=== PATIENT | male | born 1960 | race Caucasian/White ===

== ENCOUNTER 2018-04-09 12:09 | Emergency (ER) | payer MEDICARE, MEDICAID ==
--- NOTE | 2018-04-09 12:42 | EDM.PDOC ---
ED HPI GENERAL MEDICAL PROBLEM - General Chief Complaint: General Stated Complaint: PB HIGH, WEAK, NO MEDICAL MEDS X 1 WK Time Seen by Provider: 04/09/18 12:30 Source of Information: Reports: Patient, RN, RN Notes Reviewed History Limitations: Reports: No Limitations - History of Present Illness INITIAL COMMENTS - FREE TEXT/NARRATIVE: Pt to the ER with direct customer service representative from the [facility]. She states his BP was elevated at the [facility] while there for an appointment. Patient states he has not taken his BP or cardiac meds in about 2 weeks. Patient states he has had some nausea on and off today. Pt. also has a history of Bipolar disorder which is being managed by a psychiatrist here in town. Patient needs medications filled, but he does not have any javier to pay the co-pay. They were hoping to get enough medications through the ER to get by until he establishes care with Edith Somers NP at next week. Pt denies visual disturbances , chest pain, SOB, headache. He states he has had some diarrhea at times, denies vomiting. Onset: Gradual Epigastric Pain Score (Numeric/FACES): 8 - Related Data Allergies Allergy/AdvReac Type Severity Reaction Status Date / Time No Known Allergies Allergy Verified 04/09/18 12:17 Home Meds: Home Meds . [Unable to Verify Home Med List] 04/09/18 [History] Past Medical History HEENT History: Reports: Impaired Vision Cardiovascular History: Reports: Heart Failure Gastrointestinal History: Reports: GERD Neurological History: Reports: Other (See Below) Other Neuro History: restless leg syndrome Psychiatric History: Reports: Suicide Attempt Dermatologic History: Reports: Other (See Below) Other Dermatologic History: dermatitis - Past Surgical History GI Surgical History: Reports: Cholecystectomy Musculoskeletal Surgical History: Reports: Arthroscopic Knee Social & Family History - Tobacco Use Smoking Status *Q: Current Every Day Smoker Years of Tobacco use: 38 Packs/Tins Daily: 0.4 Second Hand Smoke Exposure: Yes - Recreational Drug Use Recreational Drug Use: Yes Drug Use in Last 12 Months: Yes Recreational Drug Type: Reports: Marijuana/Hashish Recreational Drug Use Frequency: Rarely ED ROS GENERAL - Review of Systems Review Of Systems: ROS reveals no pertinent complaints other than HPI. ED EXAM, GENERAL - Physical Exam Exam: See Below Exam Limited By: No Limitations General Appearance: Alert, WD/WN, No Apparent Distress Eye Exam: Bilateral Eye: EOMI, Normal Inspection Ears: Normal External Exam, Hearing Grossly Normal Nose: Normal Inspection Throat/Mouth: Normal Inspection, Normal Voice, No Airway Compromise Head: Atraumatic, Normocephalic Neck: Normal Inspection, Supple, Non-Tender, Full Range of Motion Respiratory/Chest: No Respiratory Distress, No Accessory Muscle Use, Chest Non- Tender, Decreased Breath Sounds Cardiovascular: Normal Peripheral Pulses, Regular Rate, Rhythm, No Edema, No Gallop, No JVD, No Murmur, No Rub Peripheral Pulses: 2+: Radial (L), Radial (R) GI/Abdominal: Normal Bowel Sounds, Soft, Non-Tender, Other (c/o nausea) (Male) Exam: Deferred Rectal (Males) Exam: Deferred Back Exam: Normal Inspection, Full Range of Motion, NT Extremities: Normal Inspection, Normal Range of Motion, Non-Tender, Normal Capillary Refill, No Pedal Edema Neurological: Alert, Oriented, CN II-XII Intact, Normal Cognition, Normal Gait, Normal Reflexes, No Motor/Sensory Deficits Psychiatric: Flat Affect Skin Exam: Warm, Dry, Intact, Normal Color, No Rash Lymphatic: No Adenopathy Course - Vital Signs Last Recorded V/S: Last Vital Signs Temp 97.3 F 04/09/18 12:12 Pulse 65 04/09/18 12:12 Resp 18 04/09/18 12:12 BP 163/98 H 04/09/18 12:12 Pulse Ox 99 04/09/18 12:12 - Orders/Labs/Meds Orders: Active Orders 24 hr Category Date Time Status DRUG SCREEN URINE BIORAD [URCHEM] Stat Lab 04/09/18 13:06 Ordered UA W/MICROSCOPIC [URIN] Stat Lab 04/09/18 13:06 Ordered Labs: Laboratory Tests 04/09/18 04/09/18 Range/Units 13:37 13:37 WBC 9.4 (5.0-10.0) 10^3/uL RBC 4.91 (4.6-6.2) 10^6/uL Hgb 15.1 (14.0-18.0) g/dL Hct 44.5 (40.0-54.0) % MCV 90.6 (80-100) fL MCH 30.8 (27.0-34.0) pg MCHC 33.9 (33.0-35.0) g/dL Plt Count 201 (150-450) 10^3/uL Neut % (Auto) 54.7 (42.2-75.2) % Lymph % (Auto) 30.5 (20.5-50.1) % Coffey % (Auto) 12.6 H (2-8) % Eos % (Auto) 1.8 (1.0-3.0) % Baso % (Auto) 0.4 (0.0-1.0) % Sodium 134 L (135-145) mmol/L Potassium 4.1 (3.6-5.0) mmol/L Chloride 102 (101-111) mmol/L Carbon Dioxide 23.0 (21.0-31.0) mmol/L Anion Gap 13.1 BUN 8 (7-18) mg/dL Creatinine 1.0 (0.6-1.3) mg/dL Est Cr Clr Drug Dosing 97.04 mL/min Estimated GFR (MDRD) > 60 BUN/Creatinine Ratio 8.00 Glucose 97 (74-105) mg/dL Calcium 9.0 (8.4-10.2) mg/dl Total Bilirubin 1.3 H (0.2-1.0) mg/dL AST 39 (10-42) IU/L ALT 34 (10-60) IU/L Alkaline Phosphatase 70 (42-121) IU/L Total Protein 7.9 (6.7-8.2) g/dl Albumin 4.2 (3.2-5.5) g/dl Globulin 3.7 Albumin/Globulin Ratio 1.14 Ethyl Alcohol < 5 mg/dL Meds: Medications Discontinued Medications Generic Name Dose Route Start Last Admin Trade Name Freq PRN Reason Stop Dose Admin Ondansetron HCl 4 mg 04/09/18 13:07 04/09/18 13:15 Zofran Odt PO 04/09/18 13:08 4 mg ONETIME ONE Administration Departure - Departure Time of Disposition: 14:08 Disposition: Home, Self-Care 01 Condition: Fair Clinical Impression: Hypertension Qualifiers: Hypertension type: unspecified Qualified Code(s): I10 - Essential (primary) hypertension - Discharge Information *PRESCRIPTION DRUG MONITORING PROGRAM REVIEWED*: No *COPY OF PRESCRIPTION DRUG MONITORING REPORT IN PATIENT DAHLIA: No Instructions: Hypertension, [id number] Forms: ED Department Discharge Additional Instructions: Take Medications as prescribed. [facility] care facility next week. - My Orders Last 24 Hours: My Active Orders 04/09/18 13:06 DRUG SCREEN URINE BIORAD [URCHEM] Stat UA W/MICROSCOPIC [URIN] Stat - Assessment/Plan Last 24 Hours: My Active Orders 04/09/18 13:06 DRUG SCREEN URINE BIORAD [URCHEM] Stat UA W/MICROSCOPIC [URIN] Stat
[2018-04-09] MEDS ORDERED: Ondansetron 4 MG Tab.DIS PO ONE (13:07)
[2018-04-09 14:03] LABS: ANION GAP 13.1; CHLORIDE,CL 102 mmol/L (101-111); SODIUM,NA 134 mmol/L (135-145)
== END 2018-04-09 14:15 | disposition home or self-care (01) ==
LOC: DL.ED 12:09
DX: I11.0 Hypertensive heart disease with heart failure (principal); I50.9 Heart failure, unspecified; F17.210 Nicotine dependence, cigarettes, uncomplicated
CPT/HCPCS: 36415; 80053; 85025; 99284; A9270; G0480

== ENCOUNTER 2018-08-13 04:25 | Emergency (ER) | payer MEDICARE, MEDICAID ==
[2018-08-13] MEDS ORDERED: Acetaminophen/HYDROcodone 325-10 MG Tab PO ONE (04:26)
[2018-08-13] MEDS ORDERED: Lidocaine 1% 30 ML SDV INJECT ONE (04:51)
[2018-08-13] MEDS ORDERED: Acetaminophen/HYDROcodone 325-10 MG Tab ONE (05:42)
--- NOTE | 2018-08-13 05:43 | EDM.PDOC ---
ED HPI GENERAL MEDICAL PROBLEM - General Chief Complaint: Lower Extremity Injury/Pain Stated Complaint: AMBULANCE-UNKNOWN Time Seen by Provider: 08/13/18 05:38 Source of Information: Reports: Patient History Limitations: Reports: No Limitations - History of Present Illness INITIAL COMMENTS - FREE TEXT/NARRATIVE: injured right big toe and tored nail tonight - Related Data Allergies Allergy/AdvReac Type Severity Reaction Status Date / Time No Known Allergies Allergy Verified 08/13/18 04:39 Home Meds: Home Meds . [Unable to Verify Home Med List] 04/09/18 [History] Past Medical History HEENT History: Reports: Impaired Vision Cardiovascular History: Reports: Heart Failure Gastrointestinal History: Reports: GERD Neurological History: Reports: Other (See Below) Other Neuro History: restless leg syndrome Psychiatric History: Reports: Suicide Attempt Dermatologic History: Reports: Other (See Below) Other Dermatologic History: dermatitis - Past Surgical History GI Surgical History: Reports: Cholecystectomy Musculoskeletal Surgical History: Reports: Arthroscopic Knee Social & Family History - Tobacco Use Smoking Status *Q: Current Every Day Smoker Years of Tobacco use: 36 Packs/Tins Daily: 0.4 Second Hand Smoke Exposure: Yes - Recreational Drug Use Recreational Drug Use: No Review of Systems - Review of Systems Review Of Systems: ROS reveals no pertinent complaints other than HPI. ED EXAM, GENERAL - Physical Exam Exam: See Below Exam Limited By: No Limitations General Appearance: Alert, WD/WN, Mild Distress, Other (discomfort) Ears: Hearing Grossly Normal Throat/Mouth: Normal Voice, No Airway Compromise Head: Atraumatic Neck: Non-Tender, Full Range of Motion Respiratory/Chest: No Respiratory Distress Cardiovascular: Regular Rate, Rhythm GI/Abdominal: Soft, Non-Tender Extremities: Other (right big toe nail avulsion, NV wnl, gait limited to pain) Neurological: Alert, Oriented, Normal Cognition, No Motor/Sensory Deficits Psychiatric: Normal Affect, Normal Mood Skin Exam: Warm, Dry, Normal Color Lymphatic: No Adenopathy ED TRAUMA EXTREMITY PROCEDURES - Additional/Other Procedure(s) Other (Free Text) Procedure(s): 1) hibicleanse soak 2) lido local 3) nail removed without complication 4) sterile dressing applied Course - Vital Signs Last Recorded V/S: Last Vital Signs Temp 36.8 C 08/13/18 04:37 Pulse 92 08/13/18 04:37 Resp 18 08/13/18 04:37 BP 175/104 H 08/13/18 04:37 Pulse Ox 99 08/13/18 04:37 - Orders/Labs/Meds Meds: Medications Discontinued Medications Generic Name Dose Route Start Last Admin Trade Name Giovanni PRN Reason Stop Dose Admin Lidocaine HCl 30 ml 08/13/18 04:51 Xylocaine-Mpf 1% INJECT 08/13/18 04:52 ONETIME ONE Departure - Departure Time of Disposition: 05:41 Disposition: Home, Self-Care 01 Condition: Fair Clinical Impression: Nail avulsion of toe Qualifiers: Encounter type: initial encounter Qualified Code(s): S91.209A - Unspecified open wound of unspecified toe(s) with damage to nail, initial encounter - Discharge Information Instructions: Nail Bed Injury, [id number] Additional Instructions: 1) keep wound clean dry covered next 48 hours 2) change dressing Thursday 3) recheck if there is any change or concern rx given; clindamycin 300mg qid x 40 vicodin 5/325mg bid prn x 6
== END 2018-08-13 05:48 | disposition home or self-care (01) ==
LOC: DL.ED 04:25
DX: S91.201A Unspecified open wound of right great toe with damage to nail, initial encounter (principal); I50.9 Heart failure, unspecified; F17.210 Nicotine dependence, cigarettes, uncomplicated; X58.XXXA Exposure to other specified factors, initial encounter
CPT/HCPCS: 99284; A9270

== ENCOUNTER 2018-08-15 22:48 | Emergency (ER) | payer MEDICARE, MEDICAID ==
[2018-08-15] MEDS ORDERED: LORazepam 1 MG Tab PO ONE (22:49)
[2018-08-15] MEDS ORDERED: Meclizine 12.5 MG Tab PO ONE (22:59)
--- NOTE | 2018-08-15 23:03 | EDM.PDOC ---
ED HPI GENERAL MEDICAL PROBLEM - General Chief Complaint: General Stated Complaint: AMBULANCE-UNKNOW Time Seen by Provider: 08/15/18 22:59 Source of Information: Reports: Patient History Limitations: Reports: No Limitations - History of Present Illness INITIAL COMMENTS - FREE TEXT/NARRATIVE: onset dizziness about 3pm feeling like room is spinning worse when moves around then tonight felt worse feel like passing out thinks he might have taken too many sleeping pills since has been having problem sleeping. Right Hand Pain Score (Numeric/FACES): 4 - Related Data Allergies Allergy/AdvReac Type Severity Reaction Status Date / Time No Known Allergies Allergy Verified 08/15/18 23:21 Home Meds: Home Meds . [Unable to Verify Home Med List] 04/09/18 [History] Past Medical History HEENT History: Reports: Impaired Vision Cardiovascular History: Reports: Heart Failure Gastrointestinal History: Reports: GERD Neurological History: Reports: Other (See Below) Other Neuro History: restless leg syndrome Psychiatric History: Reports: Suicide Attempt Dermatologic History: Reports: Other (See Below) Other Dermatologic History: dermatitis - Past Surgical History GI Surgical History: Reports: Cholecystectomy Musculoskeletal Surgical History: Reports: Arthroscopic Knee ED ROS GENERAL - Review of Systems Review Of Systems: ROS reveals no pertinent complaints other than HPI. ED EXAM, GENERAL - Physical Exam Exam: See Below Exam Limited By: No Limitations General Appearance: Alert, WD/WN, Mild Distress, Other (dizziness) Eye Exam: Bilateral Eye: PERRL (pupils ER @ 4mm) Ears: Hearing Grossly Normal Throat/Mouth: Normal Voice, No Airway Compromise Head: Atraumatic Neck: Non-Tender, Full Range of Motion Respiratory/Chest: No Respiratory Distress, Rhonchi Cardiovascular: Regular Rate, Rhythm GI/Abdominal: Soft, Non-Tender Neurological: Alert, Oriented, Normal Cognition, No Motor/Sensory Deficits, Other (gait limited to vertigo) Psychiatric: Normal Affect, Normal Mood Skin Exam: Warm, Dry, Normal Color Lymphatic: No Adenopathy Course - Vital Signs Last Recorded V/S: Last Vital Signs Temp 37.1 C 08/15/18 23:04 Pulse 90 08/15/18 23:04 Resp 20 08/15/18 23:04 BP 192/118 H 08/15/18 23:04 Pulse Ox 100 08/15/18 23:04 - Orders/Labs/Meds Orders: Active Orders 24 hr Category Date Time Status EKG 12 Lead [EKG Documentation Completion] [RC] STAT Care 08/15/18 22:55 Active Labs: Laboratory Tests 08/15/18 08/15/18 Range/Units 23:15 23:15 WBC 8.4 (5.0-10.0) 10^3/uL RBC 5.25 (4.6-6.2) 10^6/uL Hgb 16.2 (14.0-18.0) g/dL Hct 47.7 (40.0-54.0) % MCV 90.9 (80-100) fL MCH 30.9 (27.0-34.0) pg MCHC 34.0 (33.0-35.0) g/dL Plt Count 207 (150-450) 10^3/uL Neut % (Auto) 47.8 (42.2-75.2) % Lymph % (Auto) 34.7 (20.5-50.1) % Wake % (Auto) 11.7 H (2-8) % Eos % (Auto) 5.2 H (1.0-3.0) % Baso % (Auto) 0.6 (0.0-1.0) % Sodium 134 L (135-145) mmol/L Potassium 3.6 (3.6-5.0) mmol/L Chloride 98 L (101-111) mmol/L Carbon Dioxide 24.0 (21.0-31.0) mmol/L Anion Gap 15.6 BUN 11 (7-18) mg/dL Creatinine 1.1 (0.6-1.3) mg/dL Est Cr Clr Drug Dosing 87.18 mL/min Estimated GFR (MDRD) > 60 BUN/Creatinine Ratio 10.00 Glucose 94 (74-105) mg/dL Calcium 9.4 (8.4-10.2) mg/dl Total Bilirubin 0.8 (0.2-1.0) mg/dL AST 36 (10-42) IU/L ALT 32 (10-60) IU/L Alkaline Phosphatase 93 (42-121) IU/L Troponin I < 0.02 (0.00-0.02) ng/ml B-Natriuretic Peptide 13 (0-100) pg/ml Total Protein 8.4 H (6.7-8.2) g/dl Albumin 4.3 (3.2-5.5) g/dl Globulin 4.1 Albumin/Globulin Ratio 1.05 Meds: Medications Discontinued Medications Generic Name Dose Route Start Last Admin Trade Name Giovanni CARRILLO Reason Stop Dose Admin Lorazepam Confirm 08/16/18 00:07 08/16/18 00:34 Ativan Administered 08/16/18 00:08 Not Given Dose 1 mg .ROUTE .STK-MED ONE Meclizine HCl 12.5 mg 08/15/18 22:59 08/15/18 23:31 Antivert PO 08/15/18 23:00 12.5 mg ONETIME ONE Administration - Re-Assessments/Exams Free Text/Narrative Re-Assessment/Exam: 08/15/18 23:59 results discussed with pt who states he has been taking bit more OTC sleeping pills past few days because he hadn't been sleeping for more than 3 hours past few nights. hadn't seen his PMD for it. but he is feeling slightly better from the meclizine can move better without problems. Departure - Departure Time of Disposition: 00:10 Disposition: Home, Self-Care 01 Condition: Good Clinical Impression: Vertigo Insomnia Qualifiers: Insomnia type: unspecified Qualified Code(s): G47.00 - Insomnia, unspecified - Discharge Information Instructions: Vertigo, [id number] Referrals: PCP,None [Primary Care Provider] - Forms: ED Department Discharge Additional Instructions: 1) see family doctor tomorrow for sleeping meds 2) recheck as needed rx togo; ativan 1mg x 1 - My Orders Last 24 Hours: My Active Orders 08/15/18 22:55 EKG 12 Lead [EKG Documentation Completion] [RC] STAT - Assessment/Plan Last 24 Hours: My Active Orders 08/15/18 22:55 EKG 12 Lead [EKG Documentation Completion] [RC] STAT
[2018-08-15 23:38] LABS: ANION GAP 15.6; CHLORIDE,CL 98 mmol/L (101-111); SODIUM,NA 134 mmol/L (135-145)
[2018-08-16] MEDS ORDERED: LORazepam 1 MG Tab ONE (00:07)
== END 2018-08-16 00:13 | disposition home or self-care (01) ==
LOC: DL.ED 22:48
DX: G47.00 Insomnia, unspecified (principal); R42 Dizziness and giddiness
CPT/HCPCS: 36415; 70450; 71045; 80053; 83880; 84484; 85025; 93005; 99285; A9270

== ENCOUNTER 2018-08-27 22:10 | Emergency (ER) | payer MEDICARE, MEDICAID ==
[2018-08-27 22:52] LABS: ANION GAP 13.5; CHLORIDE,CL 103 mmol/L (101-111); SODIUM,NA 136 mmol/L (135-145)
[2018-08-27] MEDS ORDERED: Iopamidol 612 MG/ML 75 ML Bottle IVPUSH ONE ×2 (22:58→23:08)
[2018-08-27] MEDS ORDERED: HYDROmorphone 1 MG/ML Syringe IVPUSH ONE (23:04)
[2018-08-27] MEDS ORDERED: Ondansetron 4 MG/2 ML SDV IV ONE (23:44)
--- NOTE | 2018-08-28 00:40 | EDM.PDOC ---
ED HPI GENERAL MEDICAL PROBLEM - General Chief Complaint: Abdominal Pain Stated Complaint: SOB,RAPID HEART RATE Time Seen by Provider: 08/27/18 22:20 Source of Information: Reports: Patient History Limitations: Reports: No Limitations - History of Present Illness INITIAL COMMENTS - FREE TEXT/NARRATIVE: Ed with c/o mid abdominal pain and one emesis this jeremias.Difficult to obtain hx from patient muttering one word responses and when asked to repeat patient angry eugene responses. Able t determine nauseated prior to eating cottage cheese PRODUCTION LEAD then mid abdominal pain. EMS report apartment littered with fast food bags, empty bags of potato chips and pop. Epigastric Pain Score (Numeric/FACES): 9 - Related Data Allergies Allergy/AdvReac Type Severity Reaction Status Date / Time No Known Allergies Allergy Verified 08/27/18 23:08 Home Meds: Home Meds . [Unable to Verify Home Med List] 04/09/18 [History] Past Medical History HEENT History: Reports: Impaired Vision Cardiovascular History: Reports: Heart Failure Gastrointestinal History: Reports: GERD Neurological History: Reports: Other (See Below) Other Neuro History: restless leg syndrome Psychiatric History: Reports: Suicide Attempt Dermatologic History: Reports: Other (See Below) Other Dermatologic History: dermatitis - Past Surgical History GI Surgical History: Reports: Cholecystectomy Musculoskeletal Surgical History: Reports: Arthroscopic Knee Social & Family History - Tobacco Use Smoking Status *Q: Current Every Day Smoker Years of Tobacco use: 28 Packs/Tins Daily: 0.3 - Caffeine Use Caffeine Use: Reports: None - Recreational Drug Use Recreational Drug Use: No ED ROS GENERAL - Review of Systems Review Of Systems: Unable To Obtain ED EXAM, GI/ABD - Physical Exam Exam: See Below General Appearance: Alert, No Apparent Distress, Obese (morbid) Eyes: Bilateral: EOMI Ears: Normal External Exam, Normal TMs Nose: Normal Inspection Throat/Mouth: Normal Inspection Head: Atraumatic, Normocephalic Neck: Normal Inspection Respiratory/Chest: No Respiratory Distress, Lungs Clear Cardiovascular: Normal Peripheral Pulses, Regular Rate, Rhythm, Tachycardia (100 's with activity) GI/Abdominal Exam: Normal Bowel Sounds, Soft, Tender (deep palpation mid), Other (proruberant umbilical hernia). No: Guarding, Rigid, Rebound Extremities: Normal Inspection, Pedal Edema (1+) Neurological: Alert, Oriented, Normal Cognition Psychiatric: Other (easily agitated) Skin Exam: Warm, Dry, Intact, Normal Color Course - Vital Signs Last Recorded V/S: Last Vital Signs Temp 98 F 08/27/18 22:18 Pulse 117 H 08/27/18 22:18 Resp 20 08/27/18 22:18 BP 105/75 08/27/18 22:18 Pulse Ox 94 L 08/27/18 22:18 - Orders/Labs/Meds Labs: Laboratory Tests 08/27/18 08/27/18 08/27/18 Range/Units 22:25 22:25 22:25 WBC 10.3 H (5.0-10.0) 10^3/uL RBC 4.74 (4.6-6.2) 10^6/uL Hgb 14.8 (14.0-18.0) g/dL Hct 43.6 (40.0-54.0) % MCV 92.0 (80-100) fL MCH 31.2 (27.0-34.0) pg MCHC 33.9 (33.0-35.0) g/dL Plt Count 189 (150-450) 10^3/uL Neut % (Auto) 57.7 (42.2-75.2) % Lymph % (Auto) 29.5 (20.5-50.1) % Newton % (Auto) 10.7 H (2-8) % Eos % (Auto) 1.6 (1.0-3.0) % Baso % (Auto) 0.5 (0.0-1.0) % Sodium 136 (135-145) mmol/L Potassium 3.5 L (3.6-5.0) mmol/L Chloride 103 (101-111) mmol/L Carbon Dioxide 23.0 (21.0-31.0) mmol/L Anion Gap 13.5 BUN 15 (7-18) mg/dL Creatinine 1.0 (0.6-1.3) mg/dL Est Cr Clr Drug Dosing 95.90 mL/min Estimated GFR (MDRD) > 60 BUN/Creatinine Ratio 15.00 Glucose 164 H (74-105) mg/dL Calcium 8.6 (8.4-10.2) mg/dl Magnesium 1.9 (1.8-2.5) mg/dL Total Bilirubin 0.8 (0.2-1.0) mg/dL AST 28 (10-42) IU/L ALT 20 (10-60) IU/L Alkaline Phosphatase 88 (42-121) IU/L CK-MB (CK-2) 0.80 (0.4-4.7) ng/mL Troponin I < 0.02 (0.00-0.02) ng/ml Total Protein 7.3 (6.7-8.2) g/dl Albumin 3.7 (3.2-5.5) g/dl Globulin 3.6 Albumin/Globulin Ratio 1.03 Meds: Medications Discontinued Medications Generic Name Dose Route Start Last Admin Trade Name Freq PRN Reason Stop Dose Admin Hydromorphone HCl 1 mg 08/27/18 23:04 08/27/18 23:30 Dilaudid IVPUSH 08/27/18 23:05 1 mg ONETIME ONE Administration Iopamidol 75 ml 08/27/18 22:58 08/27/18 23:07 Isovue-300 (61%) IVPUSH 08/27/18 22:59 75 ml ONETIME ONE Administration Iopamidol 75 ml 08/27/18 23:08 08/27/18 23:14 Isovue-300 (61%) IVPUSH 08/27/18 23:09 75 ml ONETIME ONE Administration Ondansetron HCl 4 mg 08/27/18 23:44 08/27/18 23:49 Zofran IV 08/27/18 23:45 4 mg ONETIME ONE Administration Departure - Departure Time of Disposition: 00:46 Disposition: Home, Self-Care 01 Condition: Good Clinical Impression: Nausea Abdominal pain Qualifiers: Abdominal location: epigastric Qualified Code(s): R10.13 - Epigastric pain - Discharge Information *PRESCRIPTION DRUG MONITORING PROGRAM REVIEWED*: Not Applicable Instructions: Nausea, Adult, [id number] Referrals: PCP,None [Primary Care Provider] - Forms: ED Department Discharge Additional Instructions: light diet push fluids next 24 hours zofran 4mg ODT one every 4 hours as needed for nausea light bland diet follow up as needed
== END 2018-08-28 01:00 | disposition home or self-care (01) ==
LOC: DL.ED 22:10
DX: R10.13 Epigastric pain (principal); R11.2 Nausea with vomiting, unspecified; F17.210 Nicotine dependence, cigarettes, uncomplicated
CPT/HCPCS: 36415; 71045; 74177; 80053; 82553; 83735; 84484; 85025; 93005; 96374; 96375; 99285; J1170; J2405; Q9967

== ENCOUNTER 2018-12-01 11:20 | Emergency (ER) | payer MEDICARE, MEDICAID ==
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
--- NOTE | 2018-12-01 14:09 | CR ---
Clinical history: 58-year-old 411 pound male complaining of chest pain who was injured in a fall (right shoulder). Interpretation: Enlarged cardiac silhouette, generalized mild pulmonary venous congestion and small dependent subpulmonic pleural effusions suggesting some cardiovascular decompensation. BPN? EKG? Renal disease? No lung mass, hilar lymphadenopathy or focal lobar pneumonia. No atelectasis/collapse. No pneumothorax. CONCLUSION: Abnormal congestion (see above). No lung contusion or pneumothorax.
--- NOTE | 2018-12-01 14:13 | CR ---
Clinical history: 58-year-old morbidly obese (411 pounds) male with chest congestion and pain right shoulder (injured fall). Interpretation: (4 views) calcified axillary lymph nodes on the right. Chronic mild reactive arthritic changes right A/C joint. Normal spacing between the acromion process scapula and the head of the humerus. No juxta-articular rotator cuff tendon calcification. *Suspicious appearance on the "Y view" suggesting nondisplaced avulsion fracture greater tuberosity humeral head. No other fracture or glenohumeral dislocation right shoulder. Underlying ribs upper right hemithorax unremarkable. Right lung apex clear. CONCLUSION: Suspicious appearance humeral head (occult nondisplaced fracture). No other fracture or dislocation/separation.
[2018-12-01 15:02] LABS: ANION GAP 12.7; CHLORIDE,CL 106 mmol/L (101-111); SODIUM,NA 138 mmol/L (135-145)
== END 2018-12-01 14:24 | disposition left against medical advice (07) ==
LOC: DL.ED 11:20
DX: L03.116 Cellulitis of left lower limb (principal); I11.0 Hypertensive heart disease with heart failure; I50.9 Heart failure, unspecified; J44.9 Chronic obstructive pulmonary disease, unspecified; K21.9 Gastro-esophageal reflux disease without esophagitis; F17.210 Nicotine dependence, cigarettes, uncomplicated; F32.9 Major depressive disorder, single episode, unspecified; Z91.19 Patient's noncompliance with other medical treatment and regimen; Z79.899 Other long term (current) drug therapy; Z79.82 Long term (current) use of aspirin
CPT/HCPCS: 36415; 71046; 73030-RT; 80053; 84484; 85025; 93005; 99284-25

== ENCOUNTER 2018-12-14 13:31 | Emergency (ER) | payer MEDICARE, MEDICAID ==
[2018-12-14 14:26] LABS: ANION GAP 13.9; CHLORIDE,CL 101 mmol/L (101-111); SODIUM,NA 135 mmol/L (135-145)
--- NOTE | 2018-12-14 14:53 | CR ---
Clinical history: 58-year-old obese male with chest pain and shortness of breath (comparison 01 Dec 2018). 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 Normal cardiac silhouette exaggerated by poor inspiration but unchanged and no new cephalization of flow, signs of alveolar edema or dependent pleural fluid accumulation. No new lung mass, hilar lymphadenopathy or focal lobar pneumonia. Peribronchial "cuffing" but no air trapping. No pneumothorax. No atelectasis/collapse. CONCLUSION: No acute new cardiopulmonary abnormality since 01 Dec 2018 exam when patient appeared to be "congested" (small pleural effusions) i.e. interval improvement.
--- NOTE | 2018-12-14 15:07 | EDM.PDOC ---
ED HPI GENERAL MEDICAL PROBLEM - General Chief Complaint: Respiratory Problem Stated Complaint: REFERRED FROM [facility] Time Seen by Provider: 12/14/18 14:11 Source of Information: Reports: Patient, Provider, RN, RN Notes Reviewed History Limitations: Reports: No Limitations - History of Present Illness INITIAL COMMENTS - FREE TEXT/NARRATIVE: Patient presents to ER with complaint of sharp chest pains mid sternal and shortness of breath a couple of weeks ago. He saw Nurse Practitioner at clinic today. Cannot walk long distance, needs to rest. He has had fever, chills, dry heaves and decreased appetite. No diarrhea or cough. Onset: Gradual Duration: Constant Location: Reports: Chest Quality: Reports: Ache Severity: Mild Improves with: Reports: None Worsens with: Reports: None Associated Symptoms: Reports: Diaphoresis Middle Chest Pain Score (Numeric/FACES): 4 - Related Data Allergies Allergy/AdvReac Type Severity Reaction Status Date / Time No Known Allergies Allergy Verified 12/14/18 14:10 Home Meds: Home Meds Albuterol Sulfate [Albuterol Sulfate Hfa] 2 puff IH Q6H PRN 12/14/18 [History] Aspirin [Halfprin] 81 mg PO DAILY 12/14/18 [History] Budesonide/Formoterol [Symbicort 160-4.5 MCG] 2 puff INH BID 12/14/18 [History] Carvedilol 12.5 mg PO BID 12/14/18 [History] Furosemide [Lasix] 40 mg PO DAILY 12/14/18 [History] Gabapentin [Gralise] 600 mg PO BEDTIME 12/14/18 [History] LORazepam 0.5 mg PO BEDTIME 12/14/18 [History] Lisinopril 10 mg PO DAILY 12/14/18 [History] Ondansetron [Zofran ODT] 4 mg PO Q8H PRN 12/14/18 [History] Pantoprazole Sodium [Protonix] 40 mg PO DAILY 12/14/18 [History] QUEtiapine Fumarate [Seroquel] 800 mg PO BEDTIME 12/14/18 [History] Sertraline [Zoloft] 50 mg PO DAILY 12/14/18 [History] Simvastatin [Zocor] 20 mg PO BEDTIME 12/14/18 [History] amLODIPine [Norvasc] 5 mg PO DAILY 12/14/18 [History] Past Medical History HEENT History: Reports: Impaired Vision Cardiovascular History: Reports: Heart Failure, High Cholesterol, Hypertension Respiratory History: Reports: COPD Gastrointestinal History: Reports: GERD Genitourinary History: Reports: None Neurological History: Reports: Other (See Below) Other Neuro History: restless leg syndrome Psychiatric History: Reports: Depression, Suicide Attempt Endocrine/Metabolic History: Reports: Obesity/BMI 30+ Hematologic History: Reports: None Immunologic History: Reports: None Oncologic (Cancer) History: Reports: None Dermatologic History: Reports: Cellulitis, Other (See Below) Other Dermatologic History: dermatitis - Infectious Disease History Infectious Disease History: Reports: None - Past Surgical History Head Surgeries/Procedures: Reports: None GI Surgical History: Reports: Cholecystectomy Musculoskeletal Surgical History: Reports: Arthroscopic Knee Social & Family History - Family History Family Medical History: Noncontributory - Tobacco Use Smoking Status *Q: Current Every Day Smoker Years of Tobacco use: 30 Packs/Tins Daily: 0.2 - Caffeine Use Caffeine Use: Reports: None - Recreational Drug Use Recreational Drug Use: No ED ROS GENERAL - Review of Systems Review Of Systems: ROS reveals no pertinent complaints other than HPI. ED EXAM, GENERAL - Physical Exam Exam: See Below Exam Limited By: No Limitations General Appearance: Alert, WD/WN, No Apparent Distress Eye Exam: Bilateral Eye: EOMI, Normal Inspection, PERRL Ears: Normal External Exam, Normal Canal, Hearing Grossly Normal, Normal TMs Nose: Normal Inspection, Normal Mucosa, No Blood Throat/Mouth: Normal Inspection, Normal Lips, Normal Teeth, Normal Gums, Normal Oropharynx, Normal Voice, No Airway Compromise Head: Atraumatic, Normocephalic Neck: Normal Inspection, Supple, Non-Tender, Full Range of Motion Respiratory/Chest: Wheezing (diminished), Other (tender mid sternal) Cardiovascular: Normal Peripheral Pulses, Regular Rate, Rhythm, No Edema, No Gallop, No JVD, No Murmur, No Rub GI/Abdominal: Normal Bowel Sounds, Soft, Non-Tender, No Organomegaly, No Distention, No Abnormal Bruit, No Mass (Male) Exam: Deferred Rectal (Males) Exam: Deferred Back Exam: Normal Inspection, Full Range of Motion, NT Extremities: Normal Inspection, Normal Range of Motion, Non-Tender, Normal Capillary Refill, No Pedal Edema Neurological: Alert, Oriented, CN II-XII Intact, Normal Cognition, Normal Gait, Normal Reflexes, No Motor/Sensory Deficits Psychiatric: Normal Affect, Normal Mood Skin Exam: Warm, Dry, Intact, Normal Color, No Rash Lymphatic: No Adenopathy Course - Vital Signs Last Recorded V/S: Last Vital Signs Temp 97.9 F 12/14/18 14:13 Pulse 72 12/14/18 14:13 Resp 18 12/14/18 14:13 BP 160/108 H 12/14/18 14:13 Pulse Ox 100 12/14/18 14:13 - Orders/Labs/Meds Orders: Active Orders 24 hr Category Date Time Status EKG Documentation Completion [RC] STAT Care 12/14/18 14:01 Inactive EKG Documentation Completion [RC] URGENT Care 12/14/18 13:54 Active Labs: Laboratory Tests 12/14/18 12/14/18 12/14/18 Range/Units 13:55 13:55 13:55 WBC 11.0 H (5.0-10.0) 10^3/uL RBC 5.77 (4.6-6.2) 10^6/uL Hgb 17.7 D (14.0-18.0) g/dL Hct 52.4 (40.0-54.0) % MCV 90.8 (80-100) fL MCH 30.7 (27.0-34.0) pg MCHC 33.8 (33.0-35.0) g/dL Plt Count 213 (150-450) 10^3/uL Neut % (Auto) 54.9 (42.2-75.2) % Lymph % (Auto) 32.2 (20.5-50.1) % Esmeralda % (Auto) 10.4 H (2-8) % Eos % (Auto) 2.2 (1.0-3.0) % Baso % (Auto) 0.3 (0.0-1.0) % PT 10.4 (9.0-12.0) SEC INR 1.0 (0.9-1.2) Sodium 135 (135-145) mmol/L Potassium 3.9 (3.6-5.0) mmol/L Chloride 101 (101-111) mmol/L Carbon Dioxide 24.0 (21.0-31.0) mmol/L Anion Gap 13.9 BUN 13 (7-18) mg/dL Creatinine 1.0 (0.6-1.3) mg/dL Est Cr Clr Drug Dosing 90.53 mL/min Estimated GFR (MDRD) > 60 BUN/Creatinine Ratio 13.00 Glucose 92 (74-105) mg/dL Calcium 9.0 (8.4-10.2) mg/dl Total Bilirubin 1.2 H (0.2-1.0) mg/dL AST 36 (10-42) IU/L ALT 36 (10-60) IU/L Alkaline Phosphatase 79 (42-121) IU/L Troponin I 0.00 (0.00-0.08) ng/mL B-Natriuretic Peptide 10 (0-100) pg/ml Total Protein 8.5 H (6.7-8.2) g/dl Albumin 4.6 (3.2-5.5) g/dl Globulin 3.9 Albumin/Globulin Ratio 1.18 - Radiology Interpretation Free Text/Narrative:: No acute new cardiopulmonary abnormality since 01 Dec 2018 exam when patient appeared to be "congested" (small pleural effusions Departure - Departure Time of Disposition: 15:16 Disposition: Home, Self-Care 01 Condition: Fair Clinical Impression: SOB (shortness of breath), Chest pain due to CAD Hypertension Qualifiers: Hypertension type: unspecified Qualified Code(s): I10 - Essential (primary) hypertension - Discharge Information *PRESCRIPTION DRUG MONITORING PROGRAM REVIEWED*: No *COPY OF PRESCRIPTION DRUG MONITORING REPORT IN PATIENT DAHLIA: No Instructions: Shortness of Breath, Adult, [id number], Exercise Stress Test, [id number], DASH Eating Plan, Hypertension, [id number] Referrals: Edith Somers NP [Primary Care Provider] - Forms: ED Department Discharge Additional Instructions: Get your medications filled and take them Follow up with Exercise Stress Test - My Orders Last 24 Hours: My Active Orders 12/14/18 13:54 EKG Documentation Completion [RC] URGENT 12/14/18 14:01 EKG Documentation Completion [RC] STAT - Assessment/Plan Last 24 Hours: My Active Orders 12/14/18 13:54 EKG Documentation Completion [RC] URGENT 12/14/18 14:01 EKG Documentation Completion [RC] STAT
== END 2018-12-14 15:24 | disposition home or self-care (01) ==
LOC: DL.ED 13:31
DX: I25.10 Atherosclerotic heart disease of native coronary artery without angina pectoris (principal); I10 Essential (primary) hypertension; I11.0 Hypertensive heart disease with heart failure; I50.9 Heart failure, unspecified; J44.9 Chronic obstructive pulmonary disease, unspecified; K21.9 Gastro-esophageal reflux disease without esophagitis; Z79.82 Long term (current) use of aspirin; Z79.899 Other long term (current) drug therapy
CPT/HCPCS: 36415; 71046; 80053; 83880; 84484; 85025; 85610; 93005; 99284-25

== ENCOUNTER 2019-01-04 20:33 | Emergency (ER) | payer MEDICARE, MEDICAID ==
[2019-01-04] MEDS ORDERED: fentaNYL 100 MCG/2 ML SDV IVPUSH ONE ×2 (21:13→22:25)
[2019-01-04] MEDS ORDERED: Ondansetron 4 MG/2 ML SDV IV ONE (21:13)
[2019-01-04 21:24] LABS: ANION GAP 15.6; CHLORIDE,CL 99 mmol/L (101-111); SODIUM,NA 134 mmol/L (135-145)
[2019-01-04] MEDS ORDERED: Labetalol 100 MG/20 ML MDV IVPUSH ONE (21:26)
[2019-01-04] MEDS ORDERED: Iopamidol 612 MG/ML 75 ML Bottle IVPUSH ONE (21:45)
[2019-01-04] MEDS ORDERED: Iopamidol 612 MG/ML 50 ML SDV IVPUSH ONE (21:46)
[2019-01-04] MEDS ORDERED: 50% Dextrose in Water 50 ML Syringe IVPUSH ONE (23:16)
[2019-01-05] MEDS ORDERED: HYDROmorphone 1 MG/ML Syringe IVPUSH ONE (00:23)
[2019-01-05] MEDS ORDERED: Labetalol 100 MG/20 ML MDV IVPUSH ONE (00:24)
--- NOTE | 2019-01-05 00:43 | EDM.PDOC ---
"ED HPI GENERAL MEDICAL PROBLEM - General Chief Complaint: General Stated Complaint: UNKNOWN-AMBULANCE Time Seen by Provider: 01/04/19 20:35 Source of Information: Reports: Patient History Limitations: Reports: No Limitations - History of Present Illness INITIAL COMMENTS - FREE TEXT/NARRATIVE: ED via [facility] with c/o abdominal pain, and nausea. Fields weak pat 2 days. reported to RN fell 5 times today, to provider fell to knees x 1. has not hit head. No diarrhea. No cough. No reported fever. No chest pain. Only ate breakfast of cheerios and went back to bed. Decreased urination past few weeks. States abdomen feels distended. 2 BM's today. Similar episodes of weekness and abdominal pain in past. Initial report of compliance with medications, later that is out of seroquel and ativan for past week, Pharmacy reviews appears to have been filled on 12/07/2018 Right Lower Abdomen Pain Score (Numeric/FACES): 7 - Related Data Allergies Allergy/AdvReac Type Severity Reaction Status Date / Time No Known Allergies Allergy Verified 01/04/19 20:58 Home Meds: Home Meds Albuterol Sulfate [Albuterol Sulfate Hfa] 2 puff IH Q6H PRN 12/14/18 [History] Aspirin [Halfprin] 81 mg PO DAILY 12/14/18 [History] Budesonide/Formoterol [Symbicort 160-4.5 MCG] 2 puff INH BID 12/14/18 [History] Carvedilol 12.5 mg PO BID 12/14/18 [History] Furosemide [Lasix] 40 mg PO DAILY 12/14/18 [History] Gabapentin [Gralise] 600 mg PO BEDTIME 12/14/18 [History] LORazepam 0.5 mg PO BEDTIME 12/14/18 [History] Lisinopril 10 mg PO DAILY 12/14/18 [History] Ondansetron [Zofran ODT] 4 mg PO Q8H PRN 12/14/18 [History] Pantoprazole Sodium [Protonix] 40 mg PO DAILY 12/14/18 [History] QUEtiapine Fumarate [Seroquel] 800 mg PO BEDTIME 12/14/18 [History] Sertraline [Zoloft] 50 mg PO DAILY 12/14/18 [History] Simvastatin [Zocor] 20 mg PO BEDTIME 12/14/18 [History] amLODIPine [Norvasc] 5 mg PO DAILY 12/14/18 [History] Past Medical History HEENT History: Reports: Impaired Vision Cardiovascular History: Reports: Heart Failure, High Cholesterol, Hypertension Respiratory History: Reports: COPD Gastrointestinal History: Reports: GERD Genitourinary History: Reports: None Neurological History: Reports: Other (See Below) Other Neuro History: restless leg syndrome Psychiatric History: Reports: Depression, Suicide Attempt Endocrine/Metabolic History: Reports: Obesity/BMI 30+ Hematologic History: Reports: None Immunologic History: Reports: None Oncologic (Cancer) History: Reports: None Dermatologic History: Reports: Cellulitis, Other (See Below) Other Dermatologic History: dermatitis - Infectious Disease History Infectious Disease History: Reports: None, Hepatitis A - Past Surgical History Head Surgeries/Procedures: Reports: None GI Surgical History: Reports: Cholecystectomy Musculoskeletal Surgical History: Reports: Arthroscopic Knee Social & Family History - Family History Family Medical History: Noncontributory - Tobacco Use Smoking Status *Q: Current Every Day Smoker Years of Tobacco use: 28 Packs/Tins Daily: 5 - Caffeine Use Caffeine Use: Reports: None - Recreational Drug Use Recreational Drug Use: No ED ROS GENERAL - Review of Systems Review Of Systems: ROS reveals no pertinent complaints other than HPI. ED EXAM, GENERAL - Physical Exam Exam: See Below Exam Limited By: No Limitations General Appearance: Alert, Anxious, Mild Distress, Obese (morbid), Other ( unshowered, skin and hair greasy.) Eye Exam: Bilateral Eye: EOMI, PERRL Ears: Normal External Exam, Normal TMs, Hearing Loss Nose: Normal Inspection Throat/Mouth: Normal Inspection Head: Atraumatic, Normocephalic Neck: Normal Inspection Respiratory/Chest: No Respiratory Distress, Lungs Clear, Normal Breath Sounds Cardiovascular: Normal Peripheral Pulses, Regular Rate, Rhythm GI/Abdominal: Normal Bowel Sounds, Tender (general) Back Exam: Normal Inspection Extremities: Normal Inspection, Normal Range of Motion, Pedal Edema (2+). No: Joint Swelling Neurological: Alert, Oriented, Normal Cognition Psychiatric: Anxious Skin Exam: Warm, Dry, Intact, Normal Color, Other (no bruising or abrasion to knee, superficial scratches to right upper arm, light sunburn to right upper extremity and neck.). No: Ecchymosis Course - Vital Signs Last Recorded V/S: Last Vital Signs Temp 99 F 01/05/19 01:31 Pulse 91 01/05/19 00:46 Resp 16 01/05/19 00:46 BP 179/101 H 01/04/19 22:53 Pulse Ox 96 01/05/19 00:46 - Orders/Labs/Meds Orders: Active Orders 24 hr Category Date Time Status EKG 12 Lead [EKG Documentation Completion] [RC] URGENT Care 01/04/19 20:41 Active Labs: Laboratory Tests 01/04/19 01/04/19 01/04/19 Range/Units 20:55 20:55 20:55 WBC 17.6 H (5.0-10.0) 10^3/uL RBC 5.58 (4.6-6.2) 10^6/uL Hgb 17.4 (14.0-18.0) g/dL Hct 49.8 (40.0-54.0) % MCV 89.2 (80-100) fL MCH 31.2 (27.0-34.0) pg MCHC 34.9 (33.0-35.0) g/dL Plt Count 187 (150-450) 10^3/uL Neut % (Auto) 79.9 H (42.2-75.2) % Lymph % (Auto) 10.7 L (20.5-50.1) % [place] % (Auto) 8.5 H (2-8) % Eos % (Auto) 0.7 L (1.0-3.0) % Baso % (Auto) 0.2 (0.0-1.0) % PT (9.0-12.0) SEC INR (0.9-1.2) Sodium 134 L (135-145) mmol/L Potassium 3.6 (3.6-5.0) mmol/L Chloride 99 L (101-111) mmol/L Carbon Dioxide 23.0 (21.0-31.0) mmol/L Anion Gap 15.6 BUN 12 (7-18) mg/dL Creatinine 0.9 (0.6-1.3) mg/dL Est Cr Clr Drug Dosing 106.56 mL/min Estimated GFR (MDRD) > 60 BUN/Creatinine Ratio 13.33 Glucose 110 H (74-105) mg/dL Lactic Acid 1.4 (0.5-2.2) mmol/L Calcium 9.1 (8.4-10.2) mg/dl Magnesium 1.6 L (1.8-2.5) mg/dL Total Bilirubin 1.1 H (0.2-1.0) mg/dL AST 32 (10-42) IU/L ALT 33 (10-60) IU/L Alkaline Phosphatase 85 (42-121) IU/L Troponin I < 0.02 (0.00-0.02) ng/ml B-Natriuretic Peptide 110 H (0-100) pg/ml Total Protein 8.3 H (6.7-8.2) g/dl Albumin 4.4 (3.2-5.5) g/dl Globulin 3.9 Albumin/Globulin Ratio 1.13 Lipase (22-51) U/L Urine Color (YELLOW) Urine Appearance (CLEAR) Urine pH (5.0-9.0) Ur Specific [place] (1.005-1.030) Urine Protein (NEGATIVE) Urine Glucose (UA) (NEGATIVE) Urine Ketones (NEGATIVE) Urine Occult Blood (NEGATIVE) Urine Nitrite (NEGATIVE) Urine Bilirubin (NEGATIVE) Urine Urobilinogen (0.2-1.0) mg/dL Ur Leukocyte Esterase (NEGATIVE) Urine RBC /HPF Urine WBC (0-5/HPF) /HPF Ur Epithelial Cells (NOT SEEN) /HPF Urine Bacteria (0-FEW/HPF) /HPF 01/04/19 01/04/19 01/05/19 Range/Units 20:55 20:55 00:35 WBC (5.0-10.0) 10^3/uL RBC (4.6-6.2) 10^6/uL Hgb (14.0-18.0) g/dL Hct (40.0-54.0) % MCV (80-100) fL MCH (27.0-34.0) pg MCHC (33.0-35.0) g/dL Plt Count (150-450) 10^3/uL Neut % (Auto) (42.2-75.2) % Lymph % (Auto) (20.5-50.1) % [place] % (Auto) (2-8) % Eos % (Auto) (1.0-3.0) % Baso % (Auto) (0.0-1.0) % PT 9.9 (9.0-12.0) SEC INR 1.0 (0.9-1.2) Sodium (135-145) mmol/L Potassium (3.6-5.0) mmol/L Chloride (101-111) mmol/L Carbon Dioxide (21.0-31.0) mmol/L Anion Gap BUN (7-18) mg/dL Creatinine (0.6-1.3) mg/dL Est Cr Clr Drug Dosing mL/min Estimated GFR (MDRD) BUN/Creatinine Ratio Glucose (74-105) mg/dL Lactic Acid (0.5-2.2) mmol/L Calcium (8.4-10.2) mg/dl Magnesium (1.8-2.5) mg/dL Total Bilirubin (0.2-1.0) mg/dL AST (10-42) IU/L ALT (10-60) IU/L Alkaline Phosphatase (42-121) IU/L Troponin I (0.00-0.02) ng/ml B-Natriuretic Peptide (0-100) pg/ml Total Protein (6.7-8.2) g/dl Albumin (3.2-5.5) g/dl Globulin Albumin/Globulin Ratio Lipase 24 (22-51) U/L Urine Color Yellow (YELLOW) Urine Appearance Clear (CLEAR) Urine pH 8.5 (5.0-9.0) Ur Specific [place] 1.015 (1.005-1.030) Urine Protein Negative (NEGATIVE) Urine Glucose (UA) Negative (NEGATIVE) Urine Ketones Negative (NEGATIVE) Urine Occult Blood Trace-intact H (NEGATIVE) Urine Nitrite Negative (NEGATIVE) Urine Bilirubin Negative (NEGATIVE) Urine Urobilinogen 2.0 H (0.2-1.0) mg/dL Ur Leukocyte Esterase Negative (NEGATIVE) Urine RBC 0-5 /HPF Urine WBC 0-5 (0-5/HPF) /HPF Ur Epithelial Cells Few (NOT SEEN) /HPF Urine Bacteria Few (0-FEW/HPF) /HPF Meds: Medications Discontinued Medications Generic Name Dose Route Start Last Admin Trade Name Freq PRN Reason Stop Dose Admin Acetaminophen 650 mg 01/05/19 00:45 01/05/19 00:50 Tylenol PO 01/05/19 00:46 650 mg NOW ONE Administration Fentanyl 50 mcg 01/04/19 21:13 01/04/19 21:28 Sublimaze IVPUSH 01/04/19 21:14 50 mcg ONETIME ONE Administration Fentanyl 50 mcg 01/04/19 22:25 01/04/19 22:31 Sublimaze IVPUSH 01/04/19 22:26 50 mcg ONETIME ONE Administration Hydromorphone HCl 1 mg 01/05/19 00:23 01/05/19 00:55 Dilaudid IVPUSH 01/05/19 00:24 1 mg ONETIME ONE Administration Iopamidol 75 ml 01/04/19 21:45 01/04/19 22:32 Isovue-300 (61%) IVPUSH 01/04/19 21:46 75 ml ONETIME ONE Administration Iopamidol 50 ml 01/04/19 21:46 01/04/19 22:32 Isovue-300 (61%) IVPUSH 01/04/19 21:47 50 ml ONETIME ONE Administration Labetalol HCl 20 mg 01/04/19 21:26 01/04/19 21:42 Normodyne IVPUSH 01/04/19 21:27 20 mg ONETIME ONE Administration Protocol Labetalol HCl 20 mg 01/05/19 00:24 01/05/19 00:48 Normodyne IVPUSH 01/05/19 00:25 20 mg ONETIME ONE Administration Protocol Ondansetron HCl 4 mg 01/04/19 21:13 01/04/19 21:28 Zofran IV 01/04/19 21:14 4 mg ONETIME ONE Administration - Radiology Interpretation Free Text/Narrative:: [facility] Final Radiology Report Call: [phone] assistance Online chat: [email or web address] Name: RIANNA WILLIS Age: 58Years M Date: 01/04/2019 SSN: -- : [id number] Study: CT ABDOMEN/PELVIS W Requesting Physician: DAVID BHAT Images: 1 Addl Studies: Provided Clinical History: Contrast: With Contrast Medium: Iso 300 Contrast Amount: 125 mL Contrast Method: R Wrist 20g Page 1 of 2 EXAM: CT Abdomen and Pelvis With Contrast EXAM DATE/TIME: 01/04/2019 10:16 PM CLINICAL HISTORY: 58 years old, male; Other: Abdomen pain, nausea, vomitting TECHNIQUE: Imaging protocol: Axial computed tomography images of the abdomen and pelvis with intravenous contrast. Coronal and sagittal reformatted images were created and reviewed. Radiation optimization: All CT scans at this facility use at least one of these dose optimization techniques: automated exposure control; mA and/or kV adjustment per patient size (includes targeted exams where dose is matched to clinical indication); or iterative reconstruction. Contrast material: ISO 300; Contrast volume: 125 ml; Contrast route: R WRIST 20G ; COMPARISON: CT Abdomen Pelvis w Cont 08/27/2018 11:30 PM FINDINGS: ABDOMEN: Liver: No suspicious lesions. Gallbladder and bile ducts: Cholecystectomy. Pancreas: Unremarkable. No ductal dilation. Spleen: No suspicious lesions. Adrenals: Unremarkalbe. No suspicious mass. Kidneys and ureters: Unremarkable. No hydro. No suspicious lesions. Stomach and bowel: Unremarkable. No obstruction or inflammatory changes. RIANNA WILLIS | Final Radiology Report CONFIDENTIALITY STATEMENT This report is intended only for use by the referring physician, and only in accordance with law. If you received this in error, call [phone]. Page 2 of 2 Appendix: Normal appendix. PELVIS: Bladder: Unremarkable as visualized. Reproductive: Unremarkable as visualized. ABDOMEN and PELVIS: Intraperitoneal space: No free air. No significant fluid collection. Bones/joints: No acute fracture. No dislocation. Soft tissues: Fat containing umbilical hernia. Small fat containing left inguinal hernia. Vasculature: Unremarkable. No acute findings Lymph nodes: Unremarkable. IMPRESSION: Fat containing umbilical hernia. Small fat containing left inguinal hernia. Thank you for allowing us to participate in the care of your patient. - Re-Assessments/Exams Free Text/Narrative Re-Assessment/Exam: 01/05/19 06:10 Hypertensive on presentation, no c/o blurred vision or headache, no chest complaints. Responded to IV Labetalol. Repeat dose prior to transfer as BP elevating. Admits to some feeling of claustrophobia being confined in exam room. Becoming more demanding of nursing time and irritable. Isolated elvated temp 103. Responded to tylenol. TC Dr Leanne NARANJO hospitalist, recommend transfer to [facility]. Dr Monte accepting of patient in transfer. Tx via [facility]. Departure - Departure Time of Disposition: 01:30 Disposition: DC/Tfer to Acute Hospital 02 Condition: Good Clinical Impression: Generalized weakness Abdominal pain Qualifiers: Abdominal location: generalized Qualified Code(s): R10.84 - Generalized abdominal pain Ventral hernia Qualifiers: Obstruction and gangrene presence: without obstruction or gangrene Qualified Code(s): K43.9 - Ventral hernia without obstruction or gangrene Leukocytosis (leucocytosis) Qualifiers: Leukocytosis type: unspecified Qualified Code(s): D72.829 - Elevated white blood cell count, unspecified Hypertension Qualifiers: Hypertension type: unspecified Qualified Code(s): I10 - Essential (primary) hypertension - Discharge Information *PRESCRIPTION DRUG MONITORING PROGRAM REVIEWED*: No *COPY OF PRESCRIPTION DRUG MONITORING REPORT IN PATIENT DAHLIA: No Referrals: PCP,Unobtain [Primary Care Provider] - Forms: ED Department Discharge - My Orders Last 24 Hours: My Active Orders 01/04/19 20:41 EKG 12 Lead [EKG Documentation Completion] [RC] URGENT - Assessment/Plan Last 24 Hours: My Active Orders 01/04/19 20:41 EKG 12 Lead [EKG Documentation Completion] [RC] URGENT"
[2019-01-05] MEDS ORDERED: Acetaminophen 325 MG Tab PO ONE (00:45)
== END 2019-01-05 01:31 ==
LOC: DL.ED 20:33
DX: K43.9 Ventral hernia without obstruction or gangrene (principal); D72.829 Elevated white blood cell count, unspecified; R53.1 Weakness; I11.0 Hypertensive heart disease with heart failure; I50.9 Heart failure, unspecified; E78.00 Pure hypercholesterolemia, unspecified; J44.9 Chronic obstructive pulmonary disease, unspecified; K21.9 Gastro-esophageal reflux disease without esophagitis; F32.9 Major depressive disorder, single episode, unspecified; F17.210 Nicotine dependence, cigarettes, uncomplicated; Z79.82 Long term (current) use of aspirin; Z79.899 Other long term (current) drug therapy
CPT/HCPCS: 36415; 74177; 80053; 81001; 83605; 83690; 83735; 83880; 84484; 85025; 85610; 93005; 96374; 96375; 96376; 99285-25; A9270-GY; J1170; J2405; J3010; J3490; Q9967

== ENCOUNTER 2019-06-14 17:54 | Emergency (ER) | payer MEDICARE, MEDICAID ==
[2019-06-14 15:34] LABS: ANION GAP 13.1; CHLORIDE,CL 102 mmol/L (101-111); SODIUM,NA 137 mmol/L (135-145)
--- NOTE | 2019-06-14 15:54 | CR ---
EXAMINATION: Abdomen 2V AP Flat Upright SEX: Male AGE: 59 years CLINICAL HISTORY: 59-year-old morbidly obese male with abdominal pain. INTERPRETATION: 1. Cholecystectomy clips RUQ. Midline collection of bowel may represent ventral hernia but no associated evidence of mechanical bowel obstruction (large or small bowel). 2. No other foreign bodies. 3. No abdominal soft tissue mass or pathologic calcifications. 4. No free subdiaphragmatic air but linear gas pattern in the right upper quadrant may represent air in the biliary ducts (versus stool in the hepatic flexure).
--- NOTE | 2019-06-14 16:14 | EDM.PDOC ---
Scribed by Brenda Pedraza 06/14/19 [id number] for Grupo Dickerson PA ED HPI GENERAL MEDICAL PROBLEM - General Chief Complaint: Gastrointestinal Problem Stated Complaint: AMBULANCE Time Seen by Provider: 06/14/19 15:40 Source of Information: Reports: Patient, EMS, EMS Notes Reviewed, RN, RN Notes Reviewed History Limitations: Reports: No Limitations - History of Present Illness INITIAL COMMENTS - FREE TEXT/NARRATIVE: Patient is a 59-year-old male patient who was brought to the ED by [facility] for complaint of abdominal pain and constipation. The patient started to have symptoms about 1 week ago. He states he has not had a bowel movement in 1 week. The patient reports increasing pain when walking. The patient reports no previous similar symptoms. Onset: Gradual Duration: Getting Worse Location: Reports: Abdomen Quality: Reports: Ache Severity: Moderate Improves with: Reports: None Worsens with: Reports: None Associated Symptoms: Reports: No Other Symptoms Left Lower Abdomen Pain Score (Numeric/FACES): 8 - Related Data Allergies Allergy/AdvReac Type Severity Reaction Status Date / Time No Known Allergies Allergy Verified 02/14/19 18:52 Home Meds: Home Meds Albuterol Sulfate [Albuterol Sulfate Hfa] 2 puff IH Q6H PRN 12/14/18 [History] Aspirin [Halfprin] 81 mg PO DAILY 12/14/18 [History] Budesonide/Formoterol [Symbicort 160-4.5 MCG] 2 puff INH BID 12/14/18 [History] Furosemide [Lasix] 40 mg PO DAILY 12/14/18 [History] Gabapentin [Gralise] 600 mg PO BEDTIME 12/14/18 [History] LORazepam 0.5 mg PO BEDTIME 12/14/18 [History] Lisinopril 10 mg PO DAILY 12/14/18 [History] Pantoprazole Sodium [Protonix] 40 mg PO DAILY 12/14/18 [History] QUEtiapine Fumarate [Seroquel] 800 mg PO BEDTIME 12/14/18 [History] Sertraline [Zoloft] 50 mg PO DAILY 12/14/18 [History] Simvastatin [Zocor] 20 mg PO BEDTIME 12/14/18 [History] amLODIPine [Norvasc] 5 mg PO DAILY 12/14/18 [History] carvediloL [Carvedilol] 12.5 mg PO DAILY 12/14/18 [History] Past Medical History HEENT History: Reports: Impaired Vision Cardiovascular History: Reports: Heart Failure, High Cholesterol, Hypertension Respiratory History: Reports: COPD Gastrointestinal History: Reports: GERD Other Gastrointestinal History: abdominal hernia Genitourinary History: Reports: None Neurological History: Reports: Other (See Below) Other Neuro History: restless leg syndrome Psychiatric History: Reports: Anxiety, Depression, Suicide Attempt Endocrine/Metabolic History: Reports: Obesity/BMI 30+ Hematologic History: Reports: None Immunologic History: Reports: None Oncologic (Cancer) History: Reports: None Dermatologic History: Reports: Cellulitis, Other (See Below) Other Dermatologic History: dermatitis - Infectious Disease History Infectious Disease History: Reports: Hepatitis A - Past Surgical History Head Surgeries/Procedures: Reports: None GI Surgical History: Reports: Cholecystectomy Musculoskeletal Surgical History: Reports: Arthroscopic Knee Social & Family History - Family History Family Medical History: Noncontributory - Tobacco Use Smoking Status *Q: Current Every Day Smoker Years of Tobacco use: 30 Packs/Tins Daily: 5 - Caffeine Use Caffeine Use: Reports: Soda - Recreational Drug Use Recreational Drug Use: No ED ROS GENERAL - Review of Systems Review Of Systems: Comprehensive ROS is negative, except as noted in HPI. ED EXAM, GI/ABD - Physical Exam Exam: See Below Exam Limited By: No Limitations General Appearance: Obese (morbid) Eyes: Bilateral: Normal Appearance Ears: Normal External Exam, Normal Canal, Hearing Grossly Normal, Normal TMs Nose: Normal Inspection, Normal Mucosa, No Blood Throat/Mouth: Normal Inspection, Normal Lips, Normal Teeth, Normal Gums, Normal Oropharynx, Normal Voice, No Airway Compromise Head: Atraumatic, Normocephalic Neck: Normal Inspection, Supple, Non-Tender, Full Range of Motion Respiratory/Chest: No Respiratory Distress, Lungs Clear, Normal Breath Sounds, No Accessory Muscle Use, Chest Non-Tender Cardiovascular: Normal Peripheral Pulses, Regular Rate, Rhythm, No Edema, No Gallop, No JVD, No Murmur, No Rub GI/Abdominal Exam: Other (morbidly obese, diffuse lower abdominal pain. ) (Male) Exam: Deferred Rectal (Males) Exam: Normal Exam, Normal Rectal Tone Back Exam: Normal Inspection Extremities: Normal Inspection, Normal Range of Motion, Non-Tender, Normal Capillary Refill, No Pedal Edema Neurological: Alert, Oriented, CN II-XII Intact, Normal Cognition, Normal Gait, Normal Reflexes, No Motor/Sensory Deficits Psychiatric: Normal Affect, Normal Mood Skin Exam: Warm, Dry, Intact, Normal Color, No Rash Lymphatic: No Adenopathy Course - Vital Signs Last Recorded V/S: Last Vital Signs Temp 36.2 C 06/14/19 14:45 Pulse 76 06/14/19 14:45 Resp 18 06/14/19 14:45 BP 155/97 H 06/14/19 14:45 Pulse Ox 97 06/14/19 14:45 - Orders/Labs/Meds Orders: Active Orders 24 hr Category Date Time Status Enema [RC] ASDIRECTED Care 06/14/19 16:10 Ordered Labs: Laboratory Tests 06/14/19 06/14/19 06/14/19 Range/Units 14:53 14:53 14:53 WBC 9.3 (5.0-10.0) 10^3/uL RBC 5.04 (4.6-6.2) 10^6/uL Hgb 15.8 (14.0-18.0) g/dL Hct 47.0 (40.0-54.0) % MCV 93.3 (80-100) fL MCH 31.3 (27.0-34.0) pg MCHC 33.6 (33.0-35.0) g/dL Plt Count 190 (150-450) 10^3/uL Neut % (Auto) 57.5 (42.2-75.2) % Lymph % (Auto) 29.6 (20.5-50.1) % [place] % (Auto) 10.5 H (2-8) % Eos % (Auto) 2.1 (1.0-3.0) % Baso % (Auto) 0.3 (0.0-1.0) % Sodium 137 (135-145) mmol/L Potassium 4.1 (3.6-5.0) mmol/L Chloride 102 (101-111) mmol/L Carbon Dioxide 26.0 (21.0-31.0) mmol/L Anion Gap 13.1 BUN 19 H (7-18) mg/dL Creatinine 1.0 (0.6-1.3) mg/dL Est Cr Clr Drug Dosing TNP Estimated GFR (MDRD) > 60 BUN/Creatinine Ratio 19.00 Glucose 88 (74-105) mg/dL Calcium 9.0 (8.4-10.2) mg/dl Total Bilirubin 1.1 H (0.2-1.0) mg/dL AST 42 (10-42) IU/L ALT 43 (10-60) IU/L Alkaline Phosphatase 74 (42-121) IU/L Total Protein 8.0 (6.7-8.2) g/dl Albumin 4.2 (3.2-5.5) g/dl Globulin 3.8 Albumin/Globulin Ratio 1.11 Amylase 27 L (28-100) U/L Lipase 25 (22-51) U/L Meds: Medications Discontinued Medications Generic Name Dose Route Start Last Admin Trade Name Freq PRN Reason Stop Dose Admin Magnesium Citrate 296 ml 06/14/19 16:10 06/14/19 17:15 Citrate Of Magnesia PO 06/14/19 16:11 296 ml ONETIME ONE Administration Departure - Departure Time of Disposition: 17:52 Disposition: Home, Self-Care 01 Condition: Fair Clinical Impression: Constipation Qualifiers: Constipation type: unspecified constipation type Qualified Code(s): K59.00 - Constipation, unspecified - Discharge Information *PRESCRIPTION DRUG MONITORING PROGRAM REVIEWED*: Not Applicable *COPY OF PRESCRIPTION DRUG MONITORING REPORT IN PATIENT DAHLIA: Not Applicable Instructions: Constipation, Adult, [id number], Magnesium Citrate oral solution Forms: ED Department Discharge Care Plan Goals: The patient was advised of the examination, lab and x-ray results during the visit. The patient had an enema and was given a dose of Magnesium Citrate while in the facility. The patient should take a full dose of MiraLax for the next 3- 4 days. If the patient has any additional symptoms or concerns, the patient should either return to the emergency department or visit his primary care facility. - My Orders Last 24 Hours: My Active Orders 06/14/19 16:10 Enema [RC] ASDIRECTED - Assessment/Plan Last 24 Hours: My Active Orders 06/14/19 16:10 Enema [RC] ASDIRECTED I have read and agree with the documentation that has been completed regarding this visit. By signing this record, I attest that the documentation was completed in my physical presence and is an accurate record of the encounter.
[~2019-06-14 17:54] MED LIST: Magnesium Citrate Solution 296 ML Bottle PO ONE
== END 2019-06-14 18:28 | disposition home or self-care (01) ==
LOC: DL.ED 17:54
DX: K59.00 Constipation, unspecified (principal); I11.0 Hypertensive heart disease with heart failure; I50.9 Heart failure, unspecified; E78.00 Pure hypercholesterolemia, unspecified; E66.9 Obesity, unspecified; F41.9 Anxiety disorder, unspecified; F32.9 Major depressive disorder, single episode, unspecified; J44.9 Chronic obstructive pulmonary disease, unspecified; F17.210 Nicotine dependence, cigarettes, uncomplicated; Z68.43 Body mass index [BMI] 50.0-59.9, adult; Z79.82 Long term (current) use of aspirin; Z79.899 Other long term (current) drug therapy; Z79.51 Long term (current) use of inhaled steroids
CPT/HCPCS: 36415; 74019; 80053; 82150; 83690; 85025; 99284; A9270; 99282

== ENCOUNTER 2019-06-18 18:18 | Observation (INO) | payer MEDICARE, MEDICAID ==
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
[2019-06-18] MEDS ORDERED: HYDROmorphone 1 MG/ML Syringe IVPUSH ONE (18:38)
[2019-06-18] MEDS ORDERED: Sodium Chloride 0.9% 1,000 ML IV ONE (18:38)
[2019-06-18 19:40] LABS: CHLORIDE,CL 103 mmol/L (101-111); SODIUM,NA 135 mmol/L (135-145)
[2019-06-18] MEDS ORDERED: Silver Sulfadiazine 1% Crm 50 GM Tube TOP ONE ×2 (19:55→20:22)
[2019-06-18] MEDS ORDERED: ceFAZolin 1 GM in Premix Bag 1 BAG IV ONE (20:20)
[2019-06-18] MEDS ORDERED: Diphtheria,Pertussis(Acell),Tetanus Vaccine 0.5 ML SDV IM ONE (20:22)
[2019-06-18] MEDS ORDERED: Ondansetron 4 MG Tab.DIS PO PRN (20:55)
[2019-06-18] MEDS ORDERED: Albuterol 6.7 GM Inhaler INH PRN (20:58)
[2019-06-18] MEDS ORDERED: Gabapentin 300 MG Cap PO SCH (21:00)
[2019-06-18] MEDS ORDERED: QUEtiapine 100 MG Tab PO SCH (21:00)
[2019-06-18] MEDS ORDERED: Simvastatin 10 MG Tab PO SCH (21:00)
[2019-06-18] MEDS ORDERED: LORazepam 0.5 MG Tab PO SCH (21:00)
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
[2019-06-18] MEDS: oxyCODONE 5 MG Tab PO PRN (21:53)
[2019-06-18] MEDS: Morphine 2 MG/ML Syringe IVPUSH PRN (21:55)
[2019-06-18] MEDS: Formoterol/Mometasone 200-5 MCG 8.8 GM Inhaler IH SCH (21:56)
[2019-06-18] MEDS: Sodium Chloride 0.9% 1,000 ML IV SCH (22:00)
[2019-06-19] MEDS: Morphine 2 MG/ML Syringe IVPUSH PRN ×6 (00:14→17:19)
[2019-06-19] MEDS: oxyCODONE 5 MG Tab PO PRN (04:13)
[2019-06-19] MEDS: ceFAZolin 1 GM in Premix Bag 1 BAG IV SCH ×2 (04:15→13:04)
[2019-06-19] MEDS ORDERED: Pantoprazole 40 MG Tab.CR PO SCH (06:00)
[2019-06-19 06:40] LABS: ANION GAP 10.8; CHLORIDE,CL 105 mmol/L (101-111); SODIUM,NA 135 mmol/L (135-145)
[2019-06-19] MEDS ORDERED: Aspirin 81 MG Tab.EC PO SCH (09:00)
[2019-06-19] MEDS ORDERED: Carvedilol 6.25 MG Tab PO SCH (09:00)
[2019-06-19] MEDS ORDERED: Simvastatin 10 MG Tab PO SCH (09:00)
[2019-06-19] MEDS ORDERED: Enoxaparin 40 MG/0.4 ML Syringe SUBCUT SCH (09:00)
[2019-06-19] MEDS ORDERED: amLODIPine 5 MG Tab PO SCH (09:00)
[2019-06-19] MEDS ORDERED: Lisinopril 10 MG Tab PO SCH (09:00)
[2019-06-19] MEDS ORDERED: Sertraline 50 MG Tab PO SCH (09:00)
[2019-06-19] MEDS: Formoterol/Mometasone 200-5 MCG 8.8 GM Inhaler IH SCH (11:11)
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
[2019-06-19] MEDS ORDERED: LORazepam 1 MG Tab PO ONE (17:06)
[2019-06-19] MEDS: Sodium Chloride 0.9% 1,000 ML IV SCH (17:21)
== END 2019-06-19 17:50 ==
LOC: DL.ED 18:18 → DL.MS 20:43 → UNDOADMOB 20:50 → DL.MS 20:50
PROVIDERS: ADMIT Internal Medicine; ATTEND Internal Medicine
DX: T22.211A Burn of second degree of right forearm, initial encounter (principal); T23.261A Burn of second degree of back of right hand, initial encounter; T23.251A Burn of second degree of right palm, initial encounter; F25.9 Schizoaffective disorder, unspecified; I11.0 Hypertensive heart disease with heart failure; I50.9 Heart failure, unspecified; E78.00 Pure hypercholesterolemia, unspecified; J44.9 Chronic obstructive pulmonary disease, unspecified; K21.9 Gastro-esophageal reflux disease without esophagitis; F41.9 Anxiety disorder, unspecified; F32.9 Major depressive disorder, single episode, unspecified; F17.210 Nicotine dependence, cigarettes, uncomplicated; E66.01 Morbid (severe) obesity due to excess calories; X10.2XXA Contact with fats and cooking oils, initial encounter; Z79.82 Long term (current) use of aspirin; Z79.899 Other long term (current) drug therapy; Z86.711 Personal history of pulmonary embolism; Z68.43 Body mass index [BMI] 50.0-59.9, adult
CPT/HCPCS: 36415; 80048; 80053; 82550; 83605; 83880; 85025; 85027; 90471; 90715; 96361; 96365; 96375; 99284; A9270; J0690; J1170; J1650; J2270; J7030; 16020; 96372; 96376; G0378

== ENCOUNTER 2019-06-26 13:48 | Emergency (ER) | payer MEDICARE, MEDICAID ==
[2019-06-26] MEDS ORDERED: Acetaminophen/HYDROcodone 325-10 MG Tab PO ONE (13:49)
[2019-06-26] MEDS ORDERED: Ondansetron 4 MG Tab.DIS PO ONE (14:54)
[2019-06-26 14:58] LABS: ANION GAP 10.5; CHLORIDE,CL 105 mmol/L (101-111); SODIUM,NA 137 mmol/L (135-145)
[2019-06-26] MEDS ORDERED: Acetaminophen/HYDROcodone 325-10 MG Tab ONE (16:18)
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
== END 2019-06-26 16:58 | disposition home or self-care (01) ==
LOC: DL.ED 13:48
DX: T22.291D Burn of second degree of multiple sites of right shoulder and upper limb, except wrist and hand, subsequent encounter (principal); I10 Essential (primary) hypertension; E78.00 Pure hypercholesterolemia, unspecified; J44.9 Chronic obstructive pulmonary disease, unspecified; K21.9 Gastro-esophageal reflux disease without esophagitis; F41.9 Anxiety disorder, unspecified; F32.9 Major depressive disorder, single episode, unspecified; E66.9 Obesity, unspecified; Z79.82 Long term (current) use of aspirin; Z79.899 Other long term (current) drug therapy; X10.2XXD Contact with fats and cooking oils, subsequent encounter
CPT/HCPCS: 36415; 80053; 85025; 99283; A9270

== ENCOUNTER 2019-07-19 20:56 | Emergency (ER) | payer MEDICARE, MEDICAID ==
[2019-07-19] MEDS ORDERED: Amoxicillin 500 MG Cap PO ONE ×2 (20:57→21:42)
[2019-07-19 21:32] LABS: ANION GAP 14.9; CHLORIDE,CL 97 mmol/L (101-111); SODIUM,NA 135 mmol/L (135-145)
[2019-07-19] MEDS ORDERED: Acetaminophen 325 MG Tab PO ONE (21:42)
[2019-07-19] MEDS ORDERED: Amoxicillin 500 MG Cap ONE (21:48)
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
== END 2019-07-19 22:16 | disposition home or self-care (01) ==
LOC: DL.ED 20:56
DX: K04.7 Periapical abscess without sinus (principal); R11.14 Bilious vomiting; K00.7 Teething syndrome; I11.0 Hypertensive heart disease with heart failure; I50.9 Heart failure, unspecified; K21.9 Gastro-esophageal reflux disease without esophagitis; F41.9 Anxiety disorder, unspecified; F32.9 Major depressive disorder, single episode, unspecified; Z79.899 Other long term (current) drug therapy; F17.210 Nicotine dependence, cigarettes, uncomplicated; Z90.49 Acquired absence of other specified parts of digestive tract; E66.9 Obesity, unspecified; Z79.82 Long term (current) use of aspirin
CPT/HCPCS: 36415; 80053; 82150; 83690; 84484; 85025; 93005; 99285; A9270

== ENCOUNTER 2019-07-30 11:57 | Emergency (ER) | payer MEDICARE, MEDICAID ==
[2019-07-30] MEDS ORDERED: Tetracaine HCl/PF 0.5% 4 ML Bottle EYERT ONE (12:55)
[2019-07-30] MEDS ORDERED: Gentamicin 0.3% Ophth Soln 5 ML Bottle EYERT ONE (12:56)
--- NOTE | 2019-07-30 13:26 | EDM.PDOC ---
Scribed by Brenda Pedraza 07/30/19 1302 for Derek Keller MD ED HPI GENERAL MEDICAL PROBLEM - General Chief Complaint: ENT Problem Stated Complaint: AMBULANCE Time Seen by Provider: 07/30/19 12:39 Source of Information: Reports: Patient, RN, RN Notes Reviewed History Limitations: Reports: No Limitations - History of Present Illness INITIAL COMMENTS - FREE TEXT/NARRATIVE: Patient is a 59-year-old who reports this morning he woke up at 1100 and noticed that his eyes were swollen and painful and his throat "hurts" especially when he swallows. Patient reports that he started to have a runny nose and water eyes this morning. Denies any difficulty breathing just swallowing. Reports the pain as a sharp pain when he swallows 02/26. Pt also thinks he either scratched his right eye or maybe got something in it while he slept last night. Denies visual change. Onset: Today Duration: Constant Quality: Reports: Ache Severity: Mild Improves with: Reports: None Worsens with: Reports: None Associated Symptoms: Reports: No Other Symptoms Throat Pain Score (Numeric/FACES): 8 - Related Data Allergies Allergy/AdvReac Type Severity Reaction Status Date / Time No Known Allergies Allergy Verified 07/30/19 12:09 Home Meds: Home Meds Albuterol Sulfate [Albuterol Sulfate Hfa] 2 puff IH Q6H PRN 12/14/18 [History] Aspirin [Halfprin] 81 mg PO DAILY 12/14/18 [History] Budesonide/Formoterol [Symbicort 160-4.5 MCG] 2 puff INH BID 12/14/18 [History] Furosemide [Lasix] 40 mg PO DAILY 12/14/18 [History] Gabapentin [Gralise] 600 mg PO BEDTIME 12/14/18 [History] LORazepam 0.5 mg PO BEDTIME 12/14/18 [History] Lisinopril 10 mg PO DAILY 12/14/18 [History] Pantoprazole Sodium [Protonix] 40 mg PO DAILY 12/14/18 [History] QUEtiapine Fumarate [Seroquel] 800 mg PO BEDTIME 12/14/18 [History] Sertraline [Zoloft] 50 mg PO DAILY 12/14/18 [History] Simvastatin [Zocor] 20 mg PO DAILY 12/14/18 [History] amLODIPine [Norvasc] 5 mg PO DAILY 12/14/18 [History] carvediloL [Carvedilol] 12.5 mg PO BID 12/14/18 [History] Past Medical History HEENT History: Reports: Impaired Vision Cardiovascular History: Reports: Heart Failure, High Cholesterol, Hypertension Respiratory History: Reports: COPD Gastrointestinal History: Reports: GERD Other Gastrointestinal History: abdominal hernia Genitourinary History: Reports: None Musculoskeletal History: Reports: None Neurological History: Reports: Other (See Below) Other Neuro History: restless leg syndrome Psychiatric History: Reports: Anxiety, Depression, Schizophrenia, Suicide Attempt Endocrine/Metabolic History: Reports: Obesity/BMI 30+ Hematologic History: Reports: None Immunologic History: Reports: None Oncologic (Cancer) History: Reports: None Dermatologic History: Reports: Cellulitis, Other (See Below) Other Dermatologic History: 07/12 surgery in the [facility] for po[facility] to right arm - Infectious Disease History Infectious Disease History: Reports: None - Past Surgical History Head Surgeries/Procedures: Reports: None GI Surgical History: Reports: Cholecystectomy Musculoskeletal Surgical History: Reports: Arthroscopic Knee Dermatological Surgical History: Reports: Skin Graft Social & Family History - Family History Family Medical History: Noncontributory - Tobacco Use Smoking Status *Q: Current Every Day Smoker Years of Tobacco use: 39 Packs/Tins Daily: 1 - Caffeine Use Caffeine Use: Reports: None - Recreational Drug Use Recreational Drug Use: No - Living Situation & Occupation Living situation: Reports: Alone Occupation: Disabled ED ROS ENT - Review of Systems Review Of Systems: Comprehensive ROS is negative, except as noted in HPI. ED EXAM, ENT - Physical Exam Exam: See Below Exam Limited By: No Limitations General Appearance: Alert, No Apparent Distress, Obese, Other (Poor hygeine) Eye Exam: Right Eye: Conjunctival Injection (with yellow matting), Left Eye: Normal Inspection, Bilateral Eye: EOMI, PERRL Ears: Normal External Exam, Normal Canal, Hearing Grossly Normal, Normal TMs Nose: Normal Inspection, Normal Mucousa, No Blood Mouth/Throat: Normal Gums, Normal Lips, Normal Teeth, Pharyngeal Erythema, Throat Pain, Uvular Edema (mild, patent airway). No: Throat Swelling, Tongue Swelling Head: Atraumatic, Normocephalic Neck: Non-Tender, Full Range of Motion, Other ([place]oddy cervical lymphadenopathy) Respiratory/Chest: No Respiratory Distress, Lungs Clear, Normal Breath Sounds, No Accessory Muscle Use, Chest Non-Tender. No: Crackles, Rales, Rhonchi, Wheezing, Stridor Cardiovascular: Regular Rate, Rhythm Neurological: Alert, Oriented, No Motor/Sensory Deficits Psychiatric: Normal Mood Course - Vital Signs Last Recorded V/S: Last Vital Signs Temp 99.2 F 07/30/19 12:10 Pulse 81 07/30/19 12:10 Resp 16 07/30/19 12:10 BP 145/96 H 07/30/19 12:10 Pulse Ox 98 07/30/19 12:10 - Orders/Labs/Meds Orders: Active Orders 24 hr Category Date Time Status CULTURE STREP A CONFIRMATION [] Stat Lab 07/30/19 12:55 Results STREP SCRN A RAPID W CULT CONF [] Stat Lab 07/30/19 12:55 Results Labs: Rapid strep: Negative. Influenza A and B: Negative. Meds: Medications Discontinued Medications Generic Name Dose Route Start Last Admin Trade Name Brianq PRN Reason Stop Dose Admin Gentamicin Sulfate 1 ml 07/30/19 12:56 07/30/19 13:02 Garamycin 0.3% Ophth Soln EYERT 07/30/19 12:57 1 drop ONETIME ONE Administration Tetracaine HCl 1 ml 07/30/19 12:55 07/30/19 13:02 Tetracaine 0.5% Steri-Unit Nicole EYERT 07/30/19 12:56 1 drop ONETIME ONE Administration Departure - Departure Time of Disposition: 13:24 Disposition: Home, Self-Care 01 Condition: Good Clinical Impression: Acute bacterial conjunctivitis of right eye Pharyngitis Qualifiers: Pharyngitis/tonsillitis etiology: other specified organisms Qualified Code(s): J02.8 - Acute pharyngitis due to other specified organisms - Discharge Information *PRESCRIPTION DRUG MONITORING PROGRAM REVIEWED*: No Instructions: Pharyngitis, [id number], Bacterial Conjunctivitis, [id number] Forms: ED Department Discharge Additional Instructions: Rx: Zithromax 500mg Rx: Prednisone 20mg Gentamicin Eye Drop One drop into right eye four times a day for 5 days. Follow up in clinic if not improving in 3 days. Return to ER if worse at any time. Sepsis Event Note - Evaluation Sepsis Screening Result: No Definite Risk - Focused Exam Vital Signs: Vital Signs Temp Pulse Resp BP Pulse Ox 07/30/19 12:10 99.2 F 81 16 145/96 H 98 Date Exam was Performed: 07/30/19 Time Exam was Performed: 13:24 - My Orders Last 24 Hours: My Active Orders 07/30/19 12:55 CULTURE STREP A CONFIRMATION [RM] Stat STREP SCRN A RAPID W CULT CONF [RM] Stat - Assessment/Plan Last 24 Hours: My Active Orders 07/30/19 12:55 CULTURE STREP A CONFIRMATION [RM] Stat STREP SCRN A RAPID W CULT CONF [RM] Stat I have read and agree with the documentation that has been completed regarding this visit. By signing this record, I attest that the documentation was completed in my physical presence and is an accurate record of the encounter.
== END 2019-07-30 13:34 | disposition home or self-care (01) ==
LOC: DL.ED 11:57
DX: J02.8 Acute pharyngitis due to other specified organisms (principal); H10.31 Unspecified acute conjunctivitis, right eye; I11.0 Hypertensive heart disease with heart failure; I50.9 Heart failure, unspecified; F17.210 Nicotine dependence, cigarettes, uncomplicated; Z79.899 Other long term (current) drug therapy; Z79.82 Long term (current) use of aspirin
CPT/HCPCS: 87081; 87430; 87804; 99283; A9270-GY

== ENCOUNTER 2019-08-08 08:14 | Emergency (ER) | payer MEDICARE, MEDICAID ==
--- NOTE | 2019-08-08 08:14 | EDM.PDOC ---
ED HPI GENERAL MEDICAL PROBLEM - General Stated Complaint: UNKNOWN Time Seen by Provider: 08/08/19 08:00 Source of Information: Reports: Patient History Limitations: Reports: No Limitations - History of Present Illness INITIAL COMMENTS - FREE TEXT/NARRATIVE: This 59 yo male patient was brought to the ED by [facility] due to dizziness. The patient reports he was up this morning and started to notice increased dizziness. The patient also reports he had some abdominal pain just before his dizziness began. The patient reports his dizziness increases when he lies down. The patient reports his primary care provider changed his medications last Thursday and he has been noticing intermittent dizzy episodes since that time. The patient reports this morning was worse than any other episode. The patient would not allow nursing staff to do orthostatic vital signs. Onset: Today Duration: Minutes: Location: Reports: Head (dizziness), Abdomen (resolved abdominal pain) Quality: Reports: Other Severity: Moderate Improves with: Reports: None Worsens with: Reports: None Context: Reports: Other Associated Symptoms: Reports: No Other Symptoms Abdomen Pain Score (Numeric/FACES): 7 - Related Data Allergies Allergy/AdvReac Type Severity Reaction Status Date / Time No Known Allergies Allergy Verified 07/30/19 12:09 Home Meds: Home Meds Albuterol Sulfate [Albuterol Sulfate Hfa] 2 puff IH Q6H PRN 12/14/18 [History] Aspirin [Halfprin] 81 mg PO DAILY 12/14/18 [History] Budesonide/Formoterol [Symbicort 160-4.5 MCG] 2 puff INH BID 12/14/18 [History] Furosemide [Lasix] 40 mg PO DAILY 12/14/18 [History] Gabapentin [Gralise] 600 mg PO BEDTIME 12/14/18 [History] LORazepam 0.5 mg PO BEDTIME 12/14/18 [History] Lisinopril 10 mg PO DAILY 12/14/18 [History] Pantoprazole Sodium [Protonix] 40 mg PO DAILY 12/14/18 [History] QUEtiapine Fumarate [Seroquel] 800 mg PO BEDTIME 12/14/18 [History] Sertraline [Zoloft] 50 mg PO DAILY 12/14/18 [History] Simvastatin [Zocor] 20 mg PO DAILY 12/14/18 [History] amLODIPine [Norvasc] 5 mg PO DAILY 12/14/18 [History] carvediloL [Carvedilol] 12.5 mg PO BID 12/14/18 [History] Past Medical History HEENT History: Reports: Impaired Vision Cardiovascular History: Reports: Heart Failure, High Cholesterol, Hypertension Respiratory History: Reports: COPD Gastrointestinal History: Reports: GERD Other Gastrointestinal History: abdominal hernia Genitourinary History: Reports: None Musculoskeletal History: Reports: None Neurological History: Reports: Other (See Below) Other Neuro History: restless leg syndrome Psychiatric History: Reports: Anxiety, Depression, Schizophrenia, Suicide Attempt Endocrine/Metabolic History: Reports: Obesity/BMI 30+ Hematologic History: Reports: None Immunologic History: Reports: None Oncologic (Cancer) History: Reports: None Dermatologic History: Reports: Cellulitis, Other (See Below) Other Dermatologic History: 07/12 surgery in the [facility] for [facility] to right arm - Infectious Disease History Infectious Disease History: Reports: None - Past Surgical History Head Surgeries/Procedures: Reports: None GI Surgical History: Reports: Cholecystectomy Musculoskeletal Surgical History: Reports: Arthroscopic Knee Dermatological Surgical History: Reports: Skin Graft Social & Family History - Family History Family Medical History: Noncontributory - Tobacco Use Smoking Status *Q: Current Every Day Smoker Years of Tobacco use: 29 Packs/Tins Daily: 0.4 Second Hand Smoke Exposure: Yes - Caffeine Use Caffeine Use: Reports: Coffee - Recreational Drug Use Recreational Drug Use: No - Living Situation & Occupation Living situation: Reports: Alone Occupation: Disabled ED ROS GENERAL - Review of Systems Review Of Systems: Comprehensive ROS is negative, except as noted in HPI. ED EXAM, GENERAL - Physical Exam Exam: See Below Exam Limited By: No Limitations General Appearance: Alert, WD/WN, Moderate Distress, Obese Eye Exam: Bilateral Eye: EOMI, Normal Inspection, PERRL Ears: Normal External Exam, Normal Canal, Hearing Grossly Normal, Normal TMs Nose: Normal Inspection, Normal Mucosa, No Blood Throat/Mouth: Normal Inspection, Normal Lips, Normal Teeth, Normal Gums, Normal Oropharynx, Normal Voice, No Airway Compromise Head: Atraumatic, Normocephalic Neck: Normal Inspection, Supple, Non-Tender, Full Range of Motion Respiratory/Chest: No Respiratory Distress, Lungs Clear, Normal Breath Sounds, No Accessory Muscle Use, Chest Non-Tender Cardiovascular: Normal Peripheral Pulses, Regular Rate, Rhythm, No Edema, No Gallop, No JVD, No Murmur, No Rub GI/Abdominal: Normal Bowel Sounds, Soft, Non-Tender, No Organomegaly, No Distention, No Abnormal Bruit, No Mass, Other (obese) (Male) Exam: Deferred Rectal (Males) Exam: Deferred Back Exam: Normal Inspection, Full Range of Motion, NT Extremities: Normal Inspection, Normal Range of Motion, Non-Tender, Normal Capillary Refill, No Pedal Edema Neurological: Alert, Oriented, CN II-XII Intact, Normal Cognition, Normal Gait, Normal Reflexes, No Motor/Sensory Deficits Psychiatric: Normal Affect, Normal Mood Skin Exam: Warm, Dry, Intact, Normal Color, No Rash Lymphatic: No Adenopathy Course - Vital Signs Last Recorded V/S: Last Vital Signs Temp 36.6 C 08/08/19 07:37 Pulse 115 H 08/08/19 07:37 Resp 20 08/08/19 07:37 BP 103/66 08/08/19 07:37 Pulse Ox 93 L 08/08/19 07:37 - Orders/Labs/Meds Orders: Active Orders 24 hr Category Date Time Status EKG Documentation Completion [RC] URGENT Care 08/08/19 07:36 Ordered Labs: Laboratory Tests 08/08/19 08/08/19 Range/Units 07:59 07:59 WBC 10.3 H (5.0-10.0) 10^3/uL RBC 4.52 L (4.6-6.2) 10^6/uL Hgb 14.2 D (14.0-18.0) g/dL Hct 42.4 (40.0-54.0) % MCV 93.8 (80-100) fL MCH 31.4 (27.0-34.0) pg MCHC 33.5 (33.0-35.0) g/dL Plt Count 160 D (150-450) 10^3/uL Neut % (Auto) 48.2 (42.2-75.2) % Lymph % (Auto) 38.6 (20.5-50.1) % [place] % (Auto) 11.7 H (2-8) % Eos % (Auto) 1.2 (1.0-3.0) % Baso % (Auto) 0.3 (0.0-1.0) % Sodium 136 (135-145) mmol/L Potassium 3.6 (3.6-5.0) mmol/L Chloride 106 (101-111) mmol/L Carbon Dioxide 25.0 (21.0-31.0) mmol/L Anion Gap 8.6 BUN 15 (7-18) mg/dL Creatinine 1.0 (0.6-1.3) mg/dL Est Cr Clr Drug Dosing 94.76 mL/min Estimated GFR (MDRD) > 60 BUN/Creatinine Ratio 15.00 Glucose 106 H (74-105) mg/dL Calcium 8.4 (8.4-10.2) mg/dl Total Bilirubin 0.5 (0.2-1.0) mg/dL AST 14 (10-42) IU/L ALT 16 (10-60) IU/L Alkaline Phosphatase 79 (42-121) IU/L Troponin I < 0.02 (0.00-0.02) ng/ml B-Natriuretic Peptide 30 (0-100) pg/ml Total Protein 6.5 L (6.7-8.2) g/dl Albumin 3.5 (3.2-5.5) g/dl Globulin 3.0 Albumin/Globulin Ratio 1.17 Departure - Departure Time of Disposition: 08:50 Disposition: Home, Self-Care 01 Condition: Fair Clinical Impression: Gastroenteritis, Intermittent vertigo - Discharge Information *PRESCRIPTION DRUG MONITORING PROGRAM REVIEWED*: Not Applicable *COPY OF PRESCRIPTION DRUG MONITORING REPORT IN PATIENT DAHLIA: Not Applicable Instructions: Viral Gastroenteritis, Adult, [id number] Care Plan Goals: The patient was advised of the examination, lab, EKG and x-ray results during the visit. The patient was encouraged to stick to a BRAT diet (Bananas, Rice, Applesauce and [place]) with small frequent sips of fluid over the next 24 hours. If the patient has any additional symptoms or concerns, the patient should either return to the emergency department or visit his primary care facility. Sepsis Event Note - Evaluation Sepsis Screening Result: No Definite Risk - Focused Exam Vital Signs: Vital Signs Temp Pulse Resp BP Pulse Ox 08/08/19 07:37 36.6 C 115 H 20 103/66 93 L Date Exam was Performed: 08/08/19 Time Exam was Performed: 08:50 - My Orders Last 24 Hours: My Active Orders 08/08/19 07:36 EKG Documentation Completion [RC] URGENT - Assessment/Plan Last 24 Hours: My Active Orders 08/08/19 07:36 EKG Documentation Completion [RC] URGENT
[2019-08-08 08:42] LABS: ANION GAP 8.6; CHLORIDE,CL 106 mmol/L (101-111); SODIUM,NA 136 mmol/L (135-145)
== END 2019-08-08 09:01 | disposition home or self-care (01) ==
LOC: DL.ED 08:14
DX: K52.9 Noninfective gastroenteritis and colitis, unspecified (principal); I11.0 Hypertensive heart disease with heart failure; I50.9 Heart failure, unspecified; F41.9 Anxiety disorder, unspecified; F32.9 Major depressive disorder, single episode, unspecified; E66.9 Obesity, unspecified; K21.9 Gastro-esophageal reflux disease without esophagitis; Z79.82 Long term (current) use of aspirin; Z79.899 Other long term (current) drug therapy; F17.210 Nicotine dependence, cigarettes, uncomplicated
CPT/HCPCS: 36415; 71045; 80053; 83880; 84484; 85025; 93005; 99284-25

== ENCOUNTER 2019-08-10 13:57 | Emergency (ER) | payer MEDICARE, MEDICAID | END 2019-08-10 14:43 | disposition left against medical advice (07) | LOC: DL.ED 13:57 | DX: Z53.21 Procedure and treatment not carried out due to patient leaving prior to being seen by health care provider (principal) ==

== ENCOUNTER 2019-08-19 13:51 | Emergency (ER) | payer MEDICARE, MEDICAID ==
[2019-08-19] MEDS ORDERED: Furosemide 80 MG Tab PO ONE (14:10)
[2019-08-19] MEDS ORDERED: hydrALAZINE 25 MG Tab PO ONE (14:10)
--- NOTE | 2019-08-19 14:14 | EDM.PDOC ---
ED HPI GENERAL MEDICAL PROBLEM - General Chief Complaint: Cardiovascular Problem Stated Complaint: HIGH BP Time Seen by Provider: 08/19/19 14:12 Source of Information: Reports: Patient, Old Records, RN, RN Notes Reviewed History Limitations: Reports: No Limitations - History of Present Illness INITIAL COMMENTS - FREE TEXT/NARRATIVE: Pt brought from Out Patient IV Therapy to ER for evaluation of high blood pressure. Pt reports a history of poorly controlled hypertension for a long time , but he does not know for how many years. Today he was found to have a BP of 190/125. Pt denies any symptoms, and states he feels completely fine. He reports his BP has been running 170s/90-110 in the recent weeks. Pt denies chest pain, shortness of breath, palpitations, orthopnea, fever, cough, or wheezing. Pt states he take 3 BP medications (records indicate he take Coreg, Norvasc, and Lasix) but the doses where all changed 2 weeks ago, and he does not know what the doses are. Onset: Unknown/Unsure Duration: Chronic Severity: Moderate Improves with: Reports: None Worsens with: Reports: None Treatments CLINICAL SERVICES PROFESSIONAL: Reports: Other Medication(s) - Related Data Allergies Allergy/AdvReac Type Severity Reaction Status Date / Time No Known Allergies Allergy Verified 08/19/19 14:37 Home Meds: Home Meds Albuterol Sulfate [Albuterol Sulfate Hfa] 2 puff IH Q6H PRN 12/14/18 [History] Aspirin [Halfprin] 81 mg PO DAILY 12/14/18 [History] Budesonide/Formoterol [Symbicort 160-4.5 MCG] 2 puff INH BID 12/14/18 [History] Furosemide [Lasix] 40 mg PO DAILY 12/14/18 [History] Gabapentin [Gralise] 600 mg PO BEDTIME 12/14/18 [History] LORazepam 0.5 mg PO BEDTIME 12/14/18 [History] Lisinopril 10 mg PO DAILY 12/14/18 [History] Pantoprazole Sodium [Protonix] 40 mg PO DAILY 12/14/18 [History] QUEtiapine Fumarate [Seroquel] 800 mg PO BEDTIME 12/14/18 [History] Sertraline [Zoloft] 50 mg PO DAILY 12/14/18 [History] Simvastatin [Zocor] 20 mg PO DAILY 12/14/18 [History] amLODIPine [Norvasc] 5 mg PO DAILY 12/14/18 [History] carvediloL [Carvedilol] 12.5 mg PO BID 12/14/18 [History] Past Medical History HEENT History: Reports: Impaired Vision Cardiovascular History: Reports: Heart Failure, High Cholesterol, Hypertension Respiratory History: Reports: COPD Gastrointestinal History: Reports: GERD Other Gastrointestinal History: abdominal hernia Genitourinary History: Reports: None Musculoskeletal History: Reports: None Neurological History: Reports: Other (See Below) Other Neuro History: restless leg syndrome Psychiatric History: Reports: Anxiety, Depression, Schizophrenia, Suicide Attempt Endocrine/Metabolic History: Reports: Obesity/BMI 30+ Hematologic History: Reports: None Immunologic History: Reports: None Oncologic (Cancer) History: Reports: None Dermatologic History: Reports: Cellulitis, Other (See Below) Other Dermatologic History: 07/12 surgery in the [facility] for [facility] to right arm - Infectious Disease History Infectious Disease History: Reports: None - Past Surgical History Head Surgeries/Procedures: Reports: None GI Surgical History: Reports: Cholecystectomy Musculoskeletal Surgical History: Reports: Arthroscopic Knee Dermatological Surgical History: Reports: Skin Graft Social & Family History - Family History Family Medical History: Noncontributory - Caffeine Use Caffeine Use: Reports: None - Living Situation & Occupation Living situation: Reports: Alone Occupation: Disabled ED ROS GENERAL - Review of Systems Review Of Systems: Comprehensive ROS is negative, except as noted in HPI. ED EXAM, GENERAL - Physical Exam Exam: See Below Exam Limited By: No Limitations General Appearance: Alert, No Apparent Distress, Obese Eye Exam: Bilateral Eye: Normal Inspection Nose: Normal Inspection Throat/Mouth: Normal Inspection Head: Atraumatic, Normocephalic Neck: Normal Inspection Respiratory/Chest: No Respiratory Distress, Lungs Clear, Normal Breath Sounds, No Accessory Muscle Use, Chest Non-Tender Cardiovascular: Normal Peripheral Pulses, Regular Rate, Rhythm, No Gallop, No JVD, No Murmur, No Rub GI/Abdominal: Normal Bowel Sounds, Soft, Non-Tender, Other (Benign obese abdomen ) Back Exam: Normal Inspection Extremities: Pedal Edema (B/L non-pitting edema to ankles). No: Joint Swelling , Increased Warmth, Redness Neurological: Alert, Oriented, No Motor/Sensory Deficits Psychiatric: Normal Mood Course - Vital Signs Last Recorded V/S: Last Vital Signs Temp 98.8 F 08/19/19 14:00 Pulse 78 08/19/19 14:00 Resp 16 08/19/19 14:00 BP 174/103 H 08/19/19 15:07 Pulse Ox 98 08/19/19 14:00 - Orders/Labs/Meds Meds: Medications Discontinued Medications Generic Name Dose Route Start Last Admin Trade Name Giovanni PRN Reason Stop Dose Admin Furosemide 80 mg 08/19/19 14:10 08/19/19 14:28 Lasix PO 08/19/19 14:11 80 mg ONETIME ONE Administration Hydralazine HCl 25 mg 08/19/19 14:10 08/19/19 14:27 Apresoline PO 08/19/19 14:11 25 mg ONETIME ONE Administration - Re-Assessments/Exams Free Text/Narrative Re-Assessment/Exam: 08/19/19 15:15 BP improved to 160s/90s following tx in ER. Pt advised to take his medications exactly as prescribed and f/u in clinic Thursday or Thursday (08/22 or 08/23/19) for a BP recheck. Departure - Departure Time of Disposition: 15:16 Disposition: Home, Self-Care 01 Condition: Good Clinical Impression: Hypertension, uncontrolled Instructions: Hypertension, [id number] Forms: ED Department Discharge Additional Instructions: Take your medications exactly as prescribed. Follow up with your clinic on Thursday or Thursday (Aug.22 or ) for blood pressure recheck. Sepsis Event Note - Focused Exam Vital Signs: Vital Signs Temp Pulse Resp BP BP Pulse Ox 08/19/19 15:07 174/103 H 08/19/19 14:27 189/124 H 08/19/19 14:00 98.8 F 78 16 192/110 H 98 Date Exam was Performed: 08/19/19 Time Exam was Performed: 15:15
== END 2019-08-19 15:26 | disposition home or self-care (01) ==
LOC: DL.ED 13:51
DX: I10 Essential (primary) hypertension (principal); E78.00 Pure hypercholesterolemia, unspecified; I11.0 Hypertensive heart disease with heart failure; I50.9 Heart failure, unspecified; E66.9 Obesity, unspecified; J44.9 Chronic obstructive pulmonary disease, unspecified; K21.9 Gastro-esophageal reflux disease without esophagitis; F32.9 Major depressive disorder, single episode, unspecified; F41.9 Anxiety disorder, unspecified; Z79.82 Long term (current) use of aspirin; Z79.899 Other long term (current) drug therapy; Z68.42 Body mass index [BMI] 45.0-49.9, adult; Z79.51 Long term (current) use of inhaled steroids
CPT/HCPCS: 99283; A9270-GY

== ENCOUNTER 2019-10-25 | Emergency (ER) | payer MEDICARE, MEDICAID ==
[2019-10-25] MEDS ORDERED: Ondansetron 4 MG Tab.DIS PO ONE (00:47)
[2019-10-25] MEDS ORDERED: Albuterol 6.7 GM Inhaler INH ONE (00:56)
--- NOTE | 2019-10-25 01:25 | EDM.PDOC ---
"ED HPI GENERAL MEDICAL PROBLEM - General Chief Complaint: Respiratory Problem Stated Complaint: AMBULANCE Time Seen by Provider: 10/25/19 00:05 Source of Information: Reports: Patient, EMS, RN History Limitations: Reports: No Limitations - History of Present Illness INITIAL COMMENTS - FREE TEXT/NARRATIVE: ED with c/o SOB and nausea. No fever or chills. Hx COPD. 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 No vomiting. Decreased appetite today. Clinic appointment scheduled in am. Abdomen Pain Score (Numeric/FACES): 8 - Related Data Allergies Allergy/AdvReac Type Severity Reaction Status Date / Time No Known Allergies Allergy Verified 10/25/19 00:06 Home Meds: Home Meds Albuterol Sulfate [Albuterol Sulfate Hfa] 2 puff IH Q6H PRN 12/14/18 [History] Aspirin [Halfprin] 81 mg PO DAILY 12/14/18 [History] Budesonide/Formoterol [Symbicort 160-4.5 MCG] 2 puff INH BID 12/14/18 [History] Furosemide [Lasix] 40 mg PO DAILY 12/14/18 [History] Gabapentin [Gralise] 600 mg PO BEDTIME 12/14/18 [History] LORazepam 1 mg PO BEDTIME PRN 12/14/18 [History] Lisinopril 20 mg PO DAILY 12/14/18 [History] Pantoprazole Sodium [Protonix] 40 mg PO DAILY 12/14/18 [History] QUEtiapine Fumarate [Seroquel] 800 mg PO BEDTIME 12/14/18 [History] Sertraline [Zoloft] 50 mg PO DAILY 12/14/18 [History] Simvastatin [Zocor] 20 mg PO DAILY 12/14/18 [History] amLODIPine [Norvasc] 5 mg PO DAILY 12/14/18 [History] carvediloL [Carvedilol] 12.5 mg PO BID 12/14/18 [History] hydrOXYzine HCL [hydrOXYzine] 25 mg PO BEDTIME PRN 10/25/19 [History] Past Medical History HEENT History: Reports: Impaired Vision Cardiovascular History: Reports: Blood Clots/VTE/DVT, Heart Failure, High Cholesterol, Hypertension Respiratory History: Reports: COPD, PE Gastrointestinal History: Reports: GERD Other Gastrointestinal History: abdominal hernia Genitourinary History: Reports: None Musculoskeletal History: Reports: None Neurological History: Reports: Other (See Below) Other Neuro History: restless leg syndrome Psychiatric History: Reports: Anxiety, Depression, Schizophrenia, Suicide Attempt Endocrine/Metabolic History: Reports: Obesity/BMI 30+ Hematologic History: Reports: None Immunologic History: Reports: None Oncologic (Cancer) History: Reports: None Dermatologic History: Reports: Cellulitis, Other (See Below) Other Dermatologic History: 07/12 surgery in the [facility] for poole to right arm - Infectious Disease History Infectious Disease History: Reports: None - Past Surgical History Head Surgeries/Procedures: Reports: None GI Surgical History: Reports: Cholecystectomy Musculoskeletal Surgical History: Reports: Arthroscopic Knee Dermatological Surgical History: Reports: Skin Graft Social & Family History - Family History Family Medical History: Noncontributory - Tobacco Use Smoking Status *Q: Current Every Day Smoker Years of Tobacco use: 37 Packs/Tins Daily: 0.5 - Caffeine Use Caffeine Use: Reports: None - Recreational Drug Use Recreational Drug Use: No - Living Situation & Occupation Living situation: Reports: Alone Occupation: Disabled ED ROS GENERAL - Review of Systems Review Of Systems: Comprehensive ROS is negative, except as noted in HPI. ED EXAM, GENERAL - Physical Exam Exam: See Below Exam Limited By: No Limitations General Appearance: Alert, No Apparent Distress, Obese, Other (smelly) Eye Exam: Bilateral Eye: EOMI Ears: Normal External Exam Nose: Normal Inspection Throat/Mouth: Normal Inspection Head: Atraumatic, Normocephalic Neck: Normal Inspection Respiratory/Chest: No Respiratory Distress, Wheezing (intermittent RML clears with deep breathing) Cardiovascular: Normal Peripheral Pulses, Regular Rate, Rhythm. No: No Edema (1 +) GI/Abdominal: Normal Bowel Sounds, Soft Neurological: Alert, Oriented, Normal Cognition, Other (ambulates with walker) Psychiatric: Normal Affect Skin Exam: Warm, Dry, Intact Course - Vital Signs Last Recorded V/S: Last Vital Signs Temp 96.6 F L 10/25/19 00:00 Pulse 82 10/25/19 00:00 Resp 22 H 10/25/19 00:00 BP 194/126 H 10/25/19 00:00 Pulse Ox 96 10/25/19 00:00 - Orders/Labs/Meds Orders: Active Orders 24 hr Category Date Time Status RT Post Treatment Assessment [RC] Click to Edit Care 10/25/19 00:56 Ordered RT Pre-Treatment Assessment [RC] Click to Edit Care 10/25/19 00:56 Ordered Abdomen 1V Upright [CR] Urgent Exams 10/25/19 00:21 Ordered CXR [Chest 1V Frontal] [CR] Urgent Exams 10/25/19 00:21 Stop Req CXR [Chest 2V] [CR] Urgent Exams 10/25/19 00:32 Ordered Labs: Laboratory Tests 10/25/19 10/25/19 Range/Units 00:57 00:57 WBC 11.2 H (5.0-10.0) 10^3/uL RBC 5.34 (4.6-6.2) 10^6/uL Hgb 16.8 D (14.0-18.0) g/dL Hct 48.8 (40.0-54.0) % MCV 91.4 (80-100) fL MCH 31.5 (27.0-34.0) pg MCHC 34.4 (33.0-35.0) g/dL Plt Count 243 D (150-450) 10^3/uL Neut % (Auto) 58.0 (42.2-75.2) % Lymph % (Auto) 29.3 (20.5-50.1) % Teller % (Auto) 10.5 H (2-8) % Eos % (Auto) 1.8 (1.0-3.0) % Baso % (Auto) 0.4 (0.0-1.0) % Sodium 138 (136-145) mmol/L Potassium 3.6 (3.5-5.1) mmol/L Chloride 99 (98-107) mmol/L Carbon Dioxide 28 (21-32) mmol/L Anion Gap 14.6 H (7-13) mEq/L BUN 8 (7-18) mg/dL Creatinine 1.11 (0.70-1.30) mg/dL Est Cr Clr Drug Dosing 85.37 mL/min Estimated GFR (MDRD) > 60 BUN/Creatinine Ratio 7.2 (No establ ref range) Glucose 111 H (74-99) mg/dL Calcium 8.9 (8.5-10.1) mg/dL Total Bilirubin 0.7 (0.2-1.0) mg/dL AST 34 (15-37) U/L ALT 40 (16-63) U/L Alkaline Phosphatase 99 (46-116) U/L B-Natriuretic Peptide 110 H (0-100) pg/ml Total Protein 8.4 H (6.4-8.2) g/dL Albumin 4.1 (3.4-5.0) g/dL Globulin 4.3 Albumin/Globulin Ratio 1.0 Meds: Medications Discontinued Medications Generic Name Dose Route Start Last Admin Trade Name Giovanni PRN Reason Stop Dose Admin Albuterol 6.7 gm 10/25/19 00:56 10/25/19 01:03 Proventil Hfa INH 10/25/19 00:57 2 puff ONETIME ONE Administration Ondansetron HCl 4 mg 10/25/19 00:47 10/25/19 01:02 Zofran Odt PO 10/25/19 00:48 4 mg ONETIME ONE Administration - Radiology Interpretation Free Text/Narrative:: [facility] - [facility] Final Radiology Report Call: [phone] assistance Online chat: [email or web address] Name: RIANNA WILLIS Age: 59Years M Date: 10/25/2019 SSN: -- : 1960 Study: XR ABDOMEN 1 VIEW Requesting Physician: DAVID BHAT Images: 1 Addl Studies: Provided Clinical History: Contrast: Contrast Medium: Contrast Amount: Contrast Method: CONFIDENTIALITY STATEMENT This report is intended only for use by the referring physician, and only in accordance with law. If you received this in error, call [phone]. Page 1 of 1 PROCEDURE INFORMATION: Exam: XR Abdomen, 1 View Exam date and time: 10/25/2019 12:32 AM Age: 59 years old Clinical indication: Nausea TECHNIQUE: Imaging protocol: XR of the abdomen. Views: Frontal supine view of the abdomen. 1 View. COMPARISON: CR Abdomen 2V AP Flat Upright 06/14/2019 3:25 PM FINDINGS: Gastrointestinal tract: Non-specific bowel gas pattern without small bowel dilation evident. Bones/joints: Mild leftward lumbar scoliotic curve. Degenerative changes of the lumbar spine Soft tissues: Unremarkable Limitation: Exam is limited by body habitus. Portions of the upper abdomen and lower pelvis are excluded from the radiograph IMPRESSION: Limited radiograph with nonspecific bowel gas pattern Thank you for allowing us to participate in the care of your patient. Dictated and Authenticated by: Carmella Leal MD 10/25/2019 1:10 AM Central Time ([place] & [place]) [facility] [place] [facility] Final Radiology Report Call: [phone] assistance Online chat: [email or web address] Name: RIANNA WILLIS Age: 59Years M Date: 10/25/2019 SSN: -- : 1960 Study: XR CHEST 2 VIEWS FRONTAL & LAT Requesting Physician: DAVID BHAT Images: 3 Addl Studies: Provided Clinical History: Contrast: Contrast Medium: Contrast Amount: Contrast Method: Page 1 of 2 PROCEDURE INFORMATION: Exam: XR Chest, 2 Views Exam date and time: 10/25/2019 12:42 AM Age: 59 years old Clinical indication: Shortness of breath TECHNIQUE: Imaging protocol: XR of the chest Views: 2 views. COMPARISON: CR Chest 1V Frontal 08/08/2019 8:14 AM FINDINGS: Limitations: The exam is underpenetrated. Lungs: The lungs are hyperinflated. Hyperlucent changes of the upper lungs are similar to the prior study likely reflecting emphysematous change. Hazy increased opacity of the lung bases may in part be due to underpenetration. Cannot exclude vascular crowding, edema or infiltrate. Pleural space: . No pleural effusion. No pneumothorax. Heart/Mediastinum: Unremarkable. No cardiomegaly. Bones/joints: . Subcoracoid calcification. Mild thoracic spondylosis IMPRESSION: Hyperinflation. Emphysema is suspected. Hazy increased opacity of the lung bases may in part be due to underpenetration. Cannot exclude vascular crowding, edema or infiltrate. Three Subcoracoid calcification is incompletely assessed on this study. Consider calcific bursitis as possible etiology RIANNA WILLIS | Final Radiology Report CONFIDENTIALITY STATEMENT This report is intended only for use by the referring physician, and only in accordance with law. If you received this in error, call [phone]. Page 2 of 2 Thank you for allowing us to participate in the care of your patient. Dictated and Authenticated by: Carmella Leal MD 10/25/2019 1:07 AM Central Time ([place] & [place] - Re-Assessments/Exams Free Text/Narrative Re-Assessment/Exam: 10/25/19 01:28 Large formed stool while in xray. Departure - Departure Time of Disposition: 01:42 Disposition: Home, Self-Care 01 Condition: Good Clinical Impression: Nausea COPD (chronic obstructive pulmonary disease) Qualifiers: COPD type: emphysema Emphysema type: unspecified Qualified Code(s): J43.9 - Emphysema, unspecified - Discharge Information *PRESCRIPTION DRUG MONITORING PROGRAM REVIEWED*: No *COPY OF PRESCRIPTION DRUG MONITORING REPORT IN PATIENT DAHLIA: No Instructions: Nausea, Adult Forms: ED Department Discharge Additional Instructions: Folow up in clinic as scheduled albuterol inhaler 2 puffs every 4 hours as needed light diet advance as tolerated. Take medications as prescribed Sepsis Event Note - Evaluation Sepsis Screening Result: No Definite Risk - Focused Exam Vital Signs: Vital Signs Temp Pulse Resp BP Pulse Ox 10/25/19 00:00 96.6 F L 82 22 H 194/126 H 96 Date Exam was Performed: 10/25/19 Time Exam was Performed: 01:41 - My Orders Last 24 Hours: My Active Orders 10/25/19 00:21 Abdomen 1V Upright [CR] Urgent CXR [Chest 1V Frontal] [CR] Urgent 10/25/19 00:32 CXR [Chest 2V] [CR] Urgent 10/25/19 00:56 RT Post Treatment Assessment [RC] Click to Edit RT Pre-Treatment Assessment [RC] Click to Edit - Assessment/Plan Last 24 Hours: My Active Orders 10/25/19 00:21 Abdomen 1V Upright [CR] Urgent CXR [Chest 1V Frontal] [CR] Urgent 10/25/19 00:32 CXR [Chest 2V] [CR] Urgent 10/25/19 00:56 RT Post Treatment Assessment [RC] Click to Edit RT Pre-Treatment Assessment [RC] Click to Edit"
[2019-10-25 01:26] LABS: ANION GAP 14.6 mEq/L (7-13); CHLORIDE,CL 99 mmol/L (98-107); SODIUM,NA 138 mmol/L (136-145)
== END 2019-10-25 01:45 | disposition home or self-care (01) ==
LOC: DL.ED
DX: J43.9 Emphysema, unspecified (principal); R11.0 Nausea; E66.9 Obesity, unspecified; F20.9 Schizophrenia, unspecified; F41.9 Anxiety disorder, unspecified; F32.9 Major depressive disorder, single episode, unspecified; Z79.82 Long term (current) use of aspirin; Z86.711 Personal history of pulmonary embolism; Z68.43 Body mass index [BMI] 50.0-59.9, adult; Z79.899 Other long term (current) drug therapy
CPT/HCPCS: 36415; 71046; 74018; 80053; 83880; 85025; 99283; 99285; A9270

== ENCOUNTER 2020-07-25 10:59 | Emergency (ER) | payer MEDICARE, MEDICAID ==
[2020-07-25 12:50] LABS: ANION GAP 11.4 mEq/L (7-13)
--- NOTE | 2020-07-25 13:30 | EDM.PDOC ---
ED HPI GENERAL MEDICAL PROBLEM - General Chief Complaint: General Stated Complaint: LUMP ON HIP AND LEG FEELS WEAK Time Seen by Provider: 07/25/20 11:50 Source of Information: Reports: Patient, RN, RN Notes Reviewed History Limitations: Reports: No Limitations - History of Present Illness INITIAL COMMENTS - FREE TEXT/NARRATIVE: Patient presents to the ED via personal vehicle with multiple generalized complaints. The patient states he has been experiencing weakness in his bilateral knees and shoulders for the past three weeks. He attests to multiple falls about two weeks ago for which he did not receive treatment or examination; he states his knees buckled underneath him during these events, he did not lose consciousness nor hit his head. Additionally, the patient states he has been experiencing pain in his right hip for the past two weeks. Also, he woke up this morning with a sore throat. The patient denies recent illness, fever, shaking chills, headache, cough, nasal pain/pressure/drainage, ear pain/pressure/drainage, chest pain, palpitations shortness of breath, dyspepsia, nausea, vomiting, or diarrhea. He states he has taken no PRN medications for these muscle weakness, aches, or sore throat. He denies history of evaluation by PT. He denies a COVID infection this past year and has not been tested for COVID recently. Right Hip Pain Score (Numeric/FACES): 8 - Related Data Allergies Allergy/AdvReac Type Severity Reaction Status Date / Time No Known Allergies Allergy Verified 07/25/20 11:36 Home Meds: Home Meds Albuterol Sulfate [Albuterol Sulfate Hfa] 2 puff IH Q6H PRN 12/14/18 [History] Aspirin [Halfprin] 81 mg PO DAILY 12/14/18 [History] Budesonide/Formoterol [Symbicort 160-4.5 MCG] 2 puff INH BID 12/14/18 [History] Furosemide [Lasix] 40 mg PO DAILY 12/14/18 [History] Gabapentin [Gralise] 600 mg PO BEDTIME 12/14/18 [History] LORazepam 1 mg PO BEDTIME PRN 12/14/18 [History] Lisinopril 20 mg PO DAILY 12/14/18 [History] Pantoprazole Sodium [Protonix] 40 mg PO DAILY 12/14/18 [History] QUEtiapine Fumarate [Seroquel] 800 mg PO BEDTIME 12/14/18 [History] Sertraline [Zoloft] 50 mg PO DAILY 12/14/18 [History] Simvastatin [Zocor] 20 mg PO DAILY 12/14/18 [History] amLODIPine [Norvasc] 5 mg PO DAILY 12/14/18 [History] carvediloL [Carvedilol] 12.5 mg PO BID 12/14/18 [History] hydrOXYzine HCL [hydrOXYzine] 25 mg PO BEDTIME PRN 10/25/19 [History] Past Medical History HEENT History: Reports: Impaired Vision Cardiovascular History: Reports: Blood Clots/VTE/DVT, Heart Failure, High Cholesterol, Hypertension Respiratory History: Reports: COPD, PE Gastrointestinal History: Reports: GERD Other Gastrointestinal History: abdominal hernia Genitourinary History: Reports: None Musculoskeletal History: Reports: None Neurological History: Reports: Other (See Below) Other Neuro History: restless leg syndrome Psychiatric History: Reports: Anxiety, Depression, Schizophrenia, Suicide Attempt Endocrine/Metabolic History: Reports: Obesity/BMI 30+ Hematologic History: Reports: None Immunologic History: Reports: None Oncologic (Cancer) History: Reports: None Dermatologic History: Reports: Cellulitis, Other (See Below) Other Dermatologic History: 07/12 surgery in the [facility] for poole to right arm - Infectious Disease History Infectious Disease History: Reports: None - Past Surgical History Head Surgeries/Procedures: Reports: None GI Surgical History: Reports: Cholecystectomy Musculoskeletal Surgical History: Reports: Arthroscopic Knee Dermatological Surgical History: Reports: Skin Graft Social & Family History - Family History Family Medical History: No Pertinent Family History - Tobacco Use Tobacco Use Status *Q: Current Every Day Tobacco User Years of Tobacco use: 30 Packs/Tins Daily: 0.3 - Caffeine Use Caffeine Use: Reports: None - Recreational Drug Use Recreational Drug Use: No - Living Situation & Occupation Living situation: Reports: Alone Occupation: Disabled ED ROS GENERAL - Review of Systems Review Of Systems: Comprehensive ROS is negative, except as noted in HPI. ED EXAM, GENERAL - Physical Exam Exam: See Below Exam Limited By: No Limitations General Appearance: Alert, WD/WN, No Apparent Distress, Obese Eye Exam: Bilateral Eye: EOMI, Normal Inspection, PERRL (4mm) Ears: Normal External Exam, Normal Canal, Hearing Grossly Normal, Normal TMs Ear Exam: Bilateral Ear: Auricle Normal, Canal Normal, TM normal Respiratory/Chest: No Respiratory Distress, Lungs Clear, Normal Breath Sounds, No Accessory Muscle Use, Chest Non-Tender Cardiovascular: Normal Peripheral Pulses, Regular Rate, Rhythm, No Edema, No Gallop, No JVD, No Murmur, No Rub Peripheral Pulses: 2+: Radial (L), Radial (R), Dorsalis Pedis (L), Dorsalis Pedis (R) GI/Abdominal: Normal Bowel Sounds, Soft, Non-Tender, No Organomegaly, No Abnormal Bruit, No Mass (Male) Exam: Deferred Rectal (Males) Exam: Deferred Back Exam: Normal Inspection, Full Range of Motion Extremities: Normal Inspection, Normal Range of Motion, Pedal Edema (+1 pitting, bilaterally) Neurological: Alert, Oriented, CN II-XII Intact, Normal Cognition, Normal Gait, No Motor/Sensory Deficits Psychiatric: Normal Affect, Normal Mood Skin Exam: Warm, Dry, Intact, Normal Color, No Rash. No: Ecchymosis, Erythema, Jaundice, Mottled, Pallor, Petechiae Course - Vital Signs Last Recorded V/S: Last Vital Signs Temp 98.6 F 07/25/20 11:31 Pulse 95 07/25/20 11:31 Resp 13 07/25/20 11:31 BP 167/92 H 07/25/20 11:31 Pulse Ox 99 07/25/20 11:31 - Orders/Labs/Meds Labs: Laboratory Tests 07/25/20 07/25/20 Range/Units 12:25 12:25 WBC 9.7 (5.0-10.0) 10^3/uL RBC 4.48 L (4.6-6.2) 10^6/uL Hgb 14.0 D (14.0-18.0) g/dL Hct 41.9 (40.0-54.0) % MCV 93.5 (80-100) fL MCH 31.3 (27.0-34.0) pg MCHC 33.4 (33.0-35.0) g/dL Plt Count 154 D (150-450) 10^3/uL Neut % (Auto) 60.1 (42.2-75.2) % Lymph % (Auto) 23.9 (20.5-50.1) % [place] % (Auto) 13.7 H (2-8) % Eos % (Auto) 2.0 (1.0-3.0) % Baso % (Auto) 0.3 (0.0-1.0) % Sodium 138 (136-145) mmol/L Potassium 3.4 L (3.5-5.1) mmol/L Chloride 100 (98-107) mmol/L Carbon Dioxide 30 (21-32) mmol/L Anion Gap 11.4 (7-13) mEq/L BUN 12 (7-18) mg/dL Creatinine 1.36 H (0.70-1.30) mg/dL Est Cr Clr Drug Dosing 68.84 mL/min Estimated GFR (MDRD) 54 BUN/Creatinine Ratio 8.8 (No establ ref range) Glucose 118 H (74-99) mg/dL Calcium 8.4 L (8.5-10.1) mg/dL Magnesium 1.7 L (1.8-2.4) mg/dL Total Bilirubin 0.3 (0.2-1.0) mg/dL AST 35 (15-37) U/L ALT 48 (16-63) U/L Alkaline Phosphatase 102 (46-116) U/L Total Protein 7.0 (6.4-8.2) g/dL Albumin 3.3 L (3.4-5.0) g/dL Globulin 3.7 Albumin/Globulin Ratio 0.89 - Re-Assessments/Exams Free Text/Narrative Re-Assessment/Exam: 07/25/20 Patient refuses COVID screen; ordered given new onset sore throat and generalized weakness. Patient refusing blood work and states his workup is taking too long. Patient left this facility following medical examination. Departure - Departure Time of Disposition: 12:35 Disposition: Against Medical Advice 07 Clinical Impression: Left against medical advice - Discharge Information Referrals: Edith Somers NP [Primary Care Provider] - Forms: ED Department Discharge Sepsis Event Note (ED) - Evaluation Sepsis Screening Result: No Definite Risk - Focused Exam Vital Signs: Vital Signs Temp Pulse Resp BP Pulse Ox 07/25/20 11:31 98.6 F 95 13 167/92 H 99
== END 2020-07-25 12:33 | disposition left against medical advice (07) ==
LOC: DL.ED 10:59
DX: M62.81 Muscle weakness (generalized) (principal); E78.00 Pure hypercholesterolemia, unspecified; I11.0 Hypertensive heart disease with heart failure; I50.9 Heart failure, unspecified; J44.9 Chronic obstructive pulmonary disease, unspecified; K21.9 Gastro-esophageal reflux disease without esophagitis; F41.9 Anxiety disorder, unspecified; F32.9 Major depressive disorder, single episode, unspecified; F17.210 Nicotine dependence, cigarettes, uncomplicated; E66.9 Obesity, unspecified; Z68.43 Body mass index [BMI] 50.0-59.9, adult; Z79.899 Other long term (current) drug therapy; Z79.82 Long term (current) use of aspirin
CPT/HCPCS: 36415; 80053; 83735; 85025; 99282; 99284

== ENCOUNTER 2020-10-29 17:05 | Emergency (ER) | payer MEDICARE, MEDICAID ==
[2020-10-29] MEDS ORDERED: HYDROmorphone 1 MG/ML Syringe IVPUSH ONE (17:32)
[2020-10-29] MEDS ORDERED: Sodium Chloride 0.9% 1,000 ML IV ONE (17:32)
[2020-10-29] MEDS ORDERED: Ondansetron 4 MG/2 ML SDV IV ONE (17:32)
--- NOTE | 2020-10-29 17:45 | CR ---
PROCEDURE INFORMATION: Exam: XR Chest Exam date and time: 10/29/2020 5:39 PM Age: 60 years old Clinical indication: Cough; Chest pain; Type not specified; Additional info: Chest pain, cough TECHNIQUE: Imaging protocol: XR of the chest. Views: 1 view. COMPARISON: CR Chest 2V 10/25/2019 12:42 AM FINDINGS: Lungs: Unremarkable. No consolidation. Pleural spaces: Unremarkable. No pleural effusion. No pneumothorax. Heart/Mediastinum: Unremarkable. No cardiomegaly. Bones/joints: Unremarkable. IMPRESSION: No acute findings.
[2020-10-29 17:51] LABS: ANION GAP 12.4 mEq/L (7-13); CHLORIDE,CL 101 mmol/L (98-107); SODIUM,NA 139 mmol/L (136-145)
--- NOTE | 2020-10-29 19:13 | EDM.PDOC ---
"Scribed by Brenda Pedraza 10/29/20 0183 for Derek Keller MD <Derek Keller - Last Filed: 10/29/20 19:13> ED HPI GENERAL MEDICAL PROBLEM - General Chief Complaint: Abdominal Pain Stated Complaint: AMBULANCE Time Seen by Provider: 10/29/20 17:23 Source of Information: Reports: Patient, EMS, EMS Notes Reviewed, RN, RN Notes Reviewed History Limitations: Reports: No Limitations - History of Present Illness INITIAL COMMENTS - FREE TEXT/NARRATIVE: Patient arrives to ED by [facility] with complaints of abdominal pain for about 4 days and being nauseated. States pain is epigastric area to middle abdomen. Has been able to eat and drink, denies any diarrhea or constipation. No abdominal tenderness. Also reporting pain in his left upper chest and arm. The left shoulder area is hypersensitive to touch. Denies fevers or chills. Onset: Gradual Duration: Constant Location: Reports: Chest, Abdomen, Upper Extremity, Left Quality: Reports: Ache Severity: Severe Improves with: Reports: None Worsens with: Reports: None Associated Symptoms: Reports: No Other Symptoms Abdomen Pain Score (Numeric/FACES): 8 Left Arm Pain Score (Numeric/FACES): 8 - Related Data Allergies Allergy/AdvReac Type Severity Reaction Status Date / Time No Known Allergies Allergy Verified 10/29/20 17:10 Home Meds: Home Meds Albuterol Sulfate [Albuterol Sulfate Hfa] 2 puff IH Q6H PRN 12/14/18 [History] Aspirin [Halfprin] 81 mg PO DAILY 12/14/18 [History] Budesonide/Formoterol [Symbicort 160-4.5 MCG] 2 puff INH BID 12/14/18 [History] Furosemide [Lasix] 40 mg PO DAILY 12/14/18 [History] Gabapentin [Gralise] 600 mg PO BEDTIME 12/14/18 [History] LORazepam 1 mg PO BEDTIME PRN 12/14/18 [History] Lisinopril 20 mg PO DAILY 12/14/18 [History] Pantoprazole Sodium [Protonix] 40 mg PO DAILY 12/14/18 [History] QUEtiapine Fumarate [Seroquel] 400 mg PO BEDTIME 12/14/18 [History] amLODIPine [Norvasc] 5 mg PO DAILY 12/14/18 [History] carvediloL [Carvedilol] 12.5 mg PO BID 12/14/18 [History] FLUoxetine [PROzac] 20 mg PO DAILY 10/29/20 [History] Famotidine 40 mg PO DAILY 10/29/20 [History] Past Medical History HEENT History: Reports: Impaired Vision Cardiovascular History: Reports: Blood Clots/VTE/DVT, Heart Failure, High Cholesterol, Hypertension Respiratory History: Reports: COPD, PE Gastrointestinal History: Reports: GERD Other Gastrointestinal History: abdominal hernia Genitourinary History: Reports: None Musculoskeletal History: Reports: None Neurological History: Reports: Other (See Below) Other Neuro History: restless leg syndrome Psychiatric History: Reports: Anxiety, Depression, Schizophrenia, Suicide Attempt Endocrine/Metabolic History: Reports: Obesity/BMI 30+ Hematologic History: Reports: None Immunologic History: Reports: None Oncologic (Cancer) History: Reports: None Dermatologic History: Reports: Cellulitis, Other (See Below) Other Dermatologic History: 07/12 surgery in the [facility] for poole to right arm - Infectious Disease History Infectious Disease History: Reports: None - Past Surgical History Head Surgeries/Procedures: Reports: None GI Surgical History: Reports: Cholecystectomy Musculoskeletal Surgical History: Reports: Arthroscopic Knee Dermatological Surgical History: Reports: Skin Graft Social & Family History - Family History Family Medical History: No Pertinent Family History - Caffeine Use Caffeine Use: Reports: None - Living Situation & Occupation Living situation: Reports: Alone Occupation: Disabled ED ROS GENERAL - Review of Systems Review Of Systems: Comprehensive ROS is negative, except as noted in HPI. ED EXAM, GENERAL - Physical Exam Exam: See Below Exam Limited By: No Limitations General Appearance: Alert, No Apparent Distress, Obese Eye Exam: Bilateral Eye: Normal Inspection (No scleral icterus) Ears: Normal External Exam, Hearing Grossly Normal Nose: Normal Inspection Throat/Mouth: Normal Lips, Normal Voice, No Airway Compromise Head: Atraumatic, Normocephalic Neck: Normal Inspection Respiratory/Chest: No Respiratory Distress, Lungs Clear, No Accessory Muscle Use, Chest Non-Tender, Decreased Breath Sounds Cardiovascular: Normal Peripheral Pulses, Regular Rate, Rhythm, No Edema GI/Abdominal: Normal Bowel Sounds, Soft, Non-Tender, No Distention, Hernia (umbilical), Other (Abdomen is nontender to palpation in the area of reported pain (epigastric, periumbilical, and LUQ/LLQ)). No: Guarding, Rigid, Rebound Back Exam: Normal Inspection, Full Range of Motion Extremities: Normal Range of Motion, Non-Tender, No Pedal Edema, Other (Hypersensitivity to light touch of left shoulder and upper arm with no vesicles, but a few red patches 2-3cm layla. each.) Neurological: Alert, Oriented, No Motor/Sensory Deficits Psychiatric: Normal Mood Skin Exam: Warm, Dry, Intact #1 Interpretation EKG Date: 10/29/20 Time: 17:48 Rhythm: Other (sinus rhythm) Rate (Beats/Min): 82 [place]: LAD-Left [place] Deviation (borderline) P-Wave: Present QRS: Other (baseline wander in leads AVF and Vi.) ST-T: Other (borderline T abnormalities) QT: Prolonged (borderline) Course - Radiology Interpretation Free Text/Narrative:: Chest x-ray: No acute findings. See rad report. - Re-Assessments/Exams Free Text/Narrative Re-Assessment/Exam: 10/29/20 19:13 Care of pt transferred to [facility] at shift change. Departure - Departure Disposition: Home, Self-Care 01 Clinical Impression: Constipation Qualifiers: Constipation type: unspecified constipation type Qualified Code(s): K59.00 - Constipation, unspecified Shingles Qualifiers: Herpes zoster complications: unspecified herpes zoster complication Qualified Code(s): B02.8 - Zoster with other complications - Discharge Information Instructions: Shingles, Xdod-ul-Plek, Constipation, Adult Forms: ED Department Discharge Care Plan Goals: The patient was advised of the examination, lab and CT results during the visit. The patient was given an oral dose of Famciclovir (500 mg) while in the ED. The patient was discharged with a script for Famciclovir (500 mg) #21 to take 1 by mouth 3 times per day for 7 days for his shingles. The patient was encouraged to take an adult dose of MiraLax daily for the next 4 days to relieve his constipation. The patient was also encouraged to stay physically active. If the patient has any additional symptoms or concerns, the patient should either visit his primary care facility or return to the emergency department. Sepsis Event Note (ED) - Evaluation Sepsis Screening Result: No Definite Risk <[facility] [facility] - Last Filed: 10/29/20 20:24> Course - Vital Signs Last Recorded V/S: Last Vital Signs Temp 36.6 C 10/29/20 17:09 Pulse 82 10/29/20 17:09 Resp 18 10/29/20 17:09 BP 179/107 H 10/29/20 17:09 Pulse Ox 97 10/29/20 17:09 - Orders/Labs/Meds Orders: Active Orders 24 hr Category Date Time Status EKG 12 Lead [EKG Documentation Completion] [RC] STAT Care 10/29/20 17:37 Active UA RFX VADIM AND CULT IF INDIC [URIN] Stat Lab 10/29/20 17:34 Ordered Famciclovir [Famvir] Med 10/29/20 20:16 Once 500 mg PO ONETIME ONE Labs: Laboratory Tests 10/29/20 10/29/20 Range/Units 17:21 17:21 WBC 10.3 H (5.0-10.0) 10^3/uL RBC 5.08 (4.6-6.2) 10^6/uL Hgb 15.6 (14.0-18.0) g/dL Hct 46.4 (40.0-54.0) % MCV 91.3 (80-100) fL MCH 30.7 (27.0-34.0) pg MCHC 33.6 (33.0-35.0) g/dL Plt Count 205 (150-450) 10^3/uL Neut % (Auto) 60.2 (42.2-75.2) % Lymph % (Auto) 26.8 (20.5-50.1) % [place] % (Auto) 9.6 H (2-8) % Eos % (Auto) 3.1 H (1.0-3.0) % Baso % (Auto) 0.3 (0.0-1.0) % Sodium 139 (136-145) mmol/L Potassium 3.4 L (3.5-5.1) mmol/L Chloride 101 (98-107) mmol/L Carbon Dioxide 29 (21-32) mmol/L Anion Gap 12.4 (7-13) mEq/L BUN 13 (7-18) mg/dL Creatinine 1.38 H (0.70-1.30) mg/dL Est Cr Clr Drug Dosing TNP Estimated GFR (MDRD) 53 BUN/Creatinine Ratio 9.4 (No establ ref range) Glucose 93 (70-99) mg/dL Calcium 8.2 L (8.5-10.1) mg/dL Total Bilirubin 0.5 (0.2-1.0) mg/dL AST 26 (15-37) U/L ALT 29 (16-63) U/L Alkaline Phosphatase 104 (46-116) U/L Troponin I < 0.017 (0.000-0.056) ng/mL Total Protein 7.3 (6.4-8.2) g/dL Albumin 3.2 L (3.4-5.0) g/dL Globulin 4.1 Albumin/Globulin Ratio 0.78 Amylase 16 L (25-115) U/L Lipase 46 L (73-393) U/L Meds: Medications Discontinued Medications Generic Name Dose Route Start Last Admin Trade Name Freq PRN Reason Stop Dose Admin Hydromorphone HCl 1 mg 10/29/20 17:32 10/29/20 17:46 Hydromorphone 1 Mg/Ml Syringe IVPUSH 10/29/20 17:33 1 mg ONETIME ONE Administration Sodium Chloride 1,000 mls @ 999 mls/hr 10/29/20 17:32 10/29/20 17:46 Normal Saline IV 10/29/20 18:32 999 mls/hr .BOLUS ONE Administration Ondansetron HCl 4 mg 10/29/20 17:32 10/29/20 17:53 Ondansetron 4 Mg/2 Ml Sdv IV 10/29/20 17:33 4 mg ONETIME ONE Administration - Radiology Interpretation Free Text/Narrative:: PROCEDURE INFORMATION: Exam: CT Abdomen And Pelvis Without Contrast Exam date and time: 10/29/2020 7:22 PM Age: 60 years old Clinical indication: Abdominal pain; Additional info: Abdominal pain, left > RT TECHNIQUE: Imaging protocol: Computed tomography of the abdomen and pelvis without contrast. Radiation optimization: All CT scans at this facility use at least one of these dose optimization techniques: automated exposure control; mA and/or kV adjustment per patient size (includes targeted exams where dose is matched to clinical indication); or iterative reconstruction. COMPARISON: CT Abdomen Pelvis wo Cont 01/28/2019 11:51 PM FINDINGS: Mediastinal space: A small hiatal hernia is present. Liver: There is a diffuse decrease in hepatic parenchymal density, consistent with mild fatty infiltration. Gallbladder and bile ducts: There has been a cholecystectomy. Pancreas: Normal. No ductal dilation. Spleen: Normal. No splenomegaly. Adrenal glands: Normal. No mass. Kidneys and ureters: Normal. No hydronephrosis. Stomach and bowel: Mild diverticulosis is present in the distal colon. A large amount of stool is noted throughout the colon. Appendix: No evidence of appendicitis. Intraperitoneal space: Normal. No significant fluid collection. Vasculature: Unremarkable. No abdominal aortic aneurysm. RIANNA WILLIS | Final Radiology Report CONFIDENTIALITY STATEMENT This report is intended only for use by the referring physician, and only in accordance with law. If you received this in error, call [phone]. Page 2 of 2 Lymph nodes: Unremarkable. No enlarged lymph nodes. Urinary bladder: Unremarkable as visualized. Reproductive: Unremarkable as visualized. Bones/joints: The lumbar spine demonstrates mild degenerative changes at multiple levels. Soft tissues: There is a fat-containing umbilical hernia. Fat filled left inguinal hernia. IMPRESSION: 1. Mild diverticulosis is present in the distal colon. 2. A large amount of stool is noted throughout the colon. Thank you for allowing us to participate in the care of your patient. Dictated and Authenticated by: Haile Winslow, - Re-Assessments/Exams Free Text/Narrative Re-Assessment/Exam: 10/29/20 20:17 The patient reported increased pain and burning on his left shoulder down his left arm. Further examination revealed a small raised erythematous area to the left deltoid area. Departure - Departure Time of Disposition: 20:19 Condition: Fair - Discharge Information *PRESCRIPTION DRUG MONITORING PROGRAM REVIEWED*: Not Applicable *COPY OF PRESCRIPTION DRUG MONITORING REPORT IN PATIENT DAHLIA: Not Applicable Sepsis Event Note (ED) - Focused Exam Vital Signs: Vital Signs Temp Pulse Resp BP Pulse Ox 10/29/20 17:09 36.6 C 82 18 179/107 H 97 - My Orders Last 24 Hours: My Active Orders 10/29/20 20:16 Famciclovir [Famvir] 500 mg PO ONETIME ONE - Assessment/Plan Last 24 Hours: My Active Orders 10/29/20 20:16 Famciclovir [Famvir] 500 mg PO ONETIME ONE I have read and agree with the documentation that has been completed regarding this visit. By signing this record, I attest that the documentation was completed in my physical presence and is an accurate record of the encounter."
--- NOTE | 2020-10-29 20:02 | CT ---
PROCEDURE INFORMATION: Exam: CT Abdomen And Pelvis Without Contrast Exam date and time: 10/29/2020 7:22 PM Age: 60 years old Clinical indication: Abdominal pain; Additional info: Abdominal pain, left > RT TECHNIQUE: Imaging protocol: Computed tomography of the abdomen and pelvis without contrast. Radiation optimization: All CT scans at this facility use at least one of these dose optimization techniques: automated exposure control; mA and/or kV adjustment per patient size (includes targeted exams where dose is matched to clinical indication); or iterative reconstruction. COMPARISON: CT Abdomen Pelvis wo Cont 01/28/2019 11:51 PM FINDINGS: Mediastinal space: A small hiatal hernia is present. Liver: There is a diffuse decrease in hepatic parenchymal density, consistent with mild fatty infiltration. Gallbladder and bile ducts: There has been a cholecystectomy. Pancreas: Normal. No ductal dilation. Spleen: Normal. No splenomegaly. Adrenal glands: Normal. No mass. Kidneys and ureters: Normal. No hydronephrosis. Stomach and bowel: Mild diverticulosis is present in the distal colon. A large amount of stool is noted throughout the colon. Appendix: No evidence of appendicitis. Intraperitoneal space: Normal. No significant fluid collection. Vasculature: Unremarkable. No abdominal aortic aneurysm. Lymph nodes: Unremarkable. No enlarged lymph nodes. Urinary bladder: Unremarkable as visualized. Reproductive: Unremarkable as visualized. Bones/joints: The lumbar spine demonstrates mild degenerative changes at multiple levels. Soft tissues: There is a fat-containing umbilical hernia. Fat filled left inguinal hernia. IMPRESSION: 1. Mild diverticulosis is present in the distal colon. 2. A large amount of stool is noted throughout the colon.
== END 2020-10-29 20:45 | disposition home or self-care (01) ==
LOC: DL.ED 17:05
DX: K59.00 Constipation, unspecified (principal); B02.8 Zoster with other complications; J44.9 Chronic obstructive pulmonary disease, unspecified; E66.9 Obesity, unspecified; I11.0 Hypertensive heart disease with heart failure; I50.9 Heart failure, unspecified; K21.9 Gastro-esophageal reflux disease without esophagitis; Z79.82 Long term (current) use of aspirin; Z79.899 Other long term (current) drug therapy
CPT/HCPCS: 36415; 71045; 74176; 80053; 82150; 83690; 84484; 85025; 93005; 93010; 96374; 96375; 99284; 99285-25; A9270-GY; J1170; J2405; J7030

== ENCOUNTER 2021-01-12 04:51 | Emergency (ER) | payer MEDICARE, MEDICAID ==
[2021-01-12 05:27] LABS: ANION GAP 11.6 mEq/L (7-13); CHLORIDE,CL 99 mmol/L (98-107); SODIUM,NA 136 mmol/L (136-145)
--- NOTE | 2021-01-12 05:27 | EDM.PDOC ---
<JoseDavid Doron - Last Filed: 01/12/21 06:41> ED HPI GENERAL MEDICAL PROBLEM - General Chief Complaint: General Time Seen by Provider: 01/12/21 05:10 Source of Information: Reports: Patient, EMS, RN History Limitations: Reports: No Limitations - History of Present Illness INITIAL COMMENTS - FREE TEXT/NARRATIVE: ED via [facility] with c/o bilateral shoulder pain, sometimes arm pain , or leg pain, epigastric pain, chest pain , RUQ pain. Ongoing for past week has taken advil nanda one time per day. has helped but doesn't last. fall2-3 days ago to left knee, when knee gave out. Has not been seen in clinic. SOB at times, Continues to smoke 7-8 cigarettes per day. Upper Mid-Sternal Chest Pain Score (Numeric/FACES): 8 - Related Data Allergies Allergy/AdvReac Type Severity Reaction Status Date / Time No Known Allergies Allergy Verified 01/12/21 04:58 Home Meds: Home Meds Albuterol Sulfate [Albuterol Sulfate Hfa] 2 puff IH Q6H PRN 12/14/18 [History] Aspirin [Halfprin] 81 mg PO DAILY 12/14/18 [History] Budesonide/Formoterol [Symbicort 160-4.5 MCG] 2 puff INH BID 12/14/18 [History] Furosemide [Lasix] 40 mg PO DAILY 12/14/18 [History] Gabapentin [Gralise] 600 mg PO BEDTIME 12/14/18 [History] LORazepam 1 mg PO BEDTIME PRN 12/14/18 [History] Lisinopril 20 mg PO DAILY 12/14/18 [History] Pantoprazole Sodium [Protonix] 40 mg PO DAILY 12/14/18 [History] QUEtiapine Fumarate [Seroquel] 400 mg PO BEDTIME 12/14/18 [History] amLODIPine [Norvasc] 5 mg PO DAILY 12/14/18 [History] carvediloL [Carvedilol] 12.5 mg PO BID 12/14/18 [History] FLUoxetine [PROzac] 20 mg PO DAILY 10/29/20 [History] Famotidine 40 mg PO DAILY 10/29/20 [History] Past Medical History HEENT History: Reports: Impaired Vision Cardiovascular History: Reports: Blood Clots/VTE/DVT, Heart Failure, High Cholesterol, Hypertension, SOB on Exertion Respiratory History: Reports: COPD, PE Gastrointestinal History: Reports: GERD Other Gastrointestinal History: abdominal hernia Genitourinary History: Reports: None Musculoskeletal History: Reports: None Neurological History: Reports: Other (See Below) Other Neuro History: restless leg syndrome Psychiatric History: Reports: Anxiety, Depression, Schizophrenia, Suicide Attempt Endocrine/Metabolic History: Reports: Obesity/BMI 30+ Hematologic History: Reports: None Immunologic History: Reports: None Oncologic (Cancer) History: Reports: None Dermatologic History: Reports: Cellulitis, Other (See Below) Other Dermatologic History: 07/12 surgery in the [facility] for poole to right arm - Infectious Disease History Infectious Disease History: Reports: None - Past Surgical History Head Surgeries/Procedures: Reports: None GI Surgical History: Reports: Cholecystectomy Musculoskeletal Surgical History: Reports: Arthroscopic Knee Dermatological Surgical History: Reports: Skin Graft Social & Family History - Family History Family Medical History: No Pertinent Family History - Tobacco Use Tobacco Use Status *Q: Current Some Day Tobacco User Years of Tobacco use: 6 Packs/Tins Daily: 0.5 - Caffeine Use Caffeine Use: Reports: None - Recreational Drug Use Recreational Drug Use: No - Living Situation & Occupation Living situation: Reports: Alone Occupation: Disabled ED ROS GENERAL - Review of Systems Review Of Systems: Comprehensive ROS is negative, except as noted in HPI. ED EXAM, GENERAL - Physical Exam Exam: See Below Exam Limited By: No Limitations General Appearance: Alert Eye Exam: Bilateral Eye: EOMI Ears: Normal External Exam, Hearing Loss Nose: Normal Inspection Throat/Mouth: Normal Inspection Head: Atraumatic, Normocephalic Neck: Normal Inspection Respiratory/Chest: No Respiratory Distress, Decreased Breath Sounds. No: Rales, Rhonchi, Wheezing Cardiovascular: Normal Peripheral Pulses, Regular Rate, Rhythm. No: No Edema (1+) GI/Abdominal: Normal Bowel Sounds, Soft, Distended. No: Rebound Extremities: Normal Inspection Neurological: Alert, Oriented, Normal Cognition Psychiatric: Flat Affect Skin Exam: Warm, Dry, Rash (abdominal/ groin fold red malodorous), Wound/Incision (Nickel size abrasion left lateral knee. dry, ) #1 Interpretation EKG Date: 01/12/21 Time: 04:45 Rhythm: NSR [place]: Normal P-Wave: Present QRS: Normal ST-T: Normal Comparison: No Change Departure - Departure Disposition: Home, Self-Care 01 Condition: Good Clinical Impression: Yeast dermatitis COPD (chronic obstructive pulmonary disease) Qualifiers: COPD type: emphysema Emphysema type: unspecified Qualified Code(s): J43.9 - Emphysema, unspecified Acid reflux Qualifiers: Esophagitis presence: without esophagitis Qualified Code(s): K21.9 - Gastro- esophageal reflux disease without esophagitis - Discharge Information *PRESCRIPTION DRUG MONITORING PROGRAM REVIEWED*: No *COPY OF PRESCRIPTION DRUG MONITORING REPORT IN PATIENT DAHLIA: No Instructions: Chronic Obstructive Pulmonary Disease, Genital Yeast Infection, Male Forms: ED Department Discharge Additional Instructions: nystatin twice daily to abdominal skin fold tylenol 500mg every 6 hours as needed for discomfort clinic appointment as scheduled on Thursday bland low acid low fat diet increase water intake Sepsis Event Note (ED) - Evaluation Sepsis Screening Result: No Definite Risk <Kendal Reyes - Last Filed: 01/12/21 08:40> Course - Vital Signs Last Recorded V/S: Last Vital Signs Temp 98.4 F 01/12/21 04:57 Pulse 74 01/12/21 04:57 Resp 16 01/12/21 04:57 BP 148/76 H 01/12/21 04:57 Pulse Ox 97 01/12/21 04:57 - Orders/Labs/Meds Labs: Laboratory Tests 01/12/21 01/12/21 01/12/21 Range/Units 05:00 05:00 05:00 WBC 13.2 H (5.0-10.0) 10^3/uL RBC 5.39 (4.6-6.2) 10^6/uL Hgb 16.9 (14.0-18.0) g/dL Hct 49.2 (40.0-54.0) % MCV 91.3 (80-100) fL MCH 31.4 (27.0-34.0) pg MCHC 34.3 (33.0-35.0) g/dL Plt Count 193 (150-450) 10^3/uL Neut % (Auto) 61.3 (42.2-75.2) % Lymph % (Auto) 25.4 (20.5-50.1) % Stokes % (Auto) 12.2 H (2-8) % Eos % (Auto) 0.9 L (1.0-3.0) % Baso % (Auto) 0.2 (0.0-1.0) % PT 11.1 (9.0-12.0) SEC INR 1.1 (0.9-1.2) D-Dimer, Quantitative 612 H (0-400) ng/mL Sodium 136 (136-145) mmol/L Potassium 3.6 (3.5-5.1) mmol/L Chloride 99 (98-107) mmol/L Carbon Dioxide 29 (21-32) mmol/L Anion Gap 11.6 (7-13) mEq/L BUN 8 (7-18) mg/dL Creatinine 1.20 (0.70-1.30) mg/dL Est Cr Clr Drug Dosing 78.01 mL/min Estimated GFR (MDRD) > 60 BUN/Creatinine Ratio 6.7 (No establ ref range) Glucose 91 (70-99) mg/dL Calcium 8.8 (8.5-10.1) mg/dL Total Bilirubin 1.7 H (0.2-1.0) mg/dL AST 31 (15-37) U/L ALT 34 (16-63) U/L Alkaline Phosphatase 103 (46-116) U/L Troponin I High Sens 12 (<=76) pg/mL Total Protein 7.9 (6.4-8.2) g/dL Albumin 3.6 (3.4-5.0) g/dL Globulin 4.3 Albumin/Globulin Ratio 0.8 Amylase 16 L (25-115) U/L Lipase 38 L (73-393) U/L Meds: Medications Discontinued Medications Generic Name Dose Route Start Last Admin Trade Name Giovanni PRN Reason Stop Dose Admin Acetaminophen 650 mg 01/12/21 05:31 01/12/21 05:45 Acetaminophen 325 Mg Tab PO 01/12/21 05:32 650 mg NOW ONE Administration Famotidine 20 mg 01/12/21 05:32 01/12/21 05:45 Famotidine 20 Mg/2 Ml Sdv IVPUSH 01/12/21 05:33 20 mg ONETIME ONE Administration Nystatin 22 gm 01/12/21 05:41 01/12/21 05:51 Nystatin Ointment 15 Gm Tube TOP 01/12/21 05:42 22 gm ONETIME ONE Administration - Radiology Interpretation Free Text/Narrative:: [facility] Final Radiology Report Call: [phone] assistance Online chat: [email or web address] Name: RIANNA WILLIS Age: 60Years M Date: 01/12/2021 SSN: -- : 1960 Study: CR CHEST 1V FRONTAL Requesting Physician: DAVID BHAT Images: 1 Addl Studies: Provided Clinical History: intermittent pain SOB Contrast: Contrast Medium: Contrast Amount: Contrast Method: CONFIDENTIALITY STATEMENT This report is intended only for use by the referring physician, and only in accordance with law. If you received this in error, call [phone]. Page 1 of 1 PROCEDURE INFORMATION: Exam: XR Chest Exam date and time: 01/12/2021 6:08 AM Age: 60 years old Clinical indication: Shortness of breath; Additional info: Intermittent pain SOB TECHNIQUE: Imaging protocol: XR of the chest. Views: 1 view. COMPARISON: CR Chest 1V Frontal 10/29/2020 5:39 PM FINDINGS: Lungs: Unremarkable. No consolidation. Pleural spaces: Unremarkable. No pleural effusion. No pneumothorax. Heart/Mediastinum: The cardiomediastinal silhouette is fairly stable in appearance, with similar cardiomegaly. Bones/joints: Unremarkable. IMPRESSION: Mild cardiomegaly, as on 10/29/2020, without new pulmonary disease. Thank you for allowing us to participate in the care of your patient. Dictated and Authenticated by: Joaquín Raymond MD 01/12/2021 7:45 AM Central Time ([place] & [place]) [facility] Final Radiology Report Call: [phone] assistance Online chat: [email or web address] Name: RIANNA WILLIS Age: 60Years M Date: 01/12/2021 SSN: -- : 1960 Study: CR ABDOMEN 1V FLAT Requesting Physician: DAVID BHAT Images: 3 Addl Studies: Provided Clinical History: intermittent pain SOB Contrast: Contrast Medium: Contrast Amount: Contrast Method: CONFIDENTIALITY STATEMENT This report is intended only for use by the referring physician, and only in accordance with law. If you received this in error, call [phone]. Page 1 of 1 PROCEDURE INFORMATION: Exam: XR Abdomen Exam date and time: 01/12/2021 6:04 AM Age: 60 years old Clinical indication: Other: Pain; Additional info: Intermittent pain SOB TECHNIQUE: Imaging protocol: XR of the abdomen. Views: Frontal supine view of the abdomen. 1 View. (3 images total) COMPARISON: CR Abdomen 1V Flat 10/03/2020 1:55:19 AM FINDINGS: Tubes, catheters and devices: Surgical clips again overlie the right upper quadrant. Gastrointestinal tract: The small bowel is not significantly air-distended. Air and stool are present within large bowel. Bones/joints: Degenerative changes again involve the spine. Soft tissues: Phleboliths again overlie the pelvis. Other findings: There is a similar linear metallic radiodensity overlying the right pelvis. IMPRESSION: Nonspecific bowel gas pattern. Thank you for allowing us to participate in the care of your patient. Dictated and Authenticated by: Joaquín Raymond MD 01/12/2021 7:51 AM Central Time ([place] & [place]) - Re-Assessments/Exams Free Text/Narrative Re-Assessment/Exam: 01/12/21 Findings of examination, lab work, and imaging reviewed with patient. Discussed supportive cares for constipation and acid reflux. Patient encouraged to keep appointment with PCP on January 16. Red flag signs and symptoms which would warrant reevaluation reviewed. Patient verbalized understanding and agreement with the plan of care. Departure - Departure Time of Disposition: 07:55 Sepsis Event Note (ED) - Focused Exam Vital Signs: Vital Signs Temp Pulse Resp BP Pulse Ox 01/12/21 04:57 98.4 F 74 16 148/76 H 97
[2021-01-12] MEDS ORDERED: Acetaminophen 325 MG Tab PO ONE (05:31)
[2021-01-12] MEDS ORDERED: Famotidine 20 MG/2 ML SDV IVPUSH ONE (05:32)
[2021-01-12] MEDS ORDERED: Nystatin Ointment 15 GM Tube TOP ONE (05:41)
--- NOTE | 2021-01-12 07:45 | CR ---
PROCEDURE INFORMATION: Exam: XR Chest Exam date and time: 01/12/2021 6:08 AM Age: 60 years old Clinical indication: Shortness of breath; Additional info: Intermittent pain SOB TECHNIQUE: Imaging protocol: XR of the chest. Views: 1 view. COMPARISON: CR Chest 1V Frontal 10/29/2020 5:39 PM FINDINGS: Lungs: Unremarkable. No consolidation. Pleural spaces: Unremarkable. No pleural effusion. No pneumothorax. Heart/Mediastinum: The cardiomediastinal silhouette is fairly stable in appearance, with similar cardiomegaly. Bones/joints: Unremarkable. IMPRESSION: Mild cardiomegaly, as on 10/29/2020, without new pulmonary disease.
--- NOTE | 2021-01-12 07:52 | CR ---
PROCEDURE INFORMATION: Exam: XR Abdomen Exam date and time: 01/12/2021 6:04 AM Age: 60 years old Clinical indication: Other: Pain; Additional info: Intermittent pain SOB TECHNIQUE: Imaging protocol: XR of the abdomen. Views: Frontal supine view of the abdomen. 1 View. (3 images total) COMPARISON: CR Abdomen 1V Flat 10/03/2020 1:55:19 AM FINDINGS: Tubes, catheters and devices: Surgical clips again overlie the right upper quadrant. Gastrointestinal tract: The small bowel is not significantly air-distended. Air and stool are present within large bowel. Bones/joints: Degenerative changes again involve the spine. Soft tissues: Phleboliths again overlie the pelvis. Other findings: There is a similar linear metallic radiodensity overlying the right pelvis. IMPRESSION: Nonspecific bowel gas pattern.
== END 2021-01-12 08:09 | disposition home or self-care (01) ==
LOC: DL.ED 04:51
DX: J43.9 Emphysema, unspecified (principal); I11.0 Hypertensive heart disease with heart failure; I50.9 Heart failure, unspecified; B37.2 Candidiasis of skin and nail; K21.9 Gastro-esophageal reflux disease without esophagitis; F17.210 Nicotine dependence, cigarettes, uncomplicated; E66.9 Obesity, unspecified; Z68.43 Body mass index [BMI] 50.0-59.9, adult; Z79.82 Long term (current) use of aspirin; Z79.899 Other long term (current) drug therapy
CPT/HCPCS: 36415; 71045; 74018; 80053; 82150; 83690; 84484; 85025; 85379; 85610; 93005; 93010; 96374; 99284; 99285-25; A9270-GY; J3490

== ENCOUNTER 2021-01-17 04:35 | Emergency (ER) | payer MEDICARE, MEDICAID ==
[2021-01-17] MEDS ORDERED: Famotidine 20 MG/2 ML SDV IVPUSH ONE (05:23)
[2021-01-17] MEDS ORDERED: Sodium Chloride 0.9% 1,000 ML IV ONE (05:23)
[2021-01-17] MEDS ORDERED: Ondansetron 4 MG/2 ML SDV IVPUSH ONE (05:23)
[2021-01-17 06:12] LABS: ANION GAP 13.9 mEq/L (7-13); CHLORIDE,CL 98 mmol/L (98-107); SODIUM,NA 136 mmol/L (136-145)
[2021-01-17] MEDS ORDERED: Potassium Chloride 10 MEQ Tab.ER PO ONE (07:08)
[2021-01-17] MEDS ORDERED: cefTRIAXone 1 GM in Sodium Chloride 0.9% 50 ML IV ONE (07:13)
--- NOTE | 2021-01-17 07:15 | EDM.PDOC ---
<MaximusDavid maynard Doron - Last Filed: 01/17/21 07:15> ED HPI GENERAL MEDICAL PROBLEM - General Chief Complaint: Gastrointestinal Problem Stated Complaint: AMBULANCE Time Seen by Provider: 01/17/21 05:00 Source of Information: Reports: Patient History Limitations: Reports: No Limitations - History of Present Illness INITIAL COMMENTS - FREE TEXT/NARRATIVE: ED via [facility] with c/o nausea and voimiting x 2-3 days with one -2 emesis per day. was seen in clinic yesterday and told had " realy bad infection" in mouth " wast put on antibiotic but did not get filled reported went home after clinic appointment, dizzy, fell, did not hit head, Abdominal Pain Score (Numeric/FACES): 8 - Related Data Allergies Allergy/AdvReac Type Severity Reaction Status Date / Time No Known Allergies Allergy Verified 01/12/21 04:58 Home Meds: Home Meds Albuterol Sulfate [Albuterol Sulfate Hfa] 2 puff IH Q6H PRN 12/14/18 [History] Aspirin [Halfprin] 81 mg PO DAILY 12/14/18 [History] Budesonide/Formoterol [Symbicort 160-4.5 MCG] 2 puff INH BID 12/14/18 [History] Furosemide [Lasix] 40 mg PO DAILY 12/14/18 [History] Gabapentin [Gralise] 600 mg PO BEDTIME 12/14/18 [History] LORazepam 1 mg PO BEDTIME PRN 12/14/18 [History] Lisinopril 20 mg PO DAILY 12/14/18 [History] Pantoprazole Sodium [Protonix] 40 mg PO DAILY 12/14/18 [History] QUEtiapine Fumarate [Seroquel] 400 mg PO BEDTIME 12/14/18 [History] amLODIPine [Norvasc] 5 mg PO DAILY 12/14/18 [History] carvediloL [Carvedilol] 12.5 mg PO BID 12/14/18 [History] FLUoxetine [PROzac] 20 mg PO DAILY 10/29/20 [History] Famotidine 40 mg PO DAILY 10/29/20 [History] Past Medical History HEENT History: Reports: Impaired Vision Cardiovascular History: Reports: Blood Clots/VTE/DVT, Heart Failure, High Cholesterol, Hypertension, SOB on Exertion Respiratory History: Reports: COPD, PE Gastrointestinal History: Reports: GERD Other Gastrointestinal History: abdominal hernia Genitourinary History: Reports: None Musculoskeletal History: Reports: None Neurological History: Reports: Other (See Below) Other Neuro History: restless leg syndrome Psychiatric History: Reports: Anxiety, Depression, Schizophrenia, Suicide Attempt Endocrine/Metabolic History: Reports: Obesity/BMI 30+ Hematologic History: Reports: None Immunologic History: Reports: None Oncologic (Cancer) History: Reports: None Dermatologic History: Reports: Cellulitis, Other (See Below) Other Dermatologic History: 07/12 surgery in the [facility] [place] to right arm - Infectious Disease History Infectious Disease History: Reports: None - Past Surgical History Head Surgeries/Procedures: Reports: None GI Surgical History: Reports: Cholecystectomy Musculoskeletal Surgical History: Reports: Arthroscopic Knee Dermatological Surgical History: Reports: Skin Graft Social & Family History - Family History Family Medical History: No Pertinent Family History - Tobacco Use Tobacco Use Status *Q: Current Every Day Tobacco User Years of Tobacco use: 10 Packs/Tins Daily: 0.5 - Caffeine Use Caffeine Use: Reports: None - Recreational Drug Use Recreational Drug Use: No - Living Situation & Occupation Living situation: Reports: Alone Occupation: Disabled ED ROS GENERAL - Review of Systems Constitutional: Reports: Chills, Malaise, Weakness, Decreased Appetite HEENT: Reports: Other (losing teeth). Denies: Throat Pain Respiratory: Reports: No Symptoms Cardiovascular: Reports: Lightheadedness Endocrine: Reports: No Symptoms GI/Abdominal: Reports: Decreased Appetite, Nausea, Vomiting : Reports: Incontinence (not acute) Musculoskeletal: Reports: No Symptoms Skin: Reports: Other (groin fold) Neurological: Reports: Dizziness ED EXAM, GI/ABD - Physical Exam Exam: See Below Exam Limited By: No Limitations General Appearance: Alert, No Apparent Distress Eyes: Bilateral: EOMI Ears: Normal External Exam, Hearing Grossly Normal Nose: Normal Inspection Throat/Mouth: Other (poor dentation, dry mucus membranes, poor oral hygeine) Neck: Full Range of Motion Respiratory/Chest: No Respiratory Distress, Lungs Clear, Normal Breath Sounds Cardiovascular: Regular Rate, Rhythm GI/Abdominal Exam: Normal Bowel Sounds Back Exam: Normal Inspection, Full Range of Motion Extremities: Normal Inspection, Normal Range of Motion Neurological: Alert, Oriented, Normal Cognition Psychiatric: Flat Affect, Other (agitated) Skin Exam: Warm, Dry, Intact. No: Rash #1 Interpretation EKG Date: 01/16/21 Rhythm: Other (sinus tach) Rate (Beats/Min): 118 [place]: LAD-Left [place] Deviation P-Wave: Present Comparison: NA - No Prior EKG Departure - Departure Disposition: Home, Self-Care 01 Clinical Impression: Dental abscess, Nausea Abdominal pain Qualifiers: Abdominal location: generalized Qualified Code(s): R10.84 - Generalized abdominal pain - Discharge Information Instructions: Nausea, Adult, Dental Abscess, [id number], Pain Medicine Instructions, [id number] Forms: ED Department Discharge Care Plan Goals: The patient was advised of the examination, lab and CT results during the visit. The patient was given IV medications during the visit with some symptom i mprovement. The patient was encouraged to take the antibiotics as directed for treatment of his dental abscess. The patient should follow-up with his [facility] care facility for continued evaluation and further management. If the patient has any additional symptoms or concerns, the patient should either return to the emergency department or visit his primary care facility. Sepsis Event Note (ED) - Evaluation Sepsis Screening Result: No Definite Risk <Grupo Dickerson - Last Filed: 01/17/21 11:04> ED ROS GENERAL - Review of Systems Review Of Systems: See Below Psychiatric: Reports: Agitation Hematologic/Lymphatic: Reports: No Symptoms Immunologic: Reports: No Symptoms Course - Vital Signs Last Recorded V/S: Last Vital Signs Temp 98.5 F 01/17/21 04:46 Pulse 118 H 01/17/21 04:46 Resp 20 01/17/21 04:46 BP 140/61 01/17/21 04:46 Pulse Ox 98 01/17/21 04:46 - Orders/Labs/Meds Orders: Active Orders 24 hr Category Date Time Status EKG 12 Lead [EKG Documentation Completion] [RC] URGENT Care 01/17/21 05:26 Active CULTURE BLOOD [BC] Stat Lab 01/17/21 05:38 Received CULTURE BLOOD [BC] Stat Lab 01/17/21 05:43 Received Blood Culture x2 Reflex Set [OM.PC] Stat Oth 01/17/21 05:25 Ordered Labs: Laboratory Tests 01/17/21 01/17/21 01/17/21 Range/Units 05:43 05:43 05:43 WBC 16.0 H (5.0-10.0) 10^3/uL RBC 5.16 (4.6-6.2) 10^6/uL Hgb 16.3 (14.0-18.0) g/dL Hct 46.5 (40.0-54.0) % MCV 90.1 (80-100) fL MCH 31.6 (27.0-34.0) pg MCHC 35.1 H (33.0-35.0) g/dL Plt Count 172 (150-450) 10^3/uL Neut % (Auto) 84.5 H (42.2-75.2) % Lymph % (Auto) 7.8 L (20.5-50.1) % [place] % (Auto) 7.3 (2-8) % Eos % (Auto) 0.2 L (1.0-3.0) % Baso % (Auto) 0.2 (0.0-1.0) % Sodium 136 (136-145) mmol/L Potassium 2.9 L (3.5-5.1) mmol/L Chloride 98 (98-107) mmol/L Carbon Dioxide 27 (21-32) mmol/L Anion Gap 13.9 H (7-13) mEq/L BUN 7 (7-18) mg/dL Creatinine 1.19 (0.70-1.30) mg/dL Est Cr Clr Drug Dosing 78.67 mL/min Estimated GFR (MDRD) > 60 BUN/Creatinine Ratio 5.9 (No establ ref range) Glucose 115 H (70-99) mg/dL Lactic Acid 1.5 (0.4-2.0) mmol/L Calcium 8.7 (8.5-10.1) mg/dL Total Bilirubin 1.6 H (0.2-1.0) mg/dL AST 22 (15-37) U/L ALT 32 (16-63) U/L Alkaline Phosphatase 97 (46-116) U/L Total Protein 7.7 (6.4-8.2) g/dL Albumin 3.6 (3.4-5.0) g/dL Globulin 4.1 Albumin/Globulin Ratio 0.9 Amylase (25-115) U/L Lipase (73-393) U/L Urine Color (YELLOW) Urine Appearance (CLEAR) Urine pH (5.0-9.0) Ur Specific [place] (1.005-1.030) Urine Protein (NEGATIVE) Urine Glucose (UA) (NEGATIVE) Urine Ketones (NEGATIVE) Urine Occult Blood (NEGATIVE) Urine Nitrite (NEGATIVE) Urine Bilirubin (NEGATIVE) Urine Urobilinogen (0.2-1.0) mg/dL Ur Leukocyte Esterase (NEGATIVE) Urine RBC /HPF Urine WBC (0-5/HPF) /HPF Ur Epithelial Cells (NOT SEEN) /HPF Urine Bacteria (0-FEW/HPF) /HPF Influenza Type A RNA (NEGATIVE) Influenza Type B RNA (NEGATIVE) SARS-CoV-2 RNA (COLE) (NEGATIVE) 01/17/21 01/17/21 01/17/21 Range/Units 05:43 08:38 09:44 WBC (5.0-10.0) 10^3/uL RBC (4.6-6.2) 10^6/uL Hgb (14.0-18.0) g/dL Hct (40.0-54.0) % MCV (80-100) fL MCH (27.0-34.0) pg MCHC (33.0-35.0) g/dL Plt Count (150-450) 10^3/uL Neut % (Auto) (42.2-75.2) % Lymph % (Auto) (20.5-50.1) % [place] % (Auto) (2-8) % Eos % (Auto) (1.0-3.0) % Baso % (Auto) (0.0-1.0) % Sodium (136-145) mmol/L Potassium (3.5-5.1) mmol/L Chloride (98-107) mmol/L Carbon Dioxide (21-32) mmol/L Anion Gap (7-13) mEq/L BUN (7-18) mg/dL Creatinine (0.70-1.30) mg/dL Est Cr Clr Drug Dosing mL/min Estimated GFR (MDRD) BUN/Creatinine Ratio (No establ ref range) Glucose (70-99) mg/dL Lactic Acid (0.4-2.0) mmol/L Calcium (8.5-10.1) mg/dL Total Bilirubin (0.2-1.0) mg/dL AST (15-37) U/L ALT (16-63) U/L Alkaline Phosphatase (46-116) U/L Total Protein (6.4-8.2) g/dL Albumin (3.4-5.0) g/dL Globulin Albumin/Globulin Ratio Amylase 16 L (25-115) U/L Lipase 27 L (73-393) U/L Urine Color Dark yellow (YELLOW) Urine Appearance Clear (CLEAR) Urine pH 7.0 (5.0-9.0) Ur Specific [place] 1.015 (1.005-1.030) Urine Protein Negative (NEGATIVE) Urine Glucose (UA) Negative (NEGATIVE) Urine Ketones Negative (NEGATIVE) Urine Occult Blood Trace-intact H (NEGATIVE) Urine Nitrite Negative (NEGATIVE) Urine Bilirubin Negative (NEGATIVE) Urine Urobilinogen 2.0 H (0.2-1.0) mg/dL Ur Leukocyte Esterase Negative (NEGATIVE) Urine RBC 0-5 /HPF Urine WBC 0-5 (0-5/HPF) /HPF Ur Epithelial Cells Few (NOT SEEN) /HPF Urine Bacteria Not seen (0-FEW/HPF) /HPF Influenza Type A RNA Negative (NEGATIVE) Influenza Type B RNA Negative (NEGATIVE) SARS-CoV-2 RNA (COLE) Negative (NEGATIVE) Meds: Medications Discontinued Medications Generic Name Dose Route Start Last Admin Trade Name Freq PRN Reason Stop Dose Admin Famotidine 20 mg 01/17/21 05:23 01/17/21 05:39 Famotidine 20 Mg/2 Ml Sdv IVPUSH 01/17/21 05:24 20 mg ONETIME ONE Administration Furosemide 10 mg 01/17/21 08:56 01/17/21 09:26 Furosemide 20 Mg/2 Ml Vial IVPUSH 01/17/21 08:57 10 mg ONETIME ONE Administration Sodium Chloride 1,000 mls @ 500 mls/hr 01/17/21 05:23 01/17/21 05:38 Normal Saline IV 01/17/21 07:22 500 mls/hr .BOLUS ONE Administration Ceftriaxone Sodium 1 gm/ 50 mls @ 100 mls/hr 01/17/21 07:13 01/17/21 07:25 Sodium Chloride IV 01/17/21 07:42 100 mls/hr ONETIME ONE Administration Potassium Chloride 10 meq/ 100 mls @ 100 mls/hr 01/17/21 07:28 01/17/21 08:17 Premix IV 01/17/21 08:27 100 mls/hr ONETIME ONE Administration Iopamidol 100 ml 01/17/21 07:43 01/17/21 08:06 Iopamidol 612 Mg/Ml 100 Ml Bottle IVPUSH 01/17/21 07:44 100 ml ONETIME ONE Administration Iopamidol 50 ml 01/17/21 08:15 01/17/21 08:06 Iopamidol 612 Mg/Ml 50 Ml Sdv IVPUSH 01/17/21 08:16 25 ml ONETIME ONE Administration Ondansetron HCl 4 mg 01/17/21 05:23 01/17/21 05:39 Ondansetron 4 Mg/2 Ml Sdv IVPUSH 01/17/21 05:24 4 mg ONETIME ONE Administration Potassium Chloride 10 meq 01/17/21 07:08 Potassium Chloride 10 Meq Tab.Er PO 01/17/21 07:09 ONETIME ONE - Radiology Interpretation Free Text/Narrative:: [facility] Final Radiology Report Call: [phone] assistance Online chat: [email or web address] Name: RIANNA WILLIS Age: 60Years M Date: 01/17/2021 SSN: -- : [id number] Study: CT ABDOMEN PELVIS W CONT Requesting Physician: DAVID BHAT Images: [phone] Addl Studies: Provided Clinical History: nausea vomiting WBC 16,000 Contrast: With Contrast Medium: isovue 300 Contrast Amount: 125 mL Contrast Method: Intravenous (IV) Page 1 of 2 PROCEDURE INFORMATION: Exam: CT Abdomen And Pelvis With Contrast Exam date and time: 01/17/2021 7:54 AM Age: 60 years old Clinical indication: Nausea and vomiting; Prior surgery; Surgery date: 6+ m [facility]; Surgery type: Gallbladder removed; Patient HX: Weight: 401 pounds, height: 74 inches; Additional info: Nausea vomiting wbc 16,000 TECHNIQUE: Imaging protocol: Computed tomography of the abdomen and pelvis with contrast. Radiation optimization: All CT scans at this facility use at least one of these dose optimization techniques: automated exposure control; mA and/or kV adjustment per patient size (includes targeted exams where dose is matched to clinical indication); or iterative reconstruction. Contrast material: ISOVUE 300; Contrast volume: 125 ml; Contrast route: INTRAVENOUS (IV); COMPARISON: CT Abdomen Pelvis wo Cont 10/29/2020 7:22 PM FINDINGS: Limitations: Image degradation from beam scatter due to body habitus. Lungs: Included lung bases are clear. Liver: Normal. No mass. Gallbladder and bile ducts: Right upper quadrant cholecystectomy sutures. Pancreas: Normal. No ductal dilation. Spleen: Normal. No splenomegaly. Adrenal glands: Normal. No mass. Kidneys and ureters: Normal. No hydronephrosis. Stomach and bowel: Few scattered diverticuli without diverticulitis. RIANNA WILLIS | Final Radiology Report CONFIDENTIALITY STATEMENT This report is intended only for use by the referring physician, and only in accordance with law. If you received this in error, call [phone]. Page 2 of 2 Appendix: Appendix is normal in caliber without inflammatory change. Intraperitoneal space: Unremarkable. No free air. No significant fluid collection. Vasculature: The aorta demonstrates mild atherosclerotic calcification. Lymph nodes: Unremarkable. No enlarged lymph nodes. Urinary bladder: Mild bladder wall thickening more prominent anteriorly. Reproductive: Unremarkable as visualized. Bones/joints: Mild multilevel degenerative spondylosis. Soft tissues: Small fat containing inguinal herniations without associated edematous change. Lobulated midline periumbilical fat containing hernia without edematous change. IMPRESSION: 1. Diverticulosis without diverticulitis. 2. Mild bladder wall thickening more prominent anteriorly. This may be related to incomplete luminal distention versus cystitis. Please correlate with the clinical setting. 3. Fat containing uncomplicated periumbilical hernia. Thank you for allowing us to participate in the care of your patient. Dictated and Authenticated by: Stacey Bell MD 01/17/2021 8:40 AM Central Time ([place] & [place]) - Re-Assessments/Exams Free Text/Narrative Re-Assessment/Exam: 01/17/21 08:30 The patient reports he continues to have diffuse abdominal. The patient reports at this time he has pain to the RUQ as well as across the entire lower abdomen. The patient reports he has fallen 4 times since he got to his home after the clinic visit. The patient also reports he has not been able to eat in the past 3-4 days due to nausea. The patient reports his provider informed him that the dental infection could spread from his mouth to his heart which has increased th e patient's anxiety. Departure - Departure Time of Disposition: 10:59 Condition: Fair - Discharge Information *PRESCRIPTION DRUG MONITORING PROGRAM REVIEWED*: Not Applicable *COPY OF PRESCRIPTION DRUG MONITORING REPORT IN PATIENT DAHLIA: Not Applicable Sepsis Event Note (ED) - Focused Exam Vital Signs: Vital Signs Temp Pulse Resp BP Pulse Ox 01/17/21 04:46 98.5 F 118 H 20 140/61 98
[2021-01-17] MEDS ORDERED: Potassium Chloride 10 MEQ in Premix Bag 1 BAG IV ONE (07:28)
[2021-01-17] MEDS ORDERED: Iopamidol 612 MG/ML 100 ML Bottle IVPUSH ONE (07:43)
[2021-01-17] MEDS ORDERED: Iopamidol 612 MG/ML 50 ML SDV IVPUSH ONE (08:15)
--- NOTE | 2021-01-17 08:41 | CT ---
PROCEDURE INFORMATION: Exam: CT Abdomen And Pelvis With Contrast Exam date and time: 01/17/2021 7:54 AM Age: 60 years old Clinical indication: Nausea and vomiting; Prior surgery; Surgery date: 6+ months; Surgery type: Gallbladder removed; Patient HX: Weight: 401 pounds, height: 74 inches; Additional info: Nausea vomiting wbc 16,000 TECHNIQUE: Imaging protocol: Computed tomography of the abdomen and pelvis with contrast. Radiation optimization: All CT scans at this facility use at least one of these dose optimization techniques: automated exposure control; mA and/or kV adjustment per patient size (includes targeted exams where dose is matched to clinical indication); or iterative reconstruction. Contrast material: ISOVUE 300; Contrast volume: 125 ml; Contrast route: INTRAVENOUS (IV); COMPARISON: CT Abdomen Pelvis wo Cont 10/29/2020 7:22 PM FINDINGS: Limitations: Image degradation from beam scatter due to body habitus. Lungs: Included lung bases are clear. Liver: Normal. No mass. Gallbladder and bile ducts: Right upper quadrant cholecystectomy sutures. Pancreas: Normal. No ductal dilation. Spleen: Normal. No splenomegaly. Adrenal glands: Normal. No mass. Kidneys and ureters: Normal. No hydronephrosis. Stomach and bowel: Few scattered diverticuli without diverticulitis. Appendix: Appendix is normal in caliber without inflammatory change. Intraperitoneal space: Unremarkable. No free air. No significant fluid collection. Vasculature: The aorta demonstrates mild atherosclerotic calcification. Lymph nodes: Unremarkable. No enlarged lymph nodes. Urinary bladder: Mild bladder wall thickening more prominent anteriorly. Reproductive: Unremarkable as visualized. Bones/joints: Mild multilevel degenerative spondylosis. Soft tissues: Small fat containing inguinal herniations without associated edematous change. Lobulated midline periumbilical fat containing hernia without edematous change. IMPRESSION: 1. Diverticulosis without diverticulitis. 2. Mild bladder wall thickening more prominent anteriorly. This may be related to incomplete luminal distention versus cystitis. Please correlate with the clinical setting. 3. Fat containing uncomplicated periumbilical hernia.
[2021-01-17] MEDS ORDERED: Furosemide 20 MG/2 ML VIAL IVPUSH ONE (08:56)
[2021-01-17 09:17] LABS: CORONAVIRUS COVID-19 NAA NEGATIVE (NEGATIVE)
== END 2021-01-17 11:50 | disposition home or self-care (01) ==
LOC: DL.ED 04:35
DX: K04.7 Periapical abscess without sinus (principal); R11.2 Nausea with vomiting, unspecified; R10.84 Generalized abdominal pain; I11.0 Hypertensive heart disease with heart failure; I50.9 Heart failure, unspecified; J44.9 Chronic obstructive pulmonary disease, unspecified; E66.9 Obesity, unspecified; Z72.0 Tobacco use; Z20.822 Contact with and (suspected) exposure to COVID-19; Z68.43 Body mass index [BMI] 50.0-59.9, adult
CPT/HCPCS: 0240U; 36415; 74177; 80053; 81001; 82150; 83605; 83690; 85025; 87040; 93005; 96365; 96367; 96375; 99285; J0696; J1940; J2405; J3480; J3490; J7030; Q9967

== ENCOUNTER 2021-04-03 16:42 | Emergency (ER) | payer MEDICARE, MEDICAID ==
[2021-04-03] MEDS ORDERED: Aspirin 81 MG Tab.Chew PO ONE (16:58)
--- NOTE | 2021-04-03 17:01 | EDM.PDOC ---
ED HPI GENERAL MEDICAL PROBLEM - General Chief Complaint: Chest Pain Stated Complaint: AMBULANCE Time Seen by Provider: 04/03/21 16:50 Source of Information: Reports: Patient History Limitations: Reports: No Limitations - History of Present Illness INITIAL COMMENTS - FREE TEXT/NARRATIVE: This 60 yo male patient was brought to the ED by [facility] due to left upper chest pain. The patient reports his chest pain started 3-4 days ago. The patient reports his pain gets worse when he takes deep breaths. The patient reports point tenderness with palpation of his left upper chest. The patient also reports that he fell last week onto the left side of his chest and has bruising to the left chest (just below the left pectoral muscle). Duration: Day(s):, Constant, Getting Worse Location: Reports: Chest (left upper chest pain) Quality: Reports: Ache, Sharp Severity: Moderate Improves with: Reports: Rest Worsens with: Reports: Movement Context: Reports: Other Associated Symptoms: Reports: Chest Pain Bilateral Chest Pain Score (Numeric/FACES): 10 - Related Data Allergies Allergy/AdvReac Type Severity Reaction Status Date / Time No Known Allergies Allergy Verified 01/12/21 04:58 Home Meds: Home Meds Albuterol Sulfate [Albuterol Sulfate Hfa] 2 puff IH Q6H PRN 12/14/18 [History] Aspirin [Halfprin] 81 mg PO DAILY 12/14/18 [History] Budesonide/Formoterol [Symbicort 160-4.5 MCG] 2 puff INH BID 12/14/18 [History] Furosemide [Lasix] 40 mg PO DAILY 12/14/18 [History] Gabapentin [Gralise] 600 mg PO BEDTIME 12/14/18 [History] LORazepam 1 mg PO BEDTIME PRN 12/14/18 [History] Lisinopril 20 mg PO DAILY 12/14/18 [History] Pantoprazole Sodium [Protonix] 40 mg PO DAILY 12/14/18 [History] QUEtiapine Fumarate [Seroquel] 400 mg PO BEDTIME 12/14/18 [History] amLODIPine [Norvasc] 5 mg PO DAILY 12/14/18 [History] carvediloL [Carvedilol] 12.5 mg PO BID 12/14/18 [History] FLUoxetine [PROzac] 20 mg PO DAILY 10/29/20 [History] Famotidine 40 mg PO DAILY 10/29/20 [History] Past Medical History HEENT History: Reports: Impaired Vision Cardiovascular History: Reports: Blood Clots/VTE/DVT, Heart Failure, High Cholesterol, Hypertension, SOB on Exertion Respiratory History: Reports: COPD, PE Gastrointestinal History: Reports: GERD Other Gastrointestinal History: abdominal hernia Genitourinary History: Reports: None Musculoskeletal History: Reports: None Neurological History: Reports: Other (See Below) Other Neuro History: restless leg syndrome Psychiatric History: Reports: Anxiety, Depression, Schizophrenia, Suicide Attempt Endocrine/Metabolic History: Reports: Obesity/BMI 30+ Hematologic History: Reports: None Immunologic History: Reports: None Oncologic (Cancer) History: Reports: None Dermatologic History: Reports: Cellulitis, Other (See Below) Other Dermatologic History: 07/12 surgery in the [facility] for poole to right arm - Infectious Disease History Infectious Disease History: Reports: None - Past Surgical History Head Surgeries/Procedures: Reports: None GI Surgical History: Reports: Cholecystectomy Musculoskeletal Surgical History: Reports: Arthroscopic Knee Dermatological Surgical History: Reports: Skin Graft Social & Family History - Family History Family Medical History: No Pertinent Family History - Caffeine Use Caffeine Use: Reports: None - Living Situation & Occupation Living situation: Reports: Alone Occupation: Disabled ED ROS GENERAL - Review of Systems Review Of Systems: Comprehensive ROS is negative, except as noted in HPI. ED EXAM, GENERAL - Physical Exam Exam: See Below Exam Limited By: No Limitations General Appearance: Alert, WD/WN, Anxious, Moderate Distress, Obese Eye Exam: Bilateral Eye: EOMI, Normal Inspection, PERRL Ears: Normal External Exam, Normal Canal, Hearing Grossly Normal, Normal TMs Nose: Normal Inspection, Normal Mucosa, No Blood Throat/Mouth: Normal Inspection, Normal Lips, Normal Teeth, Normal Gums, Normal Oropharynx, Normal Voice, No Airway Compromise Head: Atraumatic, Normocephalic Neck: Normal Inspection, Supple, Non-Tender, Full Range of Motion Respiratory/Chest: No Respiratory Distress, Lungs Clear, Decreased Breath Sounds, Other (left chest wall tenderness to palpation) Cardiovascular: Normal Peripheral Pulses, Regular Rate, Rhythm, No Gallop, No JVD, No Murmur, No Rub GI/Abdominal: Normal Bowel Sounds, Soft, Non-Tender, No Organomegaly, No Distention, No Abnormal Bruit, No Mass (Male) Exam: Deferred Rectal (Males) Exam: Deferred Back Exam: Normal Inspection, Full Range of Motion, NT Extremities: Normal Range of Motion, Normal Capillary Refill, Pedal Edema (bilaterally) Neurological: Alert, Oriented, CN II-XII Intact, Normal Cognition, Normal Gait, Normal Reflexes, No Motor/Sensory Deficits Psychiatric: Normal Affect, Normal Mood Skin Exam: Warm, Dry, Intact, Normal Color, No Rash Lymphatic: No Adenopathy Course - Vital Signs Last Recorded V/S: Last Vital Signs Temp 96.7 F L 04/03/21 16:51 Pulse 68 04/03/21 16:51 Resp 16 04/03/21 16:51 BP 190/111 H 04/03/21 16:51 Pulse Ox 97 04/03/21 16:51 - Orders/Labs/Meds Orders: Active Orders 24 hr Category Date Time Status CULTURE BLOOD [BC] Stat Lab 04/03/21 16:42 Received Labs: Laboratory Tests 04/03/21 04/03/21 04/03/21 Range/Units 16:42 16:42 16:42 WBC 10.5 H (5.0-10.0) 10^3/uL RBC 4.65 (4.6-6.2) 10^6/uL Hgb 15.0 (14.0-18.0) g/dL Hct 44.6 (40.0-54.0) % MCV 95.9 D (80-100) fL MCH 32.3 (27.0-34.0) pg MCHC 33.6 (33.0-35.0) g/dL Plt Count 215 (150-450) 10^3/uL Neut % (Auto) 65.8 (42.2-75.2) % Lymph % (Auto) 23.3 (20.5-50.1) % Dewey % (Auto) 8.6 H (2-8) % Eos % (Auto) 2.0 (1.0-3.0) % Baso % (Auto) 0.3 (0.0-1.0) % Sodium 137 (136-145) mmol/L Potassium 3.9 (3.5-5.1) mmol/L Chloride 100 (98-107) mmol/L Carbon Dioxide 30 (21-32) mmol/L Anion Gap 10.9 (7-13) mEq/L BUN 8 (7-18) mg/dL Creatinine 0.99 (0.70-1.30) mg/dL Est Cr Clr Drug Dosing 94.56 mL/min Estimated GFR (MDRD) > 60 BUN/Creatinine Ratio 8.1 (No establ ref range) Glucose 102 H (70-99) mg/dL Lactic Acid 1.0 (0.4-2.0) mmol/L Calcium 8.6 (8.5-10.1) mg/dL Total Bilirubin 0.6 (0.2-1.0) mg/dL AST 25 (15-37) U/L ALT 28 (16-63) U/L Alkaline Phosphatase 111 (46-116) U/L Troponin I High Sens 8 (<=76) pg/mL B-Natriuretic Peptide 64 (0-100) pg/ml Total Protein 7.9 (6.4-8.2) g/dL Albumin 3.6 (3.4-5.0) g/dL Globulin 4.3 Albumin/Globulin Ratio 0.8 Meds: Medications Discontinued Medications Generic Name Dose Route Start Last Admin Trade Name Freq PRN Reason Stop Dose Admin Aspirin 243 mg 04/03/21 16:58 04/03/21 17:06 Aspirin 81 Mg Tab.Chew PO 04/03/21 16:59 243 mg ONETIME ONE Administration Ketorolac Tromethamine 30 mg 04/03/21 18:03 Ketorolac 30 Mg/Ml Sdv IVPUSH 04/03/21 18:04 ONETIME ONE Departure - Departure Time of Disposition: 18:04 Disposition: Home, Self-Care 01 Condition: Fair Clinical Impression: Contusion of left chest wall Qualifiers: Encounter type: initial encounter Qualified Code(s): S20.212A - Contusion of left front wall of thorax, initial encounter Chest wall muscle strain Qualifiers: Encounter type: initial encounter Qualified Code(s): S29.011A - Strain of muscle and tendon of front wall of thorax, initial encounter Instructions: Nonspecific Chest Pain, Adult, [id number], Muscle Strain, [id number], Contusion, [id number] Forms: ED Department Discharge Care Plan Goals: The patient was advised of the examination, lab, x-ray and EKG results during the visit. The patient was given an IV dose of Toradol while in the ED. The patient was encouraged to use his walker when ambulating at his home. If the patient has any additional symptoms or concerns, the patient should either return to the emergency department or visit his primary care facility. Sepsis Event Note (ED) - Focused Exam Vital Signs: Vital Signs Temp Pulse Resp BP Pulse Ox 04/03/21 16:51 96.7 F L 68 16 190/111 H 97 - My Orders Last 24 Hours: My Active Orders 04/03/21 16:42 CULTURE BLOOD [BC] Stat - Assessment/Plan Last 24 Hours: My Active Orders 04/03/21 16:42 CULTURE BLOOD [BC] Stat
[2021-04-03 17:17] LABS: ANION GAP 10.9 mEq/L (7-13); CHLORIDE,CL 100 mmol/L (98-107); SODIUM,NA 137 mmol/L (136-145)
--- NOTE | 2021-04-03 17:35 | CR ---
PROCEDURE INFORMATION: Exam: XR Chest Exam date and time: 04/03/2021 5:07 PM Age: 60 years old Clinical indication: Chest wall pain; Additional info: Left sided chest pain TECHNIQUE: Imaging protocol: XR of the chest. Views: 1 view. COMPARISON: CR Chest 1V Frontal 01/12/2021 6:08 AM FINDINGS: Lungs: The pulmonary vasculature is not engorged. Pleural spaces: There are no pleural effusions visualized. Heart/Mediastinum: The heart is not enlarged. Bones/joints: Unremarkable Soft tissues: There appear to be new rounded partially calcified densities in the lateral aspect of the left mid chest. These are somewhat ill-defined. IMPRESSION: New partially calcified densities overlying the lateral aspect of the left mid chest. Correlation with PA and lateral views of the chest might be useful.
[2021-04-03] MEDS ORDERED: Ketorolac 30 MG/ML SDV IVPUSH ONE (18:03)
== END 2021-04-03 18:36 | disposition home or self-care (01) ==
LOC: DL.ED 16:42
DX: S29.011A Strain of muscle and tendon of front wall of thorax, initial encounter (principal); I11.0 Hypertensive heart disease with heart failure; I50.9 Heart failure, unspecified; J44.9 Chronic obstructive pulmonary disease, unspecified; E66.9 Obesity, unspecified; K21.9 Gastro-esophageal reflux disease without esophagitis; Z68.43 Body mass index [BMI] 50.0-59.9, adult; Z86.718 Personal history of other venous thrombosis and embolism; Z79.82 Long term (current) use of aspirin; Z79.899 Other long term (current) drug therapy; W18.39XA Other fall on same level, initial encounter
CPT/HCPCS: 36415; 71045; 80053; 83605; 83880; 84484; 85025; 87040; 93005; 96374; 99284; A9270; J1885

== ENCOUNTER 2021-04-27 20:51 | Emergency (ER) | payer MEDICARE, MEDICAID ==
[2021-04-27 21:37] LABS: CHLORIDE,CL 101 mmol/L (98-107); SODIUM,NA 139 mmol/L (136-145)
--- NOTE | 2021-04-27 22:35 | EDM.PDOC ---
ED HPI GENERAL MEDICAL PROBLEM - General Chief Complaint: Respiratory Problem Stated Complaint: AMBULANCE Time Seen by Provider: 04/27/21 22:30 Source of Information: Reports: Patient History Limitations: Reports: No Limitations - History of Present Illness INITIAL COMMENTS - FREE TEXT/NARRATIVE: Pt is here for worsening shortness of breath. He told EMS he had this COVID vaccine, but states now that he did not have the vaccine. He noted it has been going on for the last week or so and has been getting worse. He is having a hard time getting around his house, but decided it was time to come in when he was so short of breath he was unable to smoke his cigarette. Pt denies any fevers or chills. No known exposure to COVID or known sick contacts. He continues to smoke and knows he should quit, but has no interest at this time. He has noted some pain in his abdomen, but no nausea or vomiting. No chest pain or tightness. No lightheaded ness. He is having to stop while talking to catch his breath. Pt noted the breathing treatment on arrival did help him breath a little better, but he is still very short of breath. 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 - Related Data Allergies Allergy/AdvReac Type Severity Reaction Status Date / Time No Known Allergies Allergy Verified 01/12/21 04:58 Home Meds: Home Meds Albuterol Sulfate [Albuterol Sulfate Hfa] 2 puff IH Q6H PRN 12/14/18 [History] Aspirin [Halfprin] 81 mg PO DAILY 12/14/18 [History] Budesonide/Formoterol [Symbicort 160-4.5 MCG] 2 puff INH BID 12/14/18 [History] Furosemide [Lasix] 40 mg PO DAILY 12/14/18 [History] Gabapentin [Gralise] 600 mg PO BEDTIME 12/14/18 [History] LORazepam 1 mg PO BEDTIME PRN 12/14/18 [History] Lisinopril 20 mg PO DAILY 12/14/18 [History] Pantoprazole Sodium [Protonix] 40 mg PO DAILY 12/14/18 [History] QUEtiapine Fumarate [Seroquel] 400 mg PO BEDTIME 12/14/18 [History] amLODIPine [Norvasc] 5 mg PO DAILY 12/14/18 [History] carvediloL [Carvedilol] 12.5 mg PO BID 12/14/18 [History] FLUoxetine [PROzac] 20 mg PO DAILY 10/29/20 [History] Famotidine 40 mg PO DAILY 10/29/20 [History] Past Medical History HEENT History: Reports: Impaired Vision Cardiovascular History: Reports: Blood Clots/VTE/DVT, Heart Failure, High Cholesterol, Hypertension, SOB on Exertion Respiratory History: Reports: COPD, PE Gastrointestinal History: Reports: GERD Other Gastrointestinal History: abdominal hernia Genitourinary History: Reports: None Musculoskeletal History: Reports: None Neurological History: Reports: Other (See Below) Other Neuro History: restless leg syndrome Psychiatric History: Reports: Anxiety, Depression, Schizophrenia, Suicide Attempt Endocrine/Metabolic History: Reports: Obesity/BMI 30+ Hematologic History: Reports: None Immunologic History: Reports: None Oncologic (Cancer) History: Reports: None Dermatologic History: Reports: Cellulitis, Other (See Below) Other Dermatologic History: 07/12 surgery in the [facility] for poole to right arm - Infectious Disease History Infectious Disease History: Reports: None - Past Surgical History Head Surgeries/Procedures: Reports: None GI Surgical History: Reports: Cholecystectomy Musculoskeletal Surgical History: Reports: Arthroscopic Knee Dermatological Surgical History: Reports: Skin Graft Social & Family History - Family History Family Medical History: No Pertinent Family History - Tobacco Use Tobacco Use Status *Q: Current Every Day Tobacco User Years of Tobacco use: 20 Packs/Tins Daily: 0.5 - Caffeine Use Caffeine Use: Reports: Coffee - Recreational Drug Use Recreational Drug Use: No - Living Situation & Occupation Living situation: Reports: Alone Occupation: Disabled ED ROS GENERAL - Review of Systems Review Of Systems: Comprehensive ROS is negative, except as noted in HPI. ED EXAM, GENERAL - Physical Exam Exam: See Below Exam Limited By: No Limitations General Appearance: Alert, Mild Distress (due to shortness of breath), Obese Eye Exam: Bilateral Eye: Normal Inspection Ears: Normal External Exam Throat/Mouth: Normal Inspection, Normal Voice, No Airway Compromise Head: Atraumatic, Normocephalic Neck: Normal Inspection, Supple, Non-Tender Respiratory/Chest: No Respiratory Distress, No Accessory Muscle Use, Wheezing, O ther (shortened sentances due to shortness of breath) Cardiovascular: Normal Peripheral Pulses, Regular Rate, Rhythm, No Murmur GI/Abdominal: Soft, No Distention (Male) Exam: Deferred Rectal (Males) Exam: Deferred Back Exam: Normal Inspection, Full Range of Motion Extremities: Normal Inspection, Normal Range of Motion, Normal Capillary Refill Neurological: Alert, Oriented, Normal Cognition, No Motor/Sensory Deficits Psychiatric: Normal Affect, Normal Mood Skin Exam: Warm, Dry, Intact, Normal Color Lymphatic: No Adenopathy Course - Vital Signs Last Recorded V/S: Last Vital Signs Temp 98 F 04/27/21 21:07 Pulse 89 04/27/21 21:07 Resp 20 04/27/21 21:07 BP 143/87 H 04/27/21 21:07 Pulse Ox 100 04/27/21 21:07 - Orders/Labs/Meds Labs: Laboratory Tests 04/27/21 04/27/21 04/27/21 Range/Units 21:03 21:03 21:14 WBC 14.4 H (5.0-10.0) 10^3/uL RBC 4.23 L (4.6-6.2) 10^6/uL Hgb 13.3 L D (14.0-18.0) g/dL Hct 40.5 (40.0-54.0) % MCV 95.7 (80-100) fL MCH 31.4 (27.0-34.0) pg MCHC 32.8 L (33.0-35.0) g/dL Plt Count 282 (150-450) 10^3/uL Neut % (Auto) 53.6 (42.2-75.2) % Lymph % (Auto) 17.7 L (20.5-50.1) % Bowman % (Auto) 9.1 H (2-8) % Eos % (Auto) 19.3 H (1.0-3.0) % Baso % (Auto) 0.3 (0.0-1.0) % Add Manual Diff Yes Neutrophils % (Manual) 56 (42-75) % Band Neutrophils % 2 % Lymphocytes % (Manual) 22 (20-50) % Monocytes % (Manual) 8 (2-8) % Eosinophils % (Manual) 12 H (1-3) % Sodium 139 (136-145) mmol/L Potassium 3.0 L (3.5-5.1) mmol/L Chloride 101 (98-107) mmol/L Carbon Dioxide 30 (21-32) mmol/L Anion Gap 11.0 (7-13) mEq/L BUN 9 (7-18) mg/dL Creatinine 1.07 (0.70-1.30) mg/dL Est Cr Clr Drug Dosing 77.70 mL/min Estimated GFR (MDRD) > 60 BUN/Creatinine Ratio 8.4 (No establ ref range) Glucose 98 (70-99) mg/dL Calcium 8.0 L (8.5-10.1) mg/dL Total Bilirubin 0.4 (0.2-1.0) mg/dL AST 14 L (15-37) U/L ALT 18 (16-63) U/L Alkaline Phosphatase 109 (46-116) U/L Total Protein 7.1 (6.4-8.2) g/dL Albumin 2.8 L (3.4-5.0) g/dL Globulin 4.3 Albumin/Globulin Ratio 0.65 SARS-CoV-2 RNA (COLE) Negative (NEGATIVE) Meds: Medications Discontinued Medications Generic Name Dose Route Start Last Admin Trade Name Giovanni PRN Reason Stop Dose Admin Ceftriaxone Sodium 2 gm 04/28/21 01:27 Ceftriaxone 2 Gm Vial IM 04/28/21 01:28 ONETIME ONE Azithromycin 500 mg/ Sodium 250 mls @ 250 mls/hr 04/27/21 22:38 04/27/21 22:56 Chloride IV 04/27/21 23:37 250 mls/hr ONETIME ONE Administration Methylprednisolone Sodium Succinate 125 mg 04/27/21 22:38 04/27/21 22:56 Methylprednisolone Sodium Succinate 125 Mg/2 Ml Sdv IVPUSH 04/27/21 22:39 125 mg ONETIME ONE Administration - Re-Assessments/Exams Free Text/Narrative Re-Assessment/Exam: Pt was feeling better and tried to leave before getting his xray results and had his IV taken out. Pt then returned to his room to get his xray results after calling for a ride. Advised pt that the second antibiotic will now have to be given IM as he has already had his IV taken out. Encouraged pt to quit smoking and fill his prescription and take as directed. 04/28/21 01:31 Departure - Departure Time of Disposition: 01:29 Disposition: Home, Self-Care 01 Condition: Fair Clinical Impression: Pneumonia Qualifiers: Pneumonia type: due to unspecified organism Laterality: left Lung location: lower lobe of lung Qualified Code(s): J18.9 - Pneumonia, unspecified organism - Discharge Information *PRESCRIPTION DRUG MONITORING PROGRAM REVIEWED*: Not Applicable *COPY OF PRESCRIPTION DRUG MONITORING REPORT IN PATIENT DAHLIA: Not Applicable Instructions: Community-Acquired Pneumonia, Adult, [id number] Forms: ED Department Discharge Additional Instructions: Azithromycin daily for 4 more days, first dose given in the hospital Augmentin twice daily for 7 days. This medication may cause nausea or loose stools, make sure to take with food to lessen these effects Quit smoking Follow up with your primary care provider in 3-5 days. Sepsis Event Note (ED) - Evaluation Sepsis Screening Result: No Definite Risk - Focused Exam Vital Signs: Vital Signs Temp Pulse Resp BP Pulse Ox 04/27/21 21:07 98 F 89 20 143/87 H 100
[2021-04-27] MEDS ORDERED: Azithromycin 500 MG in Sodium Chloride 0.9% 250 ML IV ONE (22:38)
[2021-04-27] MEDS ORDERED: methylPREDNISolone Sodium Succinate 125 MG/2 ML SDV IVPUSH ONE (22:38)
--- NOTE | 2021-04-28 00:48 | CR ---
PROCEDURE INFORMATION: Exam: XR Chest Exam date and time: 04/27/2021 10:53 PM Age: 60 years old Clinical indication: Shortness of breath TECHNIQUE: Imaging protocol: XR of the chest. Views: 1 view. COMPARISON: CR Chest 1V Frontal 04/03/2021 5:07 PM FINDINGS: Lungs: Left lung base airspace consolidation suggesting infiltrate. Right lung is clear. Pleural spaces: Small left pleural effusion. Heart/Mediastinum: Normal heart size. Bones/joints: Unremarkable. IMPRESSION: 1. Left lung base airspace consolidation suggesting infiltrate. This is a new finding since 04/03/2021. 2. Small left pleural effusion.
[2021-04-28] MEDS ORDERED: cefTRIAXone 2 GM Vial IM ONE (01:27)
[2021-04-28] MEDS ORDERED: Water For Injection, Sterile 20 ML ONE (01:31)
== END 2021-04-28 01:38 | disposition home or self-care (01) ==
LOC: DL.ED 20:51
DX: J18.9 Pneumonia, unspecified organism (principal); I11.0 Hypertensive heart disease with heart failure; I50.9 Heart failure, unspecified; J44.9 Chronic obstructive pulmonary disease, unspecified; K21.9 Gastro-esophageal reflux disease without esophagitis; E66.9 Obesity, unspecified; Z68.44 Body mass index [BMI] 60.0-69.9, adult; Z20.822 Contact with and (suspected) exposure to COVID-19; Z79.82 Long term (current) use of aspirin; Z79.899 Other long term (current) drug therapy; Z86.711 Personal history of pulmonary embolism; Z72.0 Tobacco use
CPT/HCPCS: 36415; 71045; 80053; 85025; 96365; 96372; 96375; 99285; J0456; J0696; J2930; J7050; U0002

== ENCOUNTER 2021-04-29 22:07 | Emergency (ER) | payer MEDICARE, MEDICAID ==
[2021-04-29 22:47] LABS: ANION GAP 10.1 mEq/L (7-13); CHLORIDE,CL 101 mmol/L (98-107); SODIUM,NA 140 mmol/L (136-145)
[2021-04-29] MEDS ORDERED: cefTRIAXone 1 GM in Sodium Chloride 0.9% 50 ML IV ONE (22:59)
[2021-04-29] MEDS ORDERED: Albuterol/Ipratropium 3.0-0.5 MG/3 ML Neb Soln NEB ONE (22:59)
--- NOTE | 2021-04-29 23:01 | CR ---
PROCEDURE INFORMATION: Exam: XR Chest Exam date and time: 04/29/2021 10:13 PM Age: 60 years old Clinical indication: Pain; Left-sided; Additional info: Chest pain TECHNIQUE: Imaging protocol: XR of the chest. Views: 1 view. COMPARISON: CR Chest 1V Frontal 04/27/2021 10:53 PM FINDINGS: Airway: Patent Lungs: Essentially stable consolidation in the left lung base. Remainder of the lungs are clear. Pleural spaces: Unremarkable. No pleural effusion. No pneumothorax. Heart/Mediastinum: Stable cardiomediastinal silhouette. Bones/joints: No acute skeletal abnormality or aggressive osseous lesion. IMPRESSION: Stable consolidation in the left lung base may be related to pneumonia, atelectasis, or superimposition of structures from elevation of the left hemidiaphragm.
--- NOTE | 2021-04-29 23:07 | EDM.PDOC ---
ED HPI GENERAL MEDICAL PROBLEM - General Chief Complaint: Respiratory Problem Stated Complaint: AMBULANCE Time Seen by Provider: 04/29/21 22:50 Source of Information: Reports: Patient History Limitations: Reports: No Limitations - History of Present Illness INITIAL COMMENTS - FREE TEXT/NARRATIVE: This 60 yo male patient was brought to the ED by [facility] due to increased shortness of breath. The patient was seen in the ED 2 days ago with similar symptoms. 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 The patient also reports he was supposed to get a nebulizer from his primary care provider, but has not been able to get it due to difficulties with an automated machine. The patient reports he is feeling well at this time. The patient reports he did have some diffuse chest pain this morning. Onset: Unknown/Unsure Duration: Day(s):, Intermittent Location: Reports: Chest Quality: Reports: Other Severity: Moderate Improves with: Reports: Rest Worsens with: Reports: Movement Associated Symptoms: Reports: Shortness of Breath Anterior Chest Pain Score (Numeric/FACES): 8 - Related Data Allergies Allergy/AdvReac Type Severity Reaction Status Date / Time No Known Allergies Allergy Verified 04/29/21 21:49 Home Meds: Home Meds Albuterol Sulfate [Albuterol Sulfate Hfa] 2 puff IH Q6H PRN 12/14/18 [History] Aspirin [Halfprin] 81 mg PO DAILY 12/14/18 [History] Budesonide/Formoterol [Symbicort 160-4.5 MCG] 2 puff INH BID 12/14/18 [History] Furosemide [Lasix] 40 mg PO DAILY 12/14/18 [History] Gabapentin [Gralise] 600 mg PO BEDTIME 12/14/18 [History] LORazepam 1 mg PO BEDTIME PRN 12/14/18 [History] Lisinopril 20 mg PO DAILY 12/14/18 [History] Pantoprazole Sodium [Protonix] 40 mg PO DAILY 12/14/18 [History] QUEtiapine Fumarate [Seroquel] 400 mg PO BEDTIME 12/14/18 [History] amLODIPine [Norvasc] 5 mg PO DAILY 12/14/18 [History] carvediloL [Carvedilol] 12.5 mg PO BID 12/14/18 [History] FLUoxetine [PROzac] 20 mg PO DAILY 10/29/20 [History] Famotidine 40 mg PO DAILY 10/29/20 [History] Past Medical History HEENT History: Reports: Impaired Vision Cardiovascular History: Reports: Blood Clots/VTE/DVT, Heart Failure, High Cholesterol, Hypertension, SOB on Exertion Respiratory History: Reports: COPD, PE Gastrointestinal History: Reports: GERD Other Gastrointestinal History: abdominal hernia Genitourinary History: Reports: None Musculoskeletal History: Reports: None Neurological History: Reports: Other (See Below) Other Neuro History: restless leg syndrome Psychiatric History: Reports: Anxiety, Depression, Schizophrenia, Suicide Attempt Endocrine/Metabolic History: Reports: Obesity/BMI 30+ Hematologic History: Reports: None Immunologic History: Reports: None Oncologic (Cancer) History: Reports: None Dermatologic History: Reports: Cellulitis, Other (See Below) Other Dermatologic History: 07/12 surgery in the [facility] for poole to right arm - Infectious Disease History Infectious Disease History: Reports: None - Past Surgical History Head Surgeries/Procedures: Reports: None GI Surgical History: Reports: Cholecystectomy Musculoskeletal Surgical History: Reports: Arthroscopic Knee Dermatological Surgical History: Reports: Skin Graft Social & Family History - Family History Family Medical History: No Pertinent Family History - Tobacco Use Tobacco Use Status *Q: Current Every Day Tobacco User Years of Tobacco use: 20 Packs/Tins Daily: 0.2 - Caffeine Use Caffeine Use: Reports: None - Recreational Drug Use Recreational Drug Use: No - Living Situation & Occupation Living situation: Reports: Alone Occupation: Disabled ED ROS GENERAL - Review of Systems Review Of Systems: Comprehensive ROS is negative, except as noted in HPI. ED EXAM, GENERAL - Physical Exam Exam: See Below Exam Limited By: No Limitations General Appearance: Alert, WD/WN, Mild Distress, Obese Eye Exam: Bilateral Eye: EOMI, Normal Inspection, PERRL Ears: Normal External Exam, Normal Canal, Hearing Grossly Normal, Normal TMs Nose: Normal Inspection, Normal Mucosa, No Blood Throat/Mouth: Normal Inspection, Normal Lips, Normal Teeth, Normal Gums, Normal Oropharynx, Normal Voice, No Airway Compromise Head: Atraumatic, Normocephalic Neck: Normal Inspection, Supple, Non-Tender, Full Range of Motion Respiratory/Chest: Decreased Breath Sounds (diffuse) Cardiovascular: Normal Peripheral Pulses, Regular Rate, Rhythm, No Edema, No Gallop, No JVD, No Murmur, No Rub GI/Abdominal: Normal Bowel Sounds, Soft, Non-Tender, No Organomegaly, No Distention, No Abnormal Bruit, No Mass, Other (Morbid obesity) (Male) Exam: Deferred Rectal (Males) Exam: Deferred Back Exam: Normal Inspection, Full Range of Motion, NT Extremities: Normal Inspection, Normal Range of Motion, Non-Tender, Normal Capillary Refill, No Pedal Edema Neurological: Alert, Oriented, CN II-XII Intact, Normal Cognition, Normal Gait, Normal Reflexes, No Motor/Sensory Deficits Psychiatric: Normal Affect, Normal Mood Skin Exam: Warm, Dry, Intact, Normal Color, No Rash Lymphatic: No Adenopathy #1 Interpretation EKG Date: 04/29/21 Time: 22:04 Rhythm: NSR Rate (Beats/Min): 81 Somis: Normal P-Wave: Present QRS: Normal ST-T: Normal QT: Normal Comparison: No Change Course - Vital Signs Last Recorded V/S: Last Vital Signs Temp 98.3 F 04/29/21 21:50 Pulse 80 04/29/21 23:34 Resp 20 04/29/21 23:34 BP 171/104 H 04/29/21 23:22 Pulse Ox 95 04/29/21 23:34 - Orders/Labs/Meds Orders: Active Orders 24 hr Category Date Time Status RT Aerosol Therapy [RC] ASDIRECTED Care 04/29/21 22:59 Active Labs: Laboratory Tests 04/29/21 04/29/21 04/29/21 Range/Units 22:11 22:11 22:11 WBC 18.5 H (5.0-10.0) 10^3/uL RBC 4.73 (4.6-6.2) 10^6/uL Hgb 15.1 D (14.0-18.0) g/dL Hct 45.3 (40.0-54.0) % MCV 95.8 (80-100) fL MCH 31.9 (27.0-34.0) pg MCHC 33.3 (33.0-35.0) g/dL Plt Count 346 (150-450) 10^3/uL Neut % (Auto) 69.4 (42.2-75.2) % Lymph % (Auto) 13.6 L (20.5-50.1) % Bowie % (Auto) 7.6 (2-8) % Eos % (Auto) 9.1 H (1.0-3.0) % Baso % (Auto) 0.3 (0.0-1.0) % Add Manual Diff Yes Neutrophils % (Manual) 74 (42-75) % Band Neutrophils % 1 % Lymphocytes % (Manual) 12 L (20-50) % Monocytes % (Manual) 8 (2-8) % Eosinophils % (Manual) 5 H (1-3) % Sodium 140 (136-145) mmol/L Potassium 4.1 (3.5-5.1) mmol/L Chloride 101 (98-107) mmol/L Carbon Dioxide 33 H (21-32) mmol/L Anion Gap 10.1 (7-13) mEq/L BUN 9 (7-18) mg/dL Creatinine 1.06 (0.70-1.30) mg/dL Est Cr Clr Drug Dosing 88.32 mL/min Estimated GFR (MDRD) > 60 BUN/Creatinine Ratio 8.5 (No establ ref range) Glucose 102 H (70-99) mg/dL Lactic Acid 1.0 (0.4-2.0) mmol/L Calcium 8.7 (8.5-10.1) mg/dL Total Bilirubin 0.5 (0.2-1.0) mg/dL AST 19 (15-37) U/L ALT 23 (16-63) U/L Alkaline Phosphatase 119 H (46-116) U/L Troponin I High Sens 14 (<=76) pg/mL Total Protein 8.1 (6.4-8.2) g/dL Albumin 3.4 (3.4-5.0) g/dL Globulin 4.7 Albumin/Globulin Ratio 0.7 Meds: Medications Discontinued Medications Generic Name Dose Route Start Last Admin Trade Name Freq PRN Reason Stop Dose Admin Albuterol/Ipratropium 3 ml 04/29/21 22:59 04/29/21 23:11 Albuterol/Ipratropium 3.0-0.5 Mg/3 Ml Neb Soln NEB 04/29/21 23:00 3 ml ONETIME ONE Administration Ceftriaxone Sodium 1 gm/ 50 mls @ 100 mls/hr 04/29/21 22:59 04/29/21 23:13 Sodium Chloride IV 04/29/21 23:28 100 mls/hr ONETIME ONE Administration - Radiology Interpretation Free Text/Narrative:: [facility] [place] [facility] Final Radiology Report Call: [phone] assistance Online chat: [email or web address] Name: RIANNA WILLIS Age: 60Years M Date: 04/29/2021 SSN: -- : 1960 Study: CR CHEST 1V FRONTAL Requesting Physician: Grupo Dickerson Images: 1 Addl Studies: Provided Clinical History: chest pain Contrast: Contrast Medium: Contrast Amount: Contrast Method: CONFIDENTIALITY STATEMENT This report is intended only for use by the referring physician, and only in accordance with law. If you received this in error, call [phone]. Page 1 of 1 PROCEDURE INFORMATION: Exam: XR Chest Exam date and time: 04/29/2021 10:13 PM Age: 60 years old Clinical indication: Pain; Left-sided; Additional info: Chest pain TECHNIQUE: Imaging protocol: XR of the chest. Views: 1 view. COMPARISON: CR Chest 1V Frontal 04/27/2021 10:53 PM FINDINGS: Airway: Patent Lungs: Essentially stable consolidation in the left lung base. Remainder of the lungs are clear. Pleural spaces: Unremarkable. No pleural effusion. No pneumothorax. Heart/Mediastinum: Stable cardiomediastinal silhouette. Bones/joints: No acute skeletal abnormality or aggressive osseous lesion. IMPRESSION: Stable consolidation in the left lung base may be related to pneumonia, atelectasis, or superimposition of structures from elevation of the left hemidiaphragm. Thank you for allowing us to participate in the care of your patient. Dictated and Authenticated by: Eduardo Underwood MD 04/29/2021 11:00 PM Central Time ([place] & [place]) Departure - Departure Time of Disposition: 23:43 Disposition: Home, Self-Care 01 Condition: Fair Clinical Impression: SOB (shortness of breath) COPD (chronic obstructive pulmonary disease) Qualifiers: COPD type: emphysema Emphysema type: unspecified Qualified Code(s): J43.9 - E mphysema, unspecified - Discharge Information *PRESCRIPTION DRUG MONITORING PROGRAM REVIEWED*: Not Applicable *COPY OF PRESCRIPTION DRUG MONITORING REPORT IN PATIENT DAHLIA: Not Applicable Instructions: Shortness of Breath, Adult, [id number] Forms: ED Department Discharge Care Plan Goals: The patient was advised of the examination, lab and x-ray results during the visit. The patient was given a DuoNeb treatment and IV Rocephin while in the ED. The patient was encouraged to continue to take his prescribed medications as advised. The patient should follow-up with his primary care facility for continued evaluation and further management. If the patient has any additional symptoms or concerns, the patient should either return to the emergency department or visit his primary care facility. Sepsis Event Note (ED) - Focused Exam Vital Signs: Vital Signs Temp Pulse Resp BP Pulse Ox 04/29/21 23:34 80 20 95 04/29/21 23:22 80 24 H 171/104 H 96 04/29/21 22:30 80 26 H 172/104 H 98 04/29/21 21:50 98.3 F 84 26 H 179/118 H 98 - My Orders Last 24 Hours: My Active Orders 04/29/21 22:59 RT Aerosol Therapy [RC] ASDIRECTED - Assessment/Plan Last 24 Hours: My Active Orders 04/29/21 22:59 RT Aerosol Therapy [RC] ASDIRECTED
== END 2021-04-29 23:52 | disposition home or self-care (01) ==
LOC: DL.ED 22:07
DX: J43.9 Emphysema, unspecified (principal); I11.0 Hypertensive heart disease with heart failure; I50.9 Heart failure, unspecified; K21.9 Gastro-esophageal reflux disease without esophagitis; E66.01 Morbid (severe) obesity due to excess calories; Z68.43 Body mass index [BMI] 50.0-59.9, adult; Z72.0 Tobacco use; Z79.82 Long term (current) use of aspirin; Z79.899 Other long term (current) drug therapy
CPT/HCPCS: 36415; 71045; 80053; 83605; 84484; 85025; 93005; 96365; 99285; J0696; J7620-GY

== ENCOUNTER 2021-05-26 17:06 | Emergency (ER) | payer MEDICARE, MEDICAID ==
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
[2021-05-26] MEDS ORDERED: Silver Sulfadiazine 1% Crm 50 GM Tube TOP ONE (17:44)
== END 2021-05-26 17:50 | disposition home or self-care (01) ==
LOC: DL.ED 17:06
DX: T22.112A Burn of first degree of left forearm, initial encounter (principal); I11.0 Hypertensive heart disease with heart failure; I50.9 Heart failure, unspecified; J44.9 Chronic obstructive pulmonary disease, unspecified; K21.9 Gastro-esophageal reflux disease without esophagitis; E66.9 Obesity, unspecified; Z68.43 Body mass index [BMI] 50.0-59.9, adult; Z79.82 Long term (current) use of aspirin; Z79.899 Other long term (current) drug therapy; X19.XXXA Contact with other heat and hot substances, initial encounter; Y93.G3 Activity, cooking and baking; Y92.000 Kitchen of unspecified non-institutional (private) residence as the place of occurrence of the external cause
CPT/HCPCS: 16000; 99284; A9270

== ENCOUNTER 2021-07-09 12:15 | Inpatient (IN) | payer MEDICARE, MEDICAID ==
--- NOTE | 2021-07-09 13:05 | EDM.PDOC ---
ED HPI GENERAL MEDICAL PROBLEM - General Chief Complaint: Respiratory Problem Stated Complaint: AMBULANCE Time Seen by Provider: 07/09/21 12:50 Source of Information: Reports: Patient History Limitations: Reports: No Limitations - History of Present Illness INITIAL COMMENTS - FREE TEXT/NARRATIVE: This 61 yo male patient was brought to the ED by [facility] due to lower extremity swelling, frequent falls and pain his left knee. The patient reports he has not been out of his apartment in the past week due to swelling and pain in his lower extremities. The patient reports he fell onto his left knee about 1 week ago which has increased his immobility. The patient reports he has been taking all medications as prescribed. Onset: Gradual Duration: Week(s):, Constant, Getting Worse Location: Reports: Lower Extremity, Left, Lower Extremity, Right, Generalized Quality: Reports: Ache Severity: Moderate Improves with: Reports: Rest Worsens with: Reports: Movement Context: Reports: Other Associated Symptoms: Reports: Other Generalized Pain Score (Numeric/FACES): 10 - Related Data Allergies Allergy/AdvReac Type Severity Reaction Status Date / Time No Known Allergies Allergy Verified 05/26/21 17:14 Home Meds: Home Meds Albuterol Sulfate [Albuterol Sulfate Hfa] 2 puff IH Q6H PRN 12/14/18 [History] Aspirin [Halfprin] 81 mg PO DAILY 12/14/18 [History] Budesonide/Formoterol [Symbicort 160-4.5 MCG] 2 puff INH BID 12/14/18 [History] Furosemide [Lasix] 40 mg PO DAILY 12/14/18 [History] Gabapentin [Gralise] 600 mg PO BEDTIME 12/14/18 [History] LORazepam 1 mg PO BEDTIME PRN 12/14/18 [History] Lisinopril 20 mg PO DAILY 12/14/18 [History] Pantoprazole Sodium [Protonix] 40 mg PO DAILY 12/14/18 [History] QUEtiapine Fumarate [Seroquel] 400 mg PO BEDTIME 12/14/18 [History] amLODIPine [Norvasc] 5 mg PO DAILY 12/14/18 [History] carvediloL [Carvedilol] 12.5 mg PO BID 12/14/18 [History] FLUoxetine [PROzac] 20 mg PO DAILY 10/29/20 [History] Famotidine 40 mg PO DAILY 10/29/20 [History] Past Medical History HEENT History: Reports: Impaired Vision Cardiovascular History: Reports: Blood Clots/VTE/DVT, Heart Failure, High Cholesterol, Hypertension, SOB on Exertion Respiratory History: Reports: COPD, PE Gastrointestinal History: Reports: GERD Other Gastrointestinal History: abdominal hernia Genitourinary History: Reports: None Musculoskeletal History: Reports: None Neurological History: Reports: Other (See Below) Other Neuro History: restless leg syndrome Psychiatric History: Reports: Anxiety, Depression, Schizophrenia, Suicide Attempt Endocrine/Metabolic History: Reports: Obesity/BMI 30+ Hematologic History: Reports: None Immunologic History: Reports: None Oncologic (Cancer) History: Reports: None Dermatologic History: Reports: Cellulitis, Other (See Below) Other Dermatologic History: 07/12 surgery in the [facility] to right arm - Infectious Disease History Infectious Disease History: Reports: None - Past Surgical History Head Surgeries/Procedures: Reports: None GI Surgical History: Reports: Cholecystectomy Musculoskeletal Surgical History: Reports: Arthroscopic Knee Dermatological Surgical History: Reports: Skin Graft Social & Family History - Family History Family Medical History: No Pertinent Family History - Caffeine Use Caffeine Use: Reports: Soda - Living Situation & Occupation Living situation: Reports: Alone Occupation: Disabled ED ROS GENERAL - Review of Systems Review Of Systems: Comprehensive ROS is negative, except as noted in HPI. ED EXAM, GENERAL - Physical Exam Exam: See Below Exam Limited By: No Limitations General Appearance: Alert, WD/WN, Moderate Distress, Obese Eye Exam: Bilateral Eye: EOMI, Normal Inspection, PERRL Ears: Normal External Exam, Normal Canal, Hearing Grossly Normal, Normal TMs Nose: Normal Inspection, Normal Mucosa, No Blood Throat/Mouth: Normal Inspection, Normal Lips, Normal Teeth, Normal Gums, Normal Oropharynx, Normal Voice, No Airway Compromise Head: Atraumatic, Normocephalic Neck: Normal Inspection, Supple, Non-Tender, Full Range of Motion Respiratory/Chest: No Respiratory Distress, Lungs Clear, Normal Breath Sounds, No Accessory Muscle Use, Chest Non-Tender Cardiovascular: Normal Peripheral Pulses, Regular Rate, Rhythm, No Gallop, No JVD, No Murmur, No Rub GI/Abdominal: Normal Bowel Sounds, Soft, Non-Tender, No Organomegaly, No Distention, No Abnormal Bruit, No Mass (Male) Exam: Deferred Rectal (Males) Exam: Deferred Back Exam: Normal Inspection, Full Range of Motion, NT Extremities: Normal Inspection, Normal Range of Motion, Normal Capillary Refill, Pedal Edema, Leg Pain (bilateral), Limited Range of Motion Neurological: Alert, Oriented, CN II-XII Intact, Normal Cognition, Normal Gait, Normal Reflexes, No Motor/Sensory Deficits Psychiatric: Normal Affect, Normal Mood Skin Exam: Warm, Dry, Intact, Normal Color, No Rash Lymphatic: No Adenopathy Course - Vital Signs Last Recorded V/S: Last Vital Signs Temp 98 F 07/09/21 12:48 Pulse 66 07/09/21 12:48 Resp 14 07/09/21 12:48 BP 151/101 H 07/09/21 12:48 Pulse Ox 99 07/09/21 12:48 - Orders/Labs/Meds Orders: Active Orders 24 hr Category Date Time Status Admission Diagnosis [ADT] Urgent ADT 07/09/21 15:54 Ordered Admission Status [Patient Status] [ADT] Routine ADT 07/09/21 15:54 Ordered B-TYPE NATRIURETIC PEPTIDE,BNP [CHEM] Stat Lab 07/09/21 12:50 Results COMPREHENSIVE METABOLIC PN,CMP [CHEM] Stat Lab 07/09/21 12:50 Results CULTURE BLOOD [BC] Stat Lab 07/09/21 13:21 Received CULTURE BLOOD [BC] Stat Lab 07/09/21 15:53 Ordered TROPONIN I HIGH SENSITIVITY [CHEM] Stat Lab 07/09/21 12:50 Results ceFAZolin [Ancef] 1 gm Med 07/09/21 15:52 Ordered Sodium Chloride 0.9% [Normal Saline AdvBag] 50 ml IV ONETIME Medication Orders Cefazolin Sodium 1 gm/ Sodium (Chloride) 50 mls @ 100 mls/hr IV ONETIME ONE Stop: 07/09/21 16:21 Labs: Laboratory Tests 07/09/21 07/09/21 07/09/21 Range/Units 12:35 12:50 12:50 WBC (5.0-10.0) 10^3/uL RBC (4.6-6.2) 10^6/uL Hgb (14.0-18.0) g/dL Hct (40.0-54.0) % MCV (80-100) fL MCH (27.0-34.0) pg MCHC (33.0-35.0) g/dL Plt Count (150-450) 10^3/uL Neut % (Auto) (42.2-75.2) % Lymph % (Auto) (20.5-50.1) % [place] % (Auto) (2-8) % Eos % (Auto) (1.0-3.0) % Baso % (Auto) (0.0-1.0) % Sodium 134 L (136-145) mmol/L Potassium 3.4 L (3.5-5.1) mmol/L Chloride 97 L (98-107) mmol/L Carbon Dioxide 26 (21-32) mmol/L Anion Gap 14.4 H (7-13) mEq/L BUN 6 L (7-18) mg/dL Creatinine 1.07 (0.70-1.30) mg/dL Est Cr Clr Drug Dosing 71.92 mL/min Estimated GFR (MDRD) > 60 BUN/Creatinine Ratio 5.6 (No establ ref range) Glucose 87 (70-99) mg/dL Lactic Acid 1.0 (0.4-2.0) mmol/L Calcium 8.4 L (8.5-10.1) mg/dL Total Bilirubin 0.9 (0.2-1.0) mg/dL AST 18 (15-37) U/L Alkaline Phosphatase 98 (46-116) U/L Troponin I High Sens 7 (<=76) pg/mL B-Natriuretic Peptide 16 (0-100) pg/ml Total Protein 7.4 (6.4-8.2) g/dL Albumin 3.2 L (3.4-5.0) g/dL Globulin 4.2 Albumin/Globulin Ratio 0.76 SARS CoV-2 RNA Rapid COLE Negative (NEGATIVE) 07/09/21 Range/Units 13:21 WBC 15.0 H (5.0-10.0) 10^3/uL RBC 4.57 L (4.6-6.2) 10^6/uL Hgb 14.6 (14.0-18.0) g/dL Hct 43.6 (40.0-54.0) % MCV 95.4 (80-100) fL MCH 31.9 (27.0-34.0) pg MCHC 33.5 (33.0-35.0) g/dL Plt Count 278 (150-450) 10^3/uL Neut % (Auto) 64.0 (42.2-75.2) % Lymph % (Auto) 21.4 (20.5-50.1) % [place] % (Auto) 13.0 H (2-8) % Eos % (Auto) 1.4 (1.0-3.0) % Baso % (Auto) 0.2 (0.0-1.0) % Sodium (136-145) mmol/L Potassium (3.5-5.1) mmol/L Chloride (98-107) mmol/L Carbon Dioxide (21-32) mmol/L Anion Gap (7-13) mEq/L BUN (7-18) mg/dL Creatinine (0.70-1.30) mg/dL Est Cr Clr Drug Dosing mL/min Estimated GFR (MDRD) BUN/Creatinine Ratio (No establ ref range) Glucose (70-99) mg/dL Lactic Acid (0.4-2.0) mmol/L Calcium (8.5-10.1) mg/dL Total Bilirubin (0.2-1.0) mg/dL AST (15-37) U/L Alkaline Phosphatase (46-116) U/L Troponin I High Sens (<=76) pg/mL B-Natriuretic Peptide (0-100) pg/ml Total Protein (6.4-8.2) g/dL Albumin (3.4-5.0) g/dL Globulin Albumin/Globulin Ratio SARS CoV-2 RNA Rapid COLE (NEGATIVE) Meds: Medications Generic Name Dose Route Start Last Admin Trade Name Freq PRN Reason Stop Dose Admin Cefazolin Sodium 1 gm/ Sodium 50 mls @ 100 mls/hr 07/09/21 15:52 Chloride IV 07/09/21 16:21 ONETIME ONE Departure - Departure Time of Disposition: 15:55 Disposition: Admitted As Inpatient 68 Condition: Fair Clinical Impression: Lower extremity edema, Morbid obesity Cellulitis Qualifiers: Site of cellulitis: extremity Site of cellulitis of extremity: lower extremity Laterality: unspecified laterality Qualified Code(s): L03.119 - Cellulitis of unspecified part of limb - Discharge Information *PRESCRIPTION DRUG MONITORING PROGRAM REVIEWED*: Not Applicable *COPY OF PRESCRIPTION DRUG MONITORING REPORT IN PATIENT DAHLIA: Not Applicable Care Plan Goals: Discussed the patient's history, examination, x-ray and lab results with Dr. Oneill. Dr. Oneill accepted the patient for continued evaluation and further management as an inpatient at [facility]. Sepsis Event Note (ED) - Evaluation Sepsis Screening Result: No Definite Risk - Focused Exam Vital Signs: Vital Signs Temp Pulse Resp BP Pulse Ox 07/09/21 12:48 98 F 66 14 151/101 H 99 - My Orders Last 24 Hours: My Active Orders 07/09/21 12:50 B-TYPE NATRIURETIC PEPTIDE,BNP [CHEM] Stat COMPREHENSIVE METABOLIC PN,CMP [CHEM] Stat TROPONIN I HIGH SENSITIVITY [CHEM] Stat 07/09/21 13:21 CULTURE BLOOD [BC] Stat 07/09/21 15:52 ceFAZolin [Ancef] 1 gm Sodium Chloride 0.9% [Normal Saline AdvBag] 50 ml IV ONETIME 07/09/21 15:53 CULTURE BLOOD [BC] Stat 07/09/21 15:54 Admission Diagnosis [ADT] Urgent Admission Status [Patient Status] [ADT] Routine - Assessment/Plan Last 24 Hours: My Active Orders 07/09/21 12:50 B-TYPE NATRIURETIC PEPTIDE,BNP [CHEM] Stat COMPREHENSIVE METABOLIC PN,CMP [CHEM] Stat TROPONIN I HIGH SENSITIVITY [CHEM] Stat 07/09/21 13:21 CULTURE BLOOD [BC] Stat 07/09/21 15:52 ceFAZolin [Ancef] 1 gm Sodium Chloride 0.9% [Normal Saline AdvBag] 50 ml IV ONETIME 07/09/21 15:53 CULTURE BLOOD [BC] Stat 07/09/21 15:54 Admission Diagnosis [ADT] Urgent Admission Status [Patient Status] [ADT] Routine
[2021-07-09 13:28] LABS: ANION GAP 14.4 mEq/L (7-13); CHLORIDE,CL 97 mmol/L (98-107); SODIUM,NA 134 mmol/L (136-145)
--- NOTE | 2021-07-09 15:44 | CR ---
EXAMINATION: Knee 2V Lt SEX: Male AGE: 61 years CLINICAL HISTORY: 61-year-old male left knee pain (ground level fall). Interpretation: Suprapatellar bursal effusion left knee consistent with internal derangement chronic arthritis. Evidence of extensive orthopedic (5 screws) cruciate ligament surgery. Calcification menisci bilaterally with marginal spur formation. *No sign of acute left knee fracture or dislocation. No pathologic skeletal lesions. No inflammatory periostitis or signs of osteomyelitis.
[2021-07-09] MEDS ORDERED: ceFAZolin 1 GM in Sodium Chloride 0.9% 50 ML IV ONE (15:52)
[2021-07-09] MEDS ORDERED: Potassium Chloride 10 MEQ Tab.ER PO ONE (17:00)
[2021-07-09] MEDS ORDERED: LORazepam 0.5 MG Tab PO PRN (17:01)
[2021-07-09] MEDS ORDERED: Ondansetron 4 MG Tab.DIS PO PRN (17:09)
[2021-07-09] MEDS ORDERED: oxyCODONE 5 MG Tab PO PRN (17:09)
[2021-07-09] MEDS ORDERED: Acetaminophen 325 MG Tab PO PRN (17:09)
--- NOTE | 2021-07-09 17:38 | PCM.HP ---
H&P History of Present Illness - General Date of Service: 07/09/21 Admit Problem/Dx: Admission Diagnosis/Problem Admission Diagnosis/Problem Cellulitis Source of Information: Patient, Provider - History of Present Illness Initial Comments - Free Text/Narative: Presented with weakness, fall Frequent falling Has been living independently in apartment no associated cp, palpitation, loc has chronic sob that has not changed no recent med changes Generalized Pain Score (Numeric/FACES): 10 - Related Data Allergies/Adverse Reactions: Allergies Allergy/AdvReac Type Severity Reaction Status Date / Time No Known Allergies Allergy Verified 07/09/21 16:42 Home Medications: Home Meds Albuterol Sulfate [Albuterol Sulfate Hfa] 2 puff IH Q6H PRN 12/14/18 [History] Aspirin [Halfprin] 81 mg PO DAILY 12/14/18 [History] Budesonide/Formoterol [Symbicort 160-4.5 MCG] 2 puff INH BID 12/14/18 [History] Furosemide [Lasix] 40 mg PO BID 12/14/18 [History] Gabapentin [Gralise] 600 mg PO BEDTIME 12/14/18 [History] LORazepam 1 mg PO BEDTIME PRN 12/14/18 [History] Lisinopril 20 mg PO DAILY 12/14/18 [History] Pantoprazole Sodium [Protonix] 40 mg PO DAILY 12/14/18 [History] QUEtiapine Fumarate [Seroquel] 400 mg PO BEDTIME 12/14/18 [History] carvediloL [Carvedilol] 12.5 mg PO BID 12/14/18 [History] Famotidine 40 mg PO DAILY 10/29/20 [History] Albuterol [Proventil Neb Soln] 0.63 mg NEB Q4HRRT 07/09/21 [History] Past Medical History HEENT History: Reports: Impaired Vision Cardiovascular History: Reports: Blood Clots/VTE/DVT, Heart Failure, High Cholesterol, Hypertension, SOB on Exertion Respiratory History: Reports: COPD, PE Gastrointestinal History: Reports: GERD Other Gastrointestinal History: abdominal hernia Genitourinary History: Reports: None Musculoskeletal History: Reports: None Neurological History: Reports: Other (See Below) Other Neuro History: restless leg syndrome Psychiatric History: Reports: Anxiety, Depression, Schizophrenia, Suicide Attempt Endocrine/Metabolic History: Reports: Obesity/BMI 30+ Hematologic History: Reports: None Immunologic History: Reports: None Oncologic (Cancer) History: Reports: None Dermatologic History: Reports: Cellulitis, Other (See Below) Other Dermatologic History: 07/12 surgery in the [facility] to right arm - Infectious Disease History Infectious Disease History: Reports: None - Past Surgical History Head Surgeries/Procedures: Reports: None GI Surgical History: Reports: Cholecystectomy Musculoskeletal Surgical History: Reports: Arthroscopic Knee Dermatological Surgical History: Reports: Skin Graft Social & Family History - Family History Family Medical History: No Pertinent Family History - Tobacco Use Tobacco Use Status *Q: Current Every Day Tobacco User Years of Tobacco use: 31 Packs/Tins Daily: 0.5 - Caffeine Use Caffeine Use: Reports: None - Recreational Drug Use Recreational Drug Use: No - Living Situation & Occupation Living situation: Reports: Alone Occupation: Disabled H&P Review of Systems - Review of Systems: Review Of Systems: See Below General: Denies: Fever, Chills Pulmonary: Reports: Shortness of Breath (chronic) Cardiovascular: Reports: Edema. Denies: Chest Pain Gastrointestinal: Denies: Abdominal Pain Genitourinary: Denies: Dysuria Musculoskeletal: Reports: Other (LE edema) Psychiatric: Reports: Anxiety. Denies: Depression Neurological: Denies: Confusion Exam - Exam Exam: See Below - Vital Signs Vital Signs: Last Vital Signs Temp 98.4 F 07/09/21 16:23 Pulse 82 07/09/21 16:23 Resp 23 H 07/09/21 16:23 BP 166/103 H 07/09/21 16:23 Pulse Ox 99 07/09/21 16:23 Weight: 407 lb - Exam Quality Assessment: No: Supplemental Oxygen General: Alert, Oriented Neck: Supple Lungs: Decreased Breath Sounds, Wheezing (mild ). No: Rales, Rhonchi Cardiovascular: Regular Rate, Regular Rhythm GI/Abdominal Exam: Normal Bowel Sounds, Soft, Non-Tender, Other (morbidly obese) Extremities: Pedal Edema (2+ b/l ) Skin: Warm, Dry, Other (mild b/l LE erythema) Neuro Extensive - Mental Status: Alert, Oriented x3 Neuro Extensive - Motor, Sensory, Reflexes: Tremor (mild b/l UE) Psychiatric: Alert, Normal Affect, Normal Mood - Patient Data Lab Results Last 24 hrs: Laboratory Results - last 24 hr 12/07/09/21 07/09/21 Range/Units 12:35 12:50 12:50 WBC (5.0-10.0) 10^3/uL RBC (4.6-6.2) 10^6/uL Hgb (14.0-18.0) g/dL Hct (40.0-54.0) % MCV (80-100) fL MCH (27.0-34.0) pg MCHC (33.0-35.0) g/dL Plt Count (150-450) 10^3/uL Neut % (Auto) (42.2-75.2) % Lymph % (Auto) (20.5-50.1) % [place] % (Auto) (2-8) % Eos % (Auto) (1.0-3.0) % Baso % (Auto) (0.0-1.0) % Sodium 134 L (136-145) mmol/L Potassium 3.4 L (3.5-5.1) mmol/L Chloride 97 L (98-107) mmol/L Carbon Dioxide 26 (21-32) mmol/L Anion Gap 14.4 H (7-13) mEq/L BUN 6 L (7-18) mg/dL Creatinine 1.07 (0.70-1.30) mg/dL Est Cr Clr Drug Dosing 71.92 mL/min Estimated GFR (MDRD) > 60 BUN/Creatinine Ratio 5.6 (No establ ref range) Glucose 87 (70-99) mg/dL Lactic Acid 1.0 (0.4-2.0) mmol/L Calcium 8.4 L (8.5-10.1) mg/dL Total Bilirubin 0.9 (0.2-1.0) mg/dL AST 18 (15-37) U/L Alkaline Phosphatase 98 (46-116) U/L Troponin I High Sens 7 (<=76) pg/mL B-Natriuretic Peptide 16 (0-100) pg/ml Total Protein 7.4 (6.4-8.2) g/dL Albumin 3.2 L (3.4-5.0) g/dL Globulin 4.2 Albumin/Globulin Ratio 0.76 SARS CoV-2 RNA Rapid COLE Negative (NEGATIVE) 07/09/21 Range/Units 13:21 WBC 15.0 H (5.0-10.0) 10^3/uL RBC 4.57 L (4.6-6.2) 10^6/uL Hgb 14.6 (14.0-18.0) g/dL Hct 43.6 (40.0-54.0) % MCV 95.4 (80-100) fL MCH 31.9 (27.0-34.0) pg MCHC 33.5 (33.0-35.0) g/dL Plt Count 278 (150-450) 10^3/uL Neut % (Auto) 64.0 (42.2-75.2) % Lymph % (Auto) 21.4 (20.5-50.1) % [place] % (Auto) 13.0 H (2-8) % Eos % (Auto) 1.4 (1.0-3.0) % Baso % (Auto) 0.2 (0.0-1.0) % Sodium (136-145) mmol/L Potassium (3.5-5.1) mmol/L Chloride (98-107) mmol/L Carbon Dioxide (21-32) mmol/L Anion Gap (7-13) mEq/L BUN (7-18) mg/dL Creatinine (0.70-1.30) mg/dL Est Cr Clr Drug Dosing mL/min Estimated GFR (MDRD) BUN/Creatinine Ratio (No establ ref range) Glucose (70-99) mg/dL Lactic Acid (0.4-2.0) mmol/L Calcium (8.5-10.1) mg/dL Total Bilirubin (0.2-1.0) mg/dL AST (15-37) U/L Alkaline Phosphatase (46-116) U/L Troponin I High Sens (<=76) pg/mL B-Natriuretic Peptide (0-100) pg/ml Total Protein (6.4-8.2) g/dL Albumin (3.4-5.0) g/dL Globulin Albumin/Globulin Ratio SARS CoV-2 RNA Rapid COLE (NEGATIVE) Result Diagrams: 07/09/21 13:21 07/09/21 12:50 - Problem List (1) COPD (chronic obstructive pulmonary disease) SNOMED Code(s): 38114371 ICD Code: J44.9 - CHRONIC OBSTRUCTIVE PULMONARY DISEASE, UNSPECIFIED S tatus: Acute Current Visit: No Qualifiers: COPD type: emphysema Emphysema type: unspecified Qualified Code(s): J43.9 - Emphysema, unspecified (2) Cellulitis SNOMED Code(s): 765121927 ICD Code: L03.90 - CELLULITIS, UNSPECIFIED Status: Acute Current Visit: No Qualifiers: Site of cellulitis: extremity Site of cellulitis of extremity: lower extremity Laterality: unspecified laterality Qualified Code(s): L03.119 - Cellulitis of unspecified part of limb (3) Fall at home SNOMED Code(s): 75503747 ICD Code: W19.XXXA - UNSPECIFIED FALL, INITIAL ENCOUNTER; Y92.009 - UNSP P LACE IN UNSP NON-INSTITUT (PRIVATE) RESIDENCE PLACE Status: Acute Current Visit: No Qualifiers: Encounter type: initial encounter Qualified Code(s): W19.XXXA - Unspecified fall, initial encounter; Y92.009 - Unspecified place in unspecified non- institutional (private) residence as the place of occurrence of the external cause (4) Hypertension SNOMED Code(s): 45368069 ICD Code: I10 - ESSENTIAL (PRIMARY) HYPERTENSION Status: Acute Current Visit: No Qualifiers: Hypertension type: unspecified Qualified Code(s): I10 - Essential (primary) hypertension (5) Leukocytosis (leucocytosis) SNOMED Code(s): 081617895, 743044982 ICD Code: D72.829 - ELEVATED WHITE BLOOD CELL COUNT, UNSPECIFIED Status: Acute Current Visit: No Qualifiers: Leukocytosis type: unspecified Qualified Code(s): D72.829 - Elevated white blood cell count, unspecified (6) Lower extremity edema SNOMED Code(s): 127352436 ICD Code: R60.0 - LOCALIZED EDEMA Status: Acute Current Visit: No (7) Morbid obesity SNOMED Code(s): 082454188 ICD Code: E66.01 - MORBID (SEVERE) OBESITY DUE TO EXCESS CALORIES Status: Acute Current Visit: No Problem List Initiated/Reviewed/Updated: Yes Orders Last 24hrs: Active Orders 24 hr Category Date Time Status Admission Diagnosis [ADT] Urgent ADT 07/09/21 15:54 Ordered Admission Status [Patient Status] [ADT] Routine ADT 07/09/21 15:54 Active Oxygen Therapy [RC] PRN Care 07/09/21 17:09 Active Up With Assistance [RC] ASDIRECTED Care 07/09/21 17:09 Active VTE/DVT Education [RC] PER UNIT ROUTINE Care 07/09/21 17:09 Active Vaccine to be Administered/Admin Charge [RC] ASDIRECTED Care 07/09/21 17:06 Active Vital Signs [RC] Q4H Care 07/09/21 17:09 Active OT Evaluation and Treatment [CONS] Routine Cons 07/09/21 17:35 Active OT Evaluation and Treatment [CONS] Routine Cons 07/09/21 17:36 Ordered PT Evaluation and Treatment [CONS] Routine Cons 07/09/21 17:36 Ordered Regular Diet [DIET] Diet 07/09/21 Dinner Active B-TYPE NATRIURETIC PEPTIDE,BNP [CHEM] Stat Lab 07/09/21 12:50 Results BASIC METABOLIC PANEL,BMP [CHEM] AM Lab 07/10/21 05:15 Ordered CBC WITH AUTO DIFF [HEME] AM Lab 07/10/21 05:15 Ordered COMPREHENSIVE METABOLIC PN,CMP [CHEM] Stat Lab 07/09/21 12:50 Results CULTURE BLOOD [BC] Stat Lab 07/09/21 13:21 Received CULTURE BLOOD [BC] Stat Lab 07/09/21 16:10 Received CULTURE URINE [RM] Routine Lab 07/09/21 17:00 Ordered TROPONIN I HIGH SENSITIVITY [CHEM] Stat Lab 07/09/21 12:50 Results UA W/MICROSCOPIC [URIN] Routine Lab 07/09/21 17:00 Ordered Acetaminophen [TylenoL] Med 07/09/21 17:09 Active 650 mg PO Q4H PRN Aspirin [Halfprin] Med 07/10/21 09:00 Active 81 mg PO DAILY FLUoxetine [PROzac] Med 07/10/21 09:00 Active 20 mg PO DAILY Famotidine [Pepcid] Med 07/10/21 09:00 Active 40 mg PO DAILY Furosemide [Lasix] Med 07/09/21 21:00 Active 40 mg PO BID Gabapentin [Gralise] Med 07/09/21 21:00 Ordered 600 mg PO BEDTIME Heparin Sodium Med 07/09/21 22:00 Active 5,000 units SUBCUT Q8HR LORazepam [Ativan] Med 07/09/21 17:01 Active 1 mg PO BEDTIME PRN Ondansetron [Zofran ODT] Med 07/09/21 17:09 Ordered 4 mg PO Q6H PRN Pantoprazole [ProTONIX] Med 07/10/21 09:00 Ordered 40 mg PO DAILY Pharmacy to Dose - InFluenza V [Pharmacy to Dose - Med 07/10/21 09:00 Ordered InFluenza Vaccine] 1 each IM DAILY QUEtiapine Fumarate [Seroquel] Med 07/09/21 21:00 Ordered 400 mg PO BEDTIME amLODIPine [Norvasc] Med 07/10/21 09:00 Active 5 mg PO DAILY carvediloL [Coreg] Med 07/09/21 21:00 Active 12.5 mg PO BID ceFAZolin [Ancef] 1 gm Med 07/09/21 22:00 Ordered Sodium Chloride 0.9% [Normal Saline AdvBag] 50 ml IV Q8HR lisinopriL [Prinivil] Med 07/10/21 09:00 Active 20 mg PO DAILY oxyCODONE Med 07/09/21 17:09 Ordered 5 mg PO Q4H PRN Resuscitation Status Routine Resus Stat 07/09/21 17:09 Ordered Medication Orders Acetaminophen (Acetaminophen 325 Mg Tab) 650 mg PO Q4H PRN PRN Reason: Pain (Mild 1-3)/fever Amlodipine Besylate (Amlodipine 5 Mg Tab) 5 mg PO DAILY [facility] Aspirin (Aspirin 81 Mg Tab.Ec) 81 mg PO DAILY [facility] Carvedilol (Carvedilol 25 Mg Tab) 12.5 mg PO BID [facility] Famotidine (Famotidine 20 Mg Tab) 40 mg PO DAILY [facility] Fluoxetine HCl (Fluoxetine 10 Mg Cap) 20 mg PO DAILY [facility] Furosemide (Furosemide 40 Mg Tab) 40 mg PO BID [facility] Heparin Sodium (Porcine) (Heparin Sodium 5,000 Units/Ml Vial) 5,000 units SUBCUT Q8HR [facility] Cefazolin Sodium 1 gm/ Sodium (Chloride) 50 mls @ 100 mls/hr IV Q8HR [facility] Influenza Virus Vaccine (Pharmacy To Dose - Influenza Vaccine) 1 each IM DAILY [facility] Lisinopril (Lisinopril 10 Mg Tab) 20 mg PO DAILY [facility] Lorazepam (Lorazepam 0.5 Mg Tab) 1 mg PO BEDTIME PRN PRN Reason: Anxiety Non-Formulary Medication (Gabapentin [Gralise]) 600 mg PO BEDTIME [facility] Ondansetron HCl (Ondansetron 4 Mg Tab.Dis) 4 mg PO Q6H PRN PRN Reason: nausea, able to take PO Oxycodone HCl (Oxycodone 5 Mg Tab) 5 mg PO Q4H PRN PRN Reason: Pain (moderate 4-6) Pantoprazole Sodium (Pantoprazole 40 Mg Tab.Cr) 40 mg PO DAILY [facility] Quetiapine Fumarate (Quetiapine 100 Mg Tab) 400 mg PO BEDTIME [facility] Assessment/Plan Comment:: Presented with weakness, fall Frequent falling Has been living independently Will ask pt/ot eval and treatment Cellulitis of LE With leukocytosis, mild LE redness Will obtain blood cx Treat with cefazolin LE edema Cont Lasix Ask ot for lymphedema wraps Leukocytosis Will check UA as well Hyponatremia Mild will follow Hypokalemia Will replace and recheck in Am Copd No acute exacerbation Treat with pulmicort Duoneb as scheduled and as needed Htn Treat with coreg, Norvasc, lisinopril Mood disorder Treat with fluoxetine, seroquel Morbid obesity Will be followed by dietitian Might need (temporary) placement
[2021-07-09] MEDS ORDERED: GABAPENTIN 600 MG PO SCH (21:00)
[2021-07-09] MEDS: ceFAZolin 1 GM in Sodium Chloride 0.9% 50 ML IV SCH (21:02)
[2021-07-09] MEDS: Gabapentin 300 MG Cap PO SCH (21:04)
[2021-07-09] MEDS: QUEtiapine 100 MG Tab PO SCH (21:04)
[2021-07-09] MEDS: Furosemide 40 MG Tab PO SCH (21:04)
[2021-07-09] MEDS: Carvedilol 25 MG Tab PO SCH (21:06)
[2021-07-09] MEDS: Heparin Sodium 5,000 Units/ML Vial SUBCUT SCH (21:06)
[2021-07-10] MEDS: ceFAZolin 1 GM in Sodium Chloride 0.9% 50 ML IV SCH ×3 (05:17→21:49)
[2021-07-10] MEDS: Heparin Sodium 5,000 Units/ML Vial SUBCUT SCH ×3 (05:19→21:49)
[2021-07-10 06:45] LABS: ANION GAP 14.3 mEq/L (7-13)
[2021-07-10] MEDS ORDERED: Pantoprazole 40 MG Tab.CR PO SCH (09:00)
[2021-07-10] MEDS ORDERED: amLODIPine 5 MG Tab PO SCH (09:00)
[2021-07-10] MEDS ORDERED: Lisinopril 10 MG Tab PO SCH (09:00)
[2021-07-10] MEDS: Furosemide 40 MG Tab PO SCH ×2 (10:22→20:40)
[2021-07-10] MEDS: Aspirin 81 MG Tab.EC PO SCH (10:22)
[2021-07-10] MEDS: FLUoxetine 10 MG Cap PO SCH (10:23)
[2021-07-10] MEDS: Lisinopril 10 MG Tab PO SCH (10:23)
[2021-07-10] MEDS: Carvedilol 25 MG Tab PO SCH ×2 (10:23→20:33)
[2021-07-10] MEDS: Famotidine 20 MG Tab PO SCH (10:24)
[2021-07-10] MEDS ORDERED: Albuterol 6.7 GM Inhaler INH PRN (17:05)
[2021-07-10] MEDS: Nicotine 21 MG/24 Hr Patch TRDERM SCH (17:36)
--- NOTE | 2021-07-10 19:03 | PN ---
DATE: 07/10/2021 The patient was seen today. He is sitting in the chair. The patient says that he is unable to get up off the chair, with walker at home. He needs to crawl to go to restroom. He does not want to follow any outpatient appointments out of the town and was very upset when this was brought into discussion. PHYSICAL EXAMINATION: Vital Signs: Today, temperature 98.1, pulse rate 98, blood pressure 124/69, respiratory rate 20, and oxygen saturation 96%. HEENT: Head is atraumatic, normocephalic. Pupils equally reactive to light. Neck: Supple. No thyromegaly. No lymphadenopathy. Heart: S1, S2. Regular rhythm and rate. No murmur. Lungs: Clear to auscultation bilaterally. Abdomen: Obese, globulus. Has umbilical hernia and ventral hernia. Abdomen is nontender. Positive bowel sounds. Extremities: The patient has venous stasis discoloration of bilateral lower extremities. On the plantars, he has hyperkeratosis and he has bilateral toenail fungus. Neurologic: He is alert, oriented x3. There are no gross focal neurologic deficits. LABORATORY DATA: At admission, white count is 10.9, hemoglobin 13.2, hematocrit 39.8, platelets 165. Sodium 136, potassium 4.3, chloride 100, CO2 of 26, anion gap 14.3, BUN 10, creatinine 1.25, creatinine clearance 72.98, glucose 130, calcium 8.2. Urine color is yellow, appears cloudy, pH 6.5, protein 30. Urine occult blood small, urine nitrite positive, and then urine urobilinogen 2, urine leukocyte esterase large, urine rbc's 5 to10, urine wbc's more than 100, urine bacteria . SARS COVID done on 07/09 was negative. Microbiology, blood culture done on 07/09/2021, after 1 day is negative. ASSESSMENT AND PLAN: Urinary tract infection. We will continue patient with cefazolin 1 gram q.8 hours. For cellulitis of lower extremities, improve leukocytosis, it is improved. No redness. We will continue with cefazolin 1 gram q.8 hours. Left lower extremity edema. Continue Lasix 40 mg p.o. daily. Chronic obstructive pulmonary disease. No exacerbation. We will continue the patient with albuterol inhalatory 2 puffs q.4 hours p.r.n. as needed for wheezing or shortness of breath. For hyperkeratosis bilateral plantar, we will give patient ammonium lactate cream b.i.d. For tobacco abuse, nicotine patch 21 mg transdermal daily. For GI prophylaxis, pantoprazole 40 mg p.o. daily. For psych disorder, the patient will continue with Seroquel 400 mg p.o. at bedtime and with Loxetine 30 mg p.o. daily. Also the patient is on famotidine 40 mg p.o. daily for GI prophylaxis, we will discontinue pantoprazole. We will continue patient with Pepcid 40 mg p.o. daily. For neuropathy, the patient is on gabapentin 600 mg p.o. at bedtime. For DVT prophylaxis, the patient is on heparin 5000 units subcutaneous q.8 hours. [facility] /[id number]
[2021-07-10] MEDS: QUEtiapine 100 MG Tab PO SCH (20:34)
[2021-07-10] MEDS: Gabapentin 300 MG Cap PO SCH (20:40)
[2021-07-10] MEDS ORDERED: Check Patch TRDERM SCH (21:00)
[2021-07-11] MEDS: ceFAZolin 1 GM in Sodium Chloride 0.9% 50 ML IV SCH (05:38)
[2021-07-11] MEDS: Heparin Sodium 5,000 Units/ML Vial SUBCUT SCH (05:43)
[2021-07-11] MEDS: FLUoxetine 10 MG Cap PO SCH (08:49)
[2021-07-11] MEDS: Famotidine 20 MG Tab PO SCH (08:49)
[2021-07-11] MEDS: Furosemide 40 MG Tab PO SCH (08:49)
[2021-07-11] MEDS: Carvedilol 25 MG Tab PO SCH (08:52)
[2021-07-11] MEDS: Nicotine 21 MG/24 Hr Patch TRDERM SCH (08:55)
[2021-07-11] MEDS: Lisinopril 10 MG Tab PO SCH (08:57)
[2021-07-11] MEDS: Aspirin 81 MG Tab.EC PO SCH (08:57)
--- NOTE | 2021-07-11 14:22 | DISCH ---
HISTORY OF PRESENT ILLNESS: The patient a 61-year-old man with morbid obesity, superobese with a body mass index of 52, presented to hospital with complaints of weakness, frequent falling. Has been living independently in an apartment. No associated chest pain, palpitations, or loss of consciousness. Has chronic shortness of breath that has not changed. He did not have any recent medication change. He was admitted to hospital and was found to have urinary tract infection and cellulitis of his right lower extremity and also bilateral plantar keratosis. The patient was started on Ancef 1 g q.8 hours and his white count improved from 15,000 at admission to 10,000 yesterday. The patient's erythema of his right lower extremity improved to almost resolution today and the patient is stable to be discharged. During his hospital stay, he did not have fever and the patient had Physical Therapy evaluation and it was recommended to the patient to go home with home care to help the patient managing his medication, apply cream on his feet and monitor his feet condition, also for physical therapy. LABORATORY DATA: At admission, WBC was 15,000, hemoglobin 14.6, hematocrit 42.6, platelet count 278. Sodium 134, potassium 3.4, chloride 97, dioxide of carbon 26, anion gap 14.4, BUN 6, creatinine 1.07, calcium 8.4, ALT 14. Yesterday, his white count was 10.9 and hemoglobin 13.2, hematocrit 39.8. In the hospital, the patient was treated on his feet with ammonium lactate cream twice a day and his legs were wrapped and his hyperkeratosis softened and he needs home care to help him, wash his feet with sponge loofah or sponge stone. His feet are at increased risk for cracking and infection. The patient's medications for depression and anxiety, super obesity were increased to twice a day. He was on 20 mg Prozac daily which was increased to 20 mg p.o. b.i.d. In the hospital, he received influenza vaccine one dose and he also received nicotine 21 mg transdermal patch. The patient is stable to be discharged home today. MEDICATION AT DISCHARGE: Ammonium lactate 225 g bottle, apply b.i.d., wash the feet with warm water and loofah or sponge stone, fluoxetine 20 mg p.o. b.i.d., and cephalexin 500 mg p.o. t.i.d. for another 5 days for UTI. For weight loss, the patient would benefit from phentermine/topiramate 1 capsule p.o. daily. DIAGNOSIS AT DISCHARGE: The patient had cellulitis of right lower extremity, bilateral feet hyperkeratosis, and urinary tract infection, super obesity, patient with a BMI of 52.3 kg/sq m, he weighs 407 pounds. Recommended the patient to stop smoking and the patient was counseled to stop smoking. Also patient has chronic bilateral lower extremity swelling and he is on Lasix 40 mg p.o. b.i.d. For his neuropathy, he is being treated with gabapentin 600 mg p.o. at bedtime. For hypertension, patient is being treated with lisinopril 30 mg p.o. daily and also he has mood disorder and he is being treated with quetiapine 400 mg p.o. at bedtime. PHYSICAL EXAMINATION: Vital signs at discharge: Temperature 97.7, pulse 82, blood pressure 142/91, oxygen 93% with a respiratory rate of 20. HEENT: His head is atraumatic, normocephalic. Pupils equally reactive to light. Neck: Supple. No thyromegaly. No lymphadenopathy. Lungs: Bilateral mild wheezing. Heart: S1, S2. Regular rhythm and rate. No murmur. Abdomen: Globulus, obese. He has ventral hernia and umbilical hernia. Extremities: He has trace edema and he has bilateral feet keratosis. Also, patient has chronic venous stasis changes in the skin with darkening of the skin, especially on the right lower extremity. ADDITIONAL SECONDARY DIAGNOSES: Chronic obstructive pulmonary disease, hypertension, morbid obesity, depression, anxiety, mood disorder, chronic neuropathy and chronic venous insufficiency. [facility] /[id number]
== END 2021-07-11 13:45 | disposition home or self-care (01) | DRG 603 ==
LOC: DL.ED 12:15 → DL.MS 15:54
PROVIDERS: ADMIT Internal Medicine; ATTEND Internal Medicine
DX: L03.119 Cellulitis of unspecified part of limb (principal); L03.115 Cellulitis of right lower limb; R60.9 Edema, unspecified; H54.7 Unspecified visual loss; N39.0 Urinary tract infection, site not specified; Z68.43 Body mass index [BMI] 50.0-59.9, adult; E78.00 Pure hypercholesterolemia, unspecified; E87.1 Hypo-osmolality and hyponatremia; L85.1 Acquired keratosis [keratoderma] palmaris et plantaris; F32.A Depression, unspecified; E66.01 Morbid (severe) obesity due to excess calories; F20.9 Schizophrenia, unspecified; E66.9 Obesity, unspecified; Z79.82 Long term (current) use of aspirin; Z79.51 Long term (current) use of inhaled steroids; Z79.899 Other long term (current) drug therapy; J44.9 Chronic obstructive pulmonary disease, unspecified; E87.6 Hypokalemia; F39 Unspecified mood [affective] disorder; Z20.822 Contact with and (suspected) exposure to COVID-19; F17.210 Nicotine dependence, cigarettes, uncomplicated; F41.9 Anxiety disorder, unspecified; G62.9 Polyneuropathy, unspecified; W18.30XA Fall on same level, unspecified, initial encounter; K21.9 Gastro-esophageal reflux disease without esophagitis; I11.0 Hypertensive heart disease with heart failure; I50.9 Heart failure, unspecified; E78.5 Hyperlipidemia, unspecified; Z86.711 Personal history of pulmonary embolism; Z87.19 Personal history of other diseases of the digestive system; Z98.890 Other specified postprocedural states; Z90.49 Acquired absence of other specified parts of digestive tract; Z86.718 Personal history of other venous thrombosis and embolism; Z79.01 Long term (current) use of anticoagulants; Y92.89 Other specified places as the place of occurrence of the external cause
CPT/HCPCS: 36415; 73560-LT; 80048; 80053; 81001; 83605; 83880; 84484; 85025; 87040; 87077; 87086; 87186; 90686; 93005; 96374; 97140-GO; 97165-GO; 99285-25; A9270-GY; J0690; J1644; U0002

== ENCOUNTER 2021-07-16 11:11 | Emergency (ER) | payer MEDICARE, MEDICAID ==
[2021-07-16 12:20] LABS: ANION GAP 13.2 mEq/L (7-13)
== END 2021-07-16 14:42 | disposition home or self-care (01) ==
LOC: DL.ED 11:11
DX: S80.02XA Contusion of left knee, initial encounter (principal); R53.1 Weakness; I11.0 Hypertensive heart disease with heart failure; I50.9 Heart failure, unspecified; J44.9 Chronic obstructive pulmonary disease, unspecified; K21.9 Gastro-esophageal reflux disease without esophagitis; E66.9 Obesity, unspecified; Z68.43 Body mass index [BMI] 50.0-59.9, adult; Z72.0 Tobacco use; Z79.82 Long term (current) use of aspirin; Z79.899 Other long term (current) drug therapy; W19.XXXA Unspecified fall, initial encounter; Y92.009 Unspecified place in unspecified non-institutional (private) residence as the place of occurrence of the external cause
CPT/HCPCS: 36415; 73560-LT; 80053; 81001; 85025; 87086; 99284; 99285-25

== ENCOUNTER 2021-07-23 12:16 | Emergency (ER) | payer MEDICARE, MEDICAID ==
[2021-07-23] MEDS ORDERED: Silver Sulfadiazine 1% Crm 50 GM Tube TOP ONE (15:39)
[2021-07-23] MEDS ORDERED: Lidocaine 5% Oint 35.44 GM Tube TOP ONE (15:40)
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
== END 2021-07-23 16:24 | disposition home or self-care (01) ==
LOC: DL.ED 12:16
DX: T22.212A Burn of second degree of left forearm, initial encounter (principal); J44.9 Chronic obstructive pulmonary disease, unspecified; K21.9 Gastro-esophageal reflux disease without esophagitis; E66.9 Obesity, unspecified; Z68.30 Body mass index [BMI] 30.0-30.9, adult; Z79.899 Other long term (current) drug therapy; Z79.82 Long term (current) use of aspirin; X10.1XXA Contact with hot food, initial encounter
CPT/HCPCS: 16020; 99283; A9270

== ENCOUNTER 2021-09-13 09:27 | Emergency (ER) | payer MEDICARE, MEDICAID ==
[2021-09-13 10:27] LABS: AMPHETAMINES,URINE NEGATIVE (NEGATIVE); BARBITURATES,URINE NEGATIVE (NEGATIVE); BENZODIAZEPINE,URINE NEGATIVE (NEGATIVE); MDMA (ECSTASY), URINE NEGATIVE (NEGATIVE); METHADONE,URINE NEGATIVE (NEGATIVE); METHAMPHETAMINES,URINE NEGATIVE (NEGATIVE); OPIATES,URINE NEGATIVE (NEGATIVE); OXYCODONE,URINE NEGATIVE (NEGATIVE); PHENCYCLIDINE,URINE NEGATIVE (NEGATIVE); TCA,URINE NEGATIVE (NEGATIVE)
[2021-09-13 10:50] LABS: ANION GAP 14.6 mEq/L (7-13); CHLORIDE,CL 98 mmol/L (98-107); SODIUM,NA 137 mmol/L (136-145)
[2021-09-13] MEDS: Sodium Chloride 0.9% 1,000 ML IV ONE (11:08)
[2021-09-13] MEDS: cefTRIAXone 1 GM in Sodium Chloride 0.9% 50 ML IV ONE (11:09)
== END 2021-09-13 12:12 | disposition home or self-care (01) ==
LOC: DL.ED 09:27
DX: N39.0 Urinary tract infection, site not specified (principal); E86.0 Dehydration; I11.0 Hypertensive heart disease with heart failure; I50.9 Heart failure, unspecified; E78.00 Pure hypercholesterolemia, unspecified; J44.9 Chronic obstructive pulmonary disease, unspecified; K21.9 Gastro-esophageal reflux disease without esophagitis; E66.9 Obesity, unspecified; Z68.43 Body mass index [BMI] 50.0-59.9, adult; Z79.82 Long term (current) use of aspirin; Z72.0 Tobacco use; Z79.899 Other long term (current) drug therapy
CPT/HCPCS: 36415; 80053; 80305; 81001; 83605; 85025; 86140; 87086; 87088; 96365; 99283; 99284; J0696; J7030

== ENCOUNTER 2021-10-05 20:20 | Emergency (ER) | payer MEDICARE, MEDICAID ==
[2021-10-05 21:28] LABS: CHLORIDE,CL 103 mmol/L (98-107); SODIUM,NA 139 mmol/L (136-145)
[2021-10-05] MEDS ORDERED: Albuterol 0.083% 2.5 MG/3 ML Neb Soln NEB ONE (21:39)
== END 2021-10-05 22:24 | disposition home or self-care (01) ==
LOC: DL.ED 20:20
DX: R06.02 Shortness of breath (principal); J44.9 Chronic obstructive pulmonary disease, unspecified; I10 Essential (primary) hypertension; I25.10 Atherosclerotic heart disease of native coronary artery without angina pectoris; E78.00 Pure hypercholesterolemia, unspecified; K21.9 Gastro-esophageal reflux disease without esophagitis; E66.01 Morbid (severe) obesity due to excess calories; Z68.43 Body mass index [BMI] 50.0-59.9, adult; Z79.82 Long term (current) use of aspirin; Z72.0 Tobacco use; Z79.899 Other long term (current) drug therapy
CPT/HCPCS: 36415; 80053; 83605; 83880; 84484; 85025; 85379; 93005; 94640; 99285-25; J7613-GY

== ENCOUNTER 2021-10-27 03:11 | Emergency (ER) | payer MEDICARE, MEDICAID ==
[2021-10-27] MEDS ORDERED: Ondansetron 4 MG Tab.DIS PO ONE (03:12)
[2021-10-27] MEDS ORDERED: Ondansetron 4 MG/2 ML SDV IVPUSH ONE ×2 (03:22→05:31)
[2021-10-27] MEDS ORDERED: Lactated Ringers 1,000 ML IV ONE (03:22)
[2021-10-27] MEDS ORDERED: Metoprolol Tartrate 5 MG/5 ML SDV IVPUSH ONE (03:33)
[2021-10-27] MEDS: Sodium Chloride 0.9% 10 ML Syringe FLUSH PRN ×4 (03:49→06:03)
[2021-10-27 04:06] LABS: ANION GAP 12.4 mEq/L (7-13); CHLORIDE,CL 98 mmol/L (98-107); SODIUM,NA 135 mmol/L (136-145)
[2021-10-27] MEDS ORDERED: Metoclopramide 10 MG/2 ML SDV IVPUSH ONE (04:12)
[2021-10-27] MEDS ORDERED: hydrALAZINE 20 MG/ML SDV IVPUSH ONE (04:26)
[2021-10-27] MEDS ORDERED: Iopamidol 612 MG/ML 50 ML SDV IVPUSH ONE (04:34)
[2021-10-27] MEDS ORDERED: Iopamidol 612 MG/ML 100 ML Bottle IVPUSH ONE (04:35)
[2021-10-27 04:37] LABS: CORONAVIRUS COVID-19 NAA NEGATIVE (NEGATIVE)
[2021-10-27] MEDS ORDERED: Albuterol 0.083% 2.5 MG/3 ML Neb Soln NEB ONE (05:18)
[2021-10-27] MEDS ORDERED: cefTRIAXone 1 GM in Sodium Chloride 0.9% 50 ML IV ONE (05:35)
[2021-10-27] MEDS: HYDROmorphone 0.5 MG/0.5 ML Syringe IVPUSH ONE (05:50)
[2021-10-27] MEDS ORDERED: Ketorolac 30 MG/ML SDV IVPUSH ONE (06:09)
[2021-10-27] MEDS ORDERED: Labetalol 20 MG/4 ML Syringe IVPUSH ONE (06:37)
[2021-10-27] MEDS ORDERED: Ondansetron 4 MG Tab.DIS ONE (07:04)
[2021-10-28] MEDS: HYDROmorphone 0.5 MG/0.5 ML Syringe IVPUSH ONE (15:29)
== END 2021-10-27 07:12 | disposition home or self-care (01) ==
LOC: DL.ED 03:11
DX: N39.0 Urinary tract infection, site not specified (principal); R11.10 Vomiting, unspecified; I11.0 Hypertensive heart disease with heart failure; I50.9 Heart failure, unspecified; E78.00 Pure hypercholesterolemia, unspecified; J44.9 Chronic obstructive pulmonary disease, unspecified; K21.9 Gastro-esophageal reflux disease without esophagitis; E66.9 Obesity, unspecified; Z68.43 Body mass index [BMI] 50.0-59.9, adult; Z79.82 Long term (current) use of aspirin; Z79.899 Other long term (current) drug therapy; Z20.822 Contact with and (suspected) exposure to COVID-19
CPT/HCPCS: 0240U; 36415; 74177; 80053; 81001; 83605; 83690; 83735; 83880; 85025; 86140; 87086; 96365; 96375; 96376; 99284; A9270; J0360; J0696; J1170; J1885; J2405; J2765; J3490; J7120; Q9967; J7613-GY

== ENCOUNTER 2021-11-22 14:12 | Emergency (ER) | payer MEDICARE, MEDICAID ==
[2021-11-22] MEDS ORDERED: Albuterol/Ipratropium 3.0-0.5 MG/3 ML Neb Soln ONE (14:46)
[2021-11-22] MEDS ORDERED: Albuterol/Ipratropium 3.0-0.5 MG/3 ML Neb Soln NEB ONE (14:48)
[2021-11-22] MEDS ORDERED: Acetaminophen 500 MG Tab PO ONE (15:02)
== END 2021-11-22 16:13 | disposition home or self-care (01) ==
LOC: DL.ED 14:12
DX: I63.9 Cerebral infarction, unspecified (principal); H01.004 Unspecified blepharitis left upper eyelid; I11.0 Hypertensive heart disease with heart failure; I50.9 Heart failure, unspecified; E78.00 Pure hypercholesterolemia, unspecified; J44.9 Chronic obstructive pulmonary disease, unspecified; K21.9 Gastro-esophageal reflux disease without esophagitis; E66.9 Obesity, unspecified; Z68.30 Body mass index [BMI] 30.0-30.9, adult; Z79.82 Long term (current) use of aspirin; Z79.899 Other long term (current) drug therapy; Z72.0 Tobacco use
CPT/HCPCS: 70450; 94640; 99284; A9270; J7620-GY

== ENCOUNTER 2021-12-27 11:05 | Inpatient (IN) | payer MEDICARE, MEDICAID ==
[2021-12-27] MEDS ORDERED: Albuterol 0.083% 2.5 MG/3 ML Neb Soln NEB ONE (11:20)
[2021-12-27] MEDS ORDERED: Furosemide 40 MG/4 ML VIAL IVPUSH ONE (11:21)
[2021-12-27] MEDS ORDERED: Acetaminophen 325 MG Tab PO ONE (11:21)
[2021-12-27 12:09] LABS: ANION GAP 11.3 mEq/L (7-13); CHLORIDE,CL 99 mmol/L (98-107); SODIUM,NA 135 mmol/L (136-145)
[2021-12-27 12:15] LABS: ESTIMATED GFR > 60
[2021-12-27] MEDS ORDERED: Sodium Chloride 0.9% 10 ML Syringe FLUSH PRN (12:33)
[2021-12-27] MEDS ORDERED: Ondansetron 4 MG/2 ML SDV IVPUSH PRN (12:33)
[2021-12-27] MEDS ORDERED: Magnesium Hydroxide 400 MG/5 ML Susp 30 ML Cup PO PRN (12:33)
[2021-12-27] MEDS ORDERED: HYDROmorphone 0.5 MG/0.5 ML Syringe IVPUSH PRN (12:33)
[2021-12-27] MEDS ORDERED: Acetaminophen/HYDROcodone 325-5 MG Tab PO PRN (12:33)
[2021-12-27 13:11] LABS: PTT,PARTIAL THROMBOPLSTIN TIME 25.5 SEC (22.0-34.0)
[2021-12-27] MEDS: Albuterol 0.083% 2.5 MG/3 ML Neb Soln NEB PRN (15:27)
[2021-12-27] MEDS ORDERED: Sodium Chloride 0.9% 1,000 ML IV SCH (15:30)
[2021-12-27] MEDS: Nicotine 14 MG/24 Hr Patch TRDERM SCH (16:20)
[2021-12-27] MEDS: Enoxaparin 40 MG/0.4 ML Syringe SUBCUT SCH (16:21)
[2021-12-27] MEDS ORDERED: Ondansetron 4 MG Tab.DIS PO PRN (16:57)
[2021-12-27] MEDS ORDERED: ESZOPICLONE 2 MG PO PRN (16:57)
[2021-12-27] MEDS ORDERED: Albuterol 0.083% 2.5 MG/3 ML Neb Soln INH PRN (16:57)
[2021-12-27] MEDS: Lisinopril 20 MG Tab PO SCH (18:09)
[2021-12-27] MEDS: amLODIPine 5 MG Tab PO SCH (18:10)
[2021-12-27] MEDS: Formoterol/Mometasone 200-5 MCG 8.8 GM Inhaler IH SCH ×2 (18:11→21:53)
[2021-12-27 19:41] LABS: BASE EXCESS VENOUS -0.2 mmol/l ((-2)-(+3)); BICARBONATE,VENOUS 24 mmol/l (19-25); O2 DELIVERY DEVICE ROOM AIR; O2 SATURATION VENOUS 83 % (60-80); PCO2 VENOUS 40 mmHg (41-51); PO2 VENOUS 47 mmHg (35-42)
[2021-12-27] MEDS ORDERED: Famotidine 20 MG Tab PO PRN (20:13)
[2021-12-27] MEDS ORDERED: QUEtiapine 100 MG Tab PO SCH ×2 (21:00)
[2021-12-27] MEDS ORDERED: Famotidine 20 MG Tab PO SCH (21:00)
[2021-12-27] MEDS: Sodium Chloride 0.9% 10 ML Syringe FLUSH SCH (21:52)
[2021-12-27] MEDS: Dexamethasone 4 MG/ML SDV IVPUSH SCH (21:53)
[2021-12-27] MEDS: Gabapentin 300 MG Cap PO SCH (21:54)
[2021-12-27] MEDS: Furosemide 40 MG/4 ML VIAL IVPUSH SCH (21:54)
[2021-12-27] MEDS: QUEtiapine 100 MG Tab PO SCH ×2 (22:03)
[2021-12-27] MEDS: cefTRIAXone 1 GM in Sodium Chloride 0.9% 50 ML IV SCH (22:07)
[2021-12-27] MEDS: Check NICOTINE Patch TRDERM SCH (22:08)
[2021-12-27] MEDS: Zolpidem 5 MG Tab PO PRN (22:13)
[2021-12-28] MEDS ORDERED: Furosemide 40 MG Tab PO SCH (06:00)
[2021-12-28] MEDS: Pantoprazole 40 MG Tab.CR PO SCH (06:22)
[2021-12-28 06:56] LABS: ANION GAP 9.8 mEq/L (7-13)
[2021-12-28] MEDS: Albuterol 0.083% 2.5 MG/3 ML Neb Soln NEB PRN ×3 (07:11→16:20)
[2021-12-28] MEDS: Furosemide 40 MG/4 ML VIAL IVPUSH SCH (09:05)
[2021-12-28] MEDS: Dexamethasone 4 MG/ML SDV IVPUSH SCH (09:06)
[2021-12-28] MEDS: FLUoxetine 10 MG Cap PO SCH (09:06)
[2021-12-28] MEDS: Lisinopril 20 MG Tab PO SCH (09:06)
[2021-12-28] MEDS: Enoxaparin 40 MG/0.4 ML Syringe SUBCUT SCH (09:07)
[2021-12-28] MEDS: amLODIPine 5 MG Tab PO SCH (09:07)
[2021-12-28] MEDS: Aspirin 81 MG Tab.EC PO SCH (09:07)
[2021-12-28] MEDS: Nicotine 14 MG/24 Hr Patch TRDERM SCH (09:08)
[2021-12-28] MEDS: cefTRIAXone 1 GM in Sodium Chloride 0.9% 50 ML IV SCH ×2 (09:08→21:48)
[2021-12-28] MEDS: Formoterol/Mometasone 200-5 MCG 8.8 GM Inhaler IH SCH ×2 (09:09→21:45)
[2021-12-28] MEDS: Sodium Chloride 0.9% 10 ML Syringe FLUSH SCH ×2 (09:10→21:48)
[2021-12-28] MEDS ORDERED: Nystatin Topical Powder 30 GM Bottle TOP PRN (14:38)
[2021-12-28] MEDS: Gabapentin 300 MG Cap PO SCH (21:41)
[2021-12-28] MEDS: QUEtiapine 100 MG Tab PO SCH ×2 (21:41)
[2021-12-28] MEDS: Zolpidem 5 MG Tab PO PRN (21:42)
[2021-12-28] MEDS: Check NICOTINE Patch TRDERM SCH (21:47)
[2021-12-29] MEDS: Pantoprazole 40 MG Tab.CR PO SCH (06:20)
[2021-12-29 06:46] LABS: ANION GAP 14.2 mEq/L (7-13); CHLORIDE,CL 103 mmol/L (98-107); SODIUM,NA 137 mmol/L (136-145)
[2021-12-29 07:04] LABS: ESTIMATED GFR > 60
[2021-12-29] MEDS: Furosemide 40 MG/4 ML VIAL IVPUSH SCH (09:52)
[2021-12-29] MEDS: Dexamethasone 4 MG/ML SDV IVPUSH SCH (09:52)
[2021-12-29] MEDS: cefTRIAXone 1 GM in Sodium Chloride 0.9% 50 ML IV SCH (09:52)
[2021-12-29] MEDS: Lisinopril 20 MG Tab PO SCH (09:53)
[2021-12-29] MEDS: Nicotine 14 MG/24 Hr Patch TRDERM SCH (09:53)
[2021-12-29] MEDS: Enoxaparin 40 MG/0.4 ML Syringe SUBCUT SCH (09:53)
[2021-12-29] MEDS: Formoterol/Mometasone 200-5 MCG 8.8 GM Inhaler IH SCH (09:54)
[2021-12-29] MEDS: Aspirin 81 MG Tab.EC PO SCH (09:54)
[2021-12-29] MEDS: amLODIPine 5 MG Tab PO SCH (09:54)
[2021-12-29] MEDS: FLUoxetine 10 MG Cap PO SCH (09:54)
[2021-12-29] MEDS: Sodium Chloride 0.9% 10 ML Syringe FLUSH SCH (10:05)
== END 2021-12-29 13:20 | disposition home or self-care (01) | DRG 603 ==
LOC: DL.ED 11:05 → DL.MS 12:28
PROVIDERS: ADMIT Internal Medicine; ATTEND Internal Medicine
DX: L03.119 Cellulitis of unspecified part of limb (principal); L03.116 Cellulitis of left lower limb; Z68.43 Body mass index [BMI] 50.0-59.9, adult; W19.XXXA Unspecified fall, initial encounter; F17.210 Nicotine dependence, cigarettes, uncomplicated; J43.9 Emphysema, unspecified; R53.1 Weakness; M19.90 Unspecified osteoarthritis, unspecified site; G25.81 Restless legs syndrome; K21.9 Gastro-esophageal reflux disease without esophagitis; E66.01 Morbid (severe) obesity due to excess calories; F41.9 Anxiety disorder, unspecified; F32.A Depression, unspecified; F17.200 Nicotine dependence, unspecified, uncomplicated; F20.9 Schizophrenia, unspecified; Z79.51 Long term (current) use of inhaled steroids; I11.0 Hypertensive heart disease with heart failure; I50.9 Heart failure, unspecified; E78.00 Pure hypercholesterolemia, unspecified; L98.499 Non-pressure chronic ulcer of skin of other sites with unspecified severity; Z79.82 Long term (current) use of aspirin; Z86.711 Personal history of pulmonary embolism; Z79.899 Other long term (current) drug therapy; Z90.49 Acquired absence of other specified parts of digestive tract; Z86.718 Personal history of other venous thrombosis and embolism; Z79.01 Long term (current) use of anticoagulants
CPT/HCPCS: 36415; 71045; 80048; 80053; 80307; 81001; 82550; 82803; 83605; 83735; 83880; 84484; 85025; 85379; 85610; 85730; 87040; 87070; 87086; 87088; 87186; 93970; 94640; 99285-25; A9270-GY; J0696; J1100; J1650; J1940; J2405; J3490; J7030; J7606; J7613-GY

== ENCOUNTER 2022-02-18 14:13 | Emergency (ER) | payer MEDICARE, MEDICAID ==
[2022-02-18 15:52] LABS: ANION GAP 15.3 mEq/L (7-13); CHLORIDE,CL 102 mmol/L (98-107); ESTIMATED GFR 44 mL/min (>=60); SODIUM,NA 138 mmol/L (136-145)
[2022-02-18] MEDS ORDERED: Sodium Chloride 0.9% 10 ML Syringe FLUSH PRN (16:29)
[2022-02-18] MEDS ORDERED: Sodium Chloride 0.9% 1,000 ML IV ONE (16:29)
[2022-02-18 16:42] LABS: AMPHETAMINES,URINE NEGATIVE (NEGATIVE); BARBITURATES,URINE NEGATIVE (NEGATIVE); BENZODIAZEPINE,URINE NEGATIVE (NEGATIVE); MDMA (ECSTASY), URINE NEGATIVE (NEGATIVE); METHADONE,URINE NEGATIVE (NEGATIVE); METHAMPHETAMINES,URINE NEGATIVE (NEGATIVE); OPIATES,URINE NEGATIVE (NEGATIVE); OXYCODONE,URINE NEGATIVE (NEGATIVE); PHENCYCLIDINE,URINE NEGATIVE (NEGATIVE); TCA,URINE POSITIVE (NEGATIVE)
== END 2022-02-18 17:51 | disposition home or self-care (01) ==
LOC: DL.ED 14:13
DX: R94.4 Abnormal results of kidney function studies (principal); T50.905A Adverse effect of unspecified drugs, medicaments and biological substances, initial encounter; J44.9 Chronic obstructive pulmonary disease, unspecified; E78.00 Pure hypercholesterolemia, unspecified; I10 Essential (primary) hypertension; F17.210 Nicotine dependence, cigarettes, uncomplicated; R47.81 Slurred speech; E66.9 Obesity, unspecified; Z68.43 Body mass index [BMI] 50.0-59.9, adult; Z79.82 Long term (current) use of aspirin; Z79.899 Other long term (current) drug therapy
CPT/HCPCS: 36415; 70450; 71045; 80053; 80305-QW; 80307; 81001; 82140; 83605; 83735; 83880; 84145; 84443; 84484; 85025; 93005; 93010; 96360; 99284; 99284-25; J3490; J7030

== ENCOUNTER 2022-04-25 14:18 | Emergency (ER) | payer MEDICARE, MEDICAID ==
[2022-04-25] MEDS ORDERED: Iopamidol 755 Mg/ML 100 ML Bottle IV ONE (16:54)
[2022-04-25] MEDS ORDERED: Furosemide 100 MG/10 ML SDV IV ONE (18:26)
[2022-04-25] MEDS ORDERED: Albuterol 0.083% 2.5 MG/3 ML Neb Soln INH ONE (18:26)
[2022-05-20 11:38] LABS: ANION GAP 11.2 mEq/L (7-13); CHLORIDE,CL 97 mmol/L (98-107); ESTIMATED GFR 89 mL/min (>=60); SODIUM,NA 134 mmol/L (136-145)
== END 2022-04-25 18:55 | disposition home or self-care (01) ==
LOC: DL.ED 14:18
DX: I50.9 Heart failure, unspecified (principal); J44.9 Chronic obstructive pulmonary disease, unspecified; Z20.822 Contact with and (suspected) exposure to COVID-19
CPT/HCPCS: 36415; 71045; 80053; 83880; 85025; 85379; 93970; 96374; 99285; J1940; Q9967; U0002; J7613-GY

== ENCOUNTER 2022-06-30 14:25 | Emergency (ER) | payer MEDICARE, MEDICAID | END 2022-06-30 19:45 | disposition home or self-care (01) | LOC: DL.ED 14:25 | DX: L03.116 Cellulitis of left lower limb (principal); S81.802A Unspecified open wound, left lower leg, initial encounter; S81.002A Unspecified open wound, left knee, initial encounter; I11.0 Hypertensive heart disease with heart failure; I50.9 Heart failure, unspecified; E78.00 Pure hypercholesterolemia, unspecified; J44.9 Chronic obstructive pulmonary disease, unspecified; E66.9 Obesity, unspecified; Z79.82 Long term (current) use of aspirin; Z79.899 Other long term (current) drug therapy; Z68.43 Body mass index [BMI] 50.0-59.9, adult | CPT/HCPCS: 99283 ==

== ENCOUNTER 2022-07-01 09:55 | Observation (INO) | payer MEDICARE, MEDICAID ==
[2022-07-01 11:27] LABS: ANION GAP 12.1 mEq/L (7-13)
[2022-07-01] MEDS ORDERED: Bisacodyl 5 MG Tab PO PRN (14:00)
[2022-07-01] MEDS ORDERED: HYDROmorphone 0.5 MG/0.5 ML Syringe IVPUSH PRN (14:00)
[2022-07-01] MEDS ORDERED: Ondansetron 4 MG/2 ML SDV IVPUSH PRN (14:00)
[2022-07-01] MEDS ORDERED: Acetaminophen 325 MG Tab PO PRN (14:00)
[2022-07-01] MEDS ORDERED: Polyethylene Glycol 3350 Powder 17 GM Packet PO PRN (14:00)
[2022-07-01] MEDS ORDERED: Albuterol/Ipratropium 3.0-0.5 MG/3 ML Neb Soln NEB PRN (14:00)
[2022-07-01] MEDS ORDERED: Magnesium Hydroxide 400 MG/5 ML Susp 30 ML Cup PO PRN (14:00)
[2022-07-01] MEDS ORDERED: Sodium Chloride 0.9% 10 ML Syringe FLUSH PRN (14:00)
[2022-07-01] MEDS ORDERED: Albuterol 0.083% 2.5 MG/3 ML Neb Soln NEB PRN (14:48)
[2022-07-01] MEDS ORDERED: Metoprolol Tartrate 5 MG/5 ML SDV IVPUSH PRN (15:05)
[2022-07-01] MEDS ORDERED: hydrALAZINE 20 MG/ML SDV IVPUSH PRN (15:05)
[2022-07-01] MEDS ORDERED: Potassium Chloride 10 MEQ Tab.ER PO ONE (17:00)
[2022-07-01] MEDS: Furosemide 40 MG Tab PO SCH (17:01)
[2022-07-01] MEDS: Sodium Chloride 0.9% 10 ML Syringe FLUSH SCH (19:59)
[2022-07-01] MEDS: Gabapentin 300 MG Cap PO SCH (19:59)
[2022-07-01] MEDS: QUEtiapine 100 MG Tab PO SCH (19:59)
[2022-07-01] MEDS: Formoterol/Mometasone 200-5 MCG 8.8 GM Inhaler IH SCH (19:59)
[2022-07-01] MEDS: Check Patch TRDERM SCH (19:59)
[2022-07-01] MEDS ORDERED: Non-Formulary Medication 1 Each (Quetiapine Fumarate [Quetiapine Fumarate] 400 MG Tablet) PO SCH (21:00)
[2022-07-01] MEDS: Zolpidem 5 MG Tab PO PRN (21:42)
[2022-07-01] MEDS: Heparin Sodium 5,000 Units/ML Vial SUBCUT SCH (21:42)
[2022-07-02] MEDS: Pantoprazole 40 MG Tab.CR PO SCH (06:10)
[2022-07-02] MEDS: Heparin Sodium 5,000 Units/ML Vial SUBCUT SCH ×3 (06:10→23:01)
[2022-07-02 06:45] LABS: ANION GAP 10.7 mEq/L (7-13)
[2022-07-02] MEDS: Lisinopril 20 MG Tab PO SCH (08:33)
[2022-07-02] MEDS: Furosemide 40 MG Tab PO SCH ×2 (08:33→15:00)
[2022-07-02] MEDS: Famotidine 20 MG Tab PO SCH (08:33)
[2022-07-02] MEDS: amLODIPine 5 MG Tab PO SCH (08:33)
[2022-07-02] MEDS: Carvedilol 25 MG Tab PO SCH (08:33)
[2022-07-02] MEDS: FLUoxetine 10 MG Cap PO SCH (08:34)
[2022-07-02] MEDS: Aspirin 81 MG Tab.EC PO SCH (08:34)
[2022-07-02] MEDS: Formoterol/Mometasone 200-5 MCG 8.8 GM Inhaler IH SCH ×3 (08:35→20:03)
[2022-07-02] MEDS: Sodium Chloride 0.9% 10 ML Syringe FLUSH SCH ×3 (08:38→20:03)
[2022-07-02] MEDS ORDERED: Nystatin Topical Powder 30 GM Bottle TOP PRN (11:50)
[2022-07-02] MEDS: Nicotine 21 MG/24 Hr Patch TRDERM SCH (15:00)
[2022-07-02] MEDS: QUEtiapine 100 MG Tab PO SCH ×2 (19:53→20:04)
[2022-07-02] MEDS: Zolpidem 5 MG Tab PO PRN (19:54)
[2022-07-02] MEDS: Gabapentin 300 MG Cap PO SCH ×2 (19:54→20:03)
[2022-07-02] MEDS: Check Patch TRDERM SCH (20:03)
[2022-07-03] MEDS: Acetaminophen/HYDROcodone 325-10 MG Tab PO PRN ×2 (03:48→14:19)
[2022-07-03] MEDS: Pantoprazole 40 MG Tab.CR PO SCH (05:31)
[2022-07-03] MEDS: Heparin Sodium 5,000 Units/ML Vial SUBCUT SCH ×3 (05:32→21:46)
[2022-07-03 07:05] LABS: ANION GAP 11.4 mEq/L (7-13)
[2022-07-03] MEDS: Formoterol/Mometasone 200-5 MCG 8.8 GM Inhaler IH SCH ×2 (08:45→21:42)
[2022-07-03] MEDS: Carvedilol 25 MG Tab PO SCH (08:45)
[2022-07-03] MEDS: Furosemide 40 MG Tab PO SCH ×2 (08:45→14:19)
[2022-07-03] MEDS: Nicotine 21 MG/24 Hr Patch TRDERM SCH (08:45)
[2022-07-03] MEDS: amLODIPine 5 MG Tab PO SCH (08:45)
[2022-07-03] MEDS: Aspirin 81 MG Tab.EC PO SCH (08:45)
[2022-07-03] MEDS: FLUoxetine 10 MG Cap PO SCH (08:46)
[2022-07-03] MEDS: Famotidine 20 MG Tab PO SCH (08:46)
[2022-07-03] MEDS: Lisinopril 20 MG Tab PO SCH (08:46)
[2022-07-03] MEDS: Sodium Chloride 0.9% 10 ML Syringe FLUSH SCH ×2 (08:46→21:43)
[2022-07-03] MEDS ORDERED: Potassium Chloride 10 MEQ Tab.ER PO ONE (11:00)
[2022-07-03] MEDS: Potassium Chloride 10 MEQ Tab.ER PO SCH (17:27)
[2022-07-03] MEDS: QUEtiapine 100 MG Tab PO SCH (21:42)
[2022-07-03] MEDS: Gabapentin 300 MG Cap PO SCH (21:42)
[2022-07-03] MEDS: Check Patch TRDERM SCH (21:43)
[2022-07-03] MEDS: Zolpidem 5 MG Tab PO PRN (21:43)
[2022-07-04] MEDS: Pantoprazole 40 MG Tab.CR PO SCH (06:34)
[2022-07-04] MEDS: Heparin Sodium 5,000 Units/ML Vial SUBCUT SCH ×3 (06:34→21:27)
[2022-07-04 06:51] LABS: HEMOGLOBIN A1C 5.6 % (<5.7)
[2022-07-04 07:14] LABS: ANION GAP 10.9 mEq/L (7-13)
[2022-07-04] MEDS: FLUoxetine 10 MG Cap PO SCH (08:40)
[2022-07-04] MEDS: Famotidine 20 MG Tab PO SCH (08:41)
[2022-07-04] MEDS: amLODIPine 5 MG Tab PO SCH (08:41)
[2022-07-04] MEDS: Aspirin 81 MG Tab.EC PO SCH (08:41)
[2022-07-04] MEDS: Carvedilol 25 MG Tab PO SCH (08:42)
[2022-07-04] MEDS: Potassium Chloride 10 MEQ Tab.ER PO SCH ×2 (08:42→17:19)
[2022-07-04] MEDS: Furosemide 40 MG Tab PO SCH ×2 (08:42→14:19)
[2022-07-04] MEDS: Lisinopril 20 MG Tab PO SCH (08:42)
[2022-07-04] MEDS: Nicotine 21 MG/24 Hr Patch TRDERM SCH (08:43)
[2022-07-04] MEDS: Formoterol/Mometasone 200-5 MCG 8.8 GM Inhaler IH SCH ×2 (08:46→20:31)
[2022-07-04] MEDS: Sodium Chloride 0.9% 10 ML Syringe FLUSH SCH ×2 (08:46→20:27)
[2022-07-04] MEDS: QUEtiapine 100 MG Tab PO SCH (20:25)
[2022-07-04] MEDS: Check Patch TRDERM SCH (20:26)
[2022-07-04] MEDS: Gabapentin 300 MG Cap PO SCH (20:26)
[2022-07-04] MEDS: Zolpidem 5 MG Tab PO PRN (20:34)
[2022-07-05] MEDS: Heparin Sodium 5,000 Units/ML Vial SUBCUT SCH ×3 (06:07→21:06)
[2022-07-05] MEDS: Pantoprazole 40 MG Tab.CR PO SCH (06:07)
[2022-07-05] MEDS: Formoterol/Mometasone 200-5 MCG 8.8 GM Inhaler IH SCH ×2 (12:16→20:59)
[2022-07-05] MEDS: Nicotine 21 MG/24 Hr Patch TRDERM SCH (12:17)
[2022-07-05] MEDS: Famotidine 20 MG Tab PO SCH (12:18)
[2022-07-05] MEDS: FLUoxetine 10 MG Cap PO SCH (12:18)
[2022-07-05] MEDS: Aspirin 81 MG Tab.EC PO SCH (12:19)
[2022-07-05] MEDS: Potassium Chloride 10 MEQ Tab.ER PO SCH ×2 (12:19→17:05)
[2022-07-05] MEDS: Carvedilol 25 MG Tab PO SCH (12:19)
[2022-07-05] MEDS: Lisinopril 20 MG Tab PO SCH (12:20)
[2022-07-05] MEDS: Furosemide 40 MG Tab PO SCH ×2 (12:21→13:50)
[2022-07-05] MEDS: amLODIPine 5 MG Tab PO SCH (12:21)
[2022-07-05] MEDS: Sodium Chloride 0.9% 10 ML Syringe FLUSH SCH ×2 (12:22→20:58)
[2022-07-05] MEDS: QUEtiapine 100 MG Tab PO SCH (20:57)
[2022-07-05] MEDS: Gabapentin 300 MG Cap PO SCH (20:58)
[2022-07-05] MEDS: Zolpidem 5 MG Tab PO PRN (21:05)
[2022-07-05] MEDS: Check Patch TRDERM SCH (21:12)
[2022-07-06] MEDS: Pantoprazole 40 MG Tab.CR PO SCH (06:32)
[2022-07-06] MEDS: Heparin Sodium 5,000 Units/ML Vial SUBCUT SCH ×4 (06:32→22:04)
[2022-07-06] MEDS: FLUoxetine 10 MG Cap PO SCH (12:17)
[2022-07-06] MEDS: Lisinopril 20 MG Tab PO SCH (12:18)
[2022-07-06] MEDS: Nicotine 21 MG/24 Hr Patch TRDERM SCH (12:18)
[2022-07-06] MEDS: Carvedilol 25 MG Tab PO SCH (12:19)
[2022-07-06] MEDS: Aspirin 81 MG Tab.EC PO SCH (12:19)
[2022-07-06] MEDS: Potassium Chloride 10 MEQ Tab.ER PO SCH ×2 (12:19→18:45)
[2022-07-06] MEDS: Famotidine 20 MG Tab PO SCH (12:19)
[2022-07-06] MEDS: Furosemide 40 MG Tab PO SCH ×2 (12:19→13:27)
[2022-07-06] MEDS: Formoterol/Mometasone 200-5 MCG 8.8 GM Inhaler IH SCH ×2 (12:20→21:31)
[2022-07-06] MEDS: amLODIPine 5 MG Tab PO SCH (12:20)
[2022-07-06] MEDS: Sodium Chloride 0.9% 10 ML Syringe FLUSH SCH ×2 (12:21→21:32)
[2022-07-06] MEDS: Acetaminophen/HYDROcodone 325-10 MG Tab PO PRN (20:56)
[2022-07-06] MEDS: QUEtiapine 100 MG Tab PO SCH (20:56)
[2022-07-06] MEDS: Gabapentin 300 MG Cap PO SCH (20:56)
[2022-07-06] MEDS: Zolpidem 5 MG Tab PO PRN (20:56)
[2022-07-06] MEDS: Check Patch TRDERM SCH (21:28)
[2022-07-07] MEDS: Pantoprazole 40 MG Tab.CR PO SCH (05:05)
[2022-07-07] MEDS: Heparin Sodium 5,000 Units/ML Vial SUBCUT SCH (05:05)
[2022-07-07] MEDS: Potassium Chloride 10 MEQ Tab.ER PO SCH (09:40)
[2022-07-07] MEDS: Aspirin 81 MG Tab.EC PO SCH (09:41)
[2022-07-07] MEDS: FLUoxetine 10 MG Cap PO SCH (09:41)
[2022-07-07] MEDS: Famotidine 20 MG Tab PO SCH (09:41)
[2022-07-07] MEDS: Furosemide 40 MG Tab PO SCH (09:42)
[2022-07-07] MEDS: Lisinopril 20 MG Tab PO SCH (09:42)
[2022-07-07] MEDS: Carvedilol 25 MG Tab PO SCH (09:43)
[2022-07-07] MEDS: amLODIPine 5 MG Tab PO SCH (09:43)
[2022-07-07] MEDS: Formoterol/Mometasone 200-5 MCG 8.8 GM Inhaler IH SCH (09:50)
[2022-07-07] MEDS: Nicotine 21 MG/24 Hr Patch TRDERM SCH (09:50)
[2022-07-07] MEDS: Sodium Chloride 0.9% 10 ML Syringe FLUSH SCH (12:50)
== END 2022-07-07 13:06 | disposition home or self-care (01) ==
LOC: DL.ED 09:55 → DL.MS 13:19 → DL.ED 13:19 → DL.MS 07-06 09:55
PROVIDERS: ADMIT Internal Medicine; ATTEND Internal Medicine
DX: L03.116 Cellulitis of left lower limb (principal); I11.0 Hypertensive heart disease with heart failure; I50.9 Heart failure, unspecified; F32.A Depression, unspecified; K21.9 Gastro-esophageal reflux disease without esophagitis; G62.9 Polyneuropathy, unspecified; E66.01 Morbid (severe) obesity due to excess calories; E87.6 Hypokalemia; R62.51 Failure to thrive (child); F17.210 Nicotine dependence, cigarettes, uncomplicated; M19.90 Unspecified osteoarthritis, unspecified site; J44.9 Chronic obstructive pulmonary disease, unspecified; Z68.43 Body mass index [BMI] 50.0-59.9, adult; Z79.899 Other long term (current) drug therapy; Z79.82 Long term (current) use of aspirin; Z98.890 Other specified postprocedural states; Z90.49 Acquired absence of other specified parts of digestive tract; Z20.822 Contact with and (suspected) exposure to COVID-19; W19.XXXA Unspecified fall, initial encounter
CPT/HCPCS: 36415; 73030; 80048; 80053; 81001; 82306; 83036; 83605; 83735; 83880; 84439; 84443; 85025; 86140; 87040; 90686; 99284; A9270; J1644; J3490; U0002; 96372; G0008; G0378

== ENCOUNTER 2022-08-20 21:34 | Emergency (ER) | payer MEDICARE, MEDICAID ==
[2022-08-20 22:39] LABS: CHLORIDE,CL 98 mmol/L (98-107); SODIUM,NA 136 mmol/L (136-145)
[2022-08-20 22:40] LABS: ESTIMATED GFR 61 mL/min (>=60)
[2022-08-20] MEDS ORDERED: Sodium Chloride 0.9% 1,000 ML IV ONE (23:20)
[2022-08-21 00:27] LABS: CORONAVIRUS COVID-19 NAA NEGATIVE (NEGATIVE); RESPIRATORY SYNCYTIAL VIR NAA NEGATIVE (NEGATIVE)
== END 2022-08-21 02:41 | disposition home or self-care (01) ==
LOC: DL.ED 21:34
DX: E86.0 Dehydration (principal); R73.9 Hyperglycemia, unspecified; I11.0 Hypertensive heart disease with heart failure; I50.9 Heart failure, unspecified; J44.9 Chronic obstructive pulmonary disease, unspecified; K21.9 Gastro-esophageal reflux disease without esophagitis; M19.90 Unspecified osteoarthritis, unspecified site; R29.6 Repeated falls; E66.9 Obesity, unspecified; Z68.43 Body mass index [BMI] 50.0-59.9, adult; Z79.82 Long term (current) use of aspirin; Z79.899 Other long term (current) drug therapy; Z20.822 Contact with and (suspected) exposure to COVID-19; W18.30XA Fall on same level, unspecified, initial encounter
CPT/HCPCS: 0241U; 36415; 51702; 70450; 80053; 80307; 82140; 82947; 83605; 83735; 83880; 85025; 85610; 85730; 86140; 99284; 99285; J7030

== ENCOUNTER 2022-11-02 20:49 | Emergency (ER) | payer MEDICARE, MEDICAID ==
[2022-11-02] MEDS ORDERED: Cephalexin 500 MG Cap PO ONE ×2 (20:50→21:33)
[2022-11-02 21:13] LABS: ANION GAP 11.2 mEq/L (7-13)
[2022-11-02] MEDS ORDERED: Cephalexin 500 MG Cap ONE (21:36)
== END 2022-11-02 21:52 | disposition home or self-care (01) ==
LOC: DL.ED 20:49
DX: L03.311 Cellulitis of abdominal wall (principal); I11.0 Hypertensive heart disease with heart failure; I50.9 Heart failure, unspecified; J44.9 Chronic obstructive pulmonary disease, unspecified; E66.9 Obesity, unspecified; Z90.49 Acquired absence of other specified parts of digestive tract; Z79.82 Long term (current) use of aspirin; Z79.899 Other long term (current) drug therapy; Z68.44 Body mass index [BMI] 60.0-69.9, adult
CPT/HCPCS: 36415; 80053; 81003; 83605; 83880; 85025; 99283; 99284; A9270

== ENCOUNTER 2023-05-23 02:50 | Emergency (ER) | payer MEDICARE, MEDICAID ==
[2023-05-23] MEDS ORDERED: Sodium Chloride 0.9% 10 ML Syringe FLUSH PRN (03:10)
[2023-05-23] MEDS ORDERED: Albuterol/Ipratropium 3.0-0.5 MG/3 ML Neb Soln NEB ONE (03:10)
[2023-05-23] MEDS ORDERED: Dexamethasone 4 MG/ML SDV IVPUSH ONE (03:11)
[2023-05-23] MEDS ORDERED: Magnesium Sulfate/Water 2 GM in Premix Bag 1 BAG IV ONE ×4 (03:12)
[2023-05-23 03:42] LABS: BASOPHILS PERCENT AUTO 0.2 % (0.0-1.0); EOSINOPHILS PERCENT AUTO 1.7 % (1.0-3.0); HEMOGLOBIN 13.9 g/dL (14.0-18.0); LYMPHOCYTES PERCENT AUTO 18.4 % (20.5-50.1); MEAN CORPUSCULAR HEMOGLOBIN 31.2 pg (27.0-34.0); MEAN CORPUSCULAR HGB CONC 33.1 g/dL (33.0-35.0); MEAN CORPUSCULAR VOLUME 94.4 fL (80-100); MONOCYTES PERCENT AUTO 12.1 % (2-8); NEUTROPHILS PERCENT AUTO 67.6 % (42.2-75.2); PLATELET COUNT,PLT 196 10^3/uL (150-450); RED BLOOD CELL COUNT 4.45 10^6/uL (4.6-6.2); WHITE BLOOD CELL COUNT,WBC 13.2 10^3/uL (5.0-10.0)
[2023-05-23 03:49] LABS: A/G RATIO 0.79; ALBUMIN 3.3 g/dL (3.4-5.0); ANION GAP 10.6 mEq/L (7-13); BILIRUBIN TOTAL 0.6 mg/dL (0.2-1.0); BUN/CREATININE RATIO 10.4 (No establ ref range); C-REACTIVE PROTEIN 4.37 ng/dL (<=0.30); CALCIUM 8.4 mg/dL (8.5-10.1); CREATININE 1.06 mg/dL (0.70-1.30); EST CRCL DRUG DOSING (CG) 86.16 mL/min; MAGNESIUM 1.8 mg/dL (1.8-2.4); POTASSIUM,K 3.6 mmol/L (3.5-5.1); PROTEIN TOTAL,TP 7.5 g/dL (6.4-8.2)
[2023-05-23 03:52] LABS: LACTIC ACID 0.7 mmol/L (0.4-2.0)
== END 2023-05-23 04:52 | disposition home or self-care (01) ==
LOC: DL.ED 02:50
DX: J44.1 Chronic obstructive pulmonary disease with (acute) exacerbation (principal); I11.0 Hypertensive heart disease with heart failure; I50.9 Heart failure, unspecified; K21.9 Gastro-esophageal reflux disease without esophagitis; M19.90 Unspecified osteoarthritis, unspecified site; E66.9 Obesity, unspecified; Z68.43 Body mass index [BMI] 50.0-59.9, adult; Z79.82 Long term (current) use of aspirin; Z79.899 Other long term (current) drug therapy
CPT/HCPCS: 36415; 71046; 80053; 83605; 83735; 83880; 85025; 86140; 96365; 96375; 99284; 99285-25; J1100; J3475; J3490; J7620-GY

== ENCOUNTER 2023-06-03 05:54 | Emergency (ER) | payer MEDICARE, MEDICAID ==
[2023-06-03] MEDS ORDERED: Sodium Chloride 0.9% 10 ML Syringe FLUSH PRN (05:57)
[2023-06-03] MEDS ORDERED: Ondansetron 4 MG/2 ML SDV IVPUSH ONE (05:58)
[2023-06-03 06:20] LABS: BASOPHILS PERCENT AUTO 0.2 % (0.0-1.0); EOSINOPHILS PERCENT AUTO 0.4 % (1.0-3.0); HEMATOCRIT 48.1 % (40.0-54.0); HEMOGLOBIN 16.1 g/dL (14.0-18.0); LYMPHOCYTES PERCENT AUTO 14.9 % (20.5-50.1); MEAN CORPUSCULAR HEMOGLOBIN 31.4 pg (27.0-34.0); MEAN CORPUSCULAR HGB CONC 33.5 g/dL (33.0-35.0); MEAN CORPUSCULAR VOLUME 93.8 fL (80-100); MONOCYTES PERCENT AUTO 7.7 % (2-8); NEUTROPHILS PERCENT AUTO 76.8 % (42.2-75.2); PLATELET COUNT,PLT 288 10^3/uL (150-450); RED BLOOD CELL COUNT 5.13 10^6/uL (4.6-6.2); WHITE BLOOD CELL COUNT,WBC 15.6 10^3/uL (5.0-10.0)
[2023-06-03] MEDS ORDERED: HYDROmorphone 1 MG/ML Syringe IVPUSH ONE (06:22)
[2023-06-03] MEDS ORDERED: Metoclopramide 10 MG/2 ML SDV IVPUSH ONE (06:22)
[2023-06-03 06:37] LABS: A/G RATIO 0.7; ALANINE AMINOTRANSFERASE,ALT 20 U/L (16-63); ALBUMIN 3.5 g/dL (3.4-5.0); ALKALINE PHOSPHATASE 108 U/L (46-116); ANION GAP 11.4 mEq/L (7-13); ASPARTATE AMNIOTRANSFERASE,AST 17 U/L (15-37); BILIRUBIN TOTAL 0.7 mg/dL (0.2-1.0); BLOOD UREA NITROGEN,BUN 7 mg/dL (7-18); BUN/CREATININE RATIO 6.8 (No establ ref range); C-REACTIVE PROTEIN 1.61 ng/dL (<=0.50); CARBON DIOXIDE,CO2 27 mmol/L (21-32); CHLORIDE,CL 98 mmol/L (98-107); CREATININE 1.03 mg/dL (0.70-1.30); EST CRCL DRUG DOSING (CG) 88.67 mL/min; GLUCOSE RANDOM 139 mg/dL (70-99); LIPASE 11 U/L (16-77); MAGNESIUM 1.9 mg/dL (1.8-2.4); POTASSIUM,K 4.4 mmol/L (3.5-5.1); PROTEIN TOTAL,TP 8.3 g/dL (6.4-8.2); SODIUM,NA 132 mmol/L (136-145)
[2023-06-03 06:43] LABS: ESTIMATED GFR 83 mL/min (>=60); ETHANOL BLOOD MEDICAL < 3 mg/dL (0)
[2023-06-03 06:45] LABS: LACTIC ACID 1.2 mmol/L (0.4-2.0)
[2023-06-03 07:01] LABS: APPEARANCE,URINE CLEAR (CLEAR); BILIRUBIN,URINE SMALL (NEGATIVE); COLOR,URINE YELLOW (YELLOW); GLUCOSE,URINE NEGATIVE (NEGATIVE); KETONES,URINE TRACE (NEGATIVE); LEUKOCYTE ESTERASE,URINE NEGATIVE (NEGATIVE); NITRITE,URINE NEGATIVE (NEGATIVE); OCCULT BLOOD,URINE NEGATIVE (NEGATIVE); PROTEIN,URINE 100 (NEGATIVE)
[2023-06-03] MEDS ORDERED: Iopamidol 612 MG/ML 100 ML Bottle IVPUSH ONE (07:02)
[2023-06-03 07:09] LABS: AMPHETAMINES,URINE NEGATIVE (NEGATIVE); BARBITURATES,URINE NEGATIVE (NEGATIVE); BENZODIAZEPINE,URINE NEGATIVE (NEGATIVE); MDMA (ECSTASY), URINE NEGATIVE (NEGATIVE); METHADONE,URINE NEGATIVE (NEGATIVE); METHAMPHETAMINES,URINE NEGATIVE (NEGATIVE); OPIATES,URINE NEGATIVE (NEGATIVE); OXYCODONE,URINE NEGATIVE (NEGATIVE); PHENCYCLIDINE,URINE NEGATIVE (NEGATIVE); TCA,URINE NEGATIVE (NEGATIVE)
[2023-06-03 07:40] LABS: BACTERIA,URINE FEW /HPF (0-FEW/HPF); EPITHELIAL CELLS,URINE FEW /HPF (NOT SEEN); MUCUS,URINE MODERATE /LPF (NOT SEEN); RBC,URINE 0-5 /HPF (0-5)
[2023-06-03 07:41] LABS: HYALINE CASTS,URINE RARE
[2023-06-03] MEDS ORDERED: Acetaminophen 500 MG Tab PO ONE (08:05)
[2023-06-03] MEDS ORDERED: Ibuprofen 400 MG Tab PO ONE (08:05)
[2023-06-03] MEDS ORDERED: Morphine 4 MG/ML Syringe IVPUSH ONE (08:26)
[2023-06-03] MEDS ORDERED: cefOXitin 1 GM Vial IVPUSH ONE (08:59)
[2023-06-03] MEDS ORDERED: LORazepam 2 MG/ML SDV IVPUSH ONE (09:09)
[2023-06-03] MEDS ORDERED: Lidocaine 2% Viscous Solution 15 ML UD PO ONE (09:11)
[2023-06-03] MEDS ORDERED: Lactated Ringers 1,000 ML IV ONE (09:11)
[2023-06-03] MEDS ORDERED: Lidocaine 2% Viscous Solution 15 ML UD ONE (09:11)
[2023-06-03] MEDS ORDERED: Benzocaine 20% Topical Spray UD MUCMEM ONE (10:01)
== END 2023-06-03 10:23 | disposition other institution (70) ==
LOC: DL.ED 05:54
DX: K46.0 Unspecified abdominal hernia with obstruction, without gangrene (principal); J44.9 Chronic obstructive pulmonary disease, unspecified; I50.9 Heart failure, unspecified; E66.9 Obesity, unspecified; K21.9 Gastro-esophageal reflux disease without esophagitis; Z79.82 Long term (current) use of aspirin; Z79.899 Other long term (current) drug therapy
CPT/HCPCS: 36415; 74018; 74022; 74177; 80053; 80305-QW; 80307; 81001; 83605; 83690; 83735; 85025; 86140; 87040; 96374; 96375; 99284; 99285-25; A9270-GY; J0694; J1170; J2060; J2270; J2405; J2765; J3490; J7120; Q9967

== ENCOUNTER 2023-06-17 06:20 | Emergency (ER) | payer MEDICARE, MEDICAID ==
[2023-06-17 06:13] LABS: BASOPHILS PERCENT AUTO 0.4 % (0.0-1.0); EOSINOPHILS PERCENT AUTO 2.9 % (1.0-3.0); HEMATOCRIT 45.1 % (40.0-54.0); HEMOGLOBIN 14.6 g/dL (14.0-18.0); MEAN CORPUSCULAR HEMOGLOBIN 30.9 pg (27.0-34.0); MEAN CORPUSCULAR HGB CONC 32.4 g/dL (33.0-35.0); MEAN CORPUSCULAR VOLUME 95.6 fL (80-100); MONOCYTES PERCENT AUTO 9.5 % (2-8); NEUTROPHILS PERCENT AUTO 68.2 % (42.2-75.2); PLATELET COUNT,PLT 361 10^3/uL (150-450); RED BLOOD CELL COUNT 4.72 10^6/uL (4.6-6.2); WHITE BLOOD CELL COUNT,WBC 13.6 10^3/uL (5.0-10.0)
[2023-06-17 06:33] LABS: LACTIC ACID 1.3 mmol/L (0.4-2.0)
[2023-06-17 06:36] LABS: ANION GAP 9.9 mEq/L (7-13); BILIRUBIN TOTAL 0.7 mg/dL (0.2-1.0); BUN/CREATININE RATIO 6.9 (No establ ref range); C-REACTIVE PROTEIN 1.03 ng/dL (<=0.50); CALCIUM 8.6 mg/dL (8.5-10.1); CREATININE 1.02 mg/dL (0.70-1.30); EST CRCL DRUG DOSING (CG) 88.42 mL/min; POTASSIUM,K 4.9 mmol/L (3.5-5.1); PROTEIN TOTAL,TP 7.4 g/dL (6.4-8.2)
[2023-06-17 06:40] LABS: A/G RATIO 0.68
[2023-06-17] MEDS: HYDROmorphone 1 MG/ML Syringe IVPUSH ONE (06:55)
[2023-06-17] MEDS: Ondansetron 4 MG/2 ML SDV IVPUSH ONE ×2 (06:56→08:51)
[2023-06-17] MEDS: Sodium Chloride 0.9% 10 ML Syringe FLUSH PRN (06:56)
[2023-06-17] MEDS: Iopamidol 612 MG/ML 100 ML Bottle IVPUSH ONE (07:24)
[2023-06-17] MEDS: Methylnaltrexone 12 MG/0.6 ML SDV SUBCUT ONE (08:51)
== END 2023-06-17 09:15 | disposition home or self-care (01) ==
LOC: DL.ED 06:20
DX: R10.32 Left lower quadrant pain (principal); I11.0 Hypertensive heart disease with heart failure; I50.9 Heart failure, unspecified; E78.00 Pure hypercholesterolemia, unspecified; J44.9 Chronic obstructive pulmonary disease, unspecified; E66.9 Obesity, unspecified; M19.90 Unspecified osteoarthritis, unspecified site; K21.9 Gastro-esophageal reflux disease without esophagitis; Z79.82 Long term (current) use of aspirin; Z79.899 Other long term (current) drug therapy; Z68.43 Body mass index [BMI] 50.0-59.9, adult
CPT/HCPCS: 36415; 74177; 80053; 83605; 85025; 86140; 87040; 87070; 87077; 87186; 87205; 93971; 96372; 96374; 96375; 96376; 99284; 99284-25; J1170; J2212-GY; J2405; J3490; Q9967

== ENCOUNTER 2023-06-29 20:59 | Emergency (ER) | payer MEDICARE, MEDICAID ==
[2023-06-29 20:59] LABS: BASOPHILS PERCENT AUTO 0.6 % (0.0-1.0); EOSINOPHILS PERCENT AUTO 3.4 % (1.0-3.0); HEMATOCRIT 42.4 % (40.0-54.0); HEMOGLOBIN 13.8 g/dL (14.0-18.0); LYMPHOCYTES PERCENT AUTO 30.2 % (20.5-50.1); MEAN CORPUSCULAR HEMOGLOBIN 30.9 pg (27.0-34.0); MEAN CORPUSCULAR HGB CONC 32.5 g/dL (33.0-35.0); MEAN CORPUSCULAR VOLUME 94.9 fL (80-100); MONOCYTES PERCENT AUTO 12.4 % (2-8); NEUTROPHILS PERCENT AUTO 53.4 % (42.2-75.2); PLATELET COUNT,PLT 202 10^3/uL (150-450); RED BLOOD CELL COUNT 4.47 10^6/uL (4.6-6.2)
[2023-06-29 21:32] LABS: BILIRUBIN,URINE NEGATIVE (NEGATIVE); COLOR,URINE YELLOW (YELLOW); GLUCOSE,URINE NEGATIVE (NEGATIVE); KETONES,URINE NEGATIVE (NEGATIVE); LEUKOCYTE ESTERASE,URINE TRACE (NEGATIVE); NITRITE,URINE NEGATIVE (NEGATIVE); OCCULT BLOOD,URINE LARGE (NEGATIVE); PROTEIN,URINE 30 (NEGATIVE)
[2023-06-29 21:32] LABS: A/G RATIO 0.8; ALBUMIN 3.5 g/dL (3.4-5.0); ANION GAP 10.6 mEq/L (7-13); BILIRUBIN TOTAL 0.6 mg/dL (0.2-1.0); BUN/CREATININE RATIO 5.5 (No establ ref range); CALCIUM 8.5 mg/dL (8.5-10.1); CREATININE 1.09 mg/dL (0.70-1.30); EST CRCL DRUG DOSING (CG) 82.74 mL/min; POTASSIUM,K 3.6 mmol/L (3.5-5.1); PROTEIN TOTAL,TP 7.9 g/dL (6.4-8.2)
[2023-06-29 21:33] LABS: APPEARANCE,URINE SLIGHTLY CLOUDY (CLEAR)
[2023-06-29 21:40] LABS: BACTERIA,URINE FEW /HPF (0-FEW/HPF); EPITHELIAL CELLS,URINE FEW /HPF (NOT SEEN); MUCUS,URINE OCCASIONAL /LPF (NOT SEEN); RBC,URINE 75-100 /HPF (0-5); WBC,URINE 0-5 /HPF (0-5/HPF)
[2023-06-29] MEDS ORDERED: Nitrofurantoin Monohydrate/Macrocrystalline 100 MG Cap PO ONE (22:18)
== END 2023-06-29 23:28 | disposition home or self-care (01) ==
LOC: DL.ED 20:59
DX: N39.0 Urinary tract infection, site not specified (principal); I11.0 Hypertensive heart disease with heart failure; I50.9 Heart failure, unspecified; J44.9 Chronic obstructive pulmonary disease, unspecified; K21.9 Gastro-esophageal reflux disease without esophagitis; M19.90 Unspecified osteoarthritis, unspecified site; F17.210 Nicotine dependence, cigarettes, uncomplicated; E66.9 Obesity, unspecified; Z68.43 Body mass index [BMI] 50.0-59.9, adult; Z79.899 Other long term (current) drug therapy; Z79.82 Long term (current) use of aspirin
CPT/HCPCS: 36415; 80053; 81001; 82272; 85025; 87086; 87088; 87186; 99284; A9270-GY

== ENCOUNTER 2023-07-07 11:04 | Emergency (ER) | payer MEDICARE, MEDICAID ==
[2023-07-07] MEDS ORDERED: Albuterol/Ipratropium 3.0-0.5 MG/3 ML Neb Soln NEB ONE (11:16)
[2023-07-07] MEDS ORDERED: diphenhydrAMINE 50 MG/ML SDV ONE (11:23)
[2023-07-07] MEDS ORDERED: Sodium Chloride 0.9% 1,000 ML IV ONE (11:31)
[2023-07-07] MEDS ORDERED: diphenhydrAMINE 50 MG/ML SDV IVPUSH ONE (11:31)
[2023-07-07] MEDS ORDERED: EPINEPHrine 1 MG/ML SDV IM ONE (11:32)
[2023-07-07 11:45] LABS: BASOPHILS PERCENT AUTO 0.3 % (0.0-1.0); EOSINOPHILS PERCENT AUTO 1.4 % (1.0-3.0); HEMATOCRIT 39.6 % (40.0-54.0); HEMOGLOBIN 12.9 g/dL (14.0-18.0); LYMPHOCYTES PERCENT AUTO 27.1 % (20.5-50.1); MEAN CORPUSCULAR HEMOGLOBIN 31.4 pg (27.0-34.0); MEAN CORPUSCULAR HGB CONC 32.6 g/dL (33.0-35.0); MEAN CORPUSCULAR VOLUME 96.4 fL (80-100); MONOCYTES PERCENT AUTO 11.8 % (2-8); NEUTROPHILS PERCENT AUTO 59.4 % (42.2-75.2); PLATELET COUNT,PLT 200 10^3/uL (150-450); RED BLOOD CELL COUNT 4.11 10^6/uL (4.6-6.2); WHITE BLOOD CELL COUNT,WBC 15.4 10^3/uL (5.0-10.0)
[2023-07-07 11:46] LABS: A/G RATIO 0.8; ALANINE AMINOTRANSFERASE,ALT 18 U/L (16-63); ALBUMIN 3.5 g/dL (3.4-5.0); ALKALINE PHOSPHATASE 103 U/L (46-116); ANION GAP 10.6 mEq/L (7-13); ASPARTATE AMNIOTRANSFERASE,AST 25 U/L (15-37); BILIRUBIN TOTAL 1.3 mg/dL (0.2-1.0); BLOOD UREA NITROGEN,BUN 8 mg/dL (7-18); BUN/CREATININE RATIO 8.1 (No establ ref range); CALCIUM 8.6 mg/dL (8.5-10.1); CARBON DIOXIDE,CO2 30 mmol/L (21-32); CHLORIDE,CL 98 mmol/L (98-107); CREATININE 0.99 mg/dL (0.70-1.30); ESTIMATED GFR 87 mL/min (>=60); GLUCOSE RANDOM 99 mg/dL (70-99); POTASSIUM,K 3.6 mmol/L (3.5-5.1); PROTEIN TOTAL,TP 7.7 g/dL (6.4-8.2); SODIUM,NA 135 mmol/L (136-145)
[2023-07-07] MEDS ORDERED: Famotidine 20 MG/2 ML SDV IVPUSH ONE (11:56)
[2023-07-07] MEDS ORDERED: Rocuronium 100 MG/10 ML MDV IVPUSH ONE (14:03)
[2023-07-07] MEDS ORDERED: Ketamine 500 mg/10 ML MDV IV ONE (15:08)
[2023-07-07] MEDS ORDERED: EPINEPHrine 1:10,000 1 MG/10 ML Syringe ONE (15:56)
== END 2023-07-07 14:39 | disposition other institution (70) ==
LOC: DL.ED 11:04
DX: T78.2XXA Anaphylactic shock, unspecified, initial encounter (principal); I11.0 Hypertensive heart disease with heart failure; I50.9 Heart failure, unspecified; J44.9 Chronic obstructive pulmonary disease, unspecified; K21.9 Gastro-esophageal reflux disease without esophagitis; M19.90 Unspecified osteoarthritis, unspecified site; E66.9 Obesity, unspecified; Z68.43 Body mass index [BMI] 50.0-59.9, adult
CPT/HCPCS: 31500; 36415; 71045; 80053; 85025; 93005; 93010; 96365; 96375; 99285; J0171; J1200; J3490; J7030; J7050; J7620-GY

== ENCOUNTER 2024-02-20 14:53 | Observation (INO) | payer MEDICARE, MEDICAID ==
[2024-02-20 15:59] LABS: BASOPHILS PERCENT AUTO 0.3 % (0.0-1.0); EOSINOPHILS PERCENT AUTO 1.5 % (1.0-3.0); HEMATOCRIT 43.7 % (40.0-54.0); HEMOGLOBIN 14.4 g/dL (14.0-18.0); LYMPHOCYTES PERCENT AUTO 17.2 % (20.5-50.1); MEAN CORPUSCULAR HEMOGLOBIN 30.6 pg (27.0-34.0); MEAN CORPUSCULAR VOLUME 92.8 fL (80-100); MONOCYTES PERCENT AUTO 9.6 % (2-8); NEUTROPHILS PERCENT AUTO 71.4 % (42.2-75.2); PLATELET COUNT,PLT 185 10^3/uL (150-450); RED BLOOD CELL COUNT 4.71 10^6/uL (4.6-6.2); WHITE BLOOD CELL COUNT,WBC 10.4 10^3/uL (5.0-10.0)
[2024-02-20 16:12] LABS: A/G RATIO 0.9; ALANINE AMINOTRANSFERASE,ALT 18 U/L (16-63); ALBUMIN 3.5 g/dL (3.4-5.0); ALKALINE PHOSPHATASE 103 U/L (46-116); ANION GAP 9.8 mEq/L (7-13); ASPARTATE AMNIOTRANSFERASE,AST 19 U/L (15-37); BILIRUBIN TOTAL 0.7 mg/dL (0.2-1.0); BLOOD UREA NITROGEN,BUN 11 mg/dL (7-18); BUN/CREATININE RATIO 10.2 (No establ ref range); CALCIUM 8.8 mg/dL (8.5-10.1); CARBON DIOXIDE,CO2 30 mmol/L (21-32); CHLORIDE,CL 102 mmol/L (98-107); CREATINE KINASE,CK 94 U/L (39-308); CREATININE 1.08 mg/dL (0.70-1.30); GLUCOSE RANDOM 119 mg/dL (70-99); MAGNESIUM 1.8 mg/dL (1.8-2.4); POTASSIUM,K 3.8 mmol/L (3.5-5.1); PROTEIN TOTAL,TP 7.4 g/dL (6.4-8.2); SODIUM,NA 138 mmol/L (136-145)
[2024-02-20 16:14] LABS: B-TYPE NATRIURETIC PEPTIDE,BNP 17 pg/ml (0-100)
[2024-02-20 16:19] LABS: ESTIMATED GFR 78 mL/min (>=60); ETHANOL BLOOD MEDICAL < 3 mg/dL (0)
[2024-02-20] MEDS ORDERED: Sodium Chloride 0.9% 1,000 ML IV ONE (16:21)
[2024-02-20] MEDS: Iopamidol 755 Mg/ML 100 ML Bottle IVPUSH ONE (16:43)
[2024-02-20 16:58] LABS: APPEARANCE,URINE CLEAR (CLEAR); BILIRUBIN,URINE NEGATIVE (NEGATIVE); COLOR,URINE YELLOW (YELLOW); GLUCOSE,URINE NEGATIVE (NEGATIVE); KETONES,URINE NEGATIVE (NEGATIVE); LEUKOCYTE ESTERASE,URINE NEGATIVE (NEGATIVE); NITRITE,URINE NEGATIVE (NEGATIVE); OCCULT BLOOD,URINE NEGATIVE (NEGATIVE); PROTEIN,URINE NEGATIVE (NEGATIVE); UROBILINOGEN,URINE 0.2 mg/dL (0.2-1.0)
[2024-02-20 17:01] LABS: AMPHETAMINES,URINE NEGATIVE (NEGATIVE); BARBITURATES,URINE NEGATIVE (NEGATIVE); BENZODIAZEPINE,URINE NEGATIVE (NEGATIVE); MDMA (ECSTASY), URINE NEGATIVE (NEGATIVE); METHADONE,URINE NEGATIVE (NEGATIVE); METHAMPHETAMINES,URINE NEGATIVE (NEGATIVE); OPIATES,URINE NEGATIVE (NEGATIVE); OXYCODONE,URINE NEGATIVE (NEGATIVE); PHENCYCLIDINE,URINE NEGATIVE (NEGATIVE); TCA,URINE NEGATIVE (NEGATIVE)
[2024-02-20 17:04] LABS: O2 DELIVERY DEVICE ROOM AIR; PH,VENOUS 7.31 (7.31-7.41)
[2024-02-20 17:05] LABS: PCO2 VENOUS 61 mmHg (41-51)
[2024-02-20 17:06] LABS: BASE EXCESS VENOUS 1.4 mmol/l ((-2)-(+3)); BICARBONATE,VENOUS 29 mmol/l (19-25); O2 SATURATION VENOUS 94.4 % (60-80); PO2 VENOUS 101 mmHg (35-42)
[2024-02-20] MEDS ORDERED: Midazolam 1 MG/ML 2 ML SDV IVPUSH ONE (17:13)
[2024-02-20] MEDS ORDERED: LORazepam 2 MG/ML SDV IVPUSH ONE (17:46)
[2024-02-20] MEDS ORDERED: Sennosides/Docusate Sodium 50-8.6 MG Tab PO PRN (19:43)
[2024-02-20] MEDS ORDERED: Albuterol/Ipratropium 3.0-0.5 MG/3 ML Neb Soln NEB PRN (19:43)
[2024-02-20] MEDS ORDERED: Polyethylene Glycol 3350 Powder 17 GM Packet PO PRN (19:43)
[2024-02-20] MEDS ORDERED: Magnesium Hydroxide 400 MG/5 ML Susp 30 ML Cup PO PRN (19:43)
[2024-02-20] MEDS ORDERED: Naloxone 2 MG/2 ML Syringe IVPUSH PRN (19:43)
[2024-02-20] MEDS ORDERED: Acetaminophen 325 MG Tab PO PRN (19:43)
[2024-02-20] MEDS ORDERED: HYDROmorphone 0.5 MG/0.5 ML Syringe IVPUSH PRN (19:43)
[2024-02-20] MEDS ORDERED: Acetaminophen/oxyCODONE 325-5 MG Tab PO PRN (19:43)
[2024-02-20] MEDS ORDERED: Promethazine 25 MG/ML SDV IM PRN (19:43)
[2024-02-20] MEDS ORDERED: Ondansetron 4 MG/2 ML SDV IVPUSH PRN (19:43)
[2024-02-20] MEDS ORDERED: hydrALAZINE 20 MG/ML SDV IVPUSH PRN (19:55)
[2024-02-20] MEDS ORDERED: Metoprolol Tartrate 5 MG/5 ML SDV IVPUSH PRN (19:55)
[2024-02-20] MEDS ORDERED: Ziprasidone Mesylate 20 MG Vial IM PRN (20:10)
[2024-02-20] MEDS ORDERED: 50% Dextrose in Water 50 ML Syringe IVPUSH PRN (20:11)
[2024-02-20] MEDS ORDERED: Glucagon,Human Recombinant 1 MG Vial IM PRN (20:11)
[2024-02-20] MEDS ORDERED: Nystatin Topical Powder 60 GM Bottle TOP PRN (21:00)
[2024-02-20] MEDS: Sodium Chloride 0.9% 1,000 ML IV SCH (21:11)
[2024-02-20] MEDS: methylPREDNISolone Sodium Succinate 125 MG/2 ML SDV IVPUSH SCH (21:19)
[2024-02-20] MEDS: Pantoprazole 40 MG Vial IVPUSH SCH (21:22)
[2024-02-20] MEDS: Azithromycin 500 MG in Sodium Chloride 0.9% 250 ML IV ONE (21:25)
[2024-02-20] MEDS: Furosemide 40 MG Tab PO SCH (21:29)
[2024-02-20] MEDS: Insulin Lispro 100 Units/ML 3 ML Vial SUBCUT SCH (21:34)
[2024-02-20] MEDS: Enoxaparin 40 MG/0.4 ML Syringe SUBCUT SCH (22:03)
[2024-02-20] MEDS: Melatonin 3 MG Tab PO PRN (22:03)
[2024-02-20] MEDS: LORazepam 2 MG/ML SDV ONE (22:34)
[2024-02-21] MEDS: Formoterol/Mometasone 200-5 MCG 8.8 GM Inhaler INH SCH (05:56)
[2024-02-21] MEDS: Tiotropium Bromide 4 GM Inhalation Spray (2.5mcg/1 dose; 10 doses) INH SCH (05:57)
[2024-02-21] MEDS: Albuterol/Ipratropium 3.0-0.5 MG/3 ML Neb Soln NEB SCH (05:58)
[2024-02-21 06:20] LABS: BASOPHILS PERCENT AUTO 0.1 % (0.0-1.0); HEMATOCRIT 42.3 % (40.0-54.0); HEMOGLOBIN 13.9 g/dL (14.0-18.0); LYMPHOCYTES PERCENT AUTO 15.9 % (20.5-50.1); MEAN CORPUSCULAR HEMOGLOBIN 30.5 pg (27.0-34.0); MEAN CORPUSCULAR HGB CONC 32.9 g/dL (33.0-35.0); MONOCYTES PERCENT AUTO 0.9 % (2-8); NEUTROPHILS PERCENT AUTO 83.1 % (42.2-75.2); PLATELET COUNT,PLT 202 10^3/uL (150-450); RED BLOOD CELL COUNT 4.55 10^6/uL (4.6-6.2); WHITE BLOOD CELL COUNT,WBC 7.5 10^3/uL (5.0-10.0)
[2024-02-21 07:02] LABS: ALBUMIN 3.3 g/dL (3.4-5.0); ANION GAP 10.9 mEq/L (7-13); BILIRUBIN TOTAL 0.8 mg/dL (0.2-1.0); BUN/CREATININE RATIO 8.6 (No establ ref range); C-REACTIVE PROTEIN 2.67 ng/dL (<=0.50); CREATININE 1.05 mg/dL (0.70-1.30); EST CRCL DRUG DOSING (CG) 85.9 mL/min; MAGNESIUM 1.9 mg/dL (1.8-2.4); POTASSIUM,K 3.9 mmol/L (3.5-5.1); PROTEIN TOTAL,TP 7.3 g/dL (6.4-8.2)
[2024-02-21 07:03] LABS: A/G RATIO 0.83
[2024-02-21] MEDS: Modafinil 100 MG Tab PO SCH (08:28)
[2024-02-21] MEDS: guaiFENesin 600 MG Tab.ER PO SCH (08:28)
[2024-02-21] MEDS: amLODIPine 5 MG Tab PO SCH (08:28)
[2024-02-21] MEDS ORDERED: LORazepam 2 MG/ML SDV IV ONE (11:14)
[2024-02-21] MEDS ORDERED: Sodium Chloride 0.9% 1,000 ML IV ONE (11:14)
[2024-02-21] MEDS ORDERED: Azithromycin 500 MG in Sodium Chloride 0.9% 250 ML IV SCH (20:00)
== END 2024-02-21 11:15 | disposition left against medical advice (07) ==
LOC: DL.ED 14:53 → DL.MS 19:04 → UNDOADMIN 19:04
PROVIDERS: ADMIT Internal Medicine; ATTEND Internal Medicine
DX: R41.82 Altered mental status, unspecified (principal); G47.10 Hypersomnia, unspecified; J44.89 Other specified chronic obstructive pulmonary disease; E66.2 Morbid (severe) obesity with alveolar hypoventilation; G47.33 Obstructive sleep apnea (adult) (pediatric); R73.9 Hyperglycemia, unspecified; E88.09 Other disorders of plasma-protein metabolism, not elsewhere classified; F12.929 Cannabis use, unspecified with intoxication, unspecified; B37.2 Candidiasis of skin and nail; R33.9 Retention of urine, unspecified; R26.2 Difficulty in walking, not elsewhere classified; I10 Essential (primary) hypertension; E78.5 Hyperlipidemia, unspecified; K21.9 Gastro-esophageal reflux disease without esophagitis; F32.A Depression, unspecified; Z68.43 Body mass index [BMI] 50.0-59.9, adult; Z79.82 Long term (current) use of aspirin; Z91.199 Patient's noncompliance with other medical treatment and regimen due to unspecified reason; Z79.899 Other long term (current) drug therapy; Z88.8 Allergy status to other drugs, medicaments and biological substances; W19.XXXA Unspecified fall, initial encounter
CPT/HCPCS: 36415; 70450; 70496; 70498; 71250; 72125; 80053; 80305-QW; 80307; 81003; 82140; 82550; 82803; 82947; 83605; 83735; 83880; 84484; 85025; 86140; 93005; 96365; 96372; 96375; 96376; 99285; A9270-GY; C1758; G0378; J0456; J1650; J1815-GY; J2060; J2470; J2919; J7030; J7050; J7620-GY; Q9967

== ENCOUNTER 2024-04-21 11:56 | Emergency (ER) | payer MEDICARE, MEDICAID ==
[2024-04-21 12:38] LABS: BASOPHILS PERCENT AUTO 0.5 % (0.0-1.0); EOSINOPHILS PERCENT AUTO 2.5 % (1.0-3.0); HEMATOCRIT 41.4 % (40.0-54.0); HEMOGLOBIN 13.1 g/dL (14.0-18.0); LYMPHOCYTES PERCENT AUTO 30.1 % (20.5-50.1); MEAN CORPUSCULAR HEMOGLOBIN 29.2 pg (27.0-34.0); MEAN CORPUSCULAR HGB CONC 31.6 g/dL (33.0-35.0); MEAN CORPUSCULAR VOLUME 92.4 fL (80-100); MONOCYTES PERCENT AUTO 14.1 % (2-8); NEUTROPHILS PERCENT AUTO 52.8 % (42.2-75.2); PLATELET COUNT,PLT 197 10^3/uL (150-450); RED BLOOD CELL COUNT 4.48 10^6/uL (4.6-6.2)
[2024-04-21] MEDS: Dexamethasone 4 MG/ML SDV IVPUSH ONE (12:41)
[2024-04-21] MEDS: Albuterol/Ipratropium 3.0-0.5 MG/3 ML Neb Soln NEB ONE (12:41)
[2024-04-21 13:00] LABS: A/G RATIO 0.78; ALBUMIN 3.2 g/dL (3.4-5.0); ANION GAP 10.5 mEq/L (7-13); BILIRUBIN TOTAL 0.4 mg/dL (0.2-1.0); BUN/CREATININE RATIO 11.9 (No establ ref range); CALCIUM 8.6 mg/dL (8.5-10.1); CREATININE 1.09 mg/dL (0.70-1.30); EST CRCL DRUG DOSING (CG) 75.8 mL/min; LACTIC ACID 1.2 mmol/L (0.4-2.0); MAGNESIUM 1.8 mg/dL (1.8-2.4); POTASSIUM,K 3.5 mmol/L (3.5-5.1); PROTEIN TOTAL,TP 7.3 g/dL (6.4-8.2)
[2024-04-21] MEDS: Albuterol 0.083% 2.5 MG/3 ML Neb Soln NEB ONE ×2 (13:27→14:15)
[2024-04-21] MEDS: Furosemide 40 MG/4 ML VIAL IVPUSH ONE (14:13)
[2024-04-21 15:34] LABS: O2 DELIVERY DEVICE ROOM AIR
[2024-04-21 15:38] LABS: BASE EXCESS VENOUS 4.6 mmol/l ((-2)-(+3)); BICARBONATE,VENOUS 30 mmol/l (19-25); O2 SATURATION VENOUS 52.5 % (60-80); PCO2 VENOUS 52 mmHg (41-51); PH,VENOUS 7.38 (7.31-7.41); PO2 VENOUS 32 mmHg (35-42)
== END 2024-04-21 16:18 | disposition home or self-care (01) ==
LOC: DL.ED 11:56 → MERGE 11:56 → DL.ED 16:18
DX: J40 Bronchitis, not specified as acute or chronic (principal); I50.9 Heart failure, unspecified; F17.210 Nicotine dependence, cigarettes, uncomplicated; E66.01 Morbid (severe) obesity due to excess calories; Z68.44 Body mass index [BMI] 60.0-69.9, adult
CPT/HCPCS: 36415; 71045; 80053; 82803; 83605; 83735; 83880; 84484; 85025; 93005; 96374; 96375; 99285; J1100; J1940; J7613-GY; J7620-GY

== ENCOUNTER 2024-05-12 22:04 | Emergency (ER) | payer MEDICARE, MEDICAID ==
[2024-05-12] MEDS ORDERED: Sodium Chloride 0.9% 10 ML Syringe FLUSH PRN (22:18)
[2024-05-12] MEDS: Furosemide 40 MG/4 ML VIAL IVPUSH ONE (22:33)
[2024-05-12 22:38] LABS: BASOPHILS PERCENT AUTO 0.4 % (0.0-1.0); EOSINOPHILS PERCENT AUTO 1.1 % (1.0-3.0); HEMOGLOBIN 12.8 g/dL (14.0-18.0); LYMPHOCYTES PERCENT AUTO 25.4 % (20.5-50.1); MEAN CORPUSCULAR HEMOGLOBIN 29.4 pg (27.0-34.0); MEAN CORPUSCULAR VOLUME 91.7 fL (80-100); MONOCYTES PERCENT AUTO 13.5 % (2-8); NEUTROPHILS PERCENT AUTO 59.6 % (42.2-75.2); PLATELET COUNT,PLT 161 10^3/uL (150-450); RED BLOOD CELL COUNT 4.36 10^6/uL (4.6-6.2); WHITE BLOOD CELL COUNT,WBC 10.2 10^3/uL (5.0-10.0)
[2024-05-12 23:08] LABS: A/G RATIO 0.73; ANION GAP 10.5 mEq/L (7-13); BILIRUBIN TOTAL 0.8 mg/dL (0.2-1.0); BUN/CREATININE RATIO 13.3 (No establ ref range); CALCIUM 8.9 mg/dL (8.5-10.1); CREATININE 1.43 mg/dL (0.70-1.30); EST CRCL DRUG DOSING (CG) 61.31 mL/min; POTASSIUM,K 3.5 mmol/L (3.5-5.1); PROTEIN TOTAL,TP 7.1 g/dL (6.4-8.2)
[2024-05-12] MEDS: cefTRIAXone 2 GM Vial IVPUSH ONE (23:26)
[2024-05-12] MEDS: Bacitracin/Neomycin/Polymyxin B Oint 28.4 GM Tube TOP ONE (23:48)
== END 2024-05-12 23:50 | disposition home or self-care (01) ==
LOC: DL.ED 22:04
DX: S81.801A Unspecified open wound, right lower leg, initial encounter (principal); I11.0 Hypertensive heart disease with heart failure; I50.43 Acute on chronic combined systolic (congestive) and diastolic (congestive) heart failure; E87.79 Other fluid overload; J44.9 Chronic obstructive pulmonary disease, unspecified; K21.9 Gastro-esophageal reflux disease without esophagitis; E66.9 Obesity, unspecified; Z90.49 Acquired absence of other specified parts of digestive tract; Z79.899 Other long term (current) drug therapy; Z79.2 Long term (current) use of antibiotics; Z79.82 Long term (current) use of aspirin; Z88.1 Allergy status to other antibiotic agents; X58.XXXA Exposure to other specified factors, initial encounter
CPT/HCPCS: 36415; 80053; 85025; 96374; 96375; 99284; A9270; J0696; J1940

== ENCOUNTER 2024-05-18 10:20 | Inpatient (IN) | payer MEDICARE, MEDICAID ==
[2024-05-18] MEDS ORDERED: Metoprolol Tartrate 5 MG/5 ML SDV IVPUSH PRN (11:17)
[2024-05-18] MEDS ORDERED: Sennosides/Docusate Sodium 50-8.6 MG Tab PO PRN (11:18)
[2024-05-18] MEDS ORDERED: Acetaminophen 325 MG Tab PO PRN (11:18)
[2024-05-18] MEDS ORDERED: Melatonin 3 MG Tab PO PRN (11:18)
[2024-05-18] MEDS ORDERED: Sodium Chloride 0.9% 10 ML Syringe FLUSH PRN (11:18)
[2024-05-18] MEDS ORDERED: Polyethylene Glycol 3350 Powder 17 GM Packet PO PRN (11:18)
[2024-05-18] MEDS ORDERED: Naloxone 2 MG/2 ML Syringe IVPUSH PRN (11:18)
[2024-05-18] MEDS ORDERED: Ondansetron 4 MG/2 ML SDV IVPUSH PRN (11:18)
[2024-05-18] MEDS ORDERED: Magnesium Hydroxide 400 MG/5 ML Susp 30 ML Cup PO PRN (11:18)
[2024-05-18] MEDS ORDERED: HYDROmorphone 1 MG/ML Syringe IVPUSH PRN (11:37)
[2024-05-18 11:48] LABS: BASOPHILS PERCENT AUTO 0.3 % (0.0-1.0); EOSINOPHILS PERCENT AUTO 1.8 % (1.0-3.0); HEMATOCRIT 43.1 % (40.0-54.0); HEMOGLOBIN 14.3 g/dL (14.0-18.0); LYMPHOCYTES PERCENT AUTO 24.8 % (20.5-50.1); MEAN CORPUSCULAR HEMOGLOBIN 29.9 pg (27.0-34.0); MEAN CORPUSCULAR HGB CONC 33.2 g/dL (33.0-35.0); MONOCYTES PERCENT AUTO 12.6 % (2-8); NEUTROPHILS PERCENT AUTO 60.5 % (42.2-75.2); PLATELET COUNT,PLT 256 10^3/uL (150-450); RED BLOOD CELL COUNT 4.79 10^6/uL (4.6-6.2)
[2024-05-18 12:09] LABS: ALBUMIN 3.3 g/dL (3.4-5.0); ANION GAP 10.2 mEq/L (7-13); BILIRUBIN TOTAL 1.1 mg/dL (0.2-1.0); BUN/CREATININE RATIO 6.9 (No establ ref range); C-REACTIVE PROTEIN 5.85 ng/dL (<=0.50); CALCIUM 9.2 mg/dL (8.5-10.1); CREATININE 1.3 mg/dL (0.70-1.30); EST CRCL DRUG DOSING (CG) 69.38 mL/min; POTASSIUM,K 3.2 mmol/L (3.5-5.1); PROTEIN TOTAL,TP 7.8 g/dL (6.4-8.2)
[2024-05-18 12:21] LABS: A/G RATIO 0.73
[2024-05-18] MEDS: Sodium Chloride 0.9% 1,000 ML IV SCH (12:57)
[2024-05-18] MEDS: Ampicillin/Sulbactam Na 1.5 GM in Sodium Chloride 0.9% 100 ML IV SCH (12:57)
[2024-05-18] MEDS: Albuterol/Ipratropium 3.0-0.5 MG/3 ML Neb Soln NEB PRN (13:43)
[2024-05-18] MEDS: Bacitracin/Neomycin/Polymyxin B Oint 28.4 GM Tube TOP ONE (13:50)
[2024-05-18] MEDS: Enoxaparin 100 MG/1 ML Syringe SUBCUT SCH (18:31)
[2024-05-18] MEDS: Saccharomyces Boulardii (Probiotic) 250 MG Cap PO SCH (20:13)
[2024-05-18] MEDS: Potassium Chloride 10 MEQ Tab.ER PO ONE (20:14)
[2024-05-18] MEDS: Sodium Chloride 0.9% 10 ML Syringe FLUSH SCH (20:14)
[2024-05-18] MEDS: Bacitracin/Neomycin/Polymyxin B Oint 28.4 GM Tube TOP SCH (20:14)
[2024-05-18] MEDS: Acetaminophen/oxyCODONE 325-5 MG Tab PO PRN (20:30)
[2024-05-18] MEDS ORDERED: Enoxaparin 40 MG/0.4 ML Syringe SUBCUT SCH (21:00)
[2024-05-19] MEDS ORDERED: Docusate Sodium 100 MG Cap PO PRN (07:05)
[2024-05-19 07:21] LABS: BASOPHILS PERCENT AUTO 0.5 % (0.0-1.0); HEMATOCRIT 40.4 % (40.0-54.0); LYMPHOCYTES PERCENT AUTO 24.7 % (20.5-50.1); MEAN CORPUSCULAR HEMOGLOBIN 29.4 pg (27.0-34.0); MEAN CORPUSCULAR HGB CONC 32.2 g/dL (33.0-35.0); MEAN CORPUSCULAR VOLUME 91.4 fL (80-100); MONOCYTES PERCENT AUTO 13.2 % (2-8); NEUTROPHILS PERCENT AUTO 59.6 % (42.2-75.2); PLATELET COUNT,PLT 241 10^3/uL (150-450); RED BLOOD CELL COUNT 4.42 10^6/uL (4.6-6.2); WHITE BLOOD CELL COUNT,WBC 8.6 10^3/uL (5.0-10.0)
[2024-05-19 07:40] LABS: ANION GAP 9.8 mEq/L (7-13); BILIRUBIN TOTAL 0.7 mg/dL (0.2-1.0); BUN/CREATININE RATIO 10.2 (No establ ref range); C-REACTIVE PROTEIN 4.21 ng/dL (<=0.50); CALCIUM 8.8 mg/dL (8.5-10.1); CREATININE 1.27 mg/dL (0.70-1.30); EST CRCL DRUG DOSING (CG) 71.02 mL/min; MAGNESIUM 1.8 mg/dL (1.8-2.4); POTASSIUM,K 3.8 mmol/L (3.5-5.1); PROTEIN TOTAL,TP 6.8 g/dL (6.4-8.2)
[2024-05-19 07:41] LABS: A/G RATIO 0.79
[2024-05-19] MEDS: Nicotine 21 MG/24 Hr Patch TRDERM SCH (08:37)
[2024-05-19] MEDS: predniSONE 20 MG Tab PO SCH (08:37)
[2024-05-19] MEDS: Carvedilol 25 MG Tab PO SCH (08:37)
[2024-05-19] MEDS: FLUoxetine 10 MG Cap PO SCH (08:37)
[2024-05-19] MEDS: Tiotropium Bromide 4 GM Inhalation Spray (2.5mcg/1 dose; 10 doses) INH ONE (08:38)
[2024-05-19] MEDS: Formoterol/Mometasone 200-5 MCG 8.8 GM Inhaler INH ONE (08:38)
[2024-05-19] MEDS: Aspirin 81 MG Tab.EC PO SCH (08:38)
[2024-05-19] MEDS ORDERED: Enoxaparin 100 MG/1 ML Syringe SUBCUT SCH (14:18)
[2024-05-19] MEDS: Bumetanide 1 MG Tab PO SCH (15:47)
[2024-05-19] MEDS: Formoterol/Mometasone 200-5 MCG 8.8 GM Inhaler INH SCH (17:21)
[2024-05-19] MEDS: QUEtiapine 100 MG Tab PO SCH ×2 (22:23→22:24)
[2024-05-19] MEDS: Tamsulosin 0.4 MG Cap.ER PO SCH (22:24)
[2024-05-19] MEDS: Famotidine 20 MG Tab PO SCH (22:24)
[2024-05-19] MEDS: Zolpidem 5 MG Tab PO SCH (22:25)
[2024-05-19] MEDS: Gabapentin 300 MG Cap PO SCH (22:26)
[2024-05-19] MEDS: Enoxaparin 40 MG/0.4 ML Syringe SUBCUT SCH (22:28)
[2024-05-19] MEDS: Check NICOTINE Patch TRDERM SCH (22:38)
[2024-05-20] MEDS: Enoxaparin 40 MG/0.4 ML Syringe SUBCUT SCH (02:48)
[2024-05-20] MEDS: Pantoprazole 40 MG Tab.CR PO SCH (05:28)
[2024-05-20] MEDS: Tiotropium Bromide 4 GM Inhalation Spray (2.5mcg/1 dose; 10 doses) INH SCH (05:28)
[2024-05-20 06:32] LABS: BASOPHILS PERCENT AUTO 0.3 % (0.0-1.0); EOSINOPHILS PERCENT AUTO 0.7 % (1.0-3.0); HEMATOCRIT 38.6 % (40.0-54.0); HEMOGLOBIN 12.2 g/dL (14.0-18.0); LYMPHOCYTES PERCENT AUTO 22.2 % (20.5-50.1); MEAN CORPUSCULAR HEMOGLOBIN 29.5 pg (27.0-34.0); MEAN CORPUSCULAR HGB CONC 31.6 g/dL (33.0-35.0); MEAN CORPUSCULAR VOLUME 93.2 fL (80-100); MONOCYTES PERCENT AUTO 9.2 % (2-8); NEUTROPHILS PERCENT AUTO 67.6 % (42.2-75.2); PLATELET COUNT,PLT 247 10^3/uL (150-450); RED BLOOD CELL COUNT 4.14 10^6/uL (4.6-6.2); WHITE BLOOD CELL COUNT,WBC 10.4 10^3/uL (5.0-10.0)
[2024-05-20 06:58] LABS: ALBUMIN 2.8 g/dL (3.4-5.0); ANION GAP 10.6 mEq/L (7-13); BILIRUBIN TOTAL 0.3 mg/dL (0.2-1.0); BUN/CREATININE RATIO 14.3 (No establ ref range); C-REACTIVE PROTEIN 2.95 ng/dL (<=0.50); CALCIUM 8.9 mg/dL (8.5-10.1); CREATININE 1.26 mg/dL (0.70-1.30); EST CRCL DRUG DOSING (CG) 71.58 mL/min; MAGNESIUM 1.9 mg/dL (1.8-2.4); POTASSIUM,K 3.6 mmol/L (3.5-5.1); PROTEIN TOTAL,TP 6.6 g/dL (6.4-8.2)
[2024-05-20 07:18] LABS: A/G RATIO 0.74
[2024-05-20] MEDS: Bumetanide 1 MG Tab PO SCH (09:05)
[2024-05-20] MEDS: hydrALAZINE 20 MG/ML SDV IVPUSH PRN (23:01)
[2024-05-21 06:21] LABS: BASOPHILS PERCENT AUTO 0.3 % (0.0-1.0); EOSINOPHILS PERCENT AUTO 0.3 % (1.0-3.0); HEMATOCRIT 37.4 % (40.0-54.0); HEMOGLOBIN 11.7 g/dL (14.0-18.0); LYMPHOCYTES PERCENT AUTO 17.6 % (20.5-50.1); MEAN CORPUSCULAR HEMOGLOBIN 29.4 pg (27.0-34.0); MEAN CORPUSCULAR HGB CONC 31.3 g/dL (33.0-35.0); NEUTROPHILS PERCENT AUTO 71.8 % (42.2-75.2); PLATELET COUNT,PLT 254 10^3/uL (150-450); RED BLOOD CELL COUNT 3.98 10^6/uL (4.6-6.2); WHITE BLOOD CELL COUNT,WBC 11.3 10^3/uL (5.0-10.0)
[2024-05-21 06:45] LABS: ALBUMIN 2.8 g/dL (3.4-5.0); ANION GAP 12.3 mEq/L (7-13); BILIRUBIN TOTAL 0.2 mg/dL (0.2-1.0); C-REACTIVE PROTEIN 1.47 ng/dL (<=0.50); CALCIUM 8.9 mg/dL (8.5-10.1); CREATININE 1.21 mg/dL (0.70-1.30); EST CRCL DRUG DOSING (CG) 74.54 mL/min; MAGNESIUM 1.7 mg/dL (1.8-2.4); POTASSIUM,K 3.3 mmol/L (3.5-5.1); PROTEIN TOTAL,TP 6.4 g/dL (6.4-8.2)
[2024-05-21 06:48] LABS: A/G RATIO 0.78
[2024-05-21] MEDS: VANCOmycin 1.5 GM/300 ML 1.5 GM in Premix Bag 1 BAG IV SCH ×3 (08:40→16:24)
[2024-05-21] MEDS: Potassium Chloride 10 MEQ Tab.ER PO ONE ×2 (13:39→15:44)
[2024-05-21] MEDS: Ampicillin/Sulbactam Na 1.5 GM in Sodium Chloride 0.9% 100 ML IV SCH (16:23)
[2024-05-21] MEDS: PRAZOSIN 1 MG PO SCH (23:39)
[2024-05-22 06:40] LABS: BASOPHILS PERCENT AUTO 0.4 % (0.0-1.0); EOSINOPHILS PERCENT AUTO 1.5 % (1.0-3.0); HEMATOCRIT 38.4 % (40.0-54.0); HEMOGLOBIN 12.1 g/dL (14.0-18.0); LYMPHOCYTES PERCENT AUTO 26.1 % (20.5-50.1); MEAN CORPUSCULAR HEMOGLOBIN 29.6 pg (27.0-34.0); MEAN CORPUSCULAR HGB CONC 31.5 g/dL (33.0-35.0); MEAN CORPUSCULAR VOLUME 93.9 fL (80-100); MONOCYTES PERCENT AUTO 10.3 % (2-8); NEUTROPHILS PERCENT AUTO 61.7 % (42.2-75.2); PLATELET COUNT,PLT 256 10^3/uL (150-450); RED BLOOD CELL COUNT 4.09 10^6/uL (4.6-6.2); WHITE BLOOD CELL COUNT,WBC 10.4 10^3/uL (5.0-10.0)
[2024-05-22 06:59] LABS: A/G RATIO 0.77; ALBUMIN 2.7 g/dL (3.4-5.0); ANION GAP 7.1 mEq/L (7-13); BILIRUBIN TOTAL 0.3 mg/dL (0.2-1.0); BUN/CREATININE RATIO 18.8 (No establ ref range); C-REACTIVE PROTEIN 0.95 ng/dL (<=0.50); CALCIUM 8.5 mg/dL (8.5-10.1); CREATININE 1.12 mg/dL (0.70-1.30); EST CRCL DRUG DOSING (CG) 80.53 mL/min; MAGNESIUM 1.7 mg/dL (1.8-2.4); POTASSIUM,K 4.1 mmol/L (3.5-5.1); PROTEIN TOTAL,TP 6.2 g/dL (6.4-8.2)
[2024-05-22] MEDS: predniSONE 20 MG Tab PO SCH (08:12)
[2024-05-22] MEDS ORDERED: Isopropyl Myristate/Mineral Oil/Water Lotion 240 ML Bottle TOP PRN (08:16)
== END 2024-05-23 14:00 | disposition home health service (06) | DRG 603 ==
LOC: UNDOADMIN 10:20 → DL.MS 10:20
PROVIDERS: ADMIT Internal Medicine; ATTEND Internal Medicine
DX: L03.115 Cellulitis of right lower limb (principal); Z68.43 Body mass index [BMI] 50.0-59.9, adult; J44.1 Chronic obstructive pulmonary disease with (acute) exacerbation; H54.7 Unspecified visual loss; G47.33 Obstructive sleep apnea (adult) (pediatric); K21.9 Gastro-esophageal reflux disease without esophagitis; G62.9 Polyneuropathy, unspecified; G25.81 Restless legs syndrome; F17.210 Nicotine dependence, cigarettes, uncomplicated; F32.A Depression, unspecified; E66.01 Morbid (severe) obesity due to excess calories; E78.00 Pure hypercholesterolemia, unspecified; I50.9 Heart failure, unspecified; I11.0 Hypertensive heart disease with heart failure; M19.90 Unspecified osteoarthritis, unspecified site; F41.9 Anxiety disorder, unspecified; F20.9 Schizophrenia, unspecified; E87.6 Hypokalemia; I87.2 Venous insufficiency (chronic) (peripheral); R79.89 Other specified abnormal findings of blood chemistry; Z91.51 Personal history of suicidal behavior; Z88.8 Allergy status to other drugs, medicaments and biological substances; Z79.82 Long term (current) use of aspirin; Z79.51 Long term (current) use of inhaled steroids; Z79.899 Other long term (current) drug therapy; Z86.711 Personal history of pulmonary embolism; Z90.49 Acquired absence of other specified parts of digestive tract; Z98.890 Other specified postprocedural states
CPT/HCPCS: 36415; 80053; 80202; 83605; 83735; 84145; 85025; 85379; 86140; 87040; 87081; 93970; 94640; 99222; 99232; 99239; A9270-GY; J0295; J0360; J1650; J3371; J3372; J3490; J7030; J7050; J7512; J7620-GY

== ENCOUNTER 2024-12-16 12:07 | Emergency (ER) | payer MEDICARE, MEDICAID ==
[2024-12-16 12:40] LABS: BASOPHILS PERCENT AUTO 0.3 % (0.0-1.0); EOSINOPHILS PERCENT AUTO 2.4 % (1.0-3.0); HEMATOCRIT 42.2 % (40.0-54.0); HEMOGLOBIN 13.7 g/dL (14.0-18.0); LYMPHOCYTES PERCENT AUTO 22.4 % (20.5-50.1); MEAN CORPUSCULAR HEMOGLOBIN 30.4 pg (27.0-34.0); MEAN CORPUSCULAR HGB CONC 32.5 g/dL (33.0-35.0); MEAN CORPUSCULAR VOLUME 93.8 fL (80-100); MONOCYTES PERCENT AUTO 11.4 % (2-8); NEUTROPHILS PERCENT AUTO 63.5 % (42.2-75.2); PLATELET COUNT,PLT 223 10^3/uL (150-450); WHITE BLOOD CELL COUNT,WBC 10.1 10^3/uL (5.0-10.0)
[2024-12-16 13:02] LABS: A/G RATIO 0.7; ALBUMIN 3.4 g/dL (3.4-5.0); ANION GAP 10.4 mEq/L (7-13); BILIRUBIN TOTAL 0.7 mg/dL (0.2-1.0); BUN/CREATININE RATIO 9.2 (No establ ref range); CALCIUM 9.2 mg/dL (8.5-10.1); CREATININE 1.53 mg/dL (0.70-1.30); EST CRCL DRUG DOSING (CG) 58.2 mL/min; MAGNESIUM 1.9 mg/dL (1.8-2.4); POTASSIUM,K 4.4 mmol/L (3.5-5.1)
== END 2024-12-16 13:52 | disposition home or self-care (01) ==
LOC: DL.ED 12:07
DX: M25.512 Pain in left shoulder (principal); I89.0 Lymphedema, not elsewhere classified; R53.1 Weakness; R53.81 Other malaise; E66.01 Morbid (severe) obesity due to excess calories; Z68.43 Body mass index [BMI] 50.0-59.9, adult; I11.0 Hypertensive heart disease with heart failure; I50.9 Heart failure, unspecified; E78.00 Pure hypercholesterolemia, unspecified; J44.9 Chronic obstructive pulmonary disease, unspecified; K21.9 Gastro-esophageal reflux disease without esophagitis; M19.90 Unspecified osteoarthritis, unspecified site; F17.200 Nicotine dependence, unspecified, uncomplicated; Z90.49 Acquired absence of other specified parts of digestive tract; Z88.8 Allergy status to other drugs, medicaments and biological substances; Z79.82 Long term (current) use of aspirin; Z79.51 Long term (current) use of inhaled steroids; Z79.899 Other long term (current) drug therapy
CPT/HCPCS: 36415; 73030-LT; 80053; 83735; 83880; 84484; 85025; 93005; 93010; 99284; 99285

== ENCOUNTER 2025-01-09 15:07 | Inpatient (IN) | payer MEDICARE, MEDICAID ==
[2025-01-09 15:57] LABS: BASOPHILS PERCENT AUTO 0.6 % (0.0-1.0); EOSINOPHILS PERCENT AUTO 1.5 % (1.0-3.0); HEMATOCRIT 42.4 % (40.0-54.0); HEMOGLOBIN 14.4 g/dL (14.0-18.0); LYMPHOCYTES PERCENT AUTO 26.2 % (20.5-50.1); MEAN CORPUSCULAR HEMOGLOBIN 30.9 pg (27.0-34.0); NEUTROPHILS PERCENT AUTO 59.7 % (42.2-75.2); PLATELET COUNT,PLT 216 10^3/uL (150-450); RED BLOOD CELL COUNT 4.66 10^6/uL (4.6-6.2); WHITE BLOOD CELL COUNT,WBC 11.1 10^3/uL (5.0-10.0)
[2025-01-09 16:14] LABS: ANION GAP 10.6 mEq/L (7-13); CALCIUM 9.4 mg/dL (8.5-10.1); CREATININE 1.3 mg/dL (0.70-1.30); POTASSIUM,K 3.6 mmol/L (3.5-5.1)
[2025-01-09 16:20] LABS: APPEARANCE,URINE CLEAR (CLEAR); BILIRUBIN,URINE NEGATIVE (NEGATIVE); COLOR,URINE YELLOW (YELLOW); GLUCOSE,URINE NEGATIVE (NEGATIVE); KETONES,URINE NEGATIVE (NEGATIVE); LEUKOCYTE ESTERASE,URINE NEGATIVE (NEGATIVE); NITRITE,URINE NEGATIVE (NEGATIVE); OCCULT BLOOD,URINE NEGATIVE (NEGATIVE); PH,URINE 6.5 (5.0-9.0); PROTEIN,URINE NEGATIVE (NEGATIVE)
[2025-01-09] MEDS ORDERED: Metoprolol Tartrate 5 MG/5 ML SDV IVPUSH PRN (20:12)
[2025-01-09] MEDS ORDERED: Bisacodyl 10 MG Supp RECTAL PRN (20:12)
[2025-01-09] MEDS ORDERED: Acetaminophen 325 MG Tab PO PRN (20:12)
[2025-01-09] MEDS ORDERED: HYDROmorphone 0.5 MG/0.5 ML Syringe IVPUSH PRN (20:12)
[2025-01-09] MEDS ORDERED: Metoclopramide 10 MG/2 ML SDV IV PRN (20:12)
[2025-01-09] MEDS ORDERED: Ondansetron 4 MG/2 ML SDV IVPUSH PRN (20:12)
[2025-01-09] MEDS ORDERED: Magnesium Hydroxide 400 MG/5 ML Susp 30 ML Cup PO PRN (20:12)
[2025-01-09] MEDS ORDERED: Polyethylene Glycol 3350 Powder 17 GM Packet PO PRN (20:12)
[2025-01-09] MEDS ORDERED: Albuterol 0.083% 2.5 MG/3 ML Neb Soln NEB PRN (20:12)
[2025-01-09] MEDS ORDERED: hydrALAZINE 20 MG/ML SDV IVPUSH PRN (20:12)
[2025-01-09] MEDS: Gabapentin 400 MG Cap PO SCH (21:32)
[2025-01-09] MEDS: Temazepam 15 MG Cap PO PRN (21:32)
[2025-01-09] MEDS: Nystatin Topical Powder 60 GM Bottle TOP SCH (21:33)
[2025-01-10 06:57] LABS: CHOLESTEROL HDL 29 mg/dL (40-59); CHOLESTEROL LDL CALCULATED 92 mg/dL (0-100); CHOLESTEROL TOTAL 146 mg/dL (0-199); TRIGLYCERIDES 124 mg/dL (0-149)
[2025-01-10] MEDS ORDERED: Enoxaparin 40 MG/0.4 ML Syringe SUBCUT SCH (09:00)
[2025-01-10] MEDS: Carbamide Peroxide 6.5% Otic Soln 15 ML Bottle EARLF SCH (09:48)
[2025-01-10] MEDS: Enoxaparin 40 MG/0.4 ML Syringe SUBCUT SCH (09:48)
[2025-01-10] MEDS: Bacitracin/Neomycin/Polymyxin B Oint 28.4 GM Tube TOP SCH (09:49)
[2025-01-10] MEDS ORDERED: Emollient Combination No.71 177 ML Bottle TOP PRN (10:05)
[2025-01-10] MEDS: Acetaminophen/HYDROcodone 325-10 MG Tab PO PRN (10:47)
[2025-01-10] MEDS ORDERED: Docusate Sodium 100 MG Cap PO PRN (10:56)
[2025-01-10] MEDS ORDERED: Acetaminophen/oxyCODONE 325-5 MG Tab PO PRN (10:56)
[2025-01-10] MEDS ORDERED: Sennosides/Docusate Sodium 50-8.6 MG Tab PO PRN (10:56)
[2025-01-10] MEDS ORDERED: Albuterol/Ipratropium 3.0-0.5 MG/3 ML Neb Soln NEB PRN (10:56)
[2025-01-10] MEDS ORDERED: Polyethylene Glycol 3350 Powder 17 GM Packet PO PRN (10:56)
[2025-01-10] MEDS ORDERED: Acetaminophen 325 MG Tab PO PRN (11:01)
[2025-01-10] MEDS: FLUoxetine 10 MG Cap PO ONE (11:26)
[2025-01-10] MEDS: Aspirin 81 MG Tab.EC PO ONE (11:27)
[2025-01-10] MEDS: Pantoprazole 40 MG Tab.CR PO ONE (11:27)
[2025-01-10] MEDS: amLODIPine 5 MG Tab PO ONE (11:27)
[2025-01-10] MEDS: Bumetanide 1 MG Tab PO ONE (11:28)
[2025-01-10] MEDS: Carvedilol 25 MG Tab PO ONE (11:30)
[2025-01-10] MEDS: QUEtiapine 100 MG Tab PO SCH ×2 (11:31→20:42)
[2025-01-10] MEDS: traZODone 50 MG Tab PO SCH ×2 (11:31→20:42)
[2025-01-10] MEDS: Acetaminophen 500 MG Tab PO PRN (18:36)
[2025-01-10] MEDS: Acetaminophen/oxyCODONE 325-5 MG Tab PO PRN (19:41)
[2025-01-10] MEDS: GI Cocktail Oral Solution 30 ML PO PRN (19:54)
[2025-01-10] MEDS: Gabapentin 300 MG Cap PO SCH (20:42)
[2025-01-11] MEDS: Pantoprazole 40 MG Tab.CR PO SCH (06:25)
[2025-01-11] MEDS: amLODIPine 5 MG Tab PO SCH (08:50)
[2025-01-11] MEDS: Carvedilol 25 MG Tab PO SCH (08:50)
[2025-01-11] MEDS: FLUoxetine 10 MG Cap PO SCH (08:51)
[2025-01-11] MEDS: Aspirin 81 MG Tab.EC PO SCH (08:52)
[2025-01-11] MEDS: Bumetanide 1 MG Tab PO SCH (08:52)
[2025-01-11] MEDS ORDERED: Non-Formulary Medication 1 Each (Prazosin [Minpress] 1 MG Cap) PO SCH (09:00)
== END 2025-01-12 13:45 | disposition swing bed (61) | DRG 92 ==
LOC: DL.ED 15:07 → DL.MS 18:07
PROVIDERS: ADMIT Internal Medicine; ATTEND Internal Medicine
DX: R29.6 Repeated falls (principal); B37.89 Other sites of candidiasis; E66.2 Morbid (severe) obesity with alveolar hypoventilation; Z68.44 Body mass index [BMI] 60.0-69.9, adult; E66.9 Obesity, unspecified; H54.7 Unspecified visual loss; E78.00 Pure hypercholesterolemia, unspecified; I50.9 Heart failure, unspecified; I11.0 Hypertensive heart disease with heart failure; J44.9 Chronic obstructive pulmonary disease, unspecified; K21.9 Gastro-esophageal reflux disease without esophagitis; M19.90 Unspecified osteoarthritis, unspecified site; G25.81 Restless legs syndrome; F41.9 Anxiety disorder, unspecified; F32.A Depression, unspecified; F20.9 Schizophrenia, unspecified; G62.9 Polyneuropathy, unspecified; R63.2 Polyphagia; I87.2 Venous insufficiency (chronic) (peripheral); E66.813 Obesity, class 3; Z79.82 Long term (current) use of aspirin; Z88.8 Allergy status to other drugs, medicaments and biological substances; Z86.718 Personal history of other venous thrombosis and embolism; Z90.49 Acquired absence of other specified parts of digestive tract; Z98.890 Other specified postprocedural states; Z79.899 Other long term (current) drug therapy
CPT/HCPCS: 36415; 73030-LT; 73080-LT; 80048; 80061; 81003; 82550; 84484; 85025; 93005; 94010; 97161-GP; 97165-GO; 99285; A9270-GY; J1650; J3490

== ENCOUNTER 2025-01-12 13:24 | Inpatient (IN) | payer MEDICARE, MEDICAID ==
[2025-01-12] MEDS ORDERED: hydrALAZINE 20 MG/ML SDV IVPUSH PRN (13:36)
[2025-01-12] MEDS ORDERED: Magnesium Hydroxide 400 MG/5 ML Susp 30 ML Cup PO PRN (13:36)
[2025-01-12] MEDS ORDERED: Emollient Combination No.71 177 ML Bottle TOP PRN (13:36)
[2025-01-12] MEDS ORDERED: Ondansetron 4 MG Tab.DIS PO PRN (13:41)
[2025-01-12] MEDS ORDERED: Sodium Chloride 0.9% 10 ML Syringe FLUSH PRN (15:04)
[2025-01-12] MEDS: Acetaminophen/oxyCODONE 325-5 MG Tab PO PRN (15:35)
[2025-01-12] MEDS: Nystatin Topical Powder 60 GM Bottle TOP SCH (21:32)
[2025-01-12] MEDS: Patient's Own Medication 1 Each PO SCH (21:32)
[2025-01-13] MEDS: Potassium Chloride 10 MEQ Tab.ER PO SCH ×2 (08:55→11:16)
[2025-01-13] MEDS ORDERED: Non-Formulary Medication 1 Each (Aspirin [Halfprin] 81 MG Tab.Ec) PO SCH (09:00)
[2025-01-13] MEDS ORDERED: PRAZOSIN 1 MG PO SCH (09:00)
[2025-01-15] MEDS: GI Cocktail Oral Solution 30 ML PO PRN (18:24)
[2025-01-16] MEDS: oxyCODONE ER 20 MG TAB.ER PO ONE (11:41)
[2025-01-17] MEDS: Potassium Chloride 10 MEQ Tab.ER PO SCH (10:41)
[2025-01-17] MEDS: Furosemide 40 MG/4 ML VIAL IVPUSH SCH (10:45)
[2025-01-17 11:09] LABS: BLOOD UREA NITROGEN,BUN 21.0 mg/dL (7-18); CARBON DIOXIDE,CO2 34.0 mmol/L (21-32); CHLORIDE,CL 101.0 mmol/L (98-107); CREATININE 1.35 mg/dL (0.70-1.30); EST CRCL DRUG DOSING (CG) 65.96 mL/min; GLUCOSE RANDOM 136.0 mg/dL (70-99); POTASSIUM,K 4.3 mmol/L (3.5-5.1); SODIUM,NA 141.0 mmol/L (136-145); T4 FREE 0.83 ng/dL (0.76-1.46); TSH ULTRASENSITIVE 6.05 uIU/mL (0.36-3.74)
[2025-01-17] MEDS: Acetaminophen/oxyCODONE 325-5 MG Tab PO SCH (11:09)
[2025-01-17 11:11] LABS: ESTIMATED GFR 59.0 mL/min (>=60)
[2025-01-18 06:51] LABS: BLOOD UREA NITROGEN,BUN 20.0 mg/dL (7-18); CARBON DIOXIDE,CO2 35.0 mmol/L (21-32); CHLORIDE,CL 103.0 mmol/L (98-107); CREATININE 1.3 mg/dL (0.70-1.30); EST CRCL DRUG DOSING (CG) 68.5 mL/min; GLUCOSE RANDOM 92.0 mg/dL (70-99); POTASSIUM,K 3.6 mmol/L (3.5-5.1); SODIUM,NA 142.0 mmol/L (136-145)
[2025-01-18 06:52] LABS: ESTIMATED GFR 62.0 mL/min (>=60)
[2025-01-18] MEDS: Furosemide 40 MG/4 ML VIAL IVPUSH ONE (14:24)
[2025-01-18] MEDS: Sennosides/Docusate Sodium 50-8.6 MG Tab PO PRN (17:37)
[2025-01-19 08:13] LABS: BASOPHILS PERCENT AUTO 0.3 % (0.0-1.0); EOSINOPHILS PERCENT AUTO 2.4 % (1.0-3.0); LYMPHOCYTES PERCENT AUTO 25.8 % (20.5-50.1); MONOCYTES PERCENT AUTO 14.8 % (2-8); NEUTROPHILS PERCENT AUTO 56.7 % (42.2-75.2); PLATELET COUNT,PLT 238 10^3/uL (150-450); RED BLOOD CELL COUNT 3.62 10^6/uL (4.6-6.2); WHITE BLOOD CELL COUNT,WBC 8.6 10^3/uL (5.0-10.0)
[2025-01-19 08:28] LABS: BLOOD UREA NITROGEN,BUN 17.0 mg/dL (7-18); CARBON DIOXIDE,CO2 35.0 mmol/L (21-32); CHLORIDE,CL 103.0 mmol/L (98-107); CREATININE 1.25 mg/dL (0.70-1.30); EST CRCL DRUG DOSING (CG) 71.24 mL/min; ESTIMATED GFR 65.0 mL/min (>=60); GLUCOSE RANDOM 97.0 mg/dL (70-99); POTASSIUM,K 3.7 mmol/L (3.5-5.1); SODIUM,NA 141.0 mmol/L (136-145)
[2025-01-19] MEDS: Furosemide 40 MG/4 ML VIAL IVPUSH ONE ×2 (12:34→19:34)
== END 2025-01-20 09:05 | disposition left against medical advice (07) | DRG 948 ==
LOC: DL.MS 13:45
PROVIDERS: ADMIT Internal Medicine; ATTEND Internal Medicine
DX: R53.81 Other malaise (principal); Z68.43 Body mass index [BMI] 50.0-59.9, adult; H54.7 Unspecified visual loss; J44.9 Chronic obstructive pulmonary disease, unspecified; G47.33 Obstructive sleep apnea (adult) (pediatric); K21.9 Gastro-esophageal reflux disease without esophagitis; G62.9 Polyneuropathy, unspecified; G25.81 Restless legs syndrome; F32.A Depression, unspecified; F20.9 Schizophrenia, unspecified; E66.813 Obesity, class 3; E78.00 Pure hypercholesterolemia, unspecified; G47.10 Hypersomnia, unspecified; I87.2 Venous insufficiency (chronic) (peripheral); M79.3 Panniculitis, unspecified; R63.2 Polyphagia; I50.9 Heart failure, unspecified; I11.0 Hypertensive heart disease with heart failure; M19.90 Unspecified osteoarthritis, unspecified site; F41.9 Anxiety disorder, unspecified; Z90.49 Acquired absence of other specified parts of digestive tract; Z79.899 Other long term (current) drug therapy; Z98.890 Other specified postprocedural states; Z79.82 Long term (current) use of aspirin; Z86.718 Personal history of other venous thrombosis and embolism; Z88.8 Allergy status to other drugs, medicaments and biological substances; Z72.0 Tobacco use
CPT/HCPCS: 36415; 51702; 73020-RT; 80048; 83735; 84439; 84443; 85025; 97110-GO; 97110-GP; 97161-GP; 97165-GO; 99306; 99310; 99315; A9270-GY; J1650; J1938; J2543; J3490

== ENCOUNTER 2025-01-23 16:39 | Emergency (ER) | payer MEDICARE, MEDICAID ==
[2025-01-23 17:42] LABS: BASOPHILS PERCENT AUTO 0.5 % (0.0-1.0); EOSINOPHILS PERCENT AUTO 3.3 % (1.0-3.0); LYMPHOCYTES PERCENT AUTO 27.3 % (20.5-50.1); MONOCYTES PERCENT AUTO 12.0 % (2-8); NEUTROPHILS PERCENT AUTO 56.9 % (42.2-75.2); PLATELET COUNT,PLT 303 10^3/uL (150-450); RED BLOOD CELL COUNT 4.31 10^6/uL (4.6-6.2); WHITE BLOOD CELL COUNT,WBC 10.1 10^3/uL (5.0-10.0)
[2025-01-23 18:03] LABS: ALANINE AMINOTRANSFERASE,ALT 26 U/L (16-63); ASPARTATE AMNIOTRANSFERASE,AST 21 U/L (15-37); BILIRUBIN DIRECT 0.2 mg/dL (0.0-0.2); BILIRUBIN INDIRECT 0.3; BILIRUBIN TOTAL 0.5 mg/dL (0.2-1.0); BLOOD UREA NITROGEN,BUN 8 mg/dL (7-18); CARBON DIOXIDE,CO2 33 mmol/L (21-32); CHLORIDE,CL 101 mmol/L (98-107); CREATININE 1.24 mg/dL (0.70-1.30); GLUCOSE RANDOM 97 mg/dL (70-99); POTASSIUM,K 4.3 mmol/L (3.5-5.1); PROTEIN TOTAL,TP 7.9 g/dL (6.4-8.2); SODIUM,NA 138 mmol/L (136-145)
[2025-01-23 18:04] LABS: A/G RATIO 0.68; ESTIMATED GFR 66 mL/min (>=60)
[2025-01-23 18:29] LABS: B-TYPE NATRIURETIC PEPTIDE,BNP 24 pg/ml (0-100)
== END 2025-01-23 19:44 | disposition home or self-care (01) ==
LOC: DL.ED 16:39
DX: N50.89 Other specified disorders of the male genital organs (principal); R62.7 Adult failure to thrive; I11.0 Hypertensive heart disease with heart failure; I50.9 Heart failure, unspecified; E78.00 Pure hypercholesterolemia, unspecified; J44.9 Chronic obstructive pulmonary disease, unspecified; Z90.49 Acquired absence of other specified parts of digestive tract; Z88.8 Allergy status to other drugs, medicaments and biological substances; Z79.82 Long term (current) use of aspirin; Z79.51 Long term (current) use of inhaled steroids; Z79.899 Other long term (current) drug therapy
CPT/HCPCS: 36415; 80048; 80076; 83880; 84484; 85025; 99284; A9270-GY

== ENCOUNTER 2025-01-27 14:44 | Emergency (ER) | payer MEDICARE, MEDICAID ==
[2025-01-27 16:37] LABS: BASOPHILS PERCENT AUTO 0.5 % (0.0-1.0); EOSINOPHILS PERCENT AUTO 2.9 % (1.0-3.0); LYMPHOCYTES PERCENT AUTO 19.8 % (20.5-50.1); MONOCYTES PERCENT AUTO 10.8 % (2-8); NEUTROPHILS PERCENT AUTO 66.0 % (42.2-75.2); PLATELET COUNT,PLT 333 10^3/uL (150-450); RED BLOOD CELL COUNT 4.53 10^6/uL (4.6-6.2); WHITE BLOOD CELL COUNT,WBC 11.6 10^3/uL (5.0-10.0)
[2025-01-27 16:43] LABS: APPEARANCE,URINE CLEAR (CLEAR); GLUCOSE,URINE NEGATIVE (NEGATIVE); OCCULT BLOOD,URINE TRACE-INTACT (NEGATIVE)
[2025-01-27 16:57] LABS: EPITHELIAL CELLS,URINE FEW /HPF (NOT SEEN)
[2025-01-27 16:58] LABS: A/G RATIO 0.8; ALANINE AMINOTRANSFERASE,ALT 24 U/L (16-63); ASPARTATE AMNIOTRANSFERASE,AST 19 U/L (15-37); BILIRUBIN TOTAL 0.6 mg/dL (0.2-1.0); BLOOD UREA NITROGEN,BUN 8 mg/dL (7-18); CARBON DIOXIDE,CO2 30 mmol/L (21-32); CHLORIDE,CL 102 mmol/L (98-107); CREATININE 1.19 mg/dL (0.70-1.30); GLUCOSE RANDOM 93 mg/dL (70-99); POTASSIUM,K 4.0 mmol/L (3.5-5.1); PROTEIN TOTAL,TP 8.3 g/dL (6.4-8.2); SODIUM,NA 137 mmol/L (136-145)
[2025-01-27 17:00] LABS: ESTIMATED GFR 69 mL/min (>=60)
[2025-01-27 17:01] LABS: INR 1.0 (0.9-1.2); LACTIC ACID 0.9 mmol/L (0.4-2.0); PTT,PARTIAL THROMBOPLSTIN TIME 23.5 SEC (22.0-34.0)
[2025-01-27 17:07] LABS: B-TYPE NATRIURETIC PEPTIDE,BNP 53 pg/ml (0-100)
== END 2025-01-27 18:03 | disposition home or self-care (01) ==
LOC: DL.ED 14:44 → EEVIPCON 14:44 → DL.ED 18:03
DX: R45.6 Violent behavior (principal); Z76.5 Malingerer [conscious simulation]; F17.210 Nicotine dependence, cigarettes, uncomplicated; J44.9 Chronic obstructive pulmonary disease, unspecified; K21.9 Gastro-esophageal reflux disease without esophagitis; I11.0 Hypertensive heart disease with heart failure; I50.9 Heart failure, unspecified; E66.9 Obesity, unspecified; Z91.148 Patient's other noncompliance with medication regimen for other reason; Z79.899 Other long term (current) drug therapy; Z79.82 Long term (current) use of aspirin; Z88.1 Allergy status to other antibiotic agents
CPT/HCPCS: 36415; 80053; 81001; 83605; 83735; 83880; 85025; 85610; 85730; 86140; 99284

== ENCOUNTER 2025-04-19 11:34 | Inpatient (IN) | payer MEDICARE, MEDICAID ==
[2025-04-19 13:41] LABS: BASOPHILS PERCENT AUTO 0.4 % (0.0-1.0); EOSINOPHILS PERCENT AUTO 2.0 % (1.0-3.0); LYMPHOCYTES PERCENT AUTO 21.0 % (20.5-50.1); MONOCYTES PERCENT AUTO 11.7 % (2-8); NEUTROPHILS PERCENT AUTO 64.9 % (42.2-75.2); PLATELET COUNT,PLT 238 10^3/uL (150-450); RED BLOOD CELL COUNT 4.97 10^6/uL (4.6-6.2); WHITE BLOOD CELL COUNT,WBC 11.6 10^3/uL (5.0-10.0)
[2025-04-19 13:55] LABS: INR 1.0 (0.9-1.2)
[2025-04-19 14:00] LABS: B-TYPE NATRIURETIC PEPTIDE,BNP 13.0 pg/ml (0-100)
[2025-04-19 14:02] LABS: A/G RATIO 0.7; ALANINE AMINOTRANSFERASE,ALT 36.0 U/L (16-63); ASPARTATE AMNIOTRANSFERASE,AST 26.0 U/L (15-37); BILIRUBIN TOTAL 1.1 mg/dL (0.2-1.0); BLOOD UREA NITROGEN,BUN 20.0 mg/dL (7-18); CARBON DIOXIDE,CO2 30.0 mmol/L (21-32); CHLORIDE,CL 96.0 mmol/L (98-107); CREATININE 1.39 mg/dL (0.70-1.30); EST CRCL DRUG DOSING (CG) 64.06 mL/min; ESTIMATED GFR 57.0 mL/min (>=60); GLUCOSE RANDOM 93.0 mg/dL (70-99); POTASSIUM,K 4.2 mmol/L (3.5-5.1); PROTEIN TOTAL,TP 8.6 g/dL (6.4-8.2); SODIUM,NA 133.0 mmol/L (136-145)
[2025-04-19 14:03] LABS: D-DIMER QUANTITATIVE 1370.0 ng/mL (0-400)
[2025-04-19] MEDS ORDERED: Heparin Sodium/0.45% NaCl 25,000 UNITS/500 ML BAG IV SCH (18:15)
[2025-04-19] MEDS: Heparin Sodium 5,000 Units/ML Vial IVPUSH ONE (20:22)
[2025-04-19] MEDS: Heparin Sodium/0.45% NaCl 25,000 UNITS/500 ML BAG IV SCH (20:23)
[2025-04-19] MEDS: QUETIAPINE FUMARATE 200 MG PO SCH (23:03)
[2025-04-20] MEDS: Heparin Sodium 5,000 Units/ML Vial IVPUSH ONE ×2 (04:12→18:17)
[2025-04-20 05:39] LABS: BASOPHILS PERCENT AUTO 0.4 % (0.0-1.0); EOSINOPHILS PERCENT AUTO 2.4 % (1.0-3.0); LYMPHOCYTES PERCENT AUTO 29.1 % (20.5-50.1); MONOCYTES PERCENT AUTO 13.6 % (2-8); NEUTROPHILS PERCENT AUTO 54.5 % (42.2-75.2); PLATELET COUNT,PLT 243 10^3/uL (150-450); RED BLOOD CELL COUNT 4.34 10^6/uL (4.6-6.2); WHITE BLOOD CELL COUNT,WBC 9.7 10^3/uL (5.0-10.0)
[2025-04-20 05:46] LABS: ALANINE AMINOTRANSFERASE,ALT 30.0 U/L (16-63); ASPARTATE AMNIOTRANSFERASE,AST 20.0 U/L (15-37); BILIRUBIN TOTAL 0.6 mg/dL (0.2-1.0); BLOOD UREA NITROGEN,BUN 22.0 mg/dL (7-18); CARBON DIOXIDE,CO2 30.0 mmol/L (21-32); CHLORIDE,CL 100.0 mmol/L (98-107); CREATININE 1.19 mg/dL (0.70-1.30); EST CRCL DRUG DOSING (CG) 74.83 mL/min; GLUCOSE RANDOM 95.0 mg/dL (70-99); POTASSIUM,K 4.0 mmol/L (3.5-5.1); PROTEIN TOTAL,TP 7.3 g/dL (6.4-8.2); SODIUM,NA 138.0 mmol/L (136-145)
[2025-04-20 05:47] LABS: A/G RATIO 0.66; ESTIMATED GFR 69.0 mL/min (>=60)
[2025-04-20] MEDS: Potassium Chloride 10 MEQ Tab.ER PO SCH (09:25)
[2025-04-20] MEDS: Lactulose Soln 10 GM/15 ML 30 ML UD Cup PO ONE (10:00)
[2025-04-20] MEDS: PRAZOSIN 1 MG PO SCH (20:38)
[2025-04-21 06:49] LABS: BASOPHILS PERCENT AUTO 0.4 % (0.0-1.0); EOSINOPHILS PERCENT AUTO 2.1 % (1.0-3.0); LYMPHOCYTES PERCENT AUTO 32.5 % (20.5-50.1); MONOCYTES PERCENT AUTO 12.7 % (2-8); NEUTROPHILS PERCENT AUTO 52.3 % (42.2-75.2); PLATELET COUNT,PLT 210 10^3/uL (150-450); RED BLOOD CELL COUNT 4.20 10^6/uL (4.6-6.2); WHITE BLOOD CELL COUNT,WBC 8.4 10^3/uL (5.0-10.0)
[2025-04-21 07:07] LABS: BLOOD UREA NITROGEN,BUN 19.0 mg/dL (7-18); CARBON DIOXIDE,CO2 29.0 mmol/L (21-32); CHLORIDE,CL 104.0 mmol/L (98-107); CREATININE 1.15 mg/dL (0.70-1.30); EST CRCL DRUG DOSING (CG) 77.43 mL/min; GLUCOSE RANDOM 135.0 mg/dL (70-99); POTASSIUM,K 4.1 mmol/L (3.5-5.1); SODIUM,NA 140.0 mmol/L (136-145)
[2025-04-21 07:09] LABS: ESTIMATED GFR 72.0 mL/min (>=60); INR 1.0 (0.9-1.2); PTT,PARTIAL THROMBOPLSTIN TIME 83.4 SEC (22.0-34.0)
[2025-04-21] MEDS: Heparin Sodium 5,000 Units/ML Vial IVPUSH ONE (14:35)
[2025-04-22 09:48] LABS: INR 1.3 (0.9-1.2); PTT,PARTIAL THROMBOPLSTIN TIME 56.1 SEC (22.0-34.0)
[2025-04-22] MEDS: Heparin Sodium 5,000 Units/ML Vial IVPUSH PRN (10:23)
[2025-04-22 10:52] LABS: BASOPHILS PERCENT AUTO 0.4 % (0.0-1.0); EOSINOPHILS PERCENT AUTO 4.9 % (1.0-3.0); LYMPHOCYTES PERCENT AUTO 33.8 % (20.5-50.1); MONOCYTES PERCENT AUTO 13.0 % (2-8); NEUTROPHILS PERCENT AUTO 47.9 % (42.2-75.2); PLATELET COUNT,PLT 218 10^3/uL (150-450); RED BLOOD CELL COUNT 4.36 10^6/uL (4.6-6.2); WHITE BLOOD CELL COUNT,WBC 7.2 10^3/uL (5.0-10.0)
[2025-04-22 10:53] LABS: APPEARANCE,URINE CLOUDY (CLEAR); GLUCOSE,URINE NEGATIVE (NEGATIVE); OCCULT BLOOD,URINE LARGE (NEGATIVE)
[2025-04-22 11:02] LABS: EPITHELIAL CELLS,URINE FEW /HPF (NOT SEEN)
[2025-04-22] MEDS: Nystatin Topical Powder 60 GM Bottle TOP SCH (11:09)
[2025-04-23] MEDS: Heparin Sodium 5,000 Units/ML Vial ONE (02:47)
[2025-04-23 06:31] LABS: BASOPHILS PERCENT AUTO 0.4 % (0.0-1.0); EOSINOPHILS PERCENT AUTO 4.4 % (1.0-3.0); LYMPHOCYTES PERCENT AUTO 32.8 % (20.5-50.1); MONOCYTES PERCENT AUTO 13.3 % (2-8); NEUTROPHILS PERCENT AUTO 49.1 % (42.2-75.2); PLATELET COUNT,PLT 216 10^3/uL (150-450); RED BLOOD CELL COUNT 4.28 10^6/uL (4.6-6.2); WHITE BLOOD CELL COUNT,WBC 9.0 10^3/uL (5.0-10.0)
[2025-04-23 06:41] LABS: INR 1.4 (0.9-1.2)
[2025-04-23 06:43] LABS: BLOOD UREA NITROGEN,BUN 17.0 mg/dL (7-18); CARBON DIOXIDE,CO2 29.0 mmol/L (21-32); CHLORIDE,CL 103.0 mmol/L (98-107); CREATININE 1.12 mg/dL (0.70-1.30); EST CRCL DRUG DOSING (CG) 79.51 mL/min; ESTIMATED GFR 74.0 mL/min (>=60); GLUCOSE RANDOM 117.0 mg/dL (70-99); POTASSIUM,K 4.6 mmol/L (3.5-5.1); SODIUM,NA 139.0 mmol/L (136-145)
[2025-04-24 05:47] LABS: BASOPHILS PERCENT AUTO 0.3 % (0.0-1.0); EOSINOPHILS PERCENT AUTO 4.6 % (1.0-3.0); LYMPHOCYTES PERCENT AUTO 28.5 % (20.5-50.1); MONOCYTES PERCENT AUTO 12.9 % (2-8); NEUTROPHILS PERCENT AUTO 53.7 % (42.2-75.2); PLATELET COUNT,PLT 230 10^3/uL (150-450); RED BLOOD CELL COUNT 4.34 10^6/uL (4.6-6.2); WHITE BLOOD CELL COUNT,WBC 9.2 10^3/uL (5.0-10.0)
[2025-04-24 06:01] LABS: BLOOD UREA NITROGEN,BUN 20.0 mg/dL (7-18); CARBON DIOXIDE,CO2 32.0 mmol/L (21-32); CHLORIDE,CL 100.0 mmol/L (98-107); CREATININE 1.14 mg/dL (0.70-1.30); EST CRCL DRUG DOSING (CG) 78.11 mL/min; GLUCOSE RANDOM 123.0 mg/dL (70-99); POTASSIUM,K 4.8 mmol/L (3.5-5.1); SODIUM,NA 137.0 mmol/L (136-145)
[2025-04-24 06:03] LABS: ESTIMATED GFR 73.0 mL/min (>=60)
[2025-04-24 10:23] LABS: INR 1.8 (0.9-1.2); PTT,PARTIAL THROMBOPLSTIN TIME 88.3 SEC (22.0-34.0)
[2025-04-24] MEDS: Heparin Sodium 5,000 Units/ML Vial ONE (17:19)
[2025-04-25 06:54] LABS: INR 2.2 (0.9-1.2); PTT,PARTIAL THROMBOPLSTIN TIME 55.0 SEC (22.0-34.0)
[2025-04-25] MEDS: Heparin Sodium 5,000 Units/ML Vial IVPUSH ONE (07:49)
[2025-04-25] MEDS: Heparin Sodium 5,000 Units/ML Vial IVPUSH STA (23:20)
[2025-04-26 06:32] LABS: BASOPHILS PERCENT AUTO 0.4 % (0.0-1.0); EOSINOPHILS PERCENT AUTO 4.5 % (1.0-3.0); LYMPHOCYTES PERCENT AUTO 31.6 % (20.5-50.1); MONOCYTES PERCENT AUTO 10.9 % (2-8); NEUTROPHILS PERCENT AUTO 52.6 % (42.2-75.2); PLATELET COUNT,PLT 201 10^3/uL (150-450); RED BLOOD CELL COUNT 4.09 10^6/uL (4.6-6.2); WHITE BLOOD CELL COUNT,WBC 8.5 10^3/uL (5.0-10.0)
[2025-04-26 07:19] LABS: INR 1.9 (0.9-1.2)
[2025-04-26 10:10] LABS: INR 1.8 (0.9-1.2)
[2025-04-26 13:27] LABS: INR 1.7 (0.9-1.2); PTT,PARTIAL THROMBOPLSTIN TIME 57.9 SEC (22.0-34.0)
[2025-04-26] MEDS: Heparin Sodium 5,000 Units/ML Vial IVPUSH ONE (14:27)
== END 2025-04-27 10:54 | disposition home or self-care (01) | DRG 300 ==
LOC: DL.ED 11:34 → DL.MS 17:07
PROVIDERS: ADMIT Internal Medicine; ATTEND Internal Medicine
PROC: 0T9B70Z Drainage of Bladder with Drainage Device, Via Natural or Artificial Opening (ICD-10-PCS; principal; 2025-04-23)
DX: M79.662 Pain in left lower leg (principal); I82.402 Acute embolism and thrombosis of unspecified deep veins of left lower extremity; I50.9 Heart failure, unspecified; I50.32 Chronic diastolic (congestive) heart failure; Z68.43 Body mass index [BMI] 50.0-59.9, adult; E78.00 Pure hypercholesterolemia, unspecified; J44.9 Chronic obstructive pulmonary disease, unspecified; K21.9 Gastro-esophageal reflux disease without esophagitis; I11.0 Hypertensive heart disease with heart failure; H54.7 Unspecified visual loss; M19.90 Unspecified osteoarthritis, unspecified site; E66.9 Obesity, unspecified; R32 Unspecified urinary incontinence; F41.8 Other specified anxiety disorders; F20.9 Schizophrenia, unspecified; N36.8 Other specified disorders of urethra; Z88.8 Allergy status to other drugs, medicaments and biological substances; Z79.82 Long term (current) use of aspirin; Z79.1 Long term (current) use of non-steroidal anti-inflammatories (NSAID); Z86.711 Personal history of pulmonary embolism; Z90.49 Acquired absence of other specified parts of digestive tract; Z98.890 Other specified postprocedural states; Z79.899 Other long term (current) drug therapy; Z79.51 Long term (current) use of inhaled steroids
CPT/HCPCS: 36415; 71045; 80053; 83735; 83880; 84484; 85025; 85379; 85610; 93005; A9270; 51702; 73590-LT; 73600-LT; 80048; 81001; 85730; 87086; 87088; 87186; 93971; 99222; 99232; 99239; 99284; 99285; J1644; J3490